=== PATIENT | female | born 1980 | race Caucasian/White ===

== ENCOUNTER 2019-06-13 13:37 | Outpatient (CLI) | payer OTHER, SELFPAY ==
--- NOTE | ~2019-06-13 | XR_ITS ---
XR chest 2V DATE: 06/13/2019 13:57 INDICATION: Cough, fever, chest tightness. TECHNIQUE: PA and lateral views COMPARISON: 07/23/2018 portable AP chest FINDINGS: Normal heart size. No hilar or mediastinal enlargement. No pulmonary infiltrate or consolid ation, pleural effusion or pulmonary vascular congestion or pneumothorax. IMPRESSION: No active cardiopulmonary disease Reviewed, dictated and finalized at location B.
== END 2019-06-13 13:38 | disposition home or self-care (01) ==
PROVIDERS: PCP Emergency Medicine; Visit Provider Emergency Medicine
DX: J20.9 Acute bronchitis, unspecified (principal)
CPT/HCPCS: 71046

== ENCOUNTER 2020-10-04 14:30 | Outpatient (RCR) | payer OTHER, SELFPAY ==
--- NOTE | 2020-09-05 12:08 | PTOPEVAL ---
INITIAL PHYSICAL THERAPY EVALUATION and PLAN OF CARE Thank you for referring Fernanda Duron to [facility].? Fernanda is scheduled to be seen for physical therapy? 2x/week for 3 weeks, 1x/wk x 3 wks. Please review, sign, date and return this plan of care DANIELA. I agree with and certify that the following plan of care is medically necessary. Referring Physician Date Admitting Provider: Attending Provider: Leti Hart, ADJUNCT PHLEBOTOMY INSTRUCTOR Referring Provider: *PT Outpatient Evaluation Start: 09/05/20 10:46 Freq: Status: Active Protocol: Document 09/05/20 10:47 MARIA ANTONIA (Rec: 09/05/20 12:06 MARIA ANTONIA [id number]) Therapy Assessment Status Assessment Status Assessment Status Evaluation Outpatient Past Medical History Past Medical History Source of Past Medical History Patient,Family/Significant Other Neurological History Hx Migraine Yes Gastrointestinal History Hx Appendectomy Yes Hx Gastroesophageal Reflux Disease Yes Hx Irritable Bowel Yes Hx Ulcer Yes Hx Other Gastrointestinal Disorders Yes: enlarged liver, 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 Genitourinary History Hx Other Genitourinary Disorders Yes: frequent urination Musculoskeletal History Hx Back Pain Yes: sees chiropractor Hx Fractures Yes: R leg, arm Reproductive History Hx Other Reproductive Disorders Yes: cyst on ovary Psychosocial History Hx Anxiety Yes Evaluation Information Problem Diagnosis pelvic and perineal pain, deep dyspareunia Onset since age 19 - worsening over the years Additional Evaluation Detail has lost ~ 100 lbs in last year Subjective Information Fernanda reports different Query Text:As Reported By Patient/ types pain - in R lower Family quadrant - constant achiness. With intercourse - with penetration - stabbing sensation. But at times at rest will also have the sharp pain. Sleeping difficult due to discomfort. Days can vary - can wake up feeling pretty good, but the more she moves around - more discomfort. Can have increased discomfort - feels better as she moves around Prior Level of Function Activity Level (Last 3 Months) Occupation not working at present [employer]
--- NOTE | 2020-09-21 16:15 | PCPTNOTE ---
Patient did not show up for scheduled appointment this date. There is a week break due to PT vacation - will call prior to her next appointment.
--- NOTE | 2020-10-01 15:24 | PCPTNOTE ---
Patient did not show up for scheduled appointment this date. Phone message left reminding her of her next appointment.
--- NOTE | 2020-10-08 12:20 | PCPTNOTE ---
Patient called & cancelled scheduled appointment this date due to having an appointment.
--- NOTE | 2020-10-12 09:31 | PCPTNOTE ---
Patient called & cancelled scheduled appointment this date due to illness,
--- NOTE | 2020-10-26 13:36 | PCPTNOTE ---
PHYSICAL THERAPY DISCHARGE NOTE Admitting Provider: Attending Provider: Leti Hart, CLOTH LAMINATING SUPERVISOR Patient:Fernanda Duron Date of :1980 Fernanda has not returned for any further treatments since 10/04/2020, therefore she will be discharged at this time. Fernanda?s initial visit was on 09/05/2020 10:30 and she had a total of 3 visits. She had 2 no shows and then cancelled her last 2 appointments. She has not called to reschedule any further appoints since 10/12/20. The goals have been partially met. Thank you for referring Fernanda to [facility]. Please review, sign, date and return this discharge summary DANIELA. I have been updated about Fernanda's current status and I agree with discharge from the above service at this time. Referring Physician Date
== END 2020-11-22 09:25 | disposition home or self-care (01) ==
LOC: ANHPT 14:30
PROVIDERS: PCP Internal Medicine; Visit Provider Nurse Practitioner Obstetrics & Gynecology
DX: R10.2 Pelvic and perineal pain (principal)
CPT/HCPCS: 97014; 97140; 97162; G0283

== ENCOUNTER 2020-11-28 11:47 | Emergency (ER) | payer OTHER, SELFPAY ==
[2020-11-28 11:59] VITALS: BP 129/85; PULSE 72; RESP 18; TEMP 36.9; O2SAT 100
--- NOTE | 2020-11-28 12:06 | ED.EAR ---
HPI - Ear Problem General Chief complaint: Ear Stated complaint: Sinus,Bilateral Ear Pain Time Seen by Provider: 11/28/20 12:06 Source: patient Mode of arrival: ambulatory Limitations: no limitations History of Present Illness HPI Narrative: Fernanda Goss is a 40 yo female with a PMH of migraine, celiac disease, chronic pelvic pain syndrome, who [facility] with complaints of pain in her right ear and right neck with some postnasal drip and mild pain left ear also she states that she lives around [place] and that she has sinus issues this time of the year every year. Related Data Allergies Allergy/AdvReac Type Severity Reaction Status Date / Time acetaminophen Allergy Mild RASH Verified 11/28/20 17:31 ibuprofen AdvReac Intermediate Ulcers Verified 11/28/20 17:31 Review of Systems Review of Systems: CONSTITUTIONAL: Denies fever, chills, sweats. EYES: Denies visual changes, redness, discharge. ENT: Denies rhinorrhea, congestion, sore throat, right otalgia. Postnasal drip and pain on right side of throat CARDIOVASCULAR: Denies chest pain, palpitations, edema. RESPIRATORY: Denies dyspnea, wheezing, cough GASTROINTESTINAL: Denies abdominal pain, nausea, vomiting, diarrhea. GENITOURINARY: Denies dysuria, hematuria, abnormal discharge SKIN: Denies rash or itching. NEUROLOGIC: Denies numbness, or focal weakness. PSYCHIATRIC: Denies anxiety or depression. [facility] Past Medical History Medical History Allergies Anxiety Asthma on prn albuterol MDI Celiac disease Chronic pelvic pain syndrome in female Irritable bowel syndrome Migraine Ulcer Viral exanthem Surgical History Surgical History H/O colonoscopy History of esophageal surgery Status post appendectomy Family History Family History Father , From prostate cancer, stomach cancer, bladder cancer, renal cancer Diabetes mellitus Mother Diabetes mellitus Asthma Hypertension Depression Anxiety Heart disease Sibling Asthma Hypertension Anxiety Depression Heart disease Thyroid disorder Grandparent Cancer Diabetes mellitus Heart disease Social History Social History Smoking packs per day: 1 Smoking cigarettes per day: 20.0 Years smoked: 25 Smoking pack-years: 25.00 Smoking status: Current every day smoker Tobacco type: cigarettes Second hand tobacco smoke exposure: Yes Alcohol intake: current Substance use: current Substance use type: marijuana 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 There is no relevant family history pertinent to the presenting complaint. Exam Narrative: GENERAL: This is a well-nourished, well-developed patient, in mild distress. HEAD: normocephalic, atraumatic. EYES: Sclera clear/white. Vision is grossly intact. EARS: External ears normal, auditory canals erythema with right greater than left and without drainage, fluid behind TM on right. Hearing grossly intact. NOSE: External nose normal without nasal discharge, nares without redness, no rhinorrhea. THROAT: Mucous membranes moist, posterior pharynx mildly erythema edematous with no exudate NECK: Neck supple, mild-tender on right CARDIOVASCULAR: Regular rate and rhythm without murmurs, gallops, or rubs. RESPIRATORY: Clear to auscultation. Breath sounds equal bilaterally. No wheezes, rales, or rhonchi. GASTROINTESTINAL: Abdomen soft, SKIN: warm, intact with no suspicious lesions or rash, good texture and turgor. NEURO: awake
== END 2020-11-28 12:44 | disposition home or self-care (01) ==
PROVIDERS: Emergency Provider Nurse Practitioner; PCP Internal Medicine
DX: H66.001 Acute suppurative otitis media without spontaneous rupture of ear drum, right ear (principal); J01.10 Acute frontal sinusitis, unspecified; F17.210 Nicotine dependence, cigarettes, uncomplicated
CPT/HCPCS: 87081; 87880; 99213; G0463

== ENCOUNTER 2021-03-14 18:12 | Emergency (ER) | payer OTHER, SELFPAY ==
[2021-03-14 18:22] VITALS: BP 122/69; PULSE 86; RESP 18; TEMP 36.2; O2SAT 100
[2021-03-14] MEDS: SODIUM CHLORIDE 0.9% IV 1,000 ML 999 ML IV CONT (21:13)
[2021-03-14] MEDS: diphenhydrAMINE HCl INJ 50 MG/ML VIAL 25 MG IV PUSH (21:14)
[2021-03-14] MEDS: KETOROLAC 30 MG/ML VIAL (*BKC) IV PUSH (21:15)
--- NOTE | 2021-03-14 22:03 | ED.HA ---
HPI - Headache General Chief Complaint: Headache Stated Complaint: migraine Time Seen by Provider: 03/14/21 20:33 History of Present Illness HPI Narrative: Patient is a 40-year-old female who presents ER with migraine headache. Worsening today. No improvement with Imitrex but she did take Reglan for nausea which seems to improved her vomiting. No fevers or chills or sweats. Reports increased stress because was hospitalized last night and is having difficulty with dialysis. Patient does endorse sensitivity to light and sound. She is scheduled to follow-up with her migraine specialist who plans on performing Botox injections in her neck. Related Data Allergies Allergy/AdvReac Type Severity Reaction Status Date / Time acetaminophen Allergy Mild RASH Verified 03/14/21 18:26 ibuprofen AdvReac Intermediate Ulcers Verified 03/14/21 18:26 Review of Systems Review of Systems: All systems reviewed & are unremarkable except as noted in HPI and below Constitutional: Constitutional: Denies chills, Denies fever(s) and Denies weakness Eyes: Eyes: Denies change in vision and Reports photophobia Respiratory: Respiratory: Denies cough, Denies dyspnea and Denies wheezing Gastrointestinal: Gastrointestinal: Denies abdominal pain, Reports nausea and Reports vomiting Neurologic: Denies syncope, Reports headache(s), Denies focal weakness and Denies numbness PMFSH Past Medical History Medical History Allergies Anxiety Asthma on prn albuterol MDI Celiac disease Chronic pelvic pain syndrome in female Irritable bowel syndrome Migraine Ulcer Viral exanthem Surgical History Surgical History H/O colonoscopy History of esophageal surgery Status post appendectomy Family History Family History Father , From prostate cancer, stomach cancer, bladder cancer, renal cancer Diabetes mellitus Mother Diabetes mellitus Asthma Hypertension Depression Anxiety Heart disease Sibling Asthma Hypertension Anxiety Depression Heart disease Thyroid disorder Grandparent Cancer Diabetes mellitus Heart disease Social History Social History Smoking packs per day: 1 Smoking cigarettes per day: 20.0 Years smoked: 25 Smoking pack-years: 25.00 Smoking status: Current every day smoker Tobacco type: cigarettes Second hand tobacco smoke exposure: Yes Alcohol intake: current Substance use: current Substance use type: marijuana 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 HEAD: Normocephalic, atraumatic. CHEST: Clear to auscultation. No respiratory distress. HEART: Regular rate and rhythm. Normal peripheral pulses. ABDOMEN: Soft, nontender, nondistended. EXTREMITIES: Normal range of motion. No edema. SKIN: Warm, dry, no rash. NEURO: Clear speech, no facial droop. Alert and oriented x3. PSYCH: Normal mood and affect. Course Course Emergency Course: Symptoms improved with Toradol/fluids/Benadryl. Patient is ready for discharge. Vital Signs Vital signs: Vital Signs Temperature 97.1 F L 03/14/21 18:22 Pulse Rate 86 03/14/21 18:22 Respiratory Rate 18 03/14/21 18:22 Blood Pressure 122/69 03/14/21 18:22 Pulse Oximetry 100 03/14/21 18:22 Temperature 97.1 F L 03/14/21 18:22 Pulse Rate 86 03/14/21 18:22 Respiratory Rate 18 03/14/21 18:22 Blood Pressure 122/69 03/14/21 18:22 Pulse Oximetry 100 03/14/21 18:22 Discharge Plan Discharge Clinical Im
[2021-03-14 22:12] VITALS: BP 100/60; PULSE 84; RESP 15; TEMP 37; O2SAT 100
== END 2021-03-14 22:23 | disposition home or self-care (01) ==
PROVIDERS: Emergency Provider Emergency Medicine; PCP Internal Medicine
DX: R51.9 Headache, unspecified (principal); J45.909 Unspecified asthma, uncomplicated; K90.0 Celiac disease; G89.4 Chronic pain syndrome; K58.9 Irritable bowel syndrome, unspecified; F17.210 Nicotine dependence, cigarettes, uncomplicated
CPT/HCPCS: 96361; 96374; 96375; 99284; J1200; J1885; J7030

== ENCOUNTER 2021-07-01 14:25 | Emergency (ER) | payer OTHER, SELFPAY ==
--- NOTE | 2021-07-01 14:43 | ED.URI ---
HPI - URI/Sore Throat General Chief Complaint: Upper Respiratory Infection Stated Complaint: sorethroat,congestion,cough Time Seen by Provider: 07/01/21 15:21 Source: patient and RN notes reviewed Mode of arrival: ambulatory Limitations: no limitations History of Present Illness HPI Narrative: 41-year-old female presents with concern for 4 to 5-day history of cough, sore throat, nasal congestion and rhinorrhea. She reports she is tried [id number] medications without relief. She denies fever, body aches, chills, sweats. She denies shortness of breath, nausea, vomiting, diarrhea. Reports her son has similar symptoms. MD elicited complaint: cough and sore throat Related Data Allergies Allergy/AdvReac Type Severity Reaction Status Date / Time acetaminophen Allergy Mild RASH Verified 07/01/21 15:10 ibuprofen AdvReac Intermediate Ulcers Verified 07/01/21 15:10 Review of Systems Review of Systems: CONSTITUTIONAL: Denies malaise, chills, sweats, or fever. EYES: Denies visual changes, redness, or discharge. ENT: Reports rhinorrhea, congestion, otalgia and sore throat. CARDIOVASCULAR: Denies chest pain, palpitations, or edema. RESPIRATORY: Reports cough. Denies dyspnea. GASTROINTESTINAL: Denies abdominal pain, nausea, vomiting, diarrhea SKIN: Denies rash or itching. MUSCULOSKELETAL: Denies myalgia. NEUROLOGIC: Denies headache. All systems reviewed & are unremarkable except as noted in HPI and below PMFSH Past Medical History Medical History Allergies Anxiety Asthma on prn albuterol MDI Celiac disease Chronic pelvic pain syndrome in female Irritable bowel syndrome Migraine Ulcer Viral exanthem Surgical History Surgical History H/O colonoscopy History of esophageal surgery Status post appendectomy Family History Family History Father , From prostate cancer, stomach cancer, bladder cancer, renal cancer Diabetes mellitus Mother Diabetes mellitus Asthma Hypertension Depression Anxiety Heart disease Sibling Asthma Hypertension Anxiety Depression Heart disease Thyroid disorder Grandparent Cancer Diabetes mellitus Heart disease Social History Social History Smoking packs per day: 1 Smoking cigarettes per day: 20.0 Years smoked: 25 Smoking pack-years: 25.00 Smoking status: Current every day smoker Tobacco type: cigarettes Second hand tobacco smoke exposure: Yes Alcohol intake: current Substance use: current Substance use type: marijuana 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 There is no relevant family history pertinent to the presenting complaint Exam Narrative: GENERAL: Well-appearing, well-nourished, and in no acute distress. HEAD: Normocephalic EYES: PERRLA, conjunctivae clear ENT: Nares clear, turbinates edematous and erythematous, clear discharge. Mucous membranes moist. TM pearly altamirano with sharp light reflex bilaterally; no tragal tenderness. Oropharynx not erythematous without lesions. Tonsils not enlarged and without exudate, no drooling, mild hoarseness, no trismus, uvula midline. NECK: Supple. No lymphadenopathy CHEST: Clear to auscultation, breath sounds equal. No wheezing, rhonchi, rales, or stridor. No respiratory distress, speaks in full sentences. HEART: Regular rate and rhythm. No murmur heard. SKIN: Warm, dry, no rash. NEURO: Alert and oriented x3. PSYCH: Normal mood and affect Course Course Emergency Course: Patient is aware of diagnos
[2021-07-01 14:49] VITALS: BP 125/74; PULSE 91; RESP 18; TEMP 37; O2SAT 100
== END 2021-07-01 15:40 | disposition home or self-care (01) ==
PROVIDERS: Emergency Provider Nurse Practitioner; PCP Internal Medicine
DX: J06.9 Acute upper respiratory infection, unspecified (principal); F17.210 Nicotine dependence, cigarettes, uncomplicated; F12.90 Cannabis use, unspecified, uncomplicated; J45.909 Unspecified asthma, uncomplicated; K90.0 Celiac disease
CPT/HCPCS: 87081; 87880; 99213; G0463

== ENCOUNTER 2021-12-04 12:37 | Emergency (ER) | payer OTHER, SELFPAY ==
--- NOTE | ~2021-12-04 | XR_ITS ---
EXAMINATION: XR shoulder LT min 2V DATE: 12/04/2021 13:12 INDICATION: Left shoulder pain. TECHNIQUE: 4 views of left shoulder were obtained. COMPARISON: None. FINDINGS: Bone alignment is normal. No fracture. Joint spaces are well maintained. IMPRESSION: 1. Normal left shoulder. Reviewed, dictated and finalized at location A. IMPRESSION: 1. Normal left shoulder.
--- NOTE | 2021-12-04 12:42 | ED.UPPEXIN ---
HPI - Extremity Injury (Upper) General Chief Complaint: Extremity Injury, Upper Stated Complaint: lt shoulder injury Time Seen by Provider: 12/04/21 12:57 Source: patient and RN notes reviewed Mode of arrival: ambulatory Limitations: no limitations History of Present Illness HPI narrative: 41-year-old female presents concern for injury to her left shoulder. She reports at work yesterday she was moving a cart when a very heavy object fell on her shoulder. She reports of bruise to the anterior shoulder, pain with certain range of motion. She denies decree strength, sensation. She reports she cannot take Tylenol ibuprofen due to allergies. MD complaint: injury to: left and shoulder Related Data Home Medications Medication Instructions Recorded Confirmed hydroxyzine HCl 50 mg tablet 50 mg PO BID 07/11/21 12/04/21 lamotrigine 100 mg tablet,extended 100 mg PO DAILY 07/11/21 12/04/21 release 24 hr Allergies Allergy/AdvReac Type Severity Reaction Status Date / Time acetaminophen Allergy Mild RASH Verified 12/04/21 12:57 ibuprofen AdvReac Intermediate Ulcers Verified 12/04/21 12:57 Review of Systems Review of Systems: CONSTITUTIONAL: Denies malaise, chills, sweats, or fever. CARDIOVASCULAR: Denies chest pain, palpitations, or edema. RESPIRATORY: Denies cough or dyspnea. SKIN: Denies rash or itching, redness, swelling. MUSCULOSKELETAL: Reports pain and bruising to the anterior left shoulder NEUROLOGIC: Denies numbness, weakness All systems reviewed & are unremarkable except as noted in HPI and below PMFSH Past Medical History Medical History Allergies Anxiety Asthma on prn albuterol MDI Celiac disease Chronic pelvic pain syndrome in female Irritable bowel syndrome Migraine Ulcer Viral exanthem Surgical History Surgical History H/O colonoscopy History of esophageal surgery Status post appendectomy Family History Family History Father , From prostate cancer, stomach cancer, bladder cancer, renal cancer Diabetes mellitus Mother Diabetes mellitus Asthma Hypertension Depression Anxiety Heart disease Sibling Asthma Hypertension Anxiety Depression Heart disease Thyroid disorder Grandparent Cancer Diabetes mellitus Heart disease Social History Social History Smoking packs per day: 1 Smoking cigarettes per day: 20.0 Years smoked: 25 Smoking pack-years: 25.00 Smoking status: Never smoker Tobacco type: cigarettes Second hand tobacco smoke exposure: Yes Alcohol intake: current Substance use: current Substance use type: marijuana 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 There is no relevant family history pertinent to the presenting complaint Exam Narrative: GENERAL: Well-appearing, well-nourished, and in no acute distress. HEAD: Normocephalic, atraumatic. EYES: PERRLA, conjunctivae clear NECK: Supple. CHEST: Speaks in full sentences. No respiratory distress. HEART: Regular rate and rhythm. Normal and equal peripheral pulses. EXTREMITIES: Left upper extremity has grossly normal strength and sensation, range of motion limited likely due to pain. No edema, erythema, warmth. Less than 3 cm area of ecchymosis and tenderness noted to the anterior shoulder. Normal sensation with sensitivity to light touch and pain. No open wounds, no skin tenting, no devitalized tissue or atrophy, no trophic changes, no obvious deformity, alignment normal, nearby joints and structure
[2021-12-04 12:51] VITALS: BP 117/65; PULSE 83; RESP 18; TEMP 37; O2SAT 100
== END 2021-12-04 13:33 | disposition home or self-care (01) ==
PROVIDERS: Emergency Provider Nurse Practitioner; PCP Internal Medicine
DX: S40.012A Contusion of left shoulder, initial encounter (principal); W20.8XXA Other cause of strike by thrown, projected or falling object, initial encounter; Y99.0 Civilian activity done for income or pay; F41.9 Anxiety disorder, unspecified; J45.909 Unspecified asthma, uncomplicated; F17.210 Nicotine dependence, cigarettes, uncomplicated; F12.90 Cannabis use, unspecified, uncomplicated
CPT/HCPCS: 73030; 99213; G0463

== ENCOUNTER 2021-12-12 12:45 | Emergency (ER) | payer OTHER, SELFPAY ==
--- NOTE | ~2021-12-12 | XR_ITS ---
EXAMINATION: XR chest 2V DATE: 12/12/2021 13:24 INDICATION: Cough. Shortness of breath. TECHNIQUE: Frontal and lateral views of the chest were obtained. COMPARISON: Chest 2 views 06/13/2019 FINDINGS: The chest demonstrates clear lungs without pneumonia, pleural effusion, or pneumothorax. Th e heart size is normal. IMPRESSION: 1. No acute cardiopulmonary disease. Reviewed, dictated and finalized at location A.
[2021-12-12 12:52] VITALS: BP 121/73; PULSE 111; RESP 18; TEMP 36.7; O2SAT 100
--- NOTE | 2021-12-12 13:53 | ED.URI ---
HPI - URI/Sore Throat General Chief Complaint: Upper Respiratory Infection Stated Complaint: Cough,Shortness of Breath Source: patient History of Present Illness HPI Narrative: This is a 41-year-old female who presented to urgent care with complaints of postnasal drainage, congestion with clear fluids, chest discomfort migraine headache, uncontrolled cough that was nonproductive, and shortness of breath according to patient she did Zytex along with Mucinex and Sudafed for her symptoms with no relief. Patient tested positive for COVID. She is unvaccinated. The patient denies , palpitation, extremity numbness, lightheadedness, dizziness, constipation, diarrhea, chills, or fever. Related Data Home Medications Medication Instructions Recorded Confirmed hydroxyzine HCl 50 mg tablet 50 mg PO BID 07/11/21 12/12/21 lamotrigine 100 mg tablet,extended 100 mg PO DAILY 07/11/21 12/12/21 release 24 hr sumatriptan succinate 100 mg tablet 100 mg PO PRN PRN Migraine Headache 12/12/21 12/12/21 Allergies Allergy/AdvReac Type Severity Reaction Status Date / Time acetaminophen Allergy Mild RASH Verified 12/12/21 13:08 ibuprofen AdvReac Intermediate Ulcers Verified 12/12/21 13:08 Review of Systems Review of Systems: A 14 organ system Review of Systems was performed and pertinent positives included in the HPI, otherwise remaining ROS is negative. [facility] Past Medical History Medical History Allergies Anxiety Asthma on prn albuterol MDI Celiac disease Chronic pelvic pain syndrome in female Irritable bowel syndrome Migraine Ulcer Viral exanthem Surgical History Surgical History H/O colonoscopy History of esophageal surgery Status post appendectomy Family History Family History Father , From prostate cancer, stomach cancer, bladder cancer, renal cancer Diabetes mellitus Mother Diabetes mellitus Asthma Hypertension Depression Anxiety Heart disease Sibling Asthma Hypertension Anxiety Depression Heart disease Thyroid disorder Grandparent Cancer Diabetes mellitus Heart disease Social History Social History Smoking packs per day: 1 Smoking cigarettes per day: 20.0 Years smoked: 25 Smoking pack-years: 25.00 Smoking status: Never smoker Tobacco type: cigarettes Second hand tobacco smoke exposure: Yes Alcohol intake: current Substance use: current Substance use type: marijuana 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 HEAD: normocephalic, atraumatic. EYES: PERRL. Sclera clear/white. Vision is grossly intact. EARS: External ears normal, auditory canals clear and without drainage, TMs normal without perforation. Hearing grossly intact. NOSE: External nose normal with no obvious nasal discharge, nares without redness, no rhinorrhea. THROAT: Mucous membranes moist, posterior pharynx clear. NECK: Neck supple, non-tender without lymphadenopathy, masses or thyromegaly. CARDIOVASCULAR: Regular rate and rhythm without murmurs, gallops, or rubs. RESPIRATORY: Clear to auscultation. Breath sounds equal bilaterally. No wheezes, rales, or rhonchi. GASTROINTESTINAL: Abdomen soft, non-tender, nondistended. Bowel sounds are active. No hepato-splenomegaly, or palpable masses. No guarding. SKIN: warm, intact with no suspicious lesions or rash, good texture and turgor. NEURO: awake, alert, and oriented to person, place and time. There were no obvious focal neurologic abnormalities. EXTREMITIES: N
== END 2021-12-12 13:40 | disposition home or self-care (01) ==
PROVIDERS: Emergency Provider Nurse Practitioner; PCP Internal Medicine
DX: U07.1 COVID-19 (principal); F41.9 Anxiety disorder, unspecified; J45.909 Unspecified asthma, uncomplicated; F17.210 Nicotine dependence, cigarettes, uncomplicated; F12.90 Cannabis use, unspecified, uncomplicated
CPT/HCPCS: 71046; 87426; 87804; 99213; C9803; G0463

== ENCOUNTER 2022-01-09 17:34 | Emergency (ER) | payer OTHER, SELFPAY ==
[2022-01-09 17:43] VITALS: BP 121/73; PULSE 85; RESP 18; TEMP 36.9; O2SAT 100
--- NOTE | 2022-01-09 18:16 | ED.NAVMDI ---
HPI - Nausea/Vomiting/Diarrhea General Chief complaint: Nausea/Vomiting/Diarrhea Stated complaint: Diarrhea,Abdominal Pain Time Seen by Provider: 01/09/22 18:16 Source: patient and RN notes reviewed Mode of arrival: ambulatory Limitations: no limitations History of Present Illness HPI Narrative: 41-year-old with history of celiac disease female presenting for complaint of diarrhea since last night. states symptoms started after she ate burger kaden yesterday. Endorses immediate need to have bowel movement. She has had at least 12 liquid stools since yesterday. Endorses nausea and cramping, stating it feels like my insides are on fire. Denies vomiting, hematochezia, melena, fevers or chills. Taking p.r.n. dicyclomine and scheduled Protonix as directed. Denies sick contacts. Attempted to contact her GI specialist but was unable to reach them. Related Data Home Medications Medication Instructions Recorded Confirmed hydroxyzine HCl 50 mg tablet 50 mg PO BID 07/11/21 01/09/22 lamotrigine 100 mg tablet,extended 100 mg PO DAILY 07/11/21 01/09/22 release 24 hr sumatriptan succinate 100 mg tablet 100 mg PO PRN PRN Migraine Headache 12/12/21 01/09/22 dicyclomine 20 mg tablet 20 mg PO BID 01/09/22 01/09/22 pantoprazole 40 mg tablet,delayed 40 mg PO DAILY 01/09/22 01/09/22 release Allergies Allergy/AdvReac Type Severity Reaction Status Date / Time acetaminophen Allergy Mild RASH Verified 01/09/22 17:50 ibuprofen AdvReac Intermediate Ulcers Verified 01/09/22 17:50 Review of Systems Review of Systems: CONSTITUTIONAL: denies malaise, chills, sweats, fever EYES: Denies visual changes, redness, or discharge ENT: denies rhinorrhea, congestion, sinus pain, otalgia, sore throat CARDIOVASCULAR: Denies chest pain, palpitations, edema RESPIRATORY: Denies dyspnea GASTROINTESTINAL: Per HPI PMFSH Past Medical History Medical History Allergies Anxiety Asthma on prn albuterol MDI Celiac disease Chronic pelvic pain syndrome in female Irritable bowel syndrome Migraine Ulcer Viral exanthem Surgical History Surgical History H/O colonoscopy History of esophageal surgery Status post appendectomy Family History Family History Father , From prostate cancer, stomach cancer, bladder cancer, renal cancer Diabetes mellitus Mother Diabetes mellitus Asthma Hypertension Depression Anxiety Heart disease Sibling Asthma Hypertension Anxiety Depression Heart disease Thyroid disorder Grandparent Cancer Diabetes mellitus Heart disease Social History Social History Smoking packs per day: 1 Smoking cigarettes per day: 20.0 Years smoked: 25 Smoking pack-years: 25.00 Smoking status: Never smoker Tobacco type: cigarettes Second hand tobacco smoke exposure: Yes Alcohol intake: current Substance use: current Substance use type: marijuana 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 CHEST: Clear to auscultation, breath sounds equal. HEART: Regular rate and rhythm. No murmur heard. ABD: soft, flat, BS+x4 mild epigastric tenderness with palpation; guarding while seated SKIN: Warm, dry, no rash. NEURO: Alert and oriented x3. PSYCH: Normal mood and affect Course Course Emergency Course: Patient is aware of diagnosis, understands and agrees to treatment plan. Anticipatory guidance given. Patient agrees to follow-up as directed and is aware of reasons to s
== END 2022-01-09 18:31 | disposition home or self-care (01) ==
PROVIDERS: Emergency Provider Nurse Practitioner Family; PCP Internal Medicine
DX: R19.7 Diarrhea, unspecified (principal); F17.219 Nicotine dependence, cigarettes, with unspecified nicotine-induced disorders; F12.90 Cannabis use, unspecified, uncomplicated; J45.909 Unspecified asthma, uncomplicated; F41.9 Anxiety disorder, unspecified; K90.0 Celiac disease
CPT/HCPCS: 99213; G0463

== ENCOUNTER 2022-10-20 09:20 | Outpatient (CLI) | payer OTHER, SELFPAY ==
[2022-10-20 10:30] LABS: Beta HCG Quantitative 95.25 mIU/ML
== END 2022-10-20 09:21 | disposition home or self-care (01) ==
PROVIDERS: PCP Internal Medicine; Visit Provider Advanced Practice Midwife
DX: N91.2 Amenorrhea, unspecified (principal)
CPT/HCPCS: 36415; 84702

== ENCOUNTER 2022-10-21 20:17 | Emergency (ER) | payer OTHER, SELFPAY ==
[2022-10-21 20:47] VITALS: BP 119/73; PULSE 81; RESP 16; TEMP 36.6; O2SAT 100
[2022-10-21 23:14] VITALS: BP 118/68; PULSE 78; RESP 15; TEMP 37.1; O2SAT 99
[2022-10-21] MEDS: METOCLOPRAMIDE HCL INJ 10 MG/2 ML VIAL IM (23:18)
[2022-10-21] MEDS: diphenhydrAMINE HCl CAP 25 MG CAPSULE PO (23:18)
--- NOTE | 2022-10-22 01:09 | ED.HA ---
HPI - Headache General Chief Complaint: Headache Stated Complaint: migraine Time Seen by Provider: 10/21/22 22:40 History of Present Illness HPI Narrative: 42-year-old female with history of migraines who is about 4 weeks presents here with her usual migraine, no new symptoms, describes as throbbing from front to back, and she is very worried because she does not know what regular medication she is able to take safely during . Related Data Home Medications Medication Instructions Recorded Confirmed hydroxyzine HCl 50 mg tablet 50 mg PO BID 07/11/21 05/08/22 lamotrigine 100 mg tablet,extended 100 mg PO DAILY 07/11/21 05/08/22 release 24 hr sumatriptan succinate 100 mg tablet 100 mg PO PRN PRN Migraine Headache 12/12/21 05/08/22 dicyclomine 20 mg tablet 20 mg PO BID 01/09/22 05/08/22 pantoprazole 40 mg tablet,delayed 40 mg PO DAILY 01/09/22 05/08/22 release Allergies Allergy/AdvReac Type Severity Reaction Status Date / Time acetaminophen Allergy Mild RASH Verified 10/21/22 20:49 ibuprofen AdvReac Intermediate Ulcers Verified 10/21/22 20:49 trazodone AdvReac Other Verified 10/21/22 20:49 Review of Systems Review of Systems: CONST: No fever. HEENT: Photophobia C/V: No chest pain RESP: No cough GI: Nausea : No dysuria. M/S: No joint pain. SKIN: No rash. NEURO: Headache without focal numbness or weakness PSYCH: [No depression] PMFSH Past Medical History Medical History Allergies Anxiety Asthma on prn albuterol MDI Celiac disease Chronic pelvic pain syndrome in female Irritable bowel syndrome Migraine Ulcer Viral exanthem Surgical History Surgical History H/O colonoscopy History of esophageal surgery Status post appendectomy Family History Family History Father , From prostate cancer, stomach cancer, bladder cancer, renal cancer Diabetes mellitus Mother Diabetes mellitus Asthma Hypertension Depression Anxiety Heart disease Sibling Asthma Hypertension Anxiety Depression Heart disease Thyroid disorder Grandparent Cancer Diabetes mellitus Heart disease Social History Social History (Updated 05/08/22 @ 10:08 by Tg Sharif [facility]) Smoking packs per day: 1 Smoking cigarettes per day: 20.0 Years smoked: 25 Smoking pack-years: 25.00 Smoking status: Never smoker Tobacco type: cigarettes Second hand tobacco smoke exposure: Yes Alcohol intake: current Substance use: current Substance use type: marijuana Lack of Transportation: No Lack of Food: Sometimes True Current Housing: I Have Housing Concerned About Future Housing: No Difficulty Paying Gas/Electric Bills: No Difficulty Paying for Meds: No Currently Unemployed: No Education: High School Diploma/GED Difficulty w/ Childcare or Family Care: No Living arrangements: with family Occupation/Education: occupation 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 EYES: EOMI, conjunctiva normal ENT: Hearing grossly intact LUNGS: Nonlabored breathing. HEART: [Regular rate and rhythm] ABD: [Soft], [nontender to palpation] EXT: Normal range of motion SKIN: [No rashes or lesions.] NEURO: [Alert and oriented x 3. No gross focal sensory or strength deficits.] PSYCH: Normal affect Course Vital Signs Vital signs: Vital Signs Temperature 97.9 F 10/21/22 20:47 Pulse Rate 81 10/21/22 20:47 Respiratory Rate 16 10/21/22 2
== END 2022-10-22 00:08 | disposition home or self-care (01) ==
PROVIDERS: Emergency Provider Emergency Medicine; PCP Internal Medicine
DX: O99.351 Diseases of the nervous system complicating pregnancy, first trimester (principal); G43.909 Migraine, unspecified, not intractable, without status migrainosus; O99.511 Diseases of the respiratory system complicating pregnancy, first trimester; J45.909 Unspecified asthma, uncomplicated; O99.611 Diseases of the digestive system complicating pregnancy, first trimester; K90.0 Celiac disease; K58.9 Irritable bowel syndrome, unspecified; G89.4 Chronic pain syndrome; R10.2 Pelvic and perineal pain; O99.331 Smoking (tobacco) complicating pregnancy, first trimester; F17.210 Nicotine dependence, cigarettes, uncomplicated; Z3A.00 Weeks of gestation of pregnancy not specified
CPT/HCPCS: 96372; 99283; A9270; J2765

== ENCOUNTER 2022-10-22 09:48 | Outpatient (CLI) | payer OTHER, SELFPAY ==
[2022-10-22 11:18] LABS: Beta HCG Quantitative 274.33 mIU/ML
== END 2022-10-22 09:49 | disposition home or self-care (01) ==
LOC: ANHLAB 09:49
PROVIDERS: PCP Internal Medicine; Visit Provider Advanced Practice Midwife
DX: Z32.01 Encounter for pregnancy test, result positive (principal)
CPT/HCPCS: 36415; 84702

== ENCOUNTER 2022-10-29 09:47 | Emergency (ER) | payer OTHER, SELFPAY ==
[2022-10-29] VITALS (10 sets, daily range): BP systolic 108–148; BP diastolic 63–75; PULSE 74–100; RESP 14–20; TEMP 36.5–36.8; O2SAT 97–100
--- NOTE | 2022-10-29 10:08 | ECG_ITS ---
Measurements Intervals [place] Rate: 77 P: 73 CO: 128 QRS: 80 QRSD: 88 T: 63 QT: 349 QTc: 395 Interpretive Statements SINUS RHYTHM MINIMAL VOLTAGE CRITERIA FOR LVH, CONSIDER NORMAL VARIANT [MEETS CRITERIA IN ONE OF: R(aVL), S(V1), R(V5), R(V5/V6)+S(V1)] COMPARED TO ECG 07/23/2018 13:11:20 SINUS RHYTHM NOW PRESENT Electronically Signed On 10-29-2022 15:22:28 CDT by Chiqui Haji M.D.
--- NOTE | 2022-10-29 10:10 | ED.GENADULT ---
HPI - General Adult General Chief complaint: Unspecified Stated complaint: Rash, Dizzy, Time Seen by Provider: 10/29/22 09:54 History of Present Illness HPI narrative: 42-year-old female with history of migraines is approximately 5 weeks presents to the emergency room complaints of dizziness lightheadedness and nausea. Patient states the dizziness has been constant for the last 2 days. Reports unable to keep down any fluids. Denies any abdominal pain or fevers. Patient states that she has not establish care with an [facility]. Related Data Home Medications Medication Instructions Recorded Confirmed hydroxyzine HCl 50 mg tablet 50 mg PO BID 07/11/21 05/08/22 lamotrigine 100 mg tablet,extended 100 mg PO DAILY 07/11/21 05/08/22 release 24 hr sumatriptan succinate 100 mg tablet 100 mg PO PRN PRN Migraine Headache 12/12/21 05/08/22 dicyclomine 20 mg tablet 20 mg PO BID 01/09/22 05/08/22 pantoprazole 40 mg tablet,delayed 40 mg PO DAILY 01/09/22 05/08/22 release Allergies Allergy/AdvReac Type Severity Reaction Status Date / Time acetaminophen Allergy Mild RASH Verified 10/21/22 20:49 ibuprofen AdvReac Intermediate Ulcers Verified 10/21/22 20:49 trazodone AdvReac Other Verified 10/21/22 20:49 Review of Systems Review of Systems: CONSTITUTIONAL: Denies fever, chills, or sweats. EYES: Denies visual changes, redness, or discharge. ENT: Denies rhinorrhea, congestion, sore throat, or otalgia. CARDIOVASCULAR: Denies chest pain, palpitations, or edema. RESPIRATORY: Denies cough or dyspnea. GASTROINTESTINAL: Reports nausea GENITOURINARY: Denies dysuria or hematuria. SKIN: Denies rash or itching. MUSCULOSKELETAL: Denies back pain, joint pain, or myalgia. NEUROLOGIC: Reports dizziness PSYCHIATRIC: Denies anxiety or depression. [facility] Past Medical History Medical History Allergies Anxiety Asthma on prn albuterol MDI Celiac disease Chronic pelvic pain syndrome in female Irritable bowel syndrome Migraine Ulcer Viral exanthem Surgical History Surgical History H/O colonoscopy History of esophageal surgery Status post appendectomy Family History Family History Father , From prostate cancer, stomach cancer, bladder cancer, renal cancer Diabetes mellitus Mother Diabetes mellitus Asthma Hypertension Depression Anxiety Heart disease Sibling Asthma Hypertension Anxiety Depression Heart disease Thyroid disorder Grandparent Cancer Diabetes mellitus Heart disease Social History Social History Smoking packs per day: 1 Smoking cigarettes per day: 20.0 Years smoked: 25 Smoking pack-years: 25.00 Smoking status: Never smoker Tobacco type: cigarettes Second hand tobacco smoke exposure: Yes Alcohol intake: current Substance use: current Substance use type: marijuana Lack of Transportation: No Lack of Food: Sometimes True Current Housing: I Have Housing Concerned About Future Housing: No Difficulty Paying Gas/Electric Bills: No Difficulty Paying for Meds: No Currently Unemployed: No Education: High School Diploma/GED Difficulty w/ Childcare or Family Care: No Living arrangements: with family Occupation/Education: occupation 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 HEAD: Normocephalic, atraumatic. EYES: Conjunctivae normal, PERRLA and EOMI. CHEST: Clear to auscultation. No respiratory distress. No wheezes rales or rhonc
[2022-10-29] MEDS: SODIUM CHLORIDE 0.9% IV 1,000 ML 999 ML IV CONT (10:25)
[2022-10-29] MEDS: ONDANSETRON INJ 4 MG/2 ML VIAL IV PUSH (10:26)
[2022-10-29 10:30] LABS: Basophils Absolute Auto 0.1 K/mm3 (0.0-0.1); Basophils Percent Auto 0.8 % (0.2-1.2); Eosinophils Absolute Auto 0.1 K/mm3 (0-0.3); Eosinophils Percent Auto 1.3 % (0-4.4); Hemoglobin 14.8 g/dL (12.0-15.0); Immature Granulocyte Absolute 0.03 K/mm3 (0.00-0.031); Immature Granulocyte Percent A 0.3 % (0-0.5); Lymphocytes Percent Auto 14.4 % (18.3-44.2); Mean Corpuscular HGB Conc 33.6 g/dl (32-36); Mean Corpuscular Hemoglobin 31.5 pg (26-34); Mean Corpuscular Volume 93.6 fl (80-100); Mean Platelet Volume 11.6 fl (7.4-10.4); Monocytes Absolute Auto 0.5 K/mm3 (0.1-0.6); Monocytes Percent Auto 5.2 % (2.6-8.5); Neutrophils Absolute Auto 7.6 K/mm3 (1.3-6.7); Platelet Count Result 181 k/mm3 (150-375); Red Cell Distribution Width 12.8 % (11.5-14.5); White Blood Count 9.7 K/mm3 (4.5-10.0)
[2022-10-29 10:37] LABS: Appearance Urine Clear (Clear); Bacteria Urine None Seen /hpf; Bilirubin Urine Negative (Negative); Blood Urine Negative (Negative); Color Urine Yellow (Yellow); Glucose Urine UA Negative (Negative); Ketones Urine Trace mg/dL (Negative); Leukocyte Esterase Ur 2+ LEU/UL (Negative); Nitrate Urine Negative (Negative); Non Pathogenic Casts 0-2; Protein Urine Negative (Negative); RBC Urine 0-2 /hpf (0-2); Specific Grav Ur 1.026 (1.001-1.035); Squamous Epithelial Cell Urine Few /hpf (Few); WBC Urine 21-50 /hpf; pH Urine 5.5 (5.0-9.0)
[2022-10-29 10:57] LABS: Alanine Aminotransferase 22 U/L (6-35); Albumin Level 4.3 g/dL (3.5-5.1); Alkaline Phosphatase 71 U/L (38-126); Anion Gap 7 mmol/L (8-16); Aspartate Amino Transferase 22 U/L (14-36); Bilirubin,Total 0.4 mg/dL (0.2-1.3); Blood Urea Nitrogen 13 mg/dL (7-17); Calcium 8.6 mg/dL (8.4-10.2); Carbon Dioxide 22 mmol/L (22-30); Chloride 107 mmol/L (98-107); Estimated CRCL calculation 102 ml/min; Estimated Glomerular Filt Rate > 60; Glucose 152 mg/dL (65-110); Potassium 3.7 mmol/L (3.4-5.0); Sodium 136 mmol/L (137-145); Troponin I < 0.012 ng/mL (0.000-0.034)
[2022-10-29 11:10] LABS: Add Urine Microscopic? YES
== END 2022-10-29 11:26 | disposition home or self-care (01) ==
PROVIDERS: Emergency Provider Nurse Practitioner Family; PCP Internal Medicine
DX: O26.891 Other specified pregnancy related conditions, first trimester (principal); R42 Dizziness and giddiness; R11.0 Nausea; O99.511 Diseases of the respiratory system complicating pregnancy, first trimester; J45.909 Unspecified asthma, uncomplicated; O99.611 Diseases of the digestive system complicating pregnancy, first trimester; K58.9 Irritable bowel syndrome, unspecified; K90.0 Celiac disease; O99.351 Diseases of the nervous system complicating pregnancy, first trimester; G89.4 Chronic pain syndrome; R10.2 Pelvic and perineal pain; O99.331 Smoking (tobacco) complicating pregnancy, first trimester; F17.210 Nicotine dependence, cigarettes, uncomplicated; Z3A.01 Less than 8 weeks gestation of pregnancy
CPT/HCPCS: 36415; 80053; 81001; 84484; 84702; 85025; 87086; 93005; 96361; 96374; 99284; J2405; J7030

== ENCOUNTER 2022-10-31 20:07 | Emergency (ER) | payer OTHER, SELFPAY ==
--- NOTE | ~2022-10-31 | US_ITS ---
EXAMINATION: US OB <=14 wk fetus w TV DATE: 11/01/2022 01:18 INDICATION: Pelvic pain. Vaginal bleeding. . TECHNIQUE: Real-time transabdominal and transvaginal pelvic ultrasound was performed. COMPARISON: None. FINDINGS: TRANSABDOMINAL ULTRASOUND: The uterus measures 7.9 x 5.3 x 4.4 cm. TRANSVAGINAL ULTRASOUND: There is a cyst in the endometrial complex with mean diameter of 7 mm and in tradecidual sign, consistent with a gestational sac with estimated gestational age of 5 weeks and 3 d ays +/- 3 days. No yolk sac or pole is identified. There are nabothian cysts in the cervix. Th e right ovary measures 2.4 x 1.4 x 1.8 cm. The left ovary measures 2.8 x 2.0 x 2.3 cm. There is no fr ee fluid in the pelvis. IMPRESSION: 1. Single intrauterine gestation with estimated date of delivery of 07/01/2023. Reviewed, dictated and finalized at location A.
[2022-10-31 20:13] VITALS: BP 152/83; PULSE 110; RESP 17; TEMP 36.3; O2SAT 100
[2022-10-31 21:53] VITALS: PULSE 79; RESP 18; O2SAT 100
--- NOTE | 2022-10-31 23:01 | ED.PREGNANCY ---
HPI - General Chief complaint: Vaginal Bleeding <Marcy Gillis PA-C - Last Filed: 11/04/22 19:13> Stated complaint: vaginal bleeding 5 weeks <Marcy Gillis PA-C - Last Filed: 11/04/22 19:13> Time Seen by Provider: 10/31/22 22:04 <Marcy Gillis PA-C - Last Filed: 11/04/22 19:13> Source: patient <Marcy Gillis PA-C - Last Filed: 11/04/22 19:13> Mode of arrival: ambulatory <YESENIA Cruz Last Filed: 11/04/22 19:13> Limitations: no limitations <YESENIA Cruz Last Filed: 11/04/22 19:13> History of Present Illness HPI Narrative: This is a 42 year old female, about 5 weeks , that presents to the ER for vaginal bleeding today. Reports light spotting. Associated with pelvic cramping. Also reports lightheadedness and nausea. Her OB is at [facility] [place]. She has not had an US yet this . Denies fever or vomiting. <YESENIA Cruz Last Filed: 11/04/22 19:13> Related Data Home medications: Home Medications Medication Instructions Recorded Confirmed hydroxyzine HCl 50 mg tablet 50 mg PO BID 07/11/21 05/08/22 lamotrigine 100 mg tablet,extended 100 mg PO DAILY 07/11/21 05/08/22 release 24 hr sumatriptan succinate 100 mg tablet 100 mg PO PRN PRN Migraine Headache 12/12/21 05/08/22 dicyclomine 20 mg tablet 20 mg PO BID 01/09/22 05/08/22 pantoprazole 40 mg tablet,delayed 40 mg PO DAILY 01/09/22 05/08/22 release <YESENIA Cruz Last Filed: 11/04/22 19:13> Allergies/Adverse reactions: Allergies Allergy/AdvReac Type Severity Reaction Status Date / Time acetaminophen Allergy Mild RASH Verified 10/21/22 20:49 ibuprofen AdvReac Intermediate Ulcers Verified 10/21/22 20:49 trazodone AdvReac Other Verified 10/21/22 20:49 <Marcy Gillis PA-C - Last Filed: 11/04/22 19:13> Review of Systems Review of Systems: CONSTITUTIONAL: Denies fever GASTROINTESTINAL: Reports pelvic cramping and nausea. Denies vomiting GENITOURINARY: Denies dysuria or hematuria. <Marcy Gillis PA-C - Last Filed: 11/04/22 19:13> All systems reviewed & are unremarkable except as noted in HPI and below <Marcy Gillis PA-C - Last Filed: 11/04/22 19:13> [facility] Past Medical History Medical History: Medical History Allergies Anxiety Asthma on prn albuterol MDI Celiac disease Chronic pelvic pain syndrome in female Irritable bowel syndrome Migraine Ulcer Viral exanthem <Marcy Gillis PA-C - Last Filed: 11/04/22 19:13> Surgical History Surgical History: Surgical History H/O colonoscopy History of esophageal surgery Status post appendectomy <Marcy Gillis PA-C - Last Filed: 11/04/22 19:13> Family History Family History: Family History Father , From prostate cancer, stomach cancer, bladder cancer, renal cancer Diabetes mellitus Mother Diabetes mellitus Asthma Hypertension Depression Anxiety Heart disease Sibling Asthma Hypertension Anxiety Depression Heart disease Thyroid disorder Grandparent Cancer Diabetes mellitus Heart disease <Marcy Gillis PA-C - Last Filed: 11/04/22 19:13> Social History Social History: Social History (Updated 10/31/22 @ 23:10 by Marcy Gillis PA-C) Smoking packs per day: 1 Smoking cigarettes per day: 20.0 Years smoked: 25 Smoking pack-years: 25.00 Smoking status: Current every day smoker Tobacco type: cigarettes Second hand tobacco smoke exposure: Yes Alcohol intake: current Substance use: current Substance use type: marijuana Lack of Transportation: No Lack of Food: Sometimes True Current Housing: I Have Housing Concerned About Future Housing: No Difficulty Paying Gas/Electric Bills: No Difficulty Sean
[2022-10-31 23:41] LABS: Alanine Aminotransferase 20 U/L (6-35); Albumin Level 3.8 g/dL (3.5-5.1); Alkaline Phosphatase 57 U/L (38-126); Anion Gap 9 mmol/L (8-16); Aspartate Amino Transferase 20 U/L (14-36); Bilirubin,Total 0.5 mg/dL (0.2-1.3); Blood Urea Nitrogen 7 mg/dL (7-17); Calcium 8.4 mg/dL (8.4-10.2); Carbon Dioxide 20 mmol/L (22-30); Chloride 108 mmol/L (98-107); Estimated CRCL calculation 103 ml/min; Estimated Glomerular Filt Rate > 60; Glucose 90 mg/dL (65-110); Potassium 3.4 mmol/L (3.4-5.0); Sodium 137 mmol/L (137-145)
[2022-11-01 00:31] LABS: Basophils Absolute Auto 0.1 K/mm3 (0.0-0.1); Basophils Percent Auto 0.8 % (0.2-1.2); Eosinophils Absolute Auto 0.1 K/mm3 (0-0.3); Eosinophils Percent Auto 1.6 % (0-4.4); Hematocrit 41.4 % (37.0-47.0); Hemoglobin 13.7 g/dL (12.0-15.0); Immature Granulocyte Absolute 0.02 K/mm3 (0.00-0.031); Immature Granulocyte Percent A 0.2 % (0-0.5); Lymphocytes Absolute Auto 2.18 K/mm3 (0.9-3.2); Mean Corpuscular HGB Conc 33.1 g/dl (32-36); Mean Corpuscular Hemoglobin 31.4 pg (26-34); Mean Platelet Volume 11.6 fl (7.4-10.4); Monocytes Absolute Auto 0.6 K/mm3 (0.1-0.6); Monocytes Percent Auto 6.9 % (2.6-8.5); Neutrophils Absolute Auto 5.4 K/mm3 (1.3-6.7); Neutrophils Percent Auto 64.5 % (45.5-73.1); Platelet Count Result 196 k/mm3 (150-375); Red Blood Count 4.36 M/mm3 (4.2-5.4); White Blood Count 8.4 K/mm3 (4.5-10.0)
[2022-11-01] MEDS: SODIUM CHLORIDE 0.9% IV 1,000 ML 999 ML IV CONT (00:38)
[2022-11-01] MEDS: ONDANSETRON INJ 4 MG/2 ML VIAL IV PUSH (00:40)
[2022-11-01 02:00] VITALS: BP 138/72; PULSE 82; RESP 18; O2SAT 99
== END 2022-11-01 04:12 | disposition home or self-care (01) ==
PROVIDERS: Physician Assistant; Emergency Provider Emergency Medicine; PCP Internal Medicine
DX: O20.9 Hemorrhage in early pregnancy, unspecified (principal); O99.511 Diseases of the respiratory system complicating pregnancy, first trimester; J45.909 Unspecified asthma, uncomplicated; O99.611 Diseases of the digestive system complicating pregnancy, first trimester; K90.0 Celiac disease; K58.9 Irritable bowel syndrome, unspecified; O99.351 Diseases of the nervous system complicating pregnancy, first trimester; G89.4 Chronic pain syndrome; R10.2 Pelvic and perineal pain; O99.331 Smoking (tobacco) complicating pregnancy, first trimester; F17.210 Nicotine dependence, cigarettes, uncomplicated; Z3A.01 Less than 8 weeks gestation of pregnancy
CPT/HCPCS: 36415; 76801; 76817; 80053; 84702; 85025; 85461; 86850; 86900; 86901; 96361; 96374; 99284; J2405; J7030

== ENCOUNTER 2022-11-03 08:31 | Outpatient (CLI) | payer OTHER, SELFPAY | END 2022-11-03 08:32 | disposition home or self-care (01) | LOC: ANHLAB 08:33 | PROVIDERS: PCP Internal Medicine; Visit Provider Physician Assistant | DX: O46.90 Antepartum hemorrhage, unspecified, unspecified trimester (principal); Z3A.00 Weeks of gestation of pregnancy not specified | CPT/HCPCS: 36415; 84702 ==

== ENCOUNTER 2023-04-03 11:11 | Emergency (ER) | payer OTHER, SELFPAY ==
[2023-04-03 11:17] VITALS: BP 133/82; PULSE 93; RESP 16; TEMP 36.4; O2SAT 99
--- NOTE | 2023-04-03 12:31 | ED.EYEPROB ---
HPI - Eye Problem General Chief complaint: Eye Problems Stated complaint: right eye pain Time Seen by Provider: 04/03/23 11:59 Source: patient Mode of arrival: ambulatory Limitations: no limitations History of Present Illness HPI Narrative: This is a 42-year-old female who presents to the ED with chief complaint of right eye redness, tearing and pain beginning yesterday. Reports symptoms come and go. Reports photophobia. Reports clear drainage right eye only. 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 She also reports that she had her eyelashes done a couple of days ago as well. And denies any specific injury. Denies seeing halos around lights or headache. Denies vision change. Related Data Home Medications Medication Instructions Recorded Confirmed hydroxyzine HCl 50 mg tablet 50 mg PO BID 07/11/21 05/08/22 lamotrigine 100 mg tablet,extended 100 mg PO DAILY 07/11/21 05/08/22 release 24 hr sumatriptan succinate 100 mg tablet 100 mg PO PRN PRN Migraine Headache 12/12/21 05/08/22 dicyclomine 20 mg tablet 20 mg PO BID 01/09/22 05/08/22 pantoprazole 40 mg tablet,delayed 40 mg PO DAILY 01/09/22 05/08/22 release Allergies Allergy/AdvReac Type Severity Reaction Status Date / Time acetaminophen Allergy Mild RASH Verified 04/03/23 11:12 ibuprofen AdvReac Intermediate Ulcers Verified 04/03/23 11:12 trazodone AdvReac Other Verified 04/03/23 11:12 Review of Systems Review of Systems: All systems as dictated in HPI [facility] Past Medical History Medical History Allergies Anxiety Asthma on prn albuterol MDI Celiac disease Chronic pelvic pain syndrome in female Irritable bowel syndrome Migraine Ulcer Viral exanthem Surgical History Surgical History H/O colonoscopy History of esophageal surgery Status post appendectomy Family History Family History Father , From prostate cancer, stomach cancer, bladder cancer, renal cancer Diabetes mellitus Mother Diabetes mellitus Asthma Hypertension Depression Anxiety Heart disease Sibling Asthma Hypertension Anxiety Depression Heart disease Thyroid disorder Grandparent Cancer Diabetes mellitus Heart disease Social History Social History (Updated 10/31/22 @ 23:10 by Marcy Gillis PA-C) Smoking packs per day: 1 Smoking cigarettes per day: 20.0 Years smoked: 25 Smoking pack-years: 25.00 Smoking status: Current every day smoker Tobacco type: cigarettes Second hand tobacco smoke exposure: Yes Alcohol intake: current Substance use: current Substance use type: marijuana Lack of Transportation: No Lack of Food: Sometimes True Current Housing: I Have Housing Concerned About Future Housing: No Difficulty Paying Gas/Electric Bills: No Difficulty Paying for Meds: No Currently Unemployed: No Education: High School Diploma/GED Difficulty w/ Childcare or Family Care: No Living arrangements: with family Occupation/Education: occupation 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 HEAD: Normocephalic, atraumatic. EYES: PERRLA and EOMI. Clear watery drainage from the right eye only. Bilateral pressure is normal. Right eye pressure and 20 mmHg, Left eye pressure is 16 mm Hg Wood's lamp exam shows evidence of right-sided corneal abrasion at the 10 o'clock position. ENT: Nares clear, no rhinorrhea or epistaxis. Mucous membranes moist. Oropharynx without tonsillar hypertrophy exudate or other lesions. NECK:
[2023-04-03 12:49] VITALS: BP 120/80; PULSE 93; RESP 16; O2SAT 98
== END 2023-04-03 12:50 | disposition home or self-care (01) ==
PROVIDERS: Emergency Provider Physician Assistant; PCP Internal Medicine
DX: S05.01XA Injury of conjunctiva and corneal abrasion without foreign body, right eye, initial encounter (principal); J45.909 Unspecified asthma, uncomplicated; K90.0 Celiac disease; K58.9 Irritable bowel syndrome, unspecified; F17.210 Nicotine dependence, cigarettes, uncomplicated; X58.XXXA Exposure to other specified factors, initial encounter
CPT/HCPCS: 99283

== ENCOUNTER 2023-07-10 11:05 | Emergency (ER) | payer OTHER, SELFPAY ==
[2023-07-10 11:13] VITALS: BP 108/72; PULSE 83; RESP 16; TEMP 36.7; O2SAT 100
--- NOTE | 2023-07-10 11:20 | ED.URI ---
HPI - URI/Sore Throat General Chief Complaint: Upper Respiratory Infection Stated Complaint: Chest Congestion Time Seen by Provider: 07/10/23 11:20 Source: patient Mode of arrival: ambulatory Limitations: no limitations History of Present Illness HPI Narrative: 43-year-old female presented for complaint of sinus pressure and congestion, chest congestion and cough, and bilateral ear pressure over the past 2 weeks. She endorses fever at onset. She denies shortness of breath, wheezing nausea, vomiting diarrhea or lethargy. She has used Sudafed, Zyrtec, her son's albuterol inhaler for symptoms. Smokes about 1/2ppd. Related Data Home Medications Medication Instructions Recorded Confirmed hydroxyzine HCl 50 mg tablet 50 mg PO BID 07/11/21 05/08/22 dicyclomine 20 mg tablet 20 mg PO BID 01/09/22 05/08/22 pantoprazole 40 mg tablet,delayed 40 mg PO DAILY 01/09/22 05/08/22 release albuterol sulfate 90 mcg/actuation 1 inh inhalation QID shortness of 07/10/23 aerosol inhaler breath or wheezing metoclopramide HCl 10 mg tablet 10 mg PO Q6H nausea and vomiting 07/10/23 (Reglan) onabotulinumtoxinA 100 unit 5 unit IM ONCE 07/10/23 07/10/23 solution for injection (Botox) ondansetron 4 mg disintegrating 4 mg PO Q8H nausea and vomiting 07/10/23 tablet rimegepant 75 mg disintegrating mg 07/10/23 tablet (Nurtec ODT) Allergies Allergy/AdvReac Type Severity Reaction Status Date / Time acetaminophen Allergy Mild RASH Verified 07/10/23 11:20 ibuprofen AdvReac Intermediate Ulcers Verified 07/10/23 11:20 gluten AdvReac Gastrointestinal Verified 07/10/23 11:20 Upset lactase [From Dairy Aid] AdvReac Gastrointestinal Verified 07/10/23 11:20 Upset trazodone AdvReac Other Verified 07/10/23 11:20 Review of Systems Review of Systems: CONSTITUTIONAL: Denies body aches, fever, chills, or sweats. EYES: Denies visual changes, redness, or discharge. ENT: Reports rhinorrhea, congestion, otalgia. CARDIOVASCULAR: Denies chest pain, palpitations, or edema. RESPIRATORY: Reports cough, denies sob, wheezing. GASTROINTESTINAL: Denies abdominal pain, nausea, vomiting, or diarrhea. SKIN: Denies rash, itching, or wounds. MUSCULOSKELETAL: Denies back pain, joint pain, or myalgia. NEUROLOGIC: Denies headache, numbness, tingling, or weakness. All systems reviewed & are unremarkable except as noted in HPI and below PMFSH Past Medical History Medical History Allergies Anxiety Asthma on prn albuterol MDI Celiac disease Chronic pelvic pain syndrome in female Irritable bowel syndrome Migraine Ulcer Viral exanthem Surgical History Surgical History H/O colonoscopy History of esophageal surgery Status post appendectomy Family History Family History Father , From prostate cancer, stomach cancer, bladder cancer, renal cancer Diabetes mellitus Mother Diabetes mellitus Asthma Hypertension Depression Anxiety Heart disease Sibling Asthma Hypertension Anxiety Depression Heart disease Thyroid disorder Grandparent Cancer Diabetes mellitus Heart disease Social History Social History Smoking packs per day: 1 Smoking cigarettes per day: 20.0 Years smoked: 25 Smoking pack-years: 25.00 Smoking status: Current every day smoker Tobacco type: cigarettes Second hand tobacco smoke exposure: Yes Alcohol intake: current Substance use: current Substance use type: marijuana Lack of Transportation: No Lack of Food: Sometimes True Current Housing: I Have Housing Concerned About Future Housing: No Difficulty Paying Gas/Electric Bills: No Difficulty Paying for Meds: No Currently Unemployed: No Education: High School Diploma/GED Difficulty w/ Childcare
[2023-07-10 11:23] VITALS: BP 108/72; PULSE 83; RESP 16; TEMP 36.7; O2SAT 100
== END 2023-07-10 11:37 | disposition home or self-care (01) ==
PROVIDERS: Emergency Provider Nurse Practitioner Family; PCP Internal Medicine
DX: J06.9 Acute upper respiratory infection, unspecified (principal); F17.210 Nicotine dependence, cigarettes, uncomplicated; F12.90 Cannabis use, unspecified, uncomplicated; F41.9 Anxiety disorder, unspecified; J45.909 Unspecified asthma, uncomplicated; K90.0 Celiac disease
CPT/HCPCS: 99213; G0463

== ENCOUNTER 2023-10-31 02:48 | Emergency (ER) | payer SELFPAY ==
[2023-10-31 02:49] VITALS: BP 134/81; PULSE 71; RESP 18; TEMP 36.4; O2SAT 100
--- NOTE | 2023-10-31 02:52 | PC.NURSE ---
Pt verbalized no daily medications
[2023-10-31 06:48] VITALS: BP 124/86; PULSE 83; RESP 16; O2SAT 100
--- NOTE | 2023-10-31 07:46 | ED.GENADULT ---
HPI - General Adult General Chief complaint: Animal Bite Stated complaint: insect bite right eye Time Seen by Provider: 10/31/23 06:51 History of Present Illness HPI narrative: 43-year-old female presenting to the emergency department for evaluation for a bug bite her right rastafari. Patient states this started few days ago and has been worsening. Patient is unsure if he actually got bit by a bug. Related Data Home Medications Medication Instructions Recorded Confirmed hydroxyzine HCl 50 mg tablet 50 mg PO BID 07/11/21 05/08/22 dicyclomine 20 mg tablet 20 mg PO BID 01/09/22 05/08/22 pantoprazole 40 mg tablet,delayed 40 mg PO DAILY 01/09/22 05/08/22 release albuterol sulfate 90 mcg/actuation 1 inh inhalation QID shortness of 07/10/23 aerosol inhaler breath or wheezing metoclopramide HCl 10 mg tablet 10 mg PO Q6H nausea and vomiting 07/10/23 (Reglan) onabotulinumtoxinA 100 unit 5 unit IM ONCE 07/10/23 07/10/23 solution for injection (Botox) ondansetron 4 mg disintegrating 4 mg PO Q8H nausea and vomiting 07/10/23 tablet rimegepant 75 mg disintegrating mg 07/10/23 tablet (Nurtec ODT) Allergies Allergy/AdvReac Type Severity Reaction Status Date / Time acetaminophen Allergy Mild RASH Verified 07/10/23 11:20 ibuprofen AdvReac Intermediate Ulcers Verified 07/10/23 11:20 gluten AdvReac Gastrointestinal Verified 07/10/23 11:20 Upset lactase [From Dairy Aid] AdvReac Gastrointestinal Verified 07/10/23 11:20 Upset Milk Containing Products AdvReac Difficulty Verified 10/31/23 02:51 (Dairy) Breathing trazodone AdvReac Other Verified 07/10/23 11:20 Review of Systems Review of Systems: All systems reviewed & are unremarkable except as noted in HPI and below PMFSH Past Medical History Medical History Allergies Anxiety Asthma on prn albuterol MDI Celiac disease Chronic pelvic pain syndrome in female Irritable bowel syndrome Migraine Ulcer Viral exanthem Surgical History Surgical History H/O colonoscopy History of esophageal surgery Status post appendectomy Family History Family History Father , From prostate cancer, stomach cancer, bladder cancer, renal cancer Diabetes mellitus Mother Diabetes mellitus Asthma Hypertension Depression Anxiety Heart disease Sibling Asthma Hypertension Anxiety Depression Heart disease Thyroid disorder Grandparent Cancer Diabetes mellitus Heart disease Social History Social History Smoking packs per day: 1 Smoking cigarettes per day: 20.0 Years smoked: 25 Smoking pack-years: 25.00 Smoking status: Current every day smoker Tobacco type: cigarettes Second hand tobacco smoke exposure: Yes Alcohol intake: current Substance use: current Substance use type: marijuana Lack of Transportation: No Lack of Food: Sometimes True Current Housing: I Have Housing Concerned About Future Housing: No Difficulty Paying Gas/Electric Bills: No Difficulty Paying for Meds: No Currently Unemployed: No Education: High School Diploma/GED Difficulty w/ Childcare or Family Care: No Living arrangements: with family Occupation/Education: occupation 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 HEAD: normocephalic, atraumatic. EYES: PERRLA/EOMI, conjunctivae clear. NOSE: Normal no drainage EARS:TMS clear with good light reflex. THROAT: Pharynx clear, no exudate. NECK: Supple. No adenopathy, no masses. RESPIRATORY: Airway pa
[2023-10-31] MEDS: CEPHALEXIN 500 MG CAPSULE PO (08:02)
[2023-10-31 08:03] VITALS: BP 134/66; PULSE 80; RESP 16; O2SAT 98
== END 2023-10-31 08:08 | disposition home or self-care (01) ==
PROVIDERS: Emergency Provider Emergency Medicine; PCP Internal Medicine
DX: L03.211 Cellulitis of face (principal); S00.86XA Insect bite (nonvenomous) of other part of head, initial encounter; J45.909 Unspecified asthma, uncomplicated; K90.0 Celiac disease; K58.9 Irritable bowel syndrome, unspecified; F17.210 Nicotine dependence, cigarettes, uncomplicated; W57.XXXA Bitten or stung by nonvenomous insect and other nonvenomous arthropods, initial encounter
CPT/HCPCS: 99283; A9270

== ENCOUNTER 2023-11-17 10:01 | Outpatient (CLI) | payer MEDICAID, SELFPAY | END 2023-11-17 10:02 | disposition home or self-care (01) | PROVIDERS: PCP Internal Medicine; Visit Provider Advanced Practice Midwife | DX: Z32.01 Encounter for pregnancy test, result positive (principal) | CPT/HCPCS: 36415; 84702 ==

== ENCOUNTER 2023-11-19 09:40 | Outpatient (CLI) | payer MEDICAID, SELFPAY ==
[2023-11-19 11:09] LABS: Beta HCG Quantitative 727.03 mIU/ML
== END 2023-11-19 09:41 | disposition home or self-care (01) ==
PROVIDERS: PCP Internal Medicine; Visit Provider Advanced Practice Midwife
DX: Z32.01 Encounter for pregnancy test, result positive (principal)
CPT/HCPCS: 36415; 84702

== ENCOUNTER 2023-12-04 21:31 | Emergency (ER) | payer MEDICAID, SELFPAY ==
[2023-12-04 21:34] VITALS: BP 128/71; PULSE 110; RESP 20; TEMP 36.6; O2SAT 99
--- NOTE | 2023-12-04 22:25 | ED.LOWEXIN ---
HPI - Extremity Injury (Lower) General Chief Complaint: Extremity Injury, Lower Stated Complaint: r ankle pain Time Seen by Provider: 12/04/23 22:05 History of Present Illness HPI Narrative: 43-year-old female who is currently 6 weeks and 5 days presents to the emergency department for right-sided atraumatic foot pain for 1 day. Patient states the pain is in the medial aspect of her right foot mostly, however she also points just above her medial malleolus. She denies injury or trauma, swelling, calf pain or swelling. No history VTE. States the pain is worse with ambulation. Related Data Home Medications Medication Instructions Recorded Confirmed hydroxyzine HCl 50 mg tablet 50 mg PO BID 07/11/21 05/08/22 dicyclomine 20 mg tablet 20 mg PO BID 01/09/22 05/08/22 pantoprazole 40 mg tablet,delayed 40 mg PO DAILY 01/09/22 05/08/22 release albuterol sulfate 90 mcg/actuation 1 inh inhalation QID shortness of 07/10/23 aerosol inhaler breath or wheezing metoclopramide HCl 10 mg tablet 10 mg PO Q6H nausea and vomiting 07/10/23 (Reglan) onabotulinumtoxinA 100 unit 5 unit IM ONCE 07/10/23 07/10/23 solution for injection (Botox) ondansetron 4 mg disintegrating 4 mg PO Q8H nausea and vomiting 07/10/23 tablet rimegepant 75 mg disintegrating mg 07/10/23 tablet (Nurtec ODT) Allergies Allergy/AdvReac Type Severity Reaction Status Date / Time acetaminophen Allergy Mild RASH Verified 12/04/23 21:34 ibuprofen AdvReac Intermediate Ulcers Verified 12/04/23 21:34 gluten AdvReac Gastrointestinal Verified 12/04/23 21:34 Upset lactase [From Dairy Aid] AdvReac Gastrointestinal Verified 12/04/23 21:34 Upset Milk Containing Products AdvReac Difficulty Verified 12/04/23 21:34 (Dairy) Breathing trazodone AdvReac Other Verified 12/04/23 21:34 Review of Systems Review of Systems: All systems reviewed & are unremarkable except as noted in HPI and below PMFSH Past Medical History Medical History Allergies Anxiety Asthma on prn albuterol MDI Celiac disease Chronic pelvic pain syndrome in female Irritable bowel syndrome Migraine Ulcer Viral exanthem Surgical History Surgical History H/O colonoscopy History of esophageal surgery Status post appendectomy Family History Family History Father , From prostate cancer, stomach cancer, bladder cancer, renal cancer Diabetes mellitus Mother Diabetes mellitus Asthma Hypertension Depression Anxiety Heart disease Sibling Asthma Hypertension Anxiety Depression Heart disease Thyroid disorder Grandparent Cancer Diabetes mellitus Heart disease Social History Social History Smoking packs per day: 1 Smoking cigarettes per day: 20.0 Years smoked: 25 Smoking pack-years: 25.00 Smoking status: Current every day smoker Tobacco type: cigarettes Second hand tobacco smoke exposure: Yes Alcohol intake: current Substance use: current Substance use type: marijuana Lack of Transportation: No Lack of Food: Sometimes True Current Housing: I Have Housing Concerned About Future Housing: No Difficulty Paying Gas/Electric Bills: No Difficulty Paying for Meds: No Currently Unemployed: No Education: High School Diploma/GED Difficulty w/ Childcare or Family Care: No Living arrangements: with family Occupation/Education: occupation 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 HEAD: Normocephalic, atraumati
[2023-12-04 22:44] VITALS: BP 108/70; PULSE 81; RESP 18; TEMP 36.8; O2SAT 100
== END 2023-12-04 22:57 | disposition home or self-care (01) ==
PROVIDERS: Emergency Provider Physician Assistant; PCP Internal Medicine
DX: O99.891 Other specified diseases and conditions complicating pregnancy (principal); M25.571 Pain in right ankle and joints of right foot; Z3A.01 Less than 8 weeks gestation of pregnancy; F41.9 Anxiety disorder, unspecified; K90.0 Celiac disease; J45.909 Unspecified asthma, uncomplicated; F17.210 Nicotine dependence, cigarettes, uncomplicated
CPT/HCPCS: 99283

== ENCOUNTER 2023-12-22 00:14 | Day surgery (SDC) | payer OTHER, SELFPAY ==
[2023-12-18 13:10] VITALS: BMI 21.0
--- NOTE | 2023-12-18 13:11 | PC.NURSE ---
Report to the Outpatient Waiting Room, entrance under the green pavilion located off [facility], at time _0600_ on date _[id number]_. Planned Procedure Time: _0730_.? Time changes happen often and if your time is changed the preop area will call you the afternoon before. - You and your visitor will be asked to self-screen and do not enter if you have any COVID symptoms. Please call surgeon if you need to reschedule. - A mask is optional within the hospital at this time. Patients may have clear liquids (water, carbonated beverages, clear teas, apple juice) until 3 hours prior to surgery with a maximum of 20 ounces. - No food from midnight until time of surgery and no smoking Take only the following medications with a SIP of water on the morning of surgery: __None DO NOT STOP ANY OF YOUR OTHER PRESCRIPTION MEDICATIONS PRIOR TO SURGERY EXCEPT THE FOLLOWING Medications to discontinue per physician ____None Date to take last dose Please no make-up, nail slovak, hairspray, perfume, deodorant, or body powder the day of surgery.? No jewelry (including any body piercings) or valuables the day of surgery, leave them at home.? Please take a shower or bath the night before, or the morning of, surgery with an antibacterial soap.? Wear comfortable, loose fitting clothing.? - Jewelry must be removed prior to entering the operating room.? Rings and piercings that are not removed may be cut off. - The hospital will not accept responsibility for valuables.? - Please leave all valuables, including medications, at home the day of surgery. If you are going home after surgery, a licensed driver utility worker must drive you home.? - NO public transportation without another adult if you receive anesthesia. - We recommend that an adult stay with you for 24 hours following discharge. - We also recommend that you do not drive, make important decision, drink alcoholic beverages, or take any drugs that were not prescribed by your health care provider for at least 24 hours after your discharge time. Follow any additional instructions given to you from your surgeon. Telephone instructions given to __Crystal__and asked if any additional questions and then verbalized understanding. Patient advised to call surgeon office or pre surgery nurse liaison [phone] if any additional questions.
--- NOTE | 2023-12-21 11:22 | WPDANESEPPF ---
Anes - Initial Pre Proc Eval Procedure: Operation Date: 12/22/23 08:15 Proposed Procedures p Suction Dilation and Curettage - Rufino Mooney MD Date/Time: 12/21/23 11:22 Surgeon: Rufino Mooney MD Pre Op Diagnosis: missed ab Patient Data Age: 43 Gender: F Height: 1.7 m Weight: 60.9 kg Allergies Allergy/AdvReac Type Severity Reaction Status Date / Time acetaminophen Allergy Mild RASH Verified 12/18/23 13:04 ibuprofen AdvReac Intermediate Ulcers Verified 12/18/23 13:04 gluten AdvReac Gastrointestinal Verified 12/18/23 13:04 Upset Milk Containing Products AdvReac Difficulty Verified 12/18/23 13:04 (Dairy) Breathing trazodone AdvReac Other Verified 12/18/23 13:04 Home Medications Medication Instructions Recorded Confirmed Type albuterol sulfate 90 mcg/actuation 1 inh inhalation QID shortness of 07/10/23 12/18/23 History aerosol inhaler breath or wheezing Patient hx anesthesia problems: none Family hx anesthesia problems: none Results Review: All pre-operative results and documents have been reviewed as part of the pre-operative evaluation. [facility] Past Medical History Medical History (Updated 12/21/23 @ 11:22 by Otf Garrett DO) Allergies Anxiety Asthma on prn albuterol MDI Celiac disease Chronic pelvic pain syndrome in female GERD (gastroesophageal reflux disease) Irritable bowel syndrome Migraine Ulcer Viral exanthem Surgical History Surgical History H/O colonoscopy History of esophageal surgery Status post appendectomy Family History Family History Father , From prostate cancer, stomach cancer, bladder cancer, renal cancer Diabetes mellitus Mother Diabetes mellitus Asthma Hypertension Depression Anxiety Heart disease Sibling Asthma Hypertension Anxiety Depression Heart disease Thyroid disorder Grandparent Cancer Diabetes mellitus Heart disease Social History Social History Smoking packs per day: 1 Smoking cigarettes per day: 20.0 Years smoked: 27 Smoking pack-years: 27.00 Smoking status: Current every day smoker Tobacco type: cigarettes Second hand tobacco smoke exposure: Yes Alcohol intake: current Substance use: current Substance use type: marijuana Other substance usage details: Daily Lack of Transportation: No Lack of Food: Sometimes True Current Housing: I Have Housing Concerned About Future Housing: No Difficulty Paying Gas/Electric Bills: No Difficulty Paying for Meds: No Currently Unemployed: No Education: High School Diploma/GED Difficulty w/ Childcare or Family Care: No Living arrangements: with family Occupation/Education: occupation 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 Gender identity (if verbalized by the patient): Female Sexual Orientation (if Verbalized by the Patient): Straight or Heterosexual Spiritual care concerns: No Anes - Eval Final PreProcedure Day of Procedure 12/21/23 11:22 Patient weight: normal Heart: regular rate and rhythm Lungs: clear to auscultation and normal air movement Airway: Mallampati scale class II Neurological: alert and oriented Last oral intake: >/= 8 hours ASA classification: III Emergent: no Anesthetic plan: proceed Anesthesia type and monitoring: general GIVS and standard monitoring Results Review: All pre-operative results and documents have been reviewed as part of the pre-operative evaluation. Informed Consent: The patient's anesthetic plan and its attendant risks and benefits were discussed with the patient/family/POA. Questions were solicited and answers provided to the satisfaction of the patient/family/POA.
--- NOTE | 2023-12-22 07:25 | SUR.PREOP ---
patient complains of time change not being communicated. Fiber Technician aware.
[2023-12-22 07:27] VITALS: BP 107/64; PULSE 80; TEMP 36.8; O2SAT 98; BMI 21.7
[2023-12-22] MEDS: LACTATED RINGERS 1,000 ML 30 ML IV CONT (07:30)
--- NOTE | 2023-12-22 08:01 | WPDHPUPDATE1 ---
History and Physical Update Update Date/Time: 12/22/23 08:01 History and Physical has been reviewed, including an updated exam of the patient. There are NO changes in the patient's condition. Risks, benefits, and alternatives have been discussed and questions answered. Patient agrees to proceed with procedure.
--- NOTE | 2023-12-22 08:04 | PM.IMHP ---
H&P: HPI History of Present Illness Date/Time: 12/22/23 08:04 Chief Complaint: Missed miscarriage Narrative: this patient is a 43-year-old female with missed miscarriage. We have agreed to perform suction D&C. The patient understands the details of the procedure. The procedure has been explained in detail. She understands the risks. She understands that injuries may occur that result in hospitalization, more surgery, and severe illness. She understands risk of hemorrhage and infection. She denies any chest pain or shortness of breath. She denies any nausea, vomiting, fever, chills. Review of Systems Review of Systems: All systems reviewed & are unremarkable except as noted in HPI and below Constitutional: Constitutional: Denies chills, Denies fatigue, Denies fever(s) and Denies weakness Eyes: Eyes: Denies blurry vision, Denies change in vision, Denies loss of peripheral vision, Denies loss of vision, Denies other visual disturbances and Denies eye pain ENT: Denies vertigo, Denies dizziness, Denies hearing loss, Denies mouth pain, Denies nasal obstruction, Denies neck mass and Denies neck pain Cardiovascular: Cardiovascular: Denies chest pain, Denies diaphoresis, Denies syncope, Denies leg edema and Denies dyspnea Respiratory: Respiratory: Denies chest congestion, Denies cough, Denies hemoptysis, Denies dyspnea and Denies wheezing Gastrointestinal: Gastrointestinal: Denies abdominal pain, Denies constipation, Denies diarrhea, Denies nausea and Denies vomiting Genitourinary: Genitourinary: Denies hematuria, Denies change in libido, Denies nocturia, Denies genital lesions, Denies flank pain and Denies urinary urgency Musculoskeletal: Musculoskeletal: Denies abnormal gait, Denies back pain, Denies myalgias, Denies arthralgias, Denies joint swelling, Denies muscle weakness and Denies neck pain Integumentary/Breasts: Skin/Breast: Denies swelling, Denies breast pain, Denies breast mass, Denies dry skin, Denies nipple discharge, Denies unusual bruising and Denies jaundice Neurologic: Denies Neuro-related abnormal movements, Denies Abnormal speech present, Denies abnormal gait, Denies behavioral changes, Denies confusion, Denies vertigo, Denies dizziness, Denies syncope, Denies loss of vision, Denies memory loss, Denies convulsions and Denies weakness Psychiatric: Psychiatric: Denies abnormal sleep pattern, Denies behavioral changes, Denies change in libido, Denies confusion, Denies depression, Denies anhedonia and Denies memory loss Endocrine: Endocrine: Reports no additional endocrine complaints, Denies change in libido and Denies fatigue Hematologic/Lymphatic: Hematologic/Lymphatic: Reports no additional hematologic/lymphatic complaints Allergic/Immunologic: Allergic/Immunologic: Reports no additional allergic/immunologic complaints and Denies wheezing [facility] Past Medical History Medical History (Updated 12/22/23 @ 08:06 by Rufino Mooney MD) Allergies Anxiety Asthma on prn albuterol MDI Celiac disease Chronic pelvic pain syndrome in female GERD (gastroesophageal reflux disease) Irritable bowel syndrome Migraine Ulcer Viral exanthem Surgical History Surgical History H/O colonoscopy History of esophageal surgery Status post appendectomy Family History Family History Father , From prostate cancer, stomach cancer, bladder cancer, renal cancer Diabetes mellitus Mother Diabetes mellitus Asthma Hypertension Depression Anxiety Heart disease Sibling Asthma Hypertension Anxiety Depression Heart disease Thyroid disorder Grandparent Cancer Diabetes mellitus Heart disease Social History Social History Smoking packs per day: 1 Smoking cigarettes per day: 20.0 Years smoked: 27 Smoking pack-years: 27.00
--- NOTE | 2023-12-22 08:28 | W.PM.PROC2 ---
Procedure Note - Detailed Date of Procedure 12/22/23 Pre-op Diagnosis missed ab Post-op Diagnosis Same Procedure Performed Suction D&C Surgeon Rufino Mooney MD Anesthesia MAC Indications missed Findings normal-appearing vulva vagina and cervix to. Moderate amount of products conception within the uterus. 8 cm uterus Description of Procedure the patient was taken the operating room. She was prepped and draped in dorsal lithotomy position after induction of mac anesthesia. A speculum was placed in the vagina. Cervix grasped with tenaculum. The cervix was dilated to about 1 cm Using Casey dilators. A 8. Prydeinig curved curette was used to perform suction D&C. The curette was introduced and vacuum was applied. The curette was removed over all surfaces of the intrauterine cavity multiple times. This was done until all the surfaces were clear and had the familiar grainy texture they can be felt through the instrument. A sharp curette was then used to curettage all the surfaces. The suction cup was then reapplied 1 more time to remove any debris. The instruments were removed. The speculum and tenaculum were removed. The patient tolerated the procedure well. She was taken recovery room stable condition. Estimated Blood Loss 50 Drains No Packing No Pathology Yes Complications No immediate complications Condition Stable Disposition PACU
[2023-12-22 08:29] VITALS: BP 129/71; PULSE 62; RESP 16; O2SAT 99
--- NOTE | 2023-12-22 08:38 | SUR.PREOP ---
[id number] I had a conversation with patient and she was upset with time change from 730 to now 815. She stated she is not happy with this hospital, but wants to proceed with her procedure. I contacted Dr Mooney and informed him patient was upset. I then informed patient he was made aware.
--- NOTE | 2023-12-22 08:48 | SUR.PHASEII ---
Patient has O+ blood type. No Rhogam needed.
[2023-12-22 09:00] VITALS: BP 120/58; PULSE 71
[2023-12-22] MEDS: oxyCODONE HCL (*CRX) 5 MG TAB IR PO (09:28)
[2023-12-22 09:30] VITALS: BP 113/62; PULSE 57
[2023-12-22 10:00] VITALS: BP 108/61; PULSE 58
== END 2023-12-22 10:10 | disposition home or self-care (01) ==
PROVIDERS: PCP Internal Medicine; Visit Provider Obstetrics & Gynecology
PROC: (CPT 59820; principal; 2023-12-22 08:15)
DX: O02.1 Missed abortion (principal); G89.18 Other acute postprocedural pain; F41.9 Anxiety disorder, unspecified; J45.909 Unspecified asthma, uncomplicated; K90.0 Celiac disease; G89.29 Other chronic pain; R10.2 Pelvic and perineal pain; K21.9 Gastro-esophageal reflux disease without esophagitis; K58.9 Irritable bowel syndrome, unspecified; F17.210 Nicotine dependence, cigarettes, uncomplicated; F12.90 Cannabis use, unspecified, uncomplicated; Z79.51 Long term (current) use of inhaled steroids; Z98.890 Other specified postprocedural states; Z80.9 Family history of malignant neoplasm, unspecified; Z82.49 Family history of ischemic heart disease and other diseases of the circulatory system
CPT/HCPCS: 59820; 36415; 85461; 86850; 86900; 86901; 88305; A9270; J2003; J2250; J2704; J3010; J7120

== ENCOUNTER 2024-02-28 14:20 | Emergency (ER) | payer SELFPAY ==
[2024-02-28 14:41] VITALS: BP 112/88; PULSE 110; RESP 18; TEMP 36.8; O2SAT 100
[2024-02-28 15:01] LABS: EDCOVIDSCREEN Positive (Negative); EDINFLUASCREEN Negative (Negative); EDINFLUBSCREEN Negative (Negative)
--- NOTE | 2024-02-28 15:04 | ED.GENADULT ---
HPI - General Adult General Chief complaint: Upper Respiratory Infection Stated complaint: chills/bodyache Source: patient Mode of arrival: ambulatory Limitations: no limitations History of Present Illness HPI narrative: Patient presents for evaluation of sick symptoms since last night. Symptoms include fever, chills, generalized body aches, nausea and vomiting. She denies any diarrhea, cough, shortness of breath. No recent sick contacts to her knowledge. She smokes a quarter pack per day. She took her last dose of zofran at home and it seemed to help her symptoms. Related Data Allergies Allergy/AdvReac Type Severity Reaction Status Date / Time acetaminophen Allergy Mild RASH Verified 02/28/24 14:26 ibuprofen AdvReac Intermediate Ulcers Verified 02/28/24 14:26 gluten AdvReac Gastrointestinal Verified 02/28/24 14:26 Upset Milk Containing Products AdvReac Difficulty Verified 02/28/24 14:26 (Dairy) Breathing trazodone AdvReac Other Verified 02/28/24 14:26 Review of Systems Review of Systems: CONSTITUTIONAL: Reports fever and chills EYES: Denies visual changes, redness, or discharge. ENT: Denies rhinorrhea, congestion, sore throat, or otalgia. CARDIOVASCULAR: Denies chest pain, palpitations, or edema. RESPIRATORY: Denies cough or dyspnea. GASTROINTESTINAL:Reports nausea and vomiting. Denies abdominal pain or diarrhea. GENITOURINARY: Denies dysuria or hematuria. SKIN: Denies rash or itching. MUSCULOSKELETAL: Reports generalized body aches NEUROLOGIC: Denies headache, numbness, dizziness, or weakness. PSYCHIATRIC: Denies anxiety or depression. [facility] Past Medical History Medical History GERD (gastroesophageal reflux disease) Chronic pelvic pain syndrome in female Celiac disease Ulcer Irritable bowel syndrome Migraine Anxiety Allergies Asthma on prn albuterol MDI Viral exanthem Surgical History Surgical History Status post appendectomy History of esophageal surgery H/O colonoscopy Family History Family History Father , From prostate cancer, stomach cancer, bladder cancer, renal cancer Diabetes mellitus Mother Diabetes mellitus Asthma Hypertension Depression Anxiety Heart disease Sibling Asthma Hypertension Anxiety Depression Heart disease Thyroid disorder Grandparent Cancer Diabetes mellitus Heart disease Social History Social History Smoking packs per day: 0.25 Smoking cigarettes per day: 5.0 Years smoked: 27 Smoking pack-years: 6.75 Smoking status: Current every day smoker Tobacco type: cigarettes Second hand tobacco smoke exposure: Yes Alcohol intake: current Substance use: current Substance use type: marijuana Other substance usage details: Daily Lack of Transportation: No Lack of Food: Sometimes True Current Housing: I Have Housing Concerned About Future Housing: No Difficulty Paying Gas/Electric Bills: No Difficulty Paying for Meds: No Currently Unemployed: No Education: High School Diploma/GED Difficulty w/ Childcare or Family Care: No Living arrangements: with family Occupation/Education: occupation 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 HEAD: Normocephalic, atraumatic. EYES: PERRLA and EOMI. ENT: Nares clear, no rhinorrhea or epistaxis. Mucous membranes moist. Oropharynx without tonsillar hypertrophy exudate or other lesions. Bilateral TMs pearly altamirano nonbulging NECK: Supple. No adenopathy or masses. No carotid bruits or JVD CHEST: Clear to auscultation. No respiratory distress. No wheezes rales or rhonchi HEART: Regular rate and rhythm. No murmur heard. Normal peripheral pulses. ABDOMEN: Soft, nontender, nondistended, normal active bowel sounds. EXTREMITIES: Normal range of motion. No edema. SKIN: Warm, dry, no rash. NEURO: No focal deficits. Alert and oriented x3. PSYCH: Normal mood and affect. Course Course Emergency Course: This is a 43-year-old female who presented for evaluation of sick symptoms. COVID positive. Will treat with Zofran. Increase hydration. Miti-upb-vycoony agents for symptom management. Follow up with primary provider. Go to the ER for worsening symptoms. Patient in agreement with plan of care. Level of Care: Express Care Visit Vital Signs Vital signs: Vital Signs Temperature 36.8 C 12/15/24 14:41 Pulse Rate 110 H 02/28/24 14:41 Respiratory Rate 18 02/28/24 14:41 Blood Pressure 112/88 02/28/24 14:41 Pulse Oximetry 100 02/28/24 14:41 Oxygen Delivery Room Air 02/28/24 14:41 Temperature 36.8 C 02/28/24 14:41 Pulse Rate 110 H 02/28/24 14:41 Respiratory Rate 18 02/28/24 14:41 Blood Pressure 112/88 02/28/24 14:41 Pulse Oximetry 100 02/28/24 14:41 Oxygen Delivery Room Air 02/28/24 14:41 Medical Decision Making Vital Signs Vital Signs: Vital Signs Temperature 36.8 C 02/28/24 14:41 Pulse Rate 110 H 02/28/24 14:41 Respiratory Rate 18 02/28/24 14:41 Blood Pressure 112/88 02/28/24 14:41 Pulse Oximetry 100 02/28/24 14:41 Oxygen Delivery Room Air 02/28/24 14:41 Temperature 36.8 C 02/28/24 14:41 Pulse Rate 110 H 02/28/24 14:41 Respiratory Rate 18 02/28/24 14:41 Blood Pressure 112/88 02/28/24 14:41 Pulse Oximetry 100 02/28/24 14:41 Oxygen Delivery Room Air 02/28/24 14:41 Lab Data Labs: Lab Results 02/28/24 Range/Units 14:59 POC Influenza A Ag Negative (Negative) POC Influenza B Ag Negative (Negative) POC SARS CoV-2 Ag Positive (Negative) Discharge Plan Discharge Clinical Impression: COVID Patient Disposition: Home, Self-Care Condition: Stable Instructions: Antibiotic Form, COVID-19 (Coronavirus Disease 2019) (ED) Patient Language: Armenian Prescriptions: New ondansetron 4 mg tablet,disintegrating 4 mg PO Q8H PRN (Reason: nausea and vomiting) Qty: 15 0RF Follow-up/Referrals: Vladimir Napoles DO [Primary Care Provider] - Stand Alone Forms: Work/School Release IP Time of Disposition: 15:02
--- OUTSIDE RECORDS SUMMARY | 2024-03-04 08:20 | XMS_ITS | Continuity of Care Document ---
Author Organization [facility] [place] Address [address] [place] [address] Care Team Providers Care Business Intelligence Administrator Name Role Phone LUIS ARMANDOGAYLE KRUGER Primary Care Provider Assessment No assessment recorded. Plan of Treatment Reminders Order Date Submit Date Provider Last Modified By Organization Details Last Modified Time Details Appointments None recorded. Lab test, urine 2023 024 [email or web address] [place], [place], [address], 15:01:12 Referral None recorded. Procedures None recorded. Surgeries None recorded. Imaging None recorded. Medication Orders None recorded. Patient TargetsNo targets recorded. Patient InstructionsNo instructions recorded. Reason for Referral None Reported. Results Created Date Observation Date Name Description Value Unit Range Abnormal Flag Note LastModifiedBy Organization Detail LastModifiedTime 12/30/1912/30/2023 pregn gaby test, urine HCG positi ve Not Available [place] [address], [place], [address], 12/30/2023 14:54:20 12/08/19 24 12/08/2023 US, obste tric, trans vagin al No observ ation record ed. [email or web address] [place] [address], [place], [address], 12/08/2023 13:05:16 12/08/19 24 12/08/2023 US, obste tric, follo w-up No observ ation record ed. [email or web address] [address], [place], [address], 12/08/2023 22:45:02 12/17/19 24 12/17/2023 US, obste tric, trans vagin al No observ ation record ed. [email or web address] [place] [address], [place], [address], 12/17/2023 12:55:54 12/17/1912/17/2023 US, obste tric, follo w-up No observ ation record ed. [email or web address] [address], [place], [address], 12/17/2023 21:35:16 Result Notes None recorded. Problems Name Problem SNOMED Code Status Onset Date Resolution Date Notes Provider Name and Address Organization Details Recorded Time Acute vaginitis 17195889 Completed 201607/24/2020 Acute vulvovagi nitis;Rec orded Elsewhere : No Locati on: [facility] So urce: EHR Chron ic: N Practic e ID: 0001 Bill able Time: 08:45:00 AM Deya Spaulding [facility] 16:38:19 Removal of intrauter ine device Completed 201407/24/2020 REMOVAL OF IUD;Recor ded Elsewhere : No Locati on: [facility] So urce: EHR Chron ic: N Practic e ID: [id number] Bill able Time: 10:45:00 AM Deya Spaulding [facility] 16:38:23 Disorder of perineum Completed 201607/24/2020 Condyloma acuminatu m;Recorde d Elsewhere : No Locati on: [facility] So urce: EHR Chron ic: N Practic e ID: [id number] Bill able Time: 09:45:00 AM Deya Spaulding [facility] 05/11/202 1 16:38:26 Specializ ed medical examinati on Completed 201407/24/2020 Gynecolog ical Examinati on;Record ed Elsewhere : No Locati on: [facility] So urce: EHR Chron ic: N Practic e ID: [id number] Bill able Time: 01:00:00 PM Deya staples [facility] 16:38:25 Adult health examinati on Completed 201407/24/2020 ROUTINE MEDICAL EXAM;Kenny rded Elsewhere : No Locati on: [facility] So urce: EHR Chron ic: N Practic e ID: 0001 Bill able Time: 01:00:00 PM Deya Spaulding [facility] 16:38:21 Problem Notes None recorded. Procedures Surgical History Date Name Laterality Status Provider Name and Address Organization Details Recorded Time 02/19/20 23 Colposcopy completed Leti Hart [facility] [address], [place], [address], [facility] 02/18/2023 13:38:01 02/19/20 23 Colposcopy completed Vidya Dieter [facility] 12/08/2023 12:55:04 01/30/20 23 Date of Last Pap Smear completed Vidya Garcias [facility] 02/18/2023 09:53:50 01/10/20 22 IUD Insertion completed Agnieszka Vivas [facility] 01/09/2022 17:33:29 09/14/19 20 completed Renetta Prieto [facility] 01/08/2022 10:56:48 09/14/19 20 Colonoscopy completed Kathy Chatman [facility] 08/25/2020 12:37:44 03/16/19 02 Appendectomy completed Deya Spaulding [facility] 07/25/2020 15:13:17 Imaging Results None recorded. Procedure Notes None recorded. Medical Equipment None Reported. Allergies Allergen ID Allergen Name Allergen Category Reaction Reaction Severity Criticality Documentation Date Start Date Code Code System Note Provider Name and Address Organization Details Recorded Time 61513 acetamino phen medicatio n hives severe Not available 03/02/2020 161 RxNorm Agnieszka Vivas [facility] 3 14:24:29 76950 trazodone medicatio n dizziness severe Not available 11/24/2022 78601 RxNorm Agnieszka Vivas [facility] 3 14:24:29 60372 ibuprofen medicatio n Not available Not available Not available 11/24/2022 5640 RxNorm PT. HAS ULCER S, CANNO T TAKE Agnieszka Vivas [facility] 3 14:25:40 Medications Name Sig Start Date Stop Date Status Note LastModified by Organization Details LastModified Time Mirena 21 mcg/24 hr (up to 8 years) 52 mg intrauter ine device Take by intraute rine route. 11/19 completed Not Available Not Available Not Available methocarb yuki 500 mg tablet TAKE 1 TABLET BY MOUTH TWICE DAILY NEEDED FOR MUSCLE SPASM 11/24 completed Not Available Not Available Not Available venlafaxi ne ER 37.5 mg capsule,e xtended release 24 hr TK ONE C PO QD WF 11/24 completed Not Available Not Available Not Available trazodone 50 mg tablet 11/24 completed Not Available Not Available Not Available Lidocaine Viscous 2 % mucosal solution GARGLE AND SPIT 5 ML BY MOUTH FOUR TIMES DAILY NEEDED FOR PAIN 11/19 completed Not Available Not Available Not Available ofloxacin 0.3 % eye drops 12/07 completed Not Available Not Available Not Available sumatript an 100 mg tablet 11/24 completed Not Available Not Available Not Available cephalexi n 250 mg capsule 08/22 completed Not Available Not Available Not Available metronida zole 0.75 % (37.5 mg/5 gram) vaginal gel INSERT 1 APPLICAT ORFUL VAGINALL Y EVERY DAY AT BEDTIME FOR 5 DAYS 01/29 completed Not Available Not Available Not Available prednison e 20 mg tablet TAKE 2 TABLETS BY MOUTH DAILY 11/19 completed Not Available Not Available Not Available clonazepa m 0.5 mg tablet TAKE 1/2 TABLET BY MOUTH EVERY DAY NEEDED FOR ANXIETY 11/24 completed Not Available Not Available Not Available metronida zole 500 mg tablet TAKE 1 TABLET BY MOUTH TWICE DAILY WITH MEALS FOR 7 DAYS 12/07 completed Not Available Not Available Not Available sulfameth oxazole 800 mg-trimet hoprim 160 mg tablet TAKE 1 TABLET BY MOUTH TWICE DAILY FOR 5 DAYS 12/07 completed Not Available Not Available Not Available peg-elect rolyte solution 420 gram oral solution MIX AND DRINK UTD 08/22 completed Not Available Not Available Not Available omeprazol e 40 mg capsule,d elayed release TAKE 1 CAPSULE BY MOUTH EVERY DAY active Not Available Not Available No t Available tramadol 50 mg tablet TAKE 1 TABLET BY MOUTH EVERY 6 HOURS NEEDED FOR PAIN 11/24 completed Not Available Not Available Not Available triamcino lone acetonide 0.1 % topical cream APPLY TOPICALL Y TO THE AFFECTED AREA TWICE DAILY. DO NOT USE FOR MORE THAN 1 WEEK 11/19 completed Not Available Not Available Not Available zolmitrip ray 5 mg tablet TAKE 1 TABLET BY MOUTH 1 TIME NEEDED FOR MIGRAINE . MAY REPEAT 1 TIME AT LEAST 2 HOURS LATER. DO NOT EXCEED 2 DOSES IN 24 HOURS 11/24 completed Not Available Not Available Not Available lamotrigi ne 25 mg tablet 11/19 completed Not Available Not Available Not Available pantopraz ole 20 mg tablet,de layed release TK 1 T PO ONCE D 30 MINUTES BEFORE A MEAL 08/22 completed Not Available Not Available Not Available nystatin- triamcino lone 100,000 unit/gram -0.1 % topical ointment APPLY EXTERNAL LY TO THE AFFECTED AREA TWICE DAILY 11/19 completed Not Available Not Available Not Available zolmitrip ray 2.5 mg tablet 08/22 completed Not Available Not Available Not Available amoxicill in 875 mg tablet TK 1 T PO Q 12 H 08/22 completed Not Available Not Available Not Available amitripty line 10 mg tablet take 1 tablet by oral route 3 times every day 07/25 completed Prescrib ed Elsewher e: Yes Loca tion: [facility] M odify By: sonya tillman DateTime : 05/05/19 15 01:00:00 PM Not Available Not Available Not Available pantopraz ole 40 mg tablet,de layed release TAKE 1 TABLET BY MOUTH TWICE DAILY 11/24 completed Not Available Not Available Not Available erythromy grupo 5 mg/gram (0.5 %) eye ointment APPLY THIN LAYER IN RIGHT EYE EVERY 6 HOURS FOR 10 DAYS 12/07 completed Not Available Not Available Not Available dexametha sone 4 mg tablet TAKE 1 TABLET BY MOUTH DAILY FOR 10 DAYS 11/19 completed Not Available Not Available Not Available promethaz ine 25 mg tablet TAKE 1/2 TABLET BY MOUTH EVERY 6 HOURS NEEDED FOR NAUSEA 11/19 completed Not Available Not Available Not Available buspirone 7.5 mg tablet TAKE 1 TABLET BY MOUTH TWICE DAILY AROUND THE CLOCK 11/24 completed Not Available Not Available Not Available hydroxyzi ne HCl 25 mg tablet TAKE 1 TABLET BY MOUTH TWICE DAILY NEEDED FOR ANXIETY 12/07 completed Not Available Not Available Not Available methylpre dnisolone 4 mg tablets in a dose pack FOLLOW PACKAGE DIRECTIO NS 11/19 completed Not Available Not Available Not Available albuterol sulfate HFA 90 mcg/actua tion aerosol inhaler INHALE 1 PUFF BY MOUTH FOUR TIMES DAILY NEEDED FOR SHORTNES S OF BREATH OR WHEEZING . 11/24 completed Not Available Not Available Not Available propranol ol 20 mg tablet 11/24 completed Not Available Not Available Not Available ondansetr on 4 mg disintegr ating tablet DISSOLVE 1 TABLET ON THE TONGUE EVERY 8 HOURS 11/24 completed Not Available Not Available Not Available topiramat e 100 mg tablet TK 1 T PO BID 11/24 completed Not Available Not Available Not Available dicyclomi ne 10 mg capsule TAKE ONE CAPSULE BY MOUTH FOUR TIMES DAILY NEEDED 11/24 completed Not Available Not Available Not Available lamotrigi ne 100 mg tablet TAKE ONE TABLET BY MOUTH EVERY NIGHT AT BEDTIME FOR ANXIETY 11/24 completed Not Available Not Available Not Available metoclopr amide 10 mg tablet TAKE 1 TABLET BY MOUTH EVERY 6 HOURS NEEDED FOR NAUSEA OR VOMITING 11/24 completed Not Available Not Available Not Available amoxicill in 875 mg-potass ium clavulana te 125 mg tablet 08/22 completed Not Available Not Available Not Available oxycodone 5 mg tablet TAKE 1 TABLET BY MOUTH EVERY 8 HOURS NEEDED FOR PAIN 01/11 completed Not Available Not Available Not Available neomycin- polymyxin -hydrocor t 3.5 mg-10,000 unit/mL-1 % ear drops,chino p INSTILL 4 DROPS INTO EACH EAR EVERY 8 HOURS FOR 10 DAYS 11/19 completed Not Available Not Available Not Available azithromy grupo 500 mg tablet TAKE 2 TABLETS BY MOUTH EVERY DAY FOR 1 DAY 01/11 completed Not Available Not Available Not Available Symbicort 80 mcg-4.5 mcg/actua tion HFA aerosol inhaler INHALE 2 PUFFS BY MOUTH EVERY 12 HOURS 11/24 completed Not Available Not Available Not Available Mucinex DM 60 mg-1,200 mg tablet,ex tended release 12 hr TAKE 1 TABLET BY MOUTH EVERY 12 HOURS 11/19 completed Not Available Not Available Not Available Comfort Pac-Cyclo benzaprin e 10 mg kit 11/24 completed Not Available Not Available Not Available Xifaxan 550 mg tablet TKE ONE TABLET BY MOUTH THREE TIMES DAILY FOR 14 DAYS 11/19 completed Not Available Not Available Not Available Tico uo DHA 29 mg-1 mg-400 mg oral pack take 1 by Oral route 07/25 completed Prescrib ed [facility] e: No Locat ion: [facility] M odify By: braeden tz Encou nter DateTime : 05/05/19 15 01:00:00 PM Not Available Not Available Not Available Creon 36,000 unit-114, 000 unit-180, 000 unit capsule,d elayed release TK 2 CS PO QID WITH MEALS AND/OR SNACKS 11/24 completed Not Available Not Available Not Available [facility] D 120 mg tablet,ex tended release TAKE 1 TABLET BY MOUTH EVERY 12 HOURS NEEDED FOR NASAL CONGESTI ON 11/19 completed Not Available Not Available Not Available Slynd 4 mg (28) tablet Take 1 tablet every day by oral route for 90 days. 12/07 completed Not Available Not Available Not Available [facility] ODT 75 mg disintegr ating tablet TAKE 1 TABLET BY MOUTH DAILY NEEDED FOR MIGRAINE active Not Available Not Available No t Available Vitals Date Recorded Body height Body mass index (BMI) Body weight Systolic blood pressure Diastolic blood pressure Provider Name and Address Organization Details Last Updated DateTime 12/30/2023 167.64 cm 22.6 kg/m2 84986.93 g 111 mm[Hg] 73 mm[Hg] Vidya Garcias [facility] 14:29:07 Social History Question Answer Notes LastModified by Organizat ion Details LastModified Time Tobacco Smoking Status Current Every Day Smoker Agnieszka Sangeetha staples, [facility] 11/24/2022 14:24:43 Do You Have An Advance Directive? No Information not available 11/24/2022 What Is Your Level Of Alcohol Consumption? Occasional Information not available 07/24/2020 Are You Blind Or Do You Have Difficulty Seeing? No Information not available 07/24/2020 What Is Your Level Of Caffeine Consumption? Moderate Information not available 07/24/2020 How Much Tobacco Do You Chew? None Information not available 11/24/2022 In The 14 Days Before Symptom Onset, Have You Had Close Contact With A Laboratory-confir med COVID-19 While That Case Was Ill? No [email or web address] Information not available 08/25/2020 In The 14 Days Before Symptom Onset, Have You Had Close Contact With A Person Who Is Under Investigation For COVID-19 While That Person Was Ill? No [email or web address] Information not available 08/25/2020 Have You Been To An Area Known To Be High Risk For COVID-19? No [email or web address] Information not available 08/25/2020 Are You Deaf Or Do You Have Serious Difficulty Hearing? No Information not available 07/24/2020 What Type Of Diet Are You Following? REGULAR Information not available 11/24/2022 What Is The Highest Grade Or Level Of School You Have Completed Or The Highest Degree You Have Received? 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 Yes Information not available 11/24/2022 Have You Ever Been Counseled For Unhealthy Alcohol Use? No Information not available 11/24/2022 Do You Use Protection During Sex? No Information not available 11/19/2022 Do You Use Your Seat Belt Or Car Seat Routinely? Yes Information not available 07/24/2020 Do You Have Smoke And Carbon Monoxide Detectors In Your Home? Yes Information not available 07/24/2020 At What Age Did You Start Smoking Tobacco? 14 Information not available 11/24/2022 How Much Tobacco Do You Smoke? 0.25 PPD Information not available 11/24/2022 Do You Feel Stressed (tense, Restless, Nervous, Or Anxious, Or Unable To Sleep At Night)? [id number] Information not available 11/24/2022 Do You Use Any Illicit Or Recreational Drugs? No Information not available 07/24/2020 Do You Use Sunscreen Routinely? Yes Information not available 07/24/2020 Have You Used IV Drugs? No [email or web address] Information not available 11/19/2022 Sex: Unknown Functional Status Question Answer Note LastModified by Organizat ion Details LastModified Time Do you have difficulty walking or climbing stairs? No Information not available 11/24/2022 Are you able to walk? YESWOREST Information not available 07/24/2020 Are you able to care for yourself? Yes Information not available 11/24/2022 Do you have difficulty dressing or bathing? No Information not available 11/24/2022 What is your exercise level? Moderate Information not available 07/24/2020 Mental Status None recorded. Family History Relationship Description Onset Age of this Age Resolved Age Notes LastModified by Organization Details LastModified Time Mother Asthma Not available 01/2021 16:39:52 Mother Diabetes mellitus Not available 2020 16:40:07 Father Diabetes mellitus Not available 2020 16:40:07 Father Malignant neoplasm of urinary bladder [email or web address] Not available 2023 11:32:18 Father Malignant tumor of colon [email or web address] Not available 07/26 12:39:09 Father Malignant tumor of stomach Not available 2023 11:32:18 Father Malignant tumor of prostate [email or web address] Not available 2023 11:32:18 Sister Disorder of thyroid gland Not available 2020 16:40:54 Sister Malignant neoplasm of uterus Not available 07/26 12:40:23 Sister Endometrial carcinoma Not available 11/19 11:38:33 Maternal Aunt Disorder of thyroid gland Not available 2020 16:40:54 Maternal Aunt Polyp of colon Not available 2023 11:32:18 Maternal Grandfather Malignant tumor of kidney [email or web address] Not available 2023 11:32:18 Paternal Grandfather Malignant tumor of colon Not available 07/26 12:39:09 Medical History Condition Response Allergies (Food, seasonal, environmental ) Y Other Y Breast Cancer N Drug/Latex Allergies/Reactions Y Blood Transfusion N Dermatologic Disorders N Lung Disease N Defects or Inherited Disease N Breast Problem N Gestational Diabetes N Hematologic disorders N Anesthesia Complications N History of STI N Deep Vein Thrombosis N Polycystic ovary syndrome N Anxiety Disorder Y Autoimmune disease N Arthritis N Infertility N Polyps N Acid Reflux (GERD) Y History of abnormal pap N Cancer N Stroke N Varicosities N Neurologic/Epilepsy Y Endometriosis N High Cholesterol N Headaches Y Fibromyalgia N Kidney Disease N Heart Problems N Kidney or Bladder Problems N Thyroid Problems N GI Problems Y Eating Disorder N Anemia N Art (IVF or FET) N Psychiatric Illness Y Ovarian Cancer N Diabetes N Pulmonary (TB, Asthma) Y Hepatitis/Liver Disease N No Past Medical History N Eczema N Urinary Tract Infection N Abuse/Domestic Violence N Asthma Y Trauma/Violence N Depression/ depression Y Heart Disease N Pre-Eclampsia N Hypertension N Osteoporosis N Thrombophilias N Gynecological History Statement/Question Response Abnormal Pap N Flow Heavy Date of LMP 10/18/2023 N On BCP's at Conception? N STIs/STDs N Was last menstrual period normal Y HPV Vaccine N Colposcopy 02/18/2023 Duration of Flow (days) 6 15 Current Control Method None Age at First Child 29 Are cycles usually normal Y Sexually Active? Y Menses Monthly Y Age of first menstrual cycle 17 Date of Last Pap Smear 01/29/2023 Sexual Problems? N Desired Control Method 09/14/2019 N Obstetrics History GPAL:G 2 P 1 0 1 1 Type Value Full Term 1 Spontaneous 1 Living 1 Total 2 Past Encounters Encounter ID Performer Location Encounter Start Date Encounter Closed Date Diagnosis/Indication Diagnosis SNOMED-CT Code Diagnosis ICD10 Code [id number] [facility] [address] [address] 12/08/2023 11:32:00 12/08/2023 12:39:07 Uterine size for dates discrepancy 837096358 O26.841 Z3A.01 [id number] Rufino Mooney MD [place] [address] [address] 12/08/2023 11:32:43 12/09/2023 09:37:48 Peptic ulcer 80081274 K27.9 Amenorrhea 78355564 N91. 2 [id number] [facility] [address] [address] 12/17/2023 10:30:04 12/17/2023 10:59:23 Missed miscarriage 62988149 O02.1 Z3A.01 [id number] [place] [address] [address] 12/17/2023 10:47:04 12/17/2023 11:42:21 Missed miscarriage 76472417 O02.1 Z3A.01 [id number] Rufino Mooney MD [place] [address] [address] 12/30/2023 14:14:00 12/30/2023 15:06:13 Missed miscarriage 78708225 O02.1 Z3A.01 Health Concerns Section Related Observation LastModified by Organization Detai ls LastModified Time None Recorded Concern Status LastModified by Organization Details LastModified Time None Recorded Payers Encounter Date Sequence Insurance Name Policy Number Policy Handley Covered Member ID Handley Member ID Guarantor Name 12/30/2023 1 [facility] (MEDICAID HMO) [id number] Fernanda Rogerslayneavril [id number] Fernanda Oliverio Notes Date Note Type Note Provider Name and Address Organization Details Recorded Time 12/30/2023 text/html this patient presents for follow-up on missed miscarriage. She is 1 week from a suction D&C. She is recovering normally. Her bleeding is minimal. She has no foul-smelling vaginal discharge. She denies any nausea, vomiting, fever, chills. We discussed contraception. We discussed future . She will follow up for a repeat test. Rufino Mooney MD [address], [place], [address], [place] [facility] 12/30/2023 15:02:35 OBGyn Episode No OBEpisode recorded.
--- OUTSIDE RECORDS SUMMARY | 2024-03-04 08:20 | XMS_ITS | Continuity of Care Document ---
Author Organization [facility] Address [address] [address] [place] [address] Care Team Providers Care Waitstaff Captain Name Role Phone LUIS ARMANDOGAYLE KRUGER Primary Care Provider [phone] Assessment No assessment recorded. Plan of Treatment Reminders Order Date Submit Date Provider Last Modified By Organization Details Last Modified Time Details Appointments None recorded. Lab None recorded. Referral None recorded. Procedures None recorded. Surgeries None recorded. Imaging US, obstetric, transvagina l 2023 024 [email or web address] [place], [address], [address], [place], [address], 17:36:59 Medication Orders None recorded. Patient TargetsNo targets recorded. Patient InstructionsNo instructions recorded. Reason for Referral None Reported. Results Created Date Observation Date Name Description Value Unit Range Abnormal Flag Note LastModifiedBy Organization Detail LastModifiedTime 12/08/1912/08/2023 US, obste tric, trans vagin al No observ ation record ed. [email or web address] [place] [address], [place], [address], 12/08/2023 13:05:16 12/08/1912/08/2023 US, obste tric, follo w-up No observ ation record ed. [email or web address] [address], [place], [address], 12/08/2023 22:45:02 12/17/19 24 12/17/2023 US, obste tric, trans vagin al No observ ation record ed. [email or web address] [place] [address], [place], [address], 12/17/2023 12:55:54 12/17/1912/17/2023 US, obste tric, follo w-up No observ ation record ed. [email or web address] [address], [place], [address], 12/17/2023 21:35:16 Result Notes None recorded. Problems Name Problem SNOMED Code Status Onset Date Resolution Date Notes Provider Name and Address Organization Details Recorded Time Acute vaginitis 97975752 Completed 201607/24/2020 Acute vulvovagi nitis;Rec orded Elsewhere : No Locati on: [facility] So urce: EHR Chron ic: N Practic e ID: [id number] Bill able Time: 08:45:00 AM Deya [facility] 16:38:19 Removal of intrauter ine device Completed 201407/24/2020 REMOVAL OF IUD;Recor ded Elsewhere : No Locati on: [facility] So urce: EHR Chron ic: N Practic e ID: 0001 Bill able Time: 10:45:00 AM Deya [facility] 16:38:23 Disorder of perineum Completed 201607/24/2020 Condyloma acuminatu m;Recorde d Elsewhere : No Locati on: [facility] So urce: EHR Chron ic: N Practic e ID: 0001 Bill able Time: 09:45:00 AM Deya [facility] 16:38:26 Specializ ed medical examinati on Completed 201407/24/2020 Gynecolog ical Examinati on;Record ed Elsewhere : No Locati on: [facility] So urce: EHR Chron ic: N Practic e ID: [id number] Bill able Time: 01:00:00 PM Deya staples [facility] 16:38:25 Adult health examinati on Completed 201407/24/2020 ROUTINE MEDICAL EXAM;Kenny rded Elsewhere : No Locati on: [facility] So urce: EHR Chron ic: N Practic e ID: 0001 Bill able Time: 01:00:[address], [facility] 16:38:21 Problem Notes None recorded. Procedures Surgical History Date Name Laterality Status Provider Name and Address Organization Details Recorded Time 02/19/20 23 Colposcopy completed Leti Hart [facility]- [address], [place], [address], [place] [facility] 02/18/2023 13:38:01 02/19/20 23 Colposcopy completed Vidya Garcias [facility] 12/08/2023 12:55:04 01/30/20 23 Date of Last Pap Smear completed Vidya Garcias [facility] 02/18/2023 09:53:50 01/10/20 22 IUD Insertion completed Agnieszka Vivas [facility] 01/09/2022 17:33:29 09/14/19 20 completed Renetta Prieto [facility] 01/08/2022 10:56:48 09/14/19 20 Colonoscopy completed Kathy Chatman [facility] 08/25/2020 12:37:44 03/16/19 02 Appendectomy completed Deya Spaulding [facility] 07/25/2020 15:13:17 Imaging Results Imaging Date Name Status LastModified by Organization Details LastModified Time 12/17/2023 US, obstetric, transvaginal completed [email or web address] [place] [address], [place], [address], 12/17/2023 12:55:54 12/17/2023 US, obstetric, follow-up completed [email or web address] [address], [place], [address], 12/17/2023 21:35:16 Procedure Notes None recorded. Medical Equipment None Reported. Allergies Allergen ID Allergen Name Allergen Category Reaction Reaction Severity Criticality Documentation Date Start Date Code Code System Note Provider Name and Address Organization Details Recorded Time 79230 acetamino phen medicatio n hives severe Not available 03/02/2020 161 RxNorm Agnieszka Vivas [facility] 14:24:29 77992 trazodone medicatio n dizziness severe Not available 11/24/20[address] [facility] 14:24:29 74630 ibuprofen medicatio n Not available Not available Not available 11/24/2022 5640 RxNorm PT. HAS ULCER S, CANNO T TAKE Agnieszka [facility] 14:25:40 Medications Name Sig Start Date Stop [...] times every day 07/25 [facility] odify By: sonya tillman DateTime : 05/05/19 [...] completed Not Available Not Available Not Available Triveen-D uo DHA 29 mg-1 mg-400 mg oral pack take 1 by Oral route 07/25 completed Prescrib ed Elsewher e: No Locat ion: [facility] M odify By: braeden tz Mirianou nter DateTime : 05/05/19 01:00:00 PM Not Available Not Available Not [...] completed Not Available Not Available Not Available [facility] mg disintegr ating tablet TAKE 1 TABLET BY MOUTH DAILY NEEDED FOR MIGRAINE active Not Available Not Available No t Available Vitals None Recorded Social History Question Answer Notes LastModified by Organizat ion Details LastModified Time Tobacco Smoking Status Current Every Day Smoker Agnieszka Sangeetha staples, [facility] 11/24/2022 14:24:43 Do You Have [...] COVID-19 While That Case Was Ill? No [email or web address] Information not available 08/25/2020 In The 14 Days Before Symptom Onset, Have You Had Close Contact With A Person Who Is Under Investigation For COVID-19 While That Person Was Ill? No [email or web address] Information not available 08/25/2020 Have You Been To An Area Known To Be High Risk For COVID-19? No [email or web address] Information not available 08/25/2020 Are You Deaf Or Do You Have Serious Difficulty Hearing? No Information not available 07/24/2020 What Type Of Diet Are You Following? REGULAR Information not available 11/24/2022 What Is The Highest Grade Or Level Of School You Have Completed Or The Highest Degree You Have Received? 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 Yes Information not available 11/24/2022 Have You Ever Been Counseled For Unhealthy Alcohol Use? No Information not available 11/24/2022 Do You Use Protection During Sex? No [email or web address] Information not available 11/19/2022 Do You Use [...] Anxious, Or Unable To Sleep At Night)? [id number] Information not available 11/24/2022 Do You Use Any Illicit Or Recreational Drugs? No Information not available 07/24/2020 Do You Use Sunscreen Routinely? Yes Information not available 07/24/2020 Have You Used IV Drugs? No [email or web address] Information not available 11/19/2022 Sex: Unknown Functional [...] 16:40:07 Father Malignant neoplasm of urinary bladder Not available 2023 11:32:18 Father Malignant tumor of colon [email or web address] Not available 07/26 12:39:09 Father Malignant tumor of stomach [email or web address] Not available 2023 11:32:18 Father Malignant tumor of prostate [email or web address] Not available 2023 11:32:18 Sister Disorder of thyroid gland Not available 2020 16:40:54 Sister Malignant neoplasm of uterus [email or web address] Not available 07/26 12:40:23 Sister Endometrial carcinoma [email or web address] Not available 11/19 11:38:33 Maternal Aunt Disorder of thyroid gland Not available 2020 16:40:54 Maternal Aunt Polyp of colon [email or web address] Not available 2023 11:32:18 Maternal Grandfather Malignant tumor of kidney Not available 2023 11:32:18 Paternal Grandfather Malignant tumor of colon [email or web address] Not available 07/26 12:39:09 Medical History Condition [...] Diagnosis/Indication Diagnosis SNOMED-CT Code Diagnosis ICD10 Code [id number] [facility] [address] [address] 12/08/2023 11:32:00 12/08/2023 12:39:07 Uterine size for dates discrepancy 259461327 O26.841 Z3A.01 [id number] Rufino Mooney MD [place] [address],[place] [address] 12/08/2023 11:32:43 12/09/2023 09:37:48 Peptic ulcer 25789221 K27.9 Amenorrhea 96977108 N91. 2 [id number] [facility] [address],[place] [address] 12/17/2023 10:30:04 12/17/2023 10:59:23 Missed miscarriage 29885092 O02.1 Z3A.01 [id number] [place] [address],[place] [address] 12/17/2023 10:47:04 12/17/2023 11:42:21 Missed miscarriage 50775112 O02.1 Z3A.01 Health Concerns Section Related Observation LastModified by Organization Detai ls LastModified Time None Recorded Concern Status LastModified by Organization Details LastModified Time None Recorded Payers Encounter Date Sequence Insurance Name Policy Number Policy Handley Covered Member ID Handley Member ID Guarantor Name 12/17/2023 1 [facility] (MEDICAID HMO) [id number] eFrnanda Duron [id number] Fernanda Duron Notes Date Note Type Note Provider Name and Address Organization Details Recorded Time 12/17/2023 text/html This patient is a 43 female who presents for [missed discussed the etiology, frequency, natural history, and treatment of this condition. Spent more than 35 minutes talking about the above, as well as, her history, the particular findings of her case, and detail of her the treatment options. We discussed the risk benefits of each option. She understands the risk include infection and hemorrhage. She understands a D&C also holds the risk of injury. She understands that waiting can result in a septic that is even more difficult to treat. We talked about signs and symptoms of infection. Rufino Mooney MD [address], [place], [address], [facility] 12/17/2023 11:31:14 OBGyn Episode No OBEpisode recorded.
--- OUTSIDE RECORDS SUMMARY | 2024-03-04 08:20 | XMS_ITS | Continuity of Care Document ---
Author Organization [facility] Address [address] [place] [address] [place] [address] Care Team Providers Care Wheel Molder Name Role Phone GAYLE NARANJO Primary Care Provider Assessment No assessment recorded. Plan of Treatment Reminders Order Date Submit Date Provider Last Modified By Organization Details Last Modified Time Details Appointments None recorded. Lab test, urine 2023 [email or web address] [place], [address], [place], [address], 11:40:34 CT + NG + TV, RNA, unspecified specimen 2023 [facility] (Lab), [address], [place], [address], 16:38:17 Referral None recorded. Procedures None recorded. Surgeries None recorded. Imaging None recorded. Medication Orders None recorded. Patient TargetsNo targets recorded. Patient InstructionsNo instructions recorded. Reason for Referral None Reported. Results Created Date Observation Date Name Description Value Unit Range Abnormal Flag Note LastModifiedBy Organization Detail LastModifiedTime 12/17/1912/17/2023 US, obste tric, trans vagin al No observ ation record ed. [email or web address] [place] [address], [place], [address], 12/17/2023 12:55:54 12/17/19 24 12/17/2023 US, obste tric, follo w-up No observ ation record ed. [email or web address] [address], [place], [address], 12/17/2023 21:35:16 Result Notes None recorded. Problems Name Problem SNOMED Code Status Onset Date Resolution Date Notes Provider Name and Address Organization Details Recorded Time Acute vaginitis 22459367 Completed 201607/24/2020 Acute vulvovagi nitis;Rec orded Elsewhere : No Locati on: [facility] So urce: EHR Chron ic: N Practic e ID: 0001 Bill able Time: 08:45:00 AM Deya [facility] 16:38:19 Removal of intrauter ine device Completed 201407/24/2020 REMOVAL OF IUD;Recor ded Elsewhere : No Locati on: [facility] So urce: EHR Chron ic: N Practic e ID: 0001 Bill able Time: 10:45:00 AM Deya [facility] 16:38:23 Disorder of perineum Completed 201607/24/2020 Condyloma acuminatu m;Recorde d Elsewhere : No Locati on: [facility] So urce: EHR Chron ic: N Practic e ID: 0001 Bill able Time: 09:45:00 AM Deya [facility] 16:38:26 Specializ ed medical examinati on Completed 201407/24/2020 Gynecolog ical Examinati on;Record ed Elsewhere : No Locati on: [facility] So urce: EHR Chron ic: N Practic e ID: 0001 Bill able Time: 01:00:00 PM Deya [facility] 16:38:25 Adult health examinati on Completed 201407/24/2020 ROUTINE MEDICAL EXAM;Kenny rded Elsewhere : No Locati on: [facility] So urce: EHR Chron ic: N Practic e ID: 0001 Bill able Time: 01:00:[address] [facility] 16:38:21 Problem Notes None recorded. Procedures Surgical History Date Name Laterality Status Provider Name and Address Organization Details Recorded Time 02/19/20 23 Colposcopy completed Leti Hart, [facility]- [address], [place], [address], [facility] 02/18/2023 13:38:01 02/19/20 23 Colposcopy completed [facility] 12/08/2023 12:55:04 01/30/20 23 Date of Last Pap Smear completed [facility] 02/18/2023 09:53:50 01/10/20 22 IUD Insertion completed Agnieszka Vivas [facility] 01/09/2022 17:33:29 09/14/19 20 completed Renetta Prieto [facility] 01/08/2022 10:56:48 09/14/19 20 Colonoscopy completed Kathy Chatman [facility] 08/25/2020 12:37:44 03/16/19 02 Appendectomy completed Deya Spaulding [facility] 07/25/2020 15:13:17 Imaging Results None recorded. Procedure Notes None recorded. Medical Equipment None Reported. Allergies Allergen ID Allergen Name Allergen Category Reaction Reaction Severity Criticality Documentation Date Start Date Code Code System Note Provider Name and Address Organization Details Recorded Time 88023 acetamino phen medicatio n hives severe Not available 03/02/2020 161 RxNorm Agnieszka Vivas [facility] 3 14:24:29 63961 trazodone medicatio n dizziness severe Not available 11/24/2022 43255 RxNorm Agnieszka [facility] 3 14:24:29 23495 ibuprofen medicatio n Not available Not available Not available 11/24/2022 5640 RxNorm PT. HAS ULCER S, CANNO T TAKE Agnieszka Vivas [facility] 3 14:25:40 Medications Name Sig Start [...] 3 times every day 07/25 completed Prescrib gerhard Yo e: Yes Loca tion: [facility] odify By: sonya tillman DateTime : [...] by Oral route 07/25 completed Prescrib ed Srinath e: No Locat ion: [facility] M odify By: braeden tz Calli nter DateTime : 05/05/19 15 01:00:00 PM [...] completed Not Available Not Available Not Available [facility] 75 mg disintegr ating tablet TAKE 1 TABLET BY MOUTH DAILY NEEDED FOR MIGRAINE active Not Available Not Available No t Available Vitals Date Recorded Body height Body mass index (BMI) Body weight Systolic blood pressure Diastolic blood pressure Provider Name and Address Organization Details Last Updated DateTime 01/12/2024 167.64 cm 21.8 kg/m2 58631.97 g 111 mm[Hg] 70 mm[Hg] Vidya Garcias [place] [facility] 11:39:06 Social History Question Answer Notes LastModified by Organizat ion Details LastModified Time Tobacco Smoking Status Current Every Day Smoker Agnieszka Vivas [facility], [facility] 11/24/2022 14:24:43 Do You Have An [...] COVID-19 While That Case Was Ill? No [email or web address] Information not available 08/25/2020 In The 14 Days Before Symptom Onset, Have You Had Close Contact With A Person Who Is Under Investigation For COVID-19 While That Person Was Ill? No Information not available 08/25/2020 Have You Been To An Area Known To Be High Risk For COVID-19? No [email or web address] Information not available 08/25/2020 Are You Deaf Or Do You Have Serious Difficulty Hearing? No Information not available 07/24/2020 What Type Of Diet Are You Following? REGULAR Information not available 11/24/2022 What Is The Highest Grade Or Level Of School You Have Completed Or The Highest Degree You Have Received? 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 Yes Information not available 11/24/2022 Have You Ever Been Counseled For Unhealthy Alcohol Use? No Information not available 11/24/2022 Do You Use Protection During Sex? No [email or web address] Information not available 11/19/2022 Do You Use [...] Anxious, Or Unable To Sleep At Night)? [id number] Information not available 11/24/2022 Do You Use Any Illicit Or Recreational Drugs? No Information not available 07/24/2020 Do You Use Sunscreen Routinely? Yes Information not available 07/24/2020 Have You Used IV Drugs? No [email or web address] Information not available 11/19/2022 Sex: Unknown Functional [...] 2023 11:32:18 Father Malignant tumor of colon [email or web address] Not available 07/26 12:39:09 Father Malignant tumor of stomach [email or web address] Not available 2023 11:32:18 Father Malignant tumor of prostate [email or web address] Not available 2023 11:32:18 Sister Disorder of thyroid gland Not available 2020 16:40:54 Sister Malignant neoplasm of uterus [email or web address] Not available 07/26 12:40:23 Sister Endometrial carcinoma [email or web address] Not available 11/19 11:38:33 Maternal Aunt Disorder of thyroid gland Not available 2020 16:40:54 Maternal Aunt Polyp of colon Not available 2023 11:32:18 Maternal Grandfather Malignant tumor of kidney [email or web address] Not available 2023 11:32:18 Paternal Grandfather Malignant tumor of colon [email or web address] Not available 07/26 12:39:09 Medical History Condition Response Allergies (Food, seasonal, environmental ) Y Other Y Drug/Latex Allergies/Reactions Y Blood Transfusion N Breast Cancer N Dermatologic Disorders N Lung Disease N Defects or Inherited Disease N Breast Problem N Gestational Diabetes N Hematologic disorders N Anesthesia Complications N History of STI N Deep Vein Thrombosis N Polycystic ovary syndrome N Anxiety Disorder Y Autoimmune disease N Arthritis N Polyps N Infertility N Acid Reflux (GERD) Y History of abnormal pap N Cancer N Varicosities N Stroke N Neurologic/Epilepsy Y Endometriosis N High Cholesterol N Fibromyalgia N Headaches Y Kidney Disease N Heart Problems N Thyroid Problems N Kidney or Bladder Problems N GI Problems Y Eating Disorder [...] Diagnosis/Indication Diagnosis SNOMED-CT Code Diagnosis ICD10 Code [id number] Ernestina [facility] [address] [address] 12/17/2023 10:30:04 12/17/2023 10:59:23 Missed miscarriage 14771916 O02.1 Z3A.01 [id number] [place] [address],[place] [address] 12/17/2023 10:47:04 12/17/2023 11:42:21 Missed miscarriage 47569537 O02.1 Z3A.01 177891 Rufino Mooney MD [place] [address],[place] [address] 12/30/2023 14:14:00 12/30/2023 15:06:13 Missed miscarriage 18209223 O02.1 Z3A.01 [id number] Vidya Garcias [facility] [place] [address],[place] [address] 01/12/2024 11:24:24 01/12/2024 11:41:09 Missed miscarriage 80428991 O02.1 Venereal d isease screening 972241681 Z11.3 Health Concerns Section Related Observation LastModified by Organization Detai ls LastModified Time None Recorded Concern Status LastModified by Organization Details LastModified Time None Recorded Payers Encounter Date Sequence Insurance Name Policy Number Policy Handley Covered Member ID Handley Member ID Guarantor Name 01/12/2024 1 [facility] (MEDICAID HMO) [id number] Crystal Buskirk [id number] Crystal Buskirk OBGyn Episode No OBEpisode recorded.
--- OUTSIDE RECORDS SUMMARY | 2024-03-04 08:21 | XMS_ITS | Encounter Summary ---
Author Organization [facility] Address [address] [place] [address]. [place], [place] [id number] [place] [id number] Care Team Providers Care Booth Manager Name Role Phone MarisolVladimir mcpherson Sophia DO Primary Care Provider [phone] Reason for Visit * Reason Comments Eye Problem Encounter Details Date Type Department Care Team (Late st Contact Info) Description 04/14/2023 4:49 PM PRINCIPAL ASSOCIATE - 04/14/2023 5:08 PM PRINCIPAL ASSOCIATE Emergency [facility] Emergency Room [id number] [place] [address] Justina Peña MD [address] [place] [address] Eye Problem Discharge Disposition: Home or Self Care (Routine Discharge) Social History Tobacco Use Types Packs/Day Years Used Date Smoking Tobacco: Every Day Cigarettes 0.5 15 Smokeless Tobacco: Never Alcohol Use Standard Drinks/Week Comments Not Currently 0 (1 standard drink = 0.6 oz pur e alcohol) Comments No Sex and Gender Information Value Date Recorded Sex Assigned at Not on file Legal Sex Female 4:49 PM CDT Gender Identity Not on file Sexual Orientation Not on file documented as of this encounter Last Filed Vital Signs Vital Sign Reading Time Taken Comments Blood Pressure 126/63 04/14/2023 4:50 PM PRINCIPAL ASSOCIATE Pulse 78 04/14/2023 4:50 PM PRINCIPAL ASSOCIATE Temperature 36.3 ??C (97.4 ??F) 04/14/2023 4:50 PM CS T Respiratory Rate 18 04/14/2023 4:50 PM PRINCIPAL ASSOCIATE Oxygen Saturation 99% 04/14/2023 4:50 PM PRINCIPAL ASSOCIATE Inhaled Oxygen Concentration - - Weight 61.2 kg (135 lb) 04/14/2023 4:50 PM PRINCIPAL ASSOCIATE Height 170.2 cm (5' 7 ) 04/14/2023 4:50 PM PRINCIPAL ASSOCIATE Body Mass Index 21.14 04/14/2023 4:50 PM PRINCIPAL ASSOCIATE documented in this encounter Discharge Instructions * Discharge Instructions* Justina Peña MD - 04/14/2023 5:04 PM PRINCIPAL ASSOCIATE REMOVE THE FALSE EYELASHES THEY ARE CAUSING AN ABRASION AND IRRITATION. No contacts. Avoid rubbing your eye. Use ointment as prescribed. Return to ED if worse in any way CIPAL ASSOCIATE * Attachments The following attachments cannot be sent through Care Everywhere. * Corneal Abrasion ED (Kiswahili) documented in this encounter Medications at Time of Discharge hydrOXYzine 25 MG tablet Take 1 tablet (25 mg total) by mouth 2 (two) times daily as needed. FOR ANXIETY 09/27/2020 omeprazole 20 MG capsule Take 1 capsule (20 mg total) by mouth nightly. 2 06/30/2018 rimegepant (NURTEC) 75 MG disintegrating tablet Take 1 tablet (75 mg total) by mouth. Max of 1 tablet (75 mg) in 24 hours. traMADol 50 MG tablet Take 1 tablet (50 mg total) by mouth every 6 (six) hours as needed. 0 06/30/2018 triamcinolone 0.1 % cream Apply topically 2 (two) times daily. Do not use for more than one week 60 g 12/12/2020 erythromycin (ROMYCIN) 5 MG/GM (0.5%) ophthalmic ointment Place into the right eye every 6 (six) hours for 10 days. 3.5 g 04/04/2023 4 erythromycin (ROMYCIN) 5 MG/GM (0.5%) ophthalmic ointment Place into the right eye every 6 (six) hours for 10 days. 3.5 g 04/14/2023 4 documented as of this encounter ED Notes * Heidy Jones RN - 04/14/2023 5:00 PM CST 42 year old female in with complaints of right sided eye pain for last several weeks. Patient was evaluated at [place] and diagnosed with a corneal abrasion, patient noted the symptoms did not improve and was evaluated at [facility] where she was placed on antibiotics and an eye ointment. Patient has false lashes in place, patient rates discomfort a 3/10 at this time. CIPAL ASSOCIATE * Justina Peña MD - 04/14/2023 4:48 PM CST Chief Complaint Chief Complaint Patient presents with Eye Problem History of Present Illness 42yo female presenting via private vehicle with complaints of right eye pain and watering that has been going on for more than a week. She was seen at [facility] on the and was not noted to have a corneal abrasion at that time but had noted that her right eye irritation had started after having false eyelashes placed. She denies wearing any contacts. She states she has not been using any eye make-up. Denies change in vision. Denies fevers. No discharge, just watering. Medical History ALLERGIES: Review of patient's allergies indicates: Allergen Reactions Trazodone Fatigue Ibuprofen Other (see comment) ulcers Tylenol [Acetaminophen] Rash MEDICATIONS: Prior to Admission medications Medication Sig Start Date End Date Taking? Authorizing Provider erythromycin (ROMYCIN) 5 MG/GM (0.5%) ophthalmic ointment Place into the right eye every 6 (six) hours for 10 days. 04/14/23 04/24/23 Yes Justina Peña MD erythromycin (ROMYCIN) 5 MG/GM (0.5%) ophthalmic ointment Place into the right eye every 6 (six) hours for 10 days. 04/04/23 04/14/23 MAGDALENA Cartagena hydrOXYzine 25 MG tablet Take 1 tablet (25 mg total) by mouth 2 (two) times daily as needed. FOR ANXIETY 09/27/20 [facility] omeprazole 20 MG capsule Take 1 capsule (20 mg total) by mouth nightly. 06/30/18 [facility] rimegepant (NURTEC) 75 MG disintegrating tablet Take 1 tablet (75 mg total) by mouth. Max of 1 tablet (75 mg) in 24 hours. Default History Genericprovider traMADol 50 MG tablet Take 1 tablet (50 mg total) by mouth every 6 (six) hours as needed. 06/30/18 [facility] triamcinolone 0.1 % cream Apply topically 2 (two) times daily. Do not use for more than one week 12/12/20 MAGDALENA Cartagena PAST MEDICAL HISTORY: Past Medical History: Diagnosis Date Asthma Celiac disease ([facility]/HCC) Migraines PAST SURGICAL HISTORY: Past Surgical History: Procedure Laterality Date APPENDECTOMY FAMILY HISTORY: No family history on file. SOCIAL HISTORY: Social History Tobacco Use Smoking status: Every Day Packs/day: 0.50 Years: 15.00 Additional pack years: 0.00 Total pack years: 7.50 Types: Cigarettes Smokeless tobacco: Never Substance Use Topics Alcohol use: Not Currently Drug use: Yes Types: Marijuana Review of Systems Review of Systems Constitutional: Negative for chills and fever. Eyes: Positive for pain and redness. All other systems reviewed and are negative. Physical Exam Filed Vitals: 04/14/23 1650 BP: 126/63 Pulse: 78 Resp: 18 Temp: 97.4 ??F (36.3 ??C) TempSrc: Temporal SpO2: 99% Weight: 61.2 kg (135 lb) Height: 1.702 m (5' 7 ) Physical Exam Vitals and nursing note reviewed. Constitutional: Appearance: Normal appearance. HENT: Head: Normocephalic and atraumatic. Right Ear: External ear normal. Left Ear: External ear normal. Mouth/Throat: Mouth: Mucous membranes are moist. Eyes: Extraocular Movements: Extraocular movements intact. Pupils: Pupils are equal, round, and reactive to light. Comments: No pain with extraocular movements. Right conjunctival is injected. Under fluorescein staining, there is some lateral fluorescein uptake with negative Gregorio sign and does not cover the iris or pupil. Cardiovascular: Rate and Rhythm: Normal rate and regular rhythm. Pulmonary: Effort: Pulmonary effort is normal. Breath sounds: Normal breath sounds. Abdominal: General: Bowel sounds are normal. Palpations: Abdomen is soft. Tenderness: There is no abdominal tenderness. There is no guarding or rebound. Musculoskeletal: Cervical back: Normal range of motion and neck supple. Skin: General: Skin is warm and dry. Capillary Refill: Capillary refill takes less than 2 seconds. Neurological: Mental Status: She is alert and oriented to person, place, and time. Diagnostic Studies / Procedures ELECTROCARDIOGRAMS: No results found for this visit on 04/14/23. LABORATORY STUDIES: No results found for this visit on 04/14/23. IMAGING STUDIES No orders to display ED Course / Medical Decision Making Medical Decision Making 42-year-old female presenting with right eye irritation that has been ongoing for more than a week.She had tried different antibiotic ointments and drops and had not noticed any improvement. She hadbeen told to remove her false eyelashes but had not done that because she wanted to keep them on. We had a discussion regarding her false eyelashes and how they were certainly causing irritation on the right side and I recommended that she remove them. She states that she understands that she needsto remove them. There is a small corneal abrasion on exam currently. I will place her back on erythromycin ointment for antibiotic coverage. I think the reason this had not improved it was because the patient's irritant had not been removed which was the false eyelashes. She understands reasons to return and need for follow-up. Discharged home in stable condition. Risk Prescription drug management. Clinical Impression Abrasion of right cornea, initial encounter (Primary) Disposition: Discharge Justina Peña MD 04/14/23 1704 CIPAL ASSOCIATE documented in this encounter Plan of Treatment Not on file documented as of this encounter Visit Diagnoses Diagnosis Abrasion of right cornea, initial encounter- Primary documented in this encounter Administered Medications Inactive Administered Medications - up to 3 most recent administrations Medication Order MAR Action Action Date Dose Rate Site tetracaine 0.5 % ophthalmic solution 1 drop 1 drop, Right Eye, Once, 1 dose, On Thu04/14/23 at 1700 Given by Other 04/14/2023 5:01 PM PRINCIPAL ASSOCIATE 1 drop documented in this encounter Active and Recently Administered Medications Times are shown in PRINCIPAL ASSOCIATE. Scheduled Medication Order 04/12/2023 04/13/2023 04/14/2023 tetracaine 0.5 % ophthalmic solution 1 drop (COMPLETED) 1 drop, Right Eye, Once, 1 dose, On Thu04/14/23 at 1700 1701 (Given by Other - Provider: Heidy Jones RN) documented in this encounter Care Teams Booth Manager Relationship Specialty Start Date End Date Vladimir Napoles DO [address] [facility] [address] [place] [address] PCP - General INTERNAL MEDICINE 12/12/20 documented as of this encounter
--- OUTSIDE RECORDS SUMMARY | 2024-03-04 08:21 | XMS_ITS | Encounter Summary ---
Author Organization [facility] Address [address] [place] [address]. [place], [place] [id number] [place] [id number] Care Team Providers Care Sew Out Operator Name Role Phone Marisolky Vladimir Sophia DO Primary Care Provider [phone] Reason for Visit * Reason Comments Headache Recurrent Or Know Dx Migraine Encounter Details Date Type Department Care Team (Late st Contact Info) Description 12/04/2021 10:53 PM CDT - 12/05/2021 12:27 AM CDT Emergency [facility] Emergency Room [address] [place] [address] Glen Dash MD [address] [place] [id number] Headache Recurrent Or Know Dx Migraine Discharge Disposition: Home or Self Care (Routine [...] on file Sexual Orientation Not on file COVID-19 Exposure Response Date Recorded In the last 10 days, have yo u been in contact with someone who was confirmed or suspected to have Coronavirus/COVID-19? No / Unsure 12/04/2021 11:00 PM CDT documented as of this encounter Last Filed Vital Signs Vital Sign Reading Time Taken Comments Blood Pressure 115/64 12/05/2021 12:27 AM CDT Pulse 80 12/05/2021 12:27 AM CDT Temperature 36.7 ??C (98 ??F) 12/04/2021 10:57 PM CDT Respiratory Rate 20 12/04/2021 10:57 PM CDT Oxygen Saturation 99% 12/05/2021 12:27 AM CDT Inhaled Oxygen Concentration - - Weight 65.8 kg (145 lb) 12/04/2021 10:57 PM CDT Height 170.2 cm (5' 7 ) 12/04/2021 10:57 PM CDT Body Mass Index 22.71 12/04/2021 10:57 PM CDT documented in this encounter Discharge Instructions * Discharge Instructions* Glen Dash MD - 12/05/2021 12:06 AM CDT Continue to follow up with your doctor to manage your migraines. Drink plenty of fluids for the next several days. * Attachments The following attachments cannot be sent through Care Everywhere. * Migraines Discharge Instructions ([place]) documented in this encounter Medications at Time of Discharge hydrOXYzine 25 MG tablet Take 1 tablet (25 mg total) by mouth 2 (two) times daily as needed. FOR ANXIETY 09/27/2020 omeprazole 20 MG capsule Take 1 capsule (20 mg total) by mouth nightly. 2 06/30/2018 traMADol 50 MG tablet Take 1 tablet (50 mg total) by mouth every 6 (six) hours as needed. 0 06/30/2018 triamcinolone 0.1 % cream Apply topically 2 (two) times daily. Do not use for more than one week 60 g 12/12/2020 oxyCODONE immediate release 5 MG immediate release tabletIndication s:Acute Pain < 3 Day Supply Take 1 tablet (5 mg total) by mouth every 6 (six) hours as needed for Pain. Indications: Acute Pain < 3 Day Supply 12 tablet 02/01/2021 4 SUMAtriptan (IMITREX) 50 MG tablet Take 1 tablet (50 mg total) by mouth 2 (two) times daily as needed for Migraine. Max of 4 tablets (200 mg) in 24 hours. 10 tablet 05/08/2021 4 documented as of this encounter ED Notes * Glen Dash MD - 12/04/2021 11:00 PM CDT Chief Complaint Chief Complaint Patient presents with ??? Headache Recurrent Or Know Dx Migraine History of Present Illness 41-year-old female with a history of migraines here with complaints of classic migraine headache. Headache began upon waking this morning. It is identical to previous. She denies fever, chills. She does have some nausea and vomiting. No abdominal pain, chest pain, numbness or weakness. Patient has previously had success with treatment with Imitrex however that appears to be waning to some degree.She is never failed treatment with Compazine and Benadryl. Medical History ALLERGIES: Allergies Allergen Reactions ??? Trazodone Fatigue ??? Ibuprofen Other (see comment) ulcers ??? Tylenol [Acetaminophen] Rash MEDICATIONS: Prior to Admission medications Medication Sig Start Date End Date Taking? Authorizing Provider hydrOXYzine 25 MG tablet Take 25 mg by mouth 2 (two) times daily as needed. FOR ANXIETY 09/27/20 [facility] omeprazole 20 MG capsule Take 1 capsule by mouth nightly. 06/30/18 [facility] oxyCODONE immediate release 5 MG immediate release tablet Take 1 tablet (5 mg total) by mouth every6 (six) hours as needed for Pain. Indications: Acute Pain < 3 Day Supply 02/01/21 Jossue London MD SUMAtriptan (IMITREX) 50 MG tablet Take 1 tablet (50 mg total) by mouth 2 (two) times daily as needed for Migraine. Max of 4 tablets (200 mg) in 24 hours. 05/08/21 MAGDALENA Cartagena traMADol 50 MG tablet Take 50 mg by mouth every 6 (six) hours as needed. 06/30/18 [facility] triamcinolone 0.1 % cream Apply topically 2 (two) times daily. Do not use for more than one week 9/29/21 MAGDALENA Cartagena PAST MEDICAL HISTORY: Past Medical History: Diagnosis Date ??? Asthma ??? Celiac disease ??? Migraines PAST SURGICAL HISTORY: Past Surgical History: Procedure Laterality Date ??? APPENDECTOMY FAMILY HISTORY: No family history on file. SOCIAL HISTORY: Social History Tobacco Use ??? Smoking status: Current Every Day Smoker Packs/day: 0.50 Years: 15.00 Pack years: 7.50 Types: Cigarettes ??? Smokeless tobacco: Never Used Substance Use Topics ??? Alcohol use: Not Currently ??? Drug use: Yes Types: Marijuana Review of Systems Review of Systems Constitutional: Negative. Negative for fever. HENT: Negative. Respiratory: Negative for cough, chest tightness and shortness of breath. Cardiovascular: Negative. Negative for chest pain. Gastrointestinal: Positive for nausea and vomiting. Negative for abdominal distention and abdominalpain. Musculoskeletal: Negative. Neurological: Positive for headaches. Negative for seizures and syncope. Psychiatric/Behavioral: Negative. All other systems reviewed and are negative. Physical Exam Filed Vitals: 12/04/21 2257 BP: 132/74 Pulse: 97 Resp: 20 Temp: 98 ??F (36.7 ??C) TempSrc: Skin SpO2: 100% Weight: 65.8 kg (145 lb) Height: 5' 7 (1.702 m) Physical Exam Vitals and nursing note reviewed. Constitutional: General: She is not in acute distress. Appearance: She is well-developed. HENT: Head: Normocephalic and atraumatic. Right Ear: External ear normal. Left Ear: External ear normal. Nose: Nose normal. Eyes: General: No scleral icterus. Pupils: Pupils are equal, round, and reactive to light. Cardiovascular: Rate and Rhythm: Normal rate and regular rhythm. Pulses: Normal pulses. Heart sounds: Normal heart sounds. Pulmonary: Effort: Pulmonary effort is normal. No respiratory distress. Breath sounds: Normal breath sounds. No stridor. No wheezing. Abdominal: General: Bowel sounds are normal. There is no distension. Palpations: Abdomen is soft. Musculoskeletal: General: No deformity. Normal range of motion. Cervical back: Normal range of motion and neck supple. Skin: General: Skin is warm and dry. Capillary Refill: Capillary refill takes less than 2 seconds. Findings: No rash. Neurological: Mental Status: She is alert and oriented to person, place, and time. Cranial Nerves: No cranial nerve deficit. Psychiatric: Mood and Affect: Mood normal. Behavior: Behavior normal. Diagnostic Studies / Procedures ELECTROCARDIOGRAMS: No results found for this visit on 12/04/21. LABORATORY STUDIES: Results for orders placed or performed during the hospital encounter of 12/04/21 CBC W/DIFF AUTOMATED Result Value Ref Range WBC 9.2 4.4 - 11.0 x10'3/uL RBC 4.31 (L) 4.50 - 5.10 x10'6/uL HGB 13.7 12.3 - 15.3 G/DL HCT 40.3 35.9 - 44.6 % MCV 93.5 80.0 - 96.0 FL MCH 31.8 (H) 25.3 - 30.9 PG MCHC 34.0 31.0 - 34.1 G/DL RDW 12.9 12.4 - 15.1 % PLT 162 151 - 353 x10'3/uL MPV 11.7 9.6 - 12.0 FL RBC MORPHOLOGY NORMAL PLT MORPH. NORMAL WBC MORPHOLOGY NORMAL LYMPHOCYTES 1.3 (L) 15.8 - 45.0 % NEUTROPHILS 90.6 (H) 42.1 - 71.9 % MONOCYTES 7.0 5.7 - 12.5 % EOSINOPHILS 0.2 0.0 - 5.6 % BASOPHILS 0.4 0.0 - 1.3 % ABS. NEUTROPHILS 8.33 (H) 1.40 - 6.00 x10'3/uL IMMATURE GRANS 0.5 0.0 - 0.5 % ABS. LYMPHOCYTES 0.12 (L) 0.80 - 4.70 x10'3/uL COMPREHENSIVE METABOLIC PANEL Result Value Ref Range GLUCOSE 102 (H) 70 - 99 MG/DL BUN 13 7 - 18 MG/DL CREATININE S/P/B 0.78 0.55 - 1.02 MG/DL SODIUM 140 136 - 145 MMOL/L POTASSIUM 3.5 3.5 - 5.1 MMOL/L CHLORIDE S/P/B 104 100 - 108 MMOL/L CO2 24.9 21 - 32 MMOL/L CALCIUM 8.4 (L) 8.5 - 10.1 MG/DL BILIRUBIN TOTAL S/P/B 0.3 0.2 - 1.2 MG/DL TOTAL PROTEIN S/P/B 6.8 6.4 - 8.2 G/DL ALBUMIN S/P/B 3.9 3.4 - 5.0 G/DL AST 13 (L) 15 - 37 U/L ALT 21 14 - 55 U/L ALKALINE PHOSPHATASE S/P/B 59 50 - 136 U/L ANION GAP 11.1 5 - 15 MMOL/L BUN CREATININE RATIO 16.7 6 - 26 A/G RATIO 1.3 1.0 - 2.0 RATIO GFR ESTIMATE >90 >90 ML/MIN/1.73 M2 URINALYSIS, AUTO, COMPLETE Result Value Ref Range COLOR (U) YELLOW TRANSPARENCY CLEAR Specific [place] (U) 1.015 1.000 - 1.030 U PH 7.0 5.0 - 9.0 LEUKOCYTE ESTERASE NEGATIVE NEGATIVE NITRITES NEGATIVE NEGATIVE PROTEIN (U) NEGATIVE NEGATIVE URINE GLUCOSE NEGATIVE NEGATIVE U KETONES 1+ (A) NEGATIVE BILIRUBIN (U) NEGATIVE NEGATIVE BLOOD NEGATIVE NEGATIVE WBC/HPF 0-5 0 - 5 /HPF RBC/HPF 0-5 0 - 5 /HPF EPI/HPF RARE /HPF CULTURE & SENSITIVITY INDICATED? CULTURE IS NOT INDICATED TEST URINE Result Value Ref Range Specific [place] (U) 1.015 URINE HCG TEST NEGATIVE NEGATIVE IMAGING STUDIES No orders to display ED Course / Medical Decision Making 41-year-old female here with migraine typical for her. Her exam is benign. Patient has been seen numerous times and successfully treated here and has not required CT of the head. Given the unchanged character of this headache no CT is indicated today. Patient received medications and had significant improvement in her pain. She ultimately requested discharge. Discharged home in stable condition. Clinical Impression Migraine (Primary) Disposition: Discharge Glen Dash MD 12/05/21 0024 * NIKKI Pittman - 12/04/2021 10:57 PM CDT Pt ambulatory to Triage room with c/o of migraine that started this morning. Pt took Imitrex and has had no relief. Pt has hx of migraines. Denies any other symptoms at this time. documented in this encounter Plan of Treatment Not on file documented as of this encounter Procedures Procedure Name Priority Date/Time Associated Diagnosis Comments COMPREHENSIVE METABOLIC PANEL STAT 12/04/2021 11:20 PM CDT CBC W/DIFF AUTOMATED STAT 12/04/2021 11:20 PM CDT TEST URINE STAT 12/04/2021 11:00 PM CDT URINALYSIS, AUTO, COMPLETE STAT 12/04/2021 11:00 PM CDT documented in this encounter Results * (ABNORMAL) COMPREHENSIVE METABOLIC PANEL (12/04/2021 11:20 PM CDT) GLUCOSE 102(H) 70 - 99 MG/DL 12/05/2021 12:01 AM CDT [facility] BUN 13 7 - 18 MG/DL 12/05/2021 12:01 AM T [facility] CREATININE S/P/B 0.78 0.55 - 1.02 MG/DL 12/05/2021 12:01 AM CDT [facility] SODIUM S/P/B 140 136 - 145 MMOL/L 12/05/2021 12:01 AM T [facility] POTASSIUM S/P/B 3.5 3.5 - 5.1 MMOL/L 12/05/2021 12:01 AM T [facility] CHLORIDE S/P/B 104 100 - 108 MMOL/L 12/05/2021 12:01 AM T [facility] CO2 24.9 21 - 32 MMOL/L 12/05/2021 12:01 AM T [facility] CALCIUM S/P/B 8.4(L) 8.5 - 10.1 MG/DL 12/05/2021 12:01 AM CDT [facility] BILIRUBIN TOTAL S/P/B 0.3 0.2 - 1.2 MG/DL 12/05/2021 12:01 AM [facility] TOTAL PROTEIN S/P/B 6.8 6.4 - 8.2 G/DL 12/05/2021 12:01 AM [facility] ALBUMIN S/P/B 3.9 3.4 - 5.0 G/DL 12/05/2021 12:01 AM [facility] AST 13(L) 15 - 37 U/L 12/05/2021 12:01 AM [facility] ALT 21 14 - 55 U/L 12/05/2021 12:01 AM [facility] ALKALINE PHOSPHATASE S/P/B 59 50 - 136 U/L 12/05/2021 12:01 AM [facility] ANION GAP 11.1 5 - 15 MMOL/L 12/05/2021 12:01 AM [facility] BUN CREATININE RATIO 16.7 6 - 26 12/05/2021 12:01 AM [facility] A/G RATIO 1.3 1.0 - 2.0 RATIO 12/05/2021 12:01 AM [facility] GFR ESTIMATE >90 >90 ML/MIN/1.7 3 M2 12/05/2021 12:01 AM [facility] Comment: NOTE: eGFR is not calculated for patients <18 years of age. This is an estimated GFR calculation using the new CKD EPI creatinine equation without race and so does not require a correction factor for race. This estimated GFR should not be used for calculating drug doses. 12/04/2021 11:2 0 PM CDT us Glen Dash MD LABORATORY Final Resu lt [facility] [address] [place] [address], [place] [phone] * (ABNORMAL) CBC W/DIFF AUTOMATED (12/04/2021 11:20 PM CDT) [facility] WBC 9.2 4.4 - 11.0 x10'3/uL 12/04/2021 11:50 PM CDT [facility] RBC 4.31(L) 4.50 - 5.10 x10'6/uL 12/04/2021 11:50 PM CDT [facility] HGB 13.7 12.3 - 15.3 G/DL 12/04/2021 11:50 PM CDT [facility] HCT 40.3 35.9 - 44.6 % 12/04/2021 11:50 PM CDT [facility] MCV 93.5 80.0 - 96.0 FL 12/04/2021 11:50 PM CDT [facility] MCH 31.8(H) 25.3 - 30.9 PG 12/04/2021 11:50 PM CDT [facility] MCHC 34.0 31.0 - 34.1 G/DL 12/04/2021 11:50 PM CDT [facility] RDW 12.9 12.4 - 15.1 % 12/04/2021 11:50 PM CDT [facility] PLT 162 151 - 353 x10'3/uL 12/04/2021 11:50 PM CDT [facility] MPV 11.7 9.6 - 12.0 FL 12/04/2021 11:50 PM CDT [facility] RBC MORPHOLOGY NORMAL 12/04/2021 11:50 PM CDT [facility] PLT MORPH. NORMAL 12/04/2021 11:50 PM CDT [facility] WBC MORPHOLOGY NORMAL 12/04/2021 11:50 PM CDT [facility] LYMPHOCYTES % 1.3(L) 15.8 - 45.0 % 12/04/2021 11:50 PM CDT [facility] NEUTROPHILS % 90.6(H) 42.1 - 71.9 % 12/04/2021 11:50 PM CDT [facility] MONOCYTES % 7.0 5.7 - 12.5 % 12/04/2021 11:50 PM CDT [facility] EOSINOPHILS 0.2 0.0 - 5.6 % 12/04/2021 11:50 PM CDT [facility] BASOPHILS 0.4 0.0 - 1.3 % 12/04/2021 11:50 PM CDT [facility] ABS. NEUTROPHILS 8.33(H) 1.40 - 6.00 x10'3/uL 12/04/2021 11:50 PM CDT [facility] IMMATURE GRANS % 0.5 0.0 - 0.5 % 12/04/2021 11:50 PM CDT [facility] ABS. LYMPHOCYTES 0.12(L) 0.80 - 4.70 x10'3/uL 12/04/2021 11:50 PM CDT [facility] 12/04/2021 11:2 0 PM CDT us Glen Dash MD LABORATORY Final Resu lt [facility] [address] [place] [address], * TEST URINE (12/04/2021 11:00 PM CDT) SPECIFIC GRAVITY (U) 1.015 12/04/2021 11:54 PM CDT [facility] URINE HCG TEST NEGATIVE NEGATIVE 12/04/2021 11:54 PM CDT [facility] URINE SPECIMEN OBTAINED BY CLEAN CATCH PROCEDURE / Unknown 12/04/2021 11:00 PM CDT us Glen Dash MD URINE ORDERABLES Final Res ult [facility] [address] [place] [address], [place] [phone] * (ABNORMAL) URINALYSIS, AUTO, COMPLETE (12/04/2021 11:00 PM CDT) COLOR (U) YELLOW 12/05/2021 12:02 AM CDT [facility] TRANSPARENCY CLEAR 12/05/2021 12:02 AM T [facility] SPECIFIC GRAVITY (U) 1.015 1.000 - 1.030 12/05/2021 12:02 AM T [facility] U PH 7.0 5.0 - 9.0 12/05/2021 12:02 AM T [facility] LEUKOCYTES (U) NEGATIVE NEGATIVE 12/05/2021 12:02 AM T [facility] NITRITES NEGATIVE NEGATIVE 12/05/2021 12:02 AM T [facility] PROTEIN (U) NEGATIVE NEGATIVE 12/05/2021 12:02 AM T [facility] URINE GLUCOSE NEGATIVE NEGATIVE 12/05/2021 12:02 AM T [facility] KETONES MG/DL (U) 1+(A) NEGATIVE 12/05/2021 12:02 AM T [facility] BILIRUBIN (U) NEGATIVE NEGATIVE 12/05/2021 12:02 AM T [facility] BLOOD (U) NEGATIVE NEGATIVE 12/05/2021 12:02 AM CDT [facility] WBC/HPF 0-5 0 - 5 /HPF 12/05/2021 12:02 AM CDT [facility] RBC/HPF 0-5 0 - 5 /HPF 12/05/2021 12:02 AM CDT [facility] EPI/HPF RARE /HPF 12/05/2021 12:02 AM CDT [facility] CULTURE & SENSITIVITY INDICATED? CULTURE IS NOT INDICATED 12/05/2021 12:02 AM CDT [facility] URINE SPECIMEN OBTAINED BY CLEAN CATCH PROCEDURE / Unknown 12/04/2021 11:00 PM CDT us Glen Dash MD URINE ORDERABLES Final Res ult [facility] [address] [place] [address], [place] [phone] documented in this encounter Visit Diagnoses Diagnosis Migraine- Primary Migraine, unspecified, without mention of intractable migraine without mention of status migrainosus documented in this encounter Administered Medications Inactive Administered Medications - up to 3 most recent administrations Medication Order MAR Action Action Date Dose Rate Site diphenhydrAMINE (BENADRYL) injection 25 mg 25 mg, Intravenous, Once, 1 dose, On Thu12/04/21 at 2315, For IV administration, give no faster than 25 mg/min. Given 12/04/2021 11:13 PM CDT 25 mg ketorolac (TORADOL) injection 15 mg 15 mg, Intravenous, Once, 1 dose, On Thu12/04/21 at 2315, For IV administration, give over 15 seconds. Given 12/04/2021 11:14 PM CDT 15 mg prochlorperazine (COMPAZINE) injection 10 mg 10 mg, Intravenous, Once, 1 dose, On Thu12/04/21 at 2315, If giving IV, administer diluted or undiluted by slow IV push at a maximum rate of 5 mg/minute. To reduce the risk of hypotension the patient must remain lying down and be observed for 30 minutes after receiving the medication. Given 12/04/2021 11:16 PM CDT 10 mg documented in this encounter Active and Recently Administered Medications Times are shown in CDT. Scheduled Medication Order 12/03/2021 12/04/2021 12/05/2021 diphenhydrAMINE (BENADRYL) injection 25 mg (COMPLETED) 25 mg, Intravenous, Once, 1 dose, On Thu12/04/21 at 2315, For IV administration, give no faster than 25 mg/min. 2313 (Given - Provider: NIKKI Noel) ketorolac (TORADOL) injection 15 mg (COMPLETED) 15 mg, Intravenous, Once, 1 dose, On Thu12/04/21 at 2315, For IV administration, give over 15 seconds. 2314 (Given - Provider: NIKKI Noel) prochlorperazine (COMPAZINE) injection 10 mg (COMPLETED) 10 mg, Intravenous, Once, 1 dose, On Thu12/04/21 at 2315, If giving IV, administer diluted or undiluted by slow IV push at a maximum rate of 5 mg/minute. To reduce the risk of hypotension the patient must remain lying down and be observed for 30 minutes after receiving the medication. 2316 (Given - Provider: NIKKI Noel) documented in this encounter Care Teams Sew Out Operator Relationship Specialty Start Date End Date Vladimir Napoles DO [address] [place] [address] PCP - General INTERNAL MEDICINE 12/12/20 documented as of this encounter
--- OUTSIDE RECORDS SUMMARY | 2024-03-04 08:21 | XMS_ITS | Encounter Summary ---
Author Organization [facility] Address [address] [place] [address]. [place], [place] [id number] [place] [address] Care Team Providers Care Reserves Clerk Name Role Phone Marisolky Vladimir Sophia DO Primary Care Provider [phone] Reason for Visit * Reason Comments Arm Injury Encounter Details Date Type Department Care Team (Late st Contact Info) Description 08/01/2021 10:55 PM CDT - 08/01/2021 11:43 PM CDT Emergency [facility] Emergency Room [address] [place] [address] Marcel Hall, DO [address] [place] [address] Arm Injury Discharge Disposition: Home or Self Care (Routine [...] suspected to have Coronavirus/COVID-19? No / Unsure 08/01/2021 10:55 PM CDT documented as of this encounter Last Filed Vital Signs Vital Sign Reading Time Taken Comments Blood Pressure 111/85 08/01/2021 11:00 PM CDT Pulse 82 08/01/2021 11:00 PM CDT Temperature 36.6 ??C (97.8 ??F) 08/01/2021 11:00 PM C DT Respiratory Rate 18 08/01/2021 11:00 PM CDT Oxygen Saturation 100% 08/01/2021 11:00 PM CDT Inhaled Oxygen Concentration - - Weight 65.8 kg (145 lb) 08/01/2021 11:00 PM CDT Height 170.2 cm (5' 7 ) 08/01/2021 11:00 PM CDT Body Mass Index 22.71 08/01/2021 11:00 PM CDT documented in this encounter Discharge Instructions * Attachments The following attachments cannot be sent through Care Everywhere. * Tendonitis (Icelandic) documented in this encounter Medications at Time [...] as of this encounter ED Notes * Marcel Hall, - 08/01/2021 11:26 PM CDT Chief Complaint Chief Complaint Patient presents with ??? Arm Injury History of Present Illness 41-year-old female presents to the emergency department for left forearm pain that she noticed yesterday after work. 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 She states she sometimes rests the objects on her forearm to lift them. Recently has noticed some numbness and tingling to the left hand. Took tramadol today to help with her symptoms. Pain worse with flexion of wrist. Medical History ALLERGIES: Allergies Allergen Reactions ??? Trazodone Fatigue ??? Ibuprofen Other (see comment) ulcers ??? Tylenol [Acetaminophen] Rash MEDICATIONS: Prior to Admission medications Medication Sig Start Date End Date Taking? Authorizing Provider hydrOXYzine 25 MG tablet Take 25 mg by mouth 2 (two) times daily as needed. FOR ANXIETY 09/27/20 [facility] omeprazole 20 MG capsule Take 1 capsule by mouth nightly. 06/30/18 Doc Abstract oxyCODONE immediate release 5 MG immediate [...] 6 (six) hours as needed. 06/30/18 Doc Abstract triamcinolone 0.1 % cream Apply topically [...] Systems Constitutional: Negative for chills and fever. HENT: Negative for congestion and sore throat. Eyes: Negative for pain and visual disturbance. Respiratory: Negative for cough, shortness of breath and wheezing. Cardiovascular: Negative for chest pain and palpitations. Gastrointestinal: Negative for abdominal pain, nausea and vomiting. Endocrine: Negative for polydipsia and polyuria. Genitourinary: Negative for dysuria and flank pain. Musculoskeletal: Negative for neck pain. Left forearm pain Skin: Negative for rash and wound. Neurological: Positive for numbness. Negative for dizziness and weakness. Psychiatric/Behavioral: Negative for agitation and behavioral problems. All other systems reviewed and are negative. Physical Exam Filed Vitals: 08/01/21 2300 BP: 111/85 Pulse: 82 Resp: 18 Temp: 97.8 ??F (36.6 ??C) SpO2: 100% Weight: 65.8 kg (145 lb) Height: 5' 7 (1.702 m) Physical Exam Vitals and nursing note reviewed. Constitutional: General: She is not in acute distress. Appearance: Normal appearance. HENT: Head: Normocephalic and atraumatic. Right Ear: External ear normal. Left Ear: External ear normal. Nose: Nose normal. Mouth/Throat: Mouth: Mucous membranes are moist. Pharynx: Oropharynx is clear. Eyes: Extraocular Movements: Extraocular movements intact. Conjunctiva/sclera: Conjunctivae normal. Pupils: Pupils are equal, round, and reactive to light. Cardiovascular: Rate and Rhythm: Normal rate and regular rhythm. Pulses: Normal pulses. Radial pulses are 2+ on the right side and 2+ on the left side. Heart sounds: Normal heart sounds. No murmur heard. Pulmonary: Effort: Pulmonary effort is normal. No respiratory distress. Breath sounds: Normal breath sounds. Abdominal: Tenderness: There is no abdominal tenderness. There is no guarding. Musculoskeletal: General: Tenderness present. No swelling. Normal range of motion. Cervical back: Normal range of motion and neck supple. No rigidity. No muscular tenderness. Comments: Pain over flexor muscles of left wrist and tendons. Forearm pain with flexion of left wrist against resistance. Skin: General: Skin is warm and dry. Capillary Refill: Capillary refill takes less than 2 seconds. Neurological: General: No focal deficit present. Mental Status: She is alert and oriented to person, place, and time. Comments: Negative Tinel's sign to left ulnar nerve Psychiatric: Mood and Affect: Mood normal. Behavior: Behavior normal. Diagnostic Studies / Procedures ELECTROCARDIOGRAMS: No results found for this visit on 08/01/21. LABORATORY STUDIES: No results found for this visit on 08/01/21. IMAGING STUDIES No orders to display ED Course / Medical Decision Making Patient likely has left forearm muscle strain and tendinitis from work. Counseled patient to continue taking home pain medications as prescribed. Can use ice or heat as needed. Rest to help with painimprovement. Counseled patient to follow-up with primary care provider within 1 week. MDM Number of Diagnoses or Management Options Amount and/or Complexity of Data Reviewed Obtain history from someone other than the patient: yes Clinical Impression Forearm strain, left, initial encounter (Primary) Tendonitis Disposition: Discharge DO Marcel HUDSON DO 08/01/21 [id number] * Che Sesay RN - 08/01/2021 11:07 PM CDT Patient presents with pain in her left lower arm after she assumed that she pulled a muscle at workyesterday. She states that when she woke up she had pain in her shoulder as well. Throughout the day the pain in her shoulder has subsided but the pain in her forearm is still there. She is currentlyrating her pain at a 5. documented in this encounter Plan of Treatment Not on file documented as of this encounter Visit Diagnoses Diagnosis Forearm strain, left, initial encounter- Primary Tendonitis Enthesopathy of unspecified site documented in this encounter Care Teams Reserves Clerk Relationship Specialty Start Date End Date Vladimir Napoles DO [address] [facility] [address] [place] [address] PCP - General INTERNAL MEDICINE 12/12/20 documented as of this encounter
--- OUTSIDE RECORDS SUMMARY | 2024-03-04 08:21 | XMS_ITS | Encounter Summary ---
Author Organization [facility] Address [address] [place] [address]. [place], [place] [id number] [place] [address] Care Team Providers Care Junior Project Coordinator Name Role Phone Vladimir Napoles DO Primary Care Provider [phone] Reason for Visit * Reason Comments Headache Encounter Details Date Type Department Care Team (Late st Contact Info) Description 05/08/2021 1:00 PM DIRECTOR OF ASSISTED LIVING - 05/08/2021 2:08 PM DIRECTOR OF ASSISTED LIVING Emergency [facility] Emergency Room [address] [place] [address] Cristine Davis, [address] [address] Headache Discharge Disposition: Home or Self Care (Routine [...] suspected to have Coronavirus/COVID-19? No / Unsure 05/08/2021 12:55 PM DIRECTOR OF ASSISTED LIVING documented as of this encounter Last Filed Vital Signs Vital Sign Reading Time Taken Comments Blood Pressure 127/70 05/08/2021 1:01 PM DIRECTOR OF ASSISTED LIVING Pulse 100 05/08/2021 1:01 PM DIRECTOR OF ASSISTED LIVING Temperature 36.9 ??C (98.4 ??F) 05/08/2021 1:01 PM CS T Respiratory Rate 20 05/08/2021 1:01 PM DIRECTOR OF ASSISTED LIVING Oxygen Saturation 100% 05/08/2021 1:01 PM DIRECTOR OF ASSISTED LIVING Inhaled Oxygen Concentration - - Weight 65.8 kg (145 lb) 05/08/2021 1:01 PM DIRECTOR OF ASSISTED LIVING Height 170.2 cm (5' 7 ) 05/08/2021 1:01 PM DIRECTOR OF ASSISTED LIVING Body Mass Index 22.71 05/08/2021 1:01 PM DIRECTOR OF ASSISTED LIVING documented in this encounter Discharge Instructions * Discharge Instructions* MAGDALENA Sandra - 05/08/2021 1:58 PM DIRECTOR OF ASSISTED LIVING Please keep your appointment on the 1st for migraine injections, hopefully these are successful. Thank you for giving us the opportunity to care for you today. If at any point you are becoming more ill, please call your doctor, or go to the ER. You are always welcome back. If you have any questions about this visit, concerns about your symptoms, questions about your medications or other concerns, please give us a call. Our practice is committed to providing you the very best in healthcare. We want to hear from you! Please fill out the survey you get from us. Your feedback is anonymous and helps us improve the patient experience for you and others in the community we serve. - MAGDALENA Cui- - Emergency Medicine Provider CTOR OF ASSISTED LIVING * Attachments The following attachments cannot be sent through Care Everywhere. * Migraines in Adults (Dutch) documented in this encounter Medications at Time [...] as of this encounter ED Notes * MAGDALENA Sandra - 05/08/2021 1:16 PM CST Chief Complaint Chief Complaint Patient presents with ??? Headache History of Present Illness 41-year-old female presents for evaluation of headache. Patient has history of migraine headaches and is under care of specialty for this. She used to take Imitrex, does not have any more of this at home and insurance stopped approving zomig. She did get a sample of nurtec/rimegepant, which she took between 4 and 5 AM this morning. She states her migraine is improved, but has a persistent headache with associated ear pain. She states she has had some sinus congestion, but the residual headache and ear pain feels like a on treated migraine. She is scheduled to have Botox injections for migraines, but this is next month. She denies associated nausea or vomiting, has associated photophobia. Norecent trauma Medical History ALLERGIES: Allergies Allergen Reactions ??? Ibuprofen Other (see comment) ulcers ??? Tylenol [Acetaminophen] Rash MEDICATIONS: Prior to Admission medications Medication Sig Start Date End Date Taking? Authorizing Provider SUMAtriptan (IMITREX) 50 MG tablet Take 1 tablet (50 mg total) by mouth 2 (two) times daily as needed for Migraine. Max of 4 tablets (200 mg) in 24 hours. 05/08/21 Yes MAGDALENA Sandra hydrOXYzine 25 MG tablet Take 25 mg [...] 3 Day Supply 02/01/21 Jossue London MD traMADol 50 MG tablet Take 50 mg by mouth every 6 (six) hours as needed. 06/30/18 Doc Abstract triamcinolone 0.1 % cream Apply topically 2 (two) times daily. Do not use for more than one week 12/12/20 MAGDALENA Sandra PAST MEDICAL HISTORY: Past Medical History: Diagnosis [...] Constitutional: Negative for chills and fever. HENT: Positive for ear pain. Negative for congestion, sinus pain and sore throat. Eyes: Negative for pain and redness. Respiratory: Negative for cough, chest tightness, shortness of breath and wheezing. Cardiovascular: Negative for chest pain. Gastrointestinal: Negative for abdominal pain, constipation, diarrhea, nausea and vomiting. Musculoskeletal: Negative for arthralgias and joint swelling. Skin: Negative for rash and wound. Neurological: Positive for headaches. Psychiatric/Behavioral: Negative for agitation. The patient is not nervous/anxious. Physical Exam Filed Vitals: 05/08/21 1301 BP: 127/70 Pulse: 100 Resp: 20 Temp: 98.4 ??F (36.9 ??C) TempSrc: Skin SpO2: 100% Weight: 65.8 kg (145 lb) Height: 5' 7 (1.702 m) Physical Exam Vitals and nursing note reviewed. Constitutional: Appearance: She is well-developed. HENT: Head: Normocephalic. Right Ear: Tympanic membrane normal. Left Ear: Tympanic membrane normal. Eyes: Pupils: Pupils are equal, round, and reactive to light. Cardiovascular: Rate and Rhythm: Normal rate and regular rhythm. Pulmonary: Effort: Pulmonary effort is normal. Breath sounds: Normal breath sounds. Musculoskeletal: General: Normal range of motion. Skin: General: Skin is warm and dry. Neurological: Mental Status: She is alert and oriented to person, place, and time. Diagnostic Studies / Procedures ELECTROCARDIOGRAMS: No results found for this visit on 05/08/21. LABORATORY STUDIES: No results found for this visit on 05/08/21. IMAGING STUDIES: No orders to display MEDICATIONS: Medications SUMAtriptan Succinate (IMITREX) injection SOLN 6 mg (6 mg Subcutaneous Given 05/08/21 1322) Current Discharge Medication List START taking these medications Details SUMAtriptan (IMITREX) 50 MG tablet Take 1 tablet (50 mg total) by mouth 2 (two) times daily as needed for Migraine. Max of 4 tablets (200 mg) in 24 hours. Qty: 10 tablet, Refills: 0 Class: Eprescribe Pharmacy: [id number] [place] [id number] (Ph #: [phone]) ED Course / Medical Decision Making MDM Number of Diagnoses or Management Options Migraine Diagnosis management comments: Patient reports almost complete resolution of migraine headache after 1 subcutaneous dose of Imitrex in addition to the home medications that she took this morning. Sheexpresses readiness for discharge. Is aware to follow-up with her specialist who is managing her migraines. Nontoxic exit exam, 100% on room air this is normal This headache is not concerning for red flags including new onset, hard neurological findings, sudden onset or worst at onset, fever, elderly, progressive worsening each morning, jaw claudication or temporal artery pain, family members with similar symptoms, , clotting disorder, trauma, eye pain, dizziness, or worsening with cervical manipulation. Patient Progress Patient progress: stable ED Course as of May 08 140 Wed May 08, 2021 1355 Patient reports almost complete resolution of her headache after Imitrex. [GS] ED Course User Index [GS] MAGDALENA Sandra Clinical Impression Migraine (Primary) Disposition: Discharge NOTE: I dictated portions of this note using [employer] speech recognition software. Occasional wrong word or sound-alike substitutions may have occurred due to the inherent limitations of voice recognition software. MAGDALENA SANDRA 05/08/2021 MAGDALENA Sandra 05/08/21 1405 Cosigned by Elma Gale MD at 05/08/2021 3:00 PM DIRECTOR OF ASSISTED LIVING CTOR OF ASSISTED LIVING CTOR OF ASSISTED LIVING * Bernadette Figueroa RN - 05/08/2021 1:04 PM CST For the past 24 hours has had a migraine States she has seen a Neurologist in [place] but doesn't know her name. Denies nausea at present. Also c/o ear pain rates pain 5/10 CTOR OF ASSISTED LIVING documented in this encounter Plan of Treatment Not on file documented as of this encounter Visit Diagnoses Diagnosis Migraine- Primary Migraine, unspecified, without mention of intractable migraine without mention of status migrainosus documented in this encounter Administered Medications Inactive Administered Medications - up to 3 most recent administrations Medication Order MAR Action Action Date Dose Rate Site SUMAtriptan Succinate (IMITREX) injection SOLN 6 mg 6 mg, Subcutaneous, Once, 1 dose, On Thu05/08/21 at 1315 Given 05/08/2021 1:22 PM DIRECTOR OF ASSISTED LIVING 6 mg Other documented in this encounter Active and Recently Administered Medications Times are shown in DIRECTOR OF ASSISTED LIVING. Scheduled Medication Order 05/06/2021 05/07/2021 05/08/2021 SUMAtriptan Succinate (IMITREX) injection SOLN 6 mg (COMPLETED) 6 mg, Subcutaneous, Once, 1 dose, On Thu05/08/21 at 1315 1322 (Given - Provid er: Kelsy Cox RN - Comment: buttocks) documented in this encounter Care Teams Junior Project Coordinator Relationship Specialty Start Date End Date Vladimir Napoles DO [address] [place] [address] PCP - General INTERNAL MEDICINE 12/12/20 documented as of this encounter
--- OUTSIDE RECORDS SUMMARY | 2024-03-04 08:21 | XMS_ITS | Encounter Summary ---
Author Organization [facility] Address [address] [place] [address]. [place], [place] [address] [place] [address] Care Team Providers Care Sign Erector And Repairer Name Role Phone Napoleon Grimaldo MD Primary Care Provider [phone] Reason for Visit * Reason Comments Headache Encounter Details Date Type Department Care Team (Late st Contact Info) Description 01/20/2020 11:07 PM MANAGER OPERATIONS RESEARCH - 01/21/2020 1:20 AM MANAGER OPERATIONS RESEARCH Emergency [facility] Emergency Room [address] [place] [address] Chris Ding MD Headache Discharge Disposition: Home or Self Care [...] Exposure Response Date Recorded In the last month, have you been in contact with someone who was confirmed or suspected to have Coronavirus / COVID-19? No / Unsure 01/20/2020 11:02 PM MANAGER OPERATIONS RESEARCH documented as of this encounter Last Filed Vital Signs Vital Sign Reading Time Taken Comments Blood Pressure 135/71 01/20/2020 11:11 PM MANAGER OPERATIONS RESEARCH Pulse 89 01/20/2020 11:11 PM MANAGER OPERATIONS RESEARCH Temperature 36 ??C (96.8 ??F) 01/20/2020 11:11 PM MANAGER OPERATIONS RESEARCH Respiratory Rate 22 01/20/2020 11:11 PM MANAGER OPERATIONS RESEARCH Oxygen Saturation 98% 01/20/2020 11:11 PM MANAGER OPERATIONS RESEARCH Inhaled Oxygen Concentration - - Weight 77.1 kg (170 lb) 01/20/2020 11:11 PM MANAGER OPERATIONS RESEARCH Height 170.2 cm (5' 7 ) 01/20/2020 11:11 PM MANAGER OPERATIONS RESEARCH Body Mass Index 26.63 01/20/2020 11:11 PM MANAGER OPERATIONS RESEARCH documented in this encounter Discharge Instructions * Attachments The following attachments cannot be sent through Care Everywhere. * Migraines in Adults (Greenlandic) documented in this encounter Medications at Time of Discharge omeprazole 20 MG capsule Take 1 capsule (20 mg total) by mouth nightly. 2 06/30/2018 traMADol 50 MG tablet Take 1 tablet (50 mg total) by mouth every 6 (six) hours as needed. 0 06/30/2018 clonazePAM 0.5 MG tablet Take 1 tablet by mouth 4 (four) times daily as needed. 0 10/21/2018 12/12/2020 cyclobenzaprine 10 MG tablet Take 1 tablet (10 mg total) by mouth every 8 (eight) hours. 30 tablet 12/07/2018 12/12/2020 fluticasone propionate (FLONASE) 50 MCG/ACT nasal spray 1 spray by Nasal route daily. 16 g 03/25/2019 12/12/2020 predniSONE 20 MG tablet Once a day for 3 days then take 2 tablets once a day for 3 days then take 1 tablet once a day for 3 days then stop 18 tablet 06/01/2019 12/12/2020 SUMAtriptan 100 MG tablet Take 100 mg by mouth 2 (two) times daily as needed for Migraine. Take 1 tablet at onset of symptoms, may take 1 tablet 2 hours later. Max of 2 tablets in 24-hour period. 12/12/2020 topiramate 50 MG Tab Take 1 tablet by mouth 2 (two) times daily. 12/12/2020 documented as of this encounter ED Notes * Chris Ding MD - 01/20/2020 11:24 PM CST Chief Complaint Chief Complaint Patient presents with ??? Headache History of Present Illness 39 yo F comes in with progressively worsening headache throughout the day. Throbbing whole head. Now severe. Associated with nausea, vomiting, photophobia. No numbness, tingling.weakness. She had similar headache 2 months ago. She took flexeril, sumitriptan, and tramadol throughout the day without relief. No fever. Nothing brought on the headache Medical History ALLERGIES: Allergies Allergen Reactions ??? Tylenol [Acetaminophen] Rash MEDICATIONS: Prior to Admission medications Medication Sig Start Date End Date Taking? Authorizing Provider clonazePAM 0.5 MG tablet Take 1 tablet by mouth 4 (four) times daily as needed. 10/21/18 Doc Abstract cyclobenzaprine 10 MG tablet Take 1 tablet (10 mg total) by mouth every 8 (eight) hours. 12/07/18 Blue Steve MD fluticasone propionate (FLONASE) 50 MCG/ACT nasal spray 1 spray by Nasal route daily. 03/25/19 MAGDALENA Santana omeprazole 20 MG capsule Take 1 capsule by mouth nightly. 06/30/18 Doc Abstract predniSONE 20 MG tablet Once a day for 3 days then take 2 tablets once a day for 3 days then take 1tablet once a day for 3 days then stop 06/01/19 Amirah Hernandez, MAGDALENA SUMAtriptan 100 MG tablet Take 100 mg by mouth 2 (two) times daily as needed for Migraine. Take 1 tablet at onset of symptoms, may take 1 tablet 2 hours later. Max of 2 tablets in 24-hour period. DocAbstract topiramate 50 MG Tab Take 1 tablet by mouth 2 (two) times daily. Doc Abstract traMADol 50 MG tablet Take 50 mg by mouth every 6 (six) hours as needed. 06/30/18 Doc Abstract PAST MEDICAL HISTORY: Past Medical History: Diagnosis Date ??? Asthma ??? Migraines PAST SURGICAL HISTORY: Past Surgical [...] Systems Review of Systems Constitutional: Negative for fever. HENT: Negative for congestion. Eyes: Positive for photophobia. Respiratory: Negative for cough. Cardiovascular: Negative for chest pain. Gastrointestinal: Positive for nausea and vomiting. Endocrine: Negative for polyuria. Genitourinary: Negative for difficulty urinating. Musculoskeletal: Negative for neck pain. Skin: Negative for rash. Neurological: Positive for headaches. Negative for dizziness, weakness and numbness. Hematological: Does not bruise/bleed easily. Psychiatric/Behavioral: Negative for confusion. All other systems reviewed and are negative. Physical Exam Filed Vitals: 01/20/20 2311 BP: 135/71 Pulse: 89 Resp: 22 Temp: 96.8 ??F (36 ??C) TempSrc: Temporal SpO2: 98% Weight: 77.1 kg (170 lb) Height: 5' 7 (1.702 m) Physical Exam Vitals signs and nursing note reviewed. Constitutional: General: She is in acute distress (secondary to pain from headache). HENT: Head: Normocephalic and atraumatic. Right Ear: External ear normal. Left Ear: External ear normal. Nose: Nose normal. Mouth/Throat: Mouth: Mucous membranes are moist. Eyes: General: No scleral icterus. Extraocular Movements: Extraocular movements intact. Pupils: Pupils are equal, round, and reactive to light. Neck: Musculoskeletal: Normal range of motion. No neck rigidity. Cardiovascular: Rate and Rhythm: Normal rate and regular rhythm. Pulses: Normal pulses. Pulmonary: Effort: Pulmonary effort is normal. Abdominal: Palpations: Abdomen is soft. Tenderness: There is no abdominal tenderness. Musculoskeletal: Normal range of motion. Right lower leg: No edema. Left lower leg: No edema. Skin: General: Skin is warm and dry. Neurological: General: No focal deficit present. Mental Status: She is alert and oriented to person, place, and time. Cranial Nerves: No cranial nerve deficit. Sensory: No sensory deficit. Motor: No weakness. Coordination: Coordination normal. Psychiatric: Mood and Affect: Mood normal. Behavior: Behavior normal. Diagnostic Studies / Procedures ELECTROCARDIOGRAMS: No results found for this visit on 01/20/20. LABORATORY STUDIES: No results found for this visit on 01/20/20. IMAGING STUDIES No orders to display ED Course / Medical Decision Making MDM Number of Diagnoses or Management Options Other migraine without status migrainosus, not intractable: established and improving Diagnosis management comments: Pt with headache I suspect secondary to migraine given history of similar. Pt given iv therapy with resolution. Doubt meningitis, subarachnoid hemorrhage given history of similar. Will dc home with outpatient follow up Risk of Complications, Morbidity, and/or Mortality Presenting problems: moderate Diagnostic procedures: minimal Management options: moderate Patient Progress Patient progress: improved ED Course as of Jan 20 005 Sat Jan 21, 2020 0021 Headache significantly improved with iv fluids, iv reglan, benadryl, and toradol [KV] ED Course User Index [KV] Chris Ding MD Clinical Impression Other migraine without status migrainosus, not intractable (Primary) Disposition: Discharge Chris Ding MD 01/21/2052 GER OPERATIONS RESEARCH * Graciela Polo RN - 01/20/2020 11:08 PM CST Pt to ED with c/o migraine. Pt states this started today and has been all day. Pt is complaining ofnausea and vomiting. Pt states she has tried taking 9:15pm and 10:15pm zomeg , pt took flexeril at8:30pm, at 5pm she took a tramadol. She states she took something for nausea at 9:15. Pt rating pain 10/10 at this time. Pt states no relief with any medications she took. GER OPERATIONS RESEARCH documented in this encounter Plan of Treatment Not on file documented as of this encounter Visit Diagnoses Diagnosis Other migraine without status migrainosus, not intractable- Primary documented in this encounter Administered Medications Inactive Administered Medications - up to 3 most recent administrations Medication Order MAR Action Action Date Dose Rate Site diphenhydrAMINE (BENADRYL) injection 25 mg 25 mg, Intravenous, Once, 1 dose, On Thu01/20/20 at 2330, For IV administration, give no faster than 25 mg/min. Given 01/20/2020 11:43 PM MANAGER OPERATIONS RESEARCH 25 mg ketorolac (TORADOL) injection 30 mg 30 mg, Intravenous, Once, 1 dose, On Thu01/20/20 at 2330, For IV administration, give over 15 seconds. Given 01/20/2020 11:42 PM MANAGER OPERATIONS RESEARCH 30 mg metoclopramide (REGLAN) injection 10 mg 10 mg, Intravenous, Once, 1 dose, On Thu01/20/20 at 2330, Administer IV over 1-2 minutes Given 01/20/2020 11:43 PM MANAGER OPERATIONS RESEARCH 10 mg sodium chloride 0.9% bolus infusion SOLN 1,000 mL 1,000 mL, Intravenous, Administer over 15 Minutes, Bolus (Once), 1 dose, On Thu01/20/20 at 2330 New Bag 01/20/2020 11:46 PM MANAGER OPERATIONS RESEARCH 1,000 mLs documented in this encounter Active and Recently Administered Medications Times are shown in MANAGER OPERATIONS RESEARCH. Scheduled Medication Order 01/19/2020 01/20/2020 01/21/2020 diphenhydrAMINE (BENADRYL) injection 25 mg (COMPLETED) 25 mg, Intravenous, Once, 1 dose, On Thu01/20/20 at 2330, For IV administration, give no faster than 25 mg/min. 2343 (Given - Provider: Graciela Polo, MAX) ketorolac (TORADOL) injection 30 mg (COMPLETED) 30 mg, Intravenous, Once, 1 dose, On Thu01/20/20 at 2330, For IV administration, give over 15 seconds. 2342 (Given - Provider: Graciela Polo, RN) metoclopramide (REGLAN) injection 10 mg (COMPLETED) 10 mg, Intravenous, Once, 1 dose, On Thu01/20/20 at 2330, Administer IV over 1-2 minutes 2343 (Given - Provider: Graciela Polo, RN) sodium chloride 0.9% bolus infusion SOLN 1,000 mL (COMPLETED) 1,000 mL, Intravenous, Administer over 15 Minutes, Bolus (Once), 1 dose, On Thu01/20/20 at 2330 2346 (New Bag - Provider: Graciela Polo RN) 0055 (Infusion Stop Time - Provider: Graciela Polo, RN) documented in this encounter Care Teams Sign Erector And Repairer Relationship Specialty Start Date End Date Napoleon Grimaldo MD PCP - General FAMILY PRACTICE 11/09/18 12/11/20 documented as of this encounter
--- OUTSIDE RECORDS SUMMARY | 2024-03-04 08:21 | XMS_ITS | Encounter Summary ---
Author Organization [facility] Address [address] [place] [address]. [place], [place] [address] [place] [address] Care Team Providers Care Associate Quality Engineer Name Role Phone MarisolVladimir mcpherson Sophia DO Primary Care Provider [phone] Reason for Visit * Reason Comments Headache Encounter Details Date Type Department Care Team (Late st Contact Info) Description 01/02/2021 9:19 AM CDT - 01/02/2021 10:28 AM CDT Emergency [facility] Emergency Room [address] [place] [address] Konstantin Sebastian MD [address] [place] [id number] Headache Discharge Disposition: Home or Self Care [...] have Coronavirus / COVID-19? No / Unsure 01/02/2021 9:12 AM CDT documented as of this encounter Last Filed Vital Signs Vital Sign Reading Time Taken Comments Blood Pressure 109/65 01/02/2021 10:00 AM CDT Pulse 84 01/02/2021 9:21 AM CDT Temperature 36.7 ??C (98 ??F) 01/02/2021 9:21 AM CDT Respiratory Rate 18 01/02/2021 10:00 AM CDT Oxygen Saturation 99% 01/02/2021 10:00 AM CDT Inhaled Oxygen Concentration - - Weight 62.6 kg (138 lb) 01/02/2021 9:21 AM CDT Height 170.2 cm (5' 7 ) 01/02/2021 9:21 AM CDT Body Mass Index 21.61 01/02/2021 9:21 AM CDT documented in this encounter Discharge Instructions * Attachments The following attachments cannot be sent through Care Everywhere. * How to Keep Track of Your Headaches (Australian) * Migraines in Adults (Australian) documented in this encounter Medications at Time [...] more than one week 60 g 12/12/2020 ZOLMitriptan 5 MG Tab TAKE 1 TABLET BY MOUTH 1 TIME NEEDED FOR MIGRAINE . MAY REPEAT 1 TIME AT LEAST 2 HOURS LATER. DO NOT EXCEED 2 DOSES IN 24 HOURS 03/19/2020 2 documented as of this encounter ED Notes * Konstantin Sebastian MD - 01/02/2021 9:45 AM CDT Chief Complaint Chief Complaint Patient presents with ??? Headache History of Present Illness 40 years old white female with past history medical history of migraine came into the emergency department by private vehicle for evaluation of headache. Patient stated that her symptoms are moderate. Symptoms are worse with light and noise. She has history of migraines and this appears to be similar. She is out of her Zomig due to insurance issues. Her primary care physician wrote her Imitrex but she stated that he is not at the pharmacy yet. So she came in for treatment of monitoring. She stated that this is not the worst headache of her life is only moderate. She denies and stated that she is not sexually active. He is a smoker and denies any drug abuse. No other associated or m odifying factors. Medical History ALLERGIES: Allergies Allergen Reactions ??? Ibuprofen Other (see comment) ulcers ??? Tylenol [Acetaminophen] Rash MEDICATIONS: Prior to Admission medications Medication Sig Start Date End Date Taking? Authorizing Provider hydrOXYzine 25 MG tablet Take 25 mg by mouth 2 (two) times daily as needed. FOR ANXIETY 09/27/20 DocAbstract omeprazole 20 MG capsule Take 1 capsule by mouth nightly. 06/30/18 Doc Abstract traMADol 50 MG tablet Take 50 mg by mouth every 6 (six) hours as needed. 06/30/18 Doc Abstract triamcinolone 0.1 % cream Apply topically 2 (two) times daily. Do not use for more than one week 12/12/20 MAGDALENA Cartagena ZOLMitriptan 5 MG Tab TAKE 1 TABLET BY MOUTH 1 TIME NEEDED FOR MIGRAINE . MAY REPEAT 1 TIME AT LEAST 2 HOURS LATER. DO NOT EXCEED 2 DOSES IN 24 HOURS 03/19/20 Doc Abstract PAST MEDICAL HISTORY: Past Medical [...] Systems Review of Systems Constitutional: Negative for activity change and appetite change. Headache HENT: Negative. Eyes: Negative. Respiratory: Negative. Cardiovascular: Negative. Gastrointestinal: Negative. Neurological: Positive for headaches. All other systems reviewed and are negative. Physical Exam Filed Vitals: 01/02/21 0921 01/02/21 0930 BP: 119/70 102/65 Pulse: 84 Resp: 18 Temp: 98 ??F (36.7 ??C) SpO2: 98% 100% Weight: 62.6 kg (138 lb) Height: 5' 7 (1.702 m) Physical Exam Vitals and nursing note reviewed. Constitutional: Appearance: Normal appearance. HENT: Head: Normocephalic and atraumatic. Nose: Nose normal. Mouth/Throat: Mouth: Mucous membranes are moist. Eyes: Extraocular Movements: Extraocular movements intact. Pupils: Pupils are equal, round, and reactive to light. Cardiovascular: Rate and Rhythm: Normal rate and regular rhythm. Pulmonary: Effort: Pulmonary effort is normal. Breath sounds: Normal breath sounds. Abdominal: General: Bowel sounds are normal. Palpations: Abdomen is soft. Musculoskeletal: General: Normal range of motion. Cervical back: Normal range of motion and neck supple. Skin: General: Skin is warm. Capillary Refill: Capillary refill takes less than 2 seconds. Neurological: General: No focal deficit present. Mental Status: She is alert and oriented to person, place, and time. Psychiatric: Mood and Affect: Mood normal. Diagnostic Studies / Procedures ELECTROCARDIOGRAMS: No results found for this visit on 01/02/21. LABORATORY STUDIES: No results found for this visit on 01/02/21. IMAGING STUDIES No orders to display ED Course / Medical Decision Making Improved with imitrex, we offered ct head but she declined, she stated this is her normal migraine headache and she asked for a work note. Clinical Impression Migraine (Primary) Disposition: Discharge Konstantin Sebastian MD 01/02/21 1000 * Florence Correa RN - 01/02/2021 9:20 AM CDT Pt presented to ER with c/o migraine to posterior head that began yesterday. Pt states has hx of migraines. Pt states has been nauseated, pt denies fever. documented in this encounter Plan of Treatment [...] 6 mg, Subcutaneous, Once, 1 dose, On Thu01/02/21 at 1000 Given 01/02/2021 9:49 AM CDT 6 mg Right Arm documented in this encounter Active and Recently Administered Medications Times are shown in CDT. Scheduled Medication Order 12/31/2020 01/01/2021 01/02/2021 SUMAtriptan Succinate (IMITREX) injection SOLN 6 mg (COMPLETED) 6 mg, Subcutaneous, Once, 1 dose, On Thu01/02/21 at 1000 0949 (Given - Provid er: Edelmira Barbosa RN) documented in this encounter Care Teams Associate Quality Engineer Relationship Specialty Start Date End Date Vladimir Napoles DO [address] [facility] [address] [place] [address] PCP - General INTERNAL MEDICINE 12/12/20 documented as of this encounter
--- OUTSIDE RECORDS SUMMARY | 2024-03-04 08:21 | XMS_ITS | Encounter Summary ---
Author Organization [facility] Address [address] [place] [address]. [place], [place] [address] [place] [address] Care Team Providers Care Concrete Mixer Operator Name Role Phone Ramon Fang MD Primary Care Provider Unavailable Ramon Fang MD Primary Care Provider Unavailable Encounter Details Date Type Department Care Team (Late st Contact Info) Description 06/19/2000 [place] [address] Ramon Fang MD Social History Tobacco Use Types Packs/Day Years Used Date Smoking Tobacco: Never Assessed Comments Unknown Sex and Gender Information Value Date Recorded Sex Assigned at Not on file Legal Sex Female 4:49 PM CDT Gender Identity Not on file Sexual Orientation Not on file documented as of this encounter Plan of Treatment Not on file documented as of this encounter Visit Diagnoses Not on filedocumented in this encounter Care Teams Concrete Mixer Operator Relationship Specialty Start Date End Date Ramon Fang MD PCP - General 04/07/10 Ramon Fang MD PCP - General 03/26/10 documented as of this encounter
--- OUTSIDE RECORDS SUMMARY | 2024-03-04 08:21 | XMS_ITS | Patient Health Summary ---
Author Organization [facility] Address [address] [place] [address] Care Team Providers Care Welder Gun Name Role Phone Graciela Rosenbaum MD Primary Care Provider [phone] Note from [facility],non-owned Affiliates and Associated Physician Practices is amultiple site organization consisting of ambulatory clinics and hospital sitesin [place], [place], [place] and [place]. This disclosure is being madepursuant to the Care Everywhere program and may not contain all information available regarding this patient. Last updated 17.[facility] Social History Tobacco Use Types Packs/Day Years Used Date Smoking Tobacco: Never Assessed Sex and Gender Information Value Date Recorded Sex Assigned at Not on file Gender Identity Not on file Sexual Orientation Not on file Care Teams Welder Gun Relationship Specialty Start Date End Date Graciela Rosenbaum MD [address] [place] [address] PCP - General 10/10/08
--- OUTSIDE RECORDS SUMMARY | 2024-03-04 08:21 | XMS_ITS | Clinical Summary ---
Author Organization [facility] Address [address] [place] [address]. [place], [place] [address] [place] [address] Care Team Providers Care Rough Rib Grader Name Role Phone MarisolhiginioVladimir peterson DO Primary Care Provider [phone] Allergies Active Allergy Reactions Criticality Noted Date Comments Ibuprofen Other (see comment) Low 09/28/2020 ulcers Trazodone Fatigue 08/01/2021 Acetaminophen Rash Low 11/09/2018 Medications omeprazole 20 MG capsule Take 1 capsule (20 mg total) by mouth nightly. 2 9 Active traMADol 50 MG tablet Take 1 tablet (50 mg total) by mouth every 6 (six) hours as needed. 0 9 Active triamcinolone 0.1 % cream Apply topically 2 (two) times daily. Do not use for more than one week 60 g 1 Active hydrOXYzine 25 MG tablet Take 1 tablet (25 mg total) by mouth 2 (two) times daily as needed. FOR ANXIETY 1 Active rimegepant (NURTEC) 75 MG disintegrating tablet Take 1 tablet (75 mg total) by mouth. Max of 1 tablet (75 mg) in 24 hours. Active Active Problems No known active problems Immunizations Name Administration Dates Next Due Tdap (Adacel) 01/29/2021 Social History Tobacco Use Types Packs/Day Years Used Date Smoking Tobacco: Every Day Cigarettes 0.5 15 Smokeless Tobacco: Never Tobacco Cessation:Ready to Q uit: Not Asked; Counseling Given: Not Answered Alcohol Use Standard Drinks/Week Comments Not Currently 0 (1 standard drink = 0.6 oz pur e alcohol) Comments No Sex and Gender Information Value Date Recorded Sex Assigned at Not on file Legal Sex Female 4:49 PM CDT Gender Identity Not on file Sexual Orientation Not on file Last Filed Vital Signs Vital Sign Reading Time Taken Comments Blood Pressure 126/63 04/14/2023 4:50 PM CONTROL SYSTEMS DEVELOPER Pulse 78 04/14/2023 4:50 PM CONTROL SYSTEMS DEVELOPER Temperature 36.3 ??C (97.4 ??F) 04/14/2023 4:50 PM CS T Respiratory Rate 18 04/14/2023 4:50 PM CONTROL SYSTEMS DEVELOPER Oxygen Saturation 99% 04/14/2023 4:50 PM CONTROL SYSTEMS DEVELOPER Inhaled Oxygen Concentration - - Weight 61.2 kg (135 lb) 04/14/2023 4:50 PM CONTROL SYSTEMS DEVELOPER Height 170.2 cm (5' 7 ) 04/14/2023 4:50 PM CONTROL SYSTEMS DEVELOPER Body Mass Index 21.14 04/14/2023 4:50 PM CONTROL SYSTEMS DEVELOPER Plan of Treatment Health Maintenance Due Date Last Done Comments Cervical Cancer Screening Pa p Smear (Age 30 to 64) Every 3 Years 1982 Annual Physical 1985 Pneumococcal Vaccine: Pediat rics (0 to 5 Years) and At-Risk Patients (6 to 64 Years) (1 of 2 - PCV) 1988 Hepatitis C 2000 Hepatitis B Vaccines (1 of 3 - 19+ 3-dose series) 2001 Cervical Cancer Screening Pa p with HPV Testing (Age 30 to 64) Every 5 Years 2012 Cervical Cancer Screening with HPV 2012 Mammogram Screening 2022 COVID-19 Vaccine ( - 2023-2 5 season) 2023 Influenza Adult (#1) 2023 DTaP, Tdap and Td Vaccines ( 2 - Td or Tdap) 01/29/2031 01/29/2021 HPV Vaccines Aged Out No longer eligi ble based on patient's age to complete this topic Meningococcal Vaccine Aged Out No tio heather eligible based on patient's age to complete this topic RSV Immunizations Under 20 Months Aged Out No longer eligible based on patient's age to complete this topic Insurance [employer] Advance Directives Documents on File Type Date Recorded Patient Crop Production Advisor Expl anation Legal Documents 07/25/2020 10:42 AM RECVD & CMPLTD ATTY REQ. FOR BILLS FOR [facility] FOR RONDA GORDILLO LAW Care Teams Rough Rib Grader Relationship Specialty Start Date End Date Vladimir Napoles DO [address] [place] [address] PCP - General INTERNAL MEDICINE 12/12/20
--- OUTSIDE RECORDS SUMMARY | 2024-03-04 08:21 | XMS_ITS | Encounter Summary ---
Author Organization [facility] Health Address [address] [facility] [place] [address] Care Team Providers Care Auto Transmission Technician Name Role Phone Graciela Rosenbaum MD Primary Care Provider [phone] Encounter Details Date Type Department Care Team (Late st Contact Info) Description 10/27/2008 3:18 PM CDT - 10/27/2008 11:59 PM CDT Hospital Encounter [facility] [address] [place] [address] Graciela Rosenbaum MD [address] [place] [phone] Obstetrics Discharge Disposition: Home or Self Care Social History Tobacco Use Types Packs/Day Years Used Date Smoking Tobacco: Never Assessed Sex and Gender Information Value Date Recorded Sex Assigned at Not on file Gender Identity Not on file Sexual Orientation Not on file documented as of this encounter Plan of Treatment Not on file documented as of this encounter Visit Diagnoses Not on filedocumented in this encounter Care Teams Auto Transmission Technician Relationship Specialty Start Date End Date Graciela Rosenbaum MD [address] [place] [phone] PCP - General 10/10/08 documented as of this encounter
--- OUTSIDE RECORDS SUMMARY | 2024-03-04 08:21 | XMS_ITS | Encounter Summary ---
Author Organization [facility] Address [address] [place] [address]. [place], [place] [address] [place] [address] Care Team Providers Care Gas Inspector Name Role Phone Vladimir Napoles DO Primary Care Provider [phone] Encounter Details Date Type Department Care Team (Latest Contact Info) Description 01/02/2021 Travel Social History Tobacco Use Types Packs/Day Years [...] AM CDT documented as of this encounter Plan of Treatment Not on file documented as of this encounter Visit Diagnoses Not on filedocumented in this encounter Care Teams Gas Inspector Relationship Specialty Start Date End Date Vladimir Napoles DO [address] [place] [address] PCP - General INTERNAL MEDICINE 12/12/20 documented as of this encounter
--- OUTSIDE RECORDS SUMMARY | 2024-03-04 08:21 | XMS_ITS | Encounter Summary ---
Author Organization [facility] Address [address] [place] [address]. [place], [place] [address] [place] [address] Care Team Providers Care Manager Bridge Name Role Phone Napoleon Grimaldo MD Primary Care Provider [phone] Reason for Visit * Reason Comments Flu Like Symptoms Encounter Details Date Type Department Care Team (Late st Contact Info) Description 06/01/2019 3:26 PM CDT - 06/01/2019 4:[address] [facility] Emergency Room [address] [place] [address] Amirah Hernandez FNP [address] [place] [address] Flu Like Symptoms Discharge Disposition: Home or Self Care (Routine Discharge) Social History Tobacco Use Types Packs/Day Years Used Date Smoking Tobacco: Every Day Smokeless Tobacco: Never Alcohol Use Standard Drinks/Week [...] Sign Reading Time Taken Comments Blood Pressure 145/89 06/01/2019 3:30 PM CDT Pulse 95 06/01/2019 3:30 PM CDT Temperature 37.6 ??C (99.7 ??F) 06/01/2019 3:30 PM CD T Respiratory Rate 16 06/01/2019 3:30 PM CDT Oxygen Saturation 100% 06/01/2019 3:30 PM CDT Inhaled Oxygen Concentration - - Weight 96.2 kg (212 lb) 06/01/2019 3:29 PM CDT Height 170.2 cm (5' 7 ) 06/01/2019 3:29 PM CDT Body Mass Index 33.2 06/01/2019 3:29 PM CDT documented in this encounter Discharge Instructions * Attachments The following attachments cannot be sent through Care Everywhere. * Asthma Discharge Instructions, Adult (Guinean) * Sinusitis in Adults (Guinean) documented in this encounter Medications at Time of Discharge omeprazole 20 MG capsule Take 1 capsule (20 mg total) by mouth nightly. 2 06/30/2018 traMADol 50 MG tablet Take 1 tablet (50 mg total) by mouth every 6 (six) hours as needed. 0 06/30/2018 amoxicillin 875 MG tablet Take 1 tablet (875 mg total) by mouth 2 (two) times daily for 10 days. 20 tablet 06/01/2019 06/11/2019 clonazePAM 0.5 MG tablet Take 1 tablet [...] of this encounter ED Notes * MAGDALENA iKm - 06/01/2019 3:55 PM CDT Chief Complaint Chief Complaint Patient presents with ??? Flu Like Symptoms History of Present Illness 39-year-old female into clinic for complaint of sinus pressure and congestion. Postnasal drip and started to lose her voice. Patient has a history of asthma. She started using her inhaler. She statesthat she does not feel like she is wheezing a lot but she is just very tight right now. She has allergies in which she takes Zyrtec for. She has been fighting with that off and on but now is much more congested and running a low-grade fever. She also started on pseudoephedrine to help with the congestion and Flonase. Denies any shortness of breath. Denies any recent travel. Patient basically here for evaluation butalso to get a note to states she can go to work. Medical History ALLERGIES: Allergies Allergen Reactions ??? Tylenol [Acetaminophen] Rash MEDICATIONS: Prior to Admission medications Medication Sig Start Date End Date Taking? Authorizing Provider amoxicillin 875 MG tablet Take 1 tablet (875 mg total) by mouth 2 (two) times daily for 10 days. 06/01/19 06/11/19 Yes MAGDALENA Kim predniSONE 20 MG tablet Once a day for 3 days then take 2 tablets once a day for 3 days then take 1tablet once a day for 3 days then stop 06/01/19 Yes MAGDALENA Kim clonazePAM 0.5 MG tablet Take 1 tablet [...] capsule by mouth nightly. 06/30/18 Doc Abstract SUMAtriptan 100 MG tablet Take 100 mg [...] ??? Smoking status: Current Every Day Smoker ??? Smokeless tobacco: Never Used Substance Use Topics ??? Alcohol use: Not Currently ??? Drug use: Yes Types: Marijuana Review of Systems Review of Systems Constitutional: Positive for fatigue and fever. Negative for chills and diaphoresis. HENT: Positive for ear pain, sinus pressure and sinus pain. Negative for congestion, ear discharge,mouth sores, postnasal drip, rhinorrhea, sore throat and tinnitus. Eyes: Negative for discharge and redness. Respiratory: Positive for cough and chest tightness. Negative for shortness of breath, wheezing andstridor. Cardiovascular: Negative for chest pain. Gastrointestinal: Negative for diarrhea, nausea and vomiting. Endocrine: Negative. Genitourinary: Negative. Musculoskeletal: Negative for arthralgias and myalgias. Skin: Negative for color change and rash. Neurological: Negative. Psychiatric/Behavioral: Negative. Physical Exam Filed Vitals: 06/01/19 1529 06/01/19 1530 BP: (!) 142/89 (!) 145/89 Pulse: 95 95 Resp: 16 16 Temp: 99.7 ??F (37.6 ??C) 99.7 ??F (37.6 ??C) TempSrc: Tympanic SpO2: 100% 100% Weight: 96.2 kg (212 lb) Height: 5' 7 (1.702 m) Physical Exam Constitutional: She is oriented to person, place, and time. She appears well- developed and well-nourished. No distress. HENT: Head: Normocephalic and atraumatic. Right Ear: Hearing and ear canal normal. Tympanic membrane is erythematous. A middle ear effusion is present. Left Ear: Hearing and ear canal normal. A middle ear effusion is present. Nose: Mucosal edema and rhinorrhea present. No sinus tenderness, nasal deformity, septal deviation or nasal septal hematoma. Right sinus exhibits maxillary sinus tenderness and frontal sinus tenderness. Left sinus exhibits maxillary sinus tenderness and frontal sinus tenderness. Mouth/Throat: Uvula is midline and mucous membranes are normal. No oral lesions. No uvula swelling.No oropharyngeal exudate, posterior oropharyngeal edema, posterior oropharyngeal erythema or tonsillar abscesses. Will drip noted. Eyes: Pupils are equal, round, and reactive to light. Conjunctivae and EOM are normal. Neck: Normal range of motion. Neck supple. Cardiovascular: Normal rate, regular rhythm, normal heart sounds and intact distal pulses. Pulmonary/Chest: No accessory muscle usage. No respiratory distress. She has decreased breath sounds (throughout and bilat). She has no wheezes. She has no rales. She exhibits no tenderness. Musculoskeletal: Normal range of motion. Neurological: She is alert and oriented to person, place, and time. Skin: Skin is warm and dry. Capillary refill takes less than 2 seconds. She is not diaphoretic. Psychiatric: Her behavior is normal. Nursing note and vitals reviewed. Diagnostic Studies / Procedures ELECTROCARDIOGRAMS: No results found for this visit on 06/01/19. LABORATORY STUDIES: No results found for this visit on 06/01/19. IMAGING STUDIES No orders to display ED Course / Medical Decision Making MDM Number of Diagnoses or Management Options Mild intermittent asthma with exacerbation: new and does not require workup Sinusitis: new and does not require workup Diagnosis management comments: With underlying allergies that has progressively gotten worse and now with symptomatic sinus infection including fever. Patient also with decreased breath sounds without wheezing. Patient could benefit from oral steroids to help open her up a little bit better. Reviewed plan of care with patient to include diagnoses, Test results, medication and plan of care.Pt verbalized understanding. All questions answered. Risk of Complications, Morbidity, and/or Mortality Presenting problems: low Diagnostic procedures: low Management options: low Patient Progress Patient progress: stable Clinical Impression Sinusitis (Primary) Mild intermittent asthma with exacerbation Disposition: Discharge MAGDALENA Kim 06/01/19 1619 Cosigned by Alessandro Rene MD at 06/07/2019 1:24 AM CDT * Eva Lazcano RN - 06/01/2019 3:31 PM CDT Pt to triage with c/o headache, rhinorrhea, STUDENT MINISTRY PASTOR cough, head congestion, and chest tightness/burning that began 2 days ago. She denies a sore throat. She has been using Zyrtec, Sudafed, and her albuterol inhaler without improvement. She states she does not feel like she's wheezing and she's not SOB, but does feel like it's difficult to take a deep breath. documented in this encounter Plan of Treatment Not on file documented as of this encounter Visit Diagnoses Diagnosis Sinusitis- Primary Unspecified sinusitis (chronic) Mild intermittent asthma with exacerbation (HHS/HCC) Unspecified asthma, with exacerbation documented in this encounter Care Teams Manager Bridge Relationship Specialty Start Date End Date Napoleon Grimaldo MD PCP - General FAMILY PRACTICE 11/09/18 12/11/20 documented as of this encounter
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
--- OUTSIDE RECORDS SUMMARY | 2024-03-04 08:21 | XMS_ITS | Encounter Summary ---
Author Organization [facility] Address [address] [place] [address]. [place], [place] [address] [place] [address] Care Team Providers Care Computer Hardware Engineer Name Role Phone Vladimir Napoles DO Primary Care Provider [phone] Encounter Details Date Type Department Care Team (Latest Contact Info) Description 12/12/2020 Travel Social History Tobacco Use Types Packs/Day [...] or suspected to have Coronavirus / COVID-19? Yes 12/12/2020 4:17 PM CDT documented as of this encounter Plan of Treatment Not on file documented as of this encounter Visit Diagnoses Not on filedocumented in this encounter Care Teams Computer Hardware Engineer Relationship Specialty Start Date End Date Vladimir Napoles DO [address] [place] [address] PCP - General INTERNAL MEDICINE 12/12/20 documented as of this encounter
--- OUTSIDE RECORDS SUMMARY | 2024-03-04 08:21 | XMS_ITS | Encounter Summary ---
Author Organization [facility] Address [address] [place] [address]. [place], [place] [address] [place] [address] Care Team Providers Care Ferry Hand Name Role Phone Vladimir Napoles DO Primary Care Provider [phone] Encounter Details Date Type Department Care Team (Latest Contact Info) Description 05/07/2022 Travel Social History Tobacco Use Types Packs/Day [...] suspected to have Coronavirus/COVID-19? No / Unsure 05/07/2022 9:14 PM FREIGHT SOLICITOR documented as of this encounter Plan of Treatment Not on file documented as of this encounter Visit Diagnoses Not on filedocumented in this encounter Care Teams Ferry Hand Relationship Specialty Start Date End Date Vladimir Napoles, [address] [place] [address] PCP - General INTERNAL MEDICINE 12/12/20 documented as of this encounter
--- OUTSIDE RECORDS SUMMARY | 2024-03-04 08:21 | XMS_ITS | Encounter Summary ---
Author Organization [facility] Address [address] [place] [address]. [place], [place] [id number] [place] [address] Care Team Providers Care Cutter Out Name Role Phone Ramon Fang MD Primary Care Provider Unavailable Ramon Fang MD Primary Care Provider Unavailable Encounter Details Date Type Department Care Team (Late st Contact Info) Description 01/07/2006 [facility] Emergency Room [address] [place] [address] Social History Tobacco Use Types Packs/Day Years [...] on filedocumented in this encounter Care Teams Cutter Out Relationship Specialty Start Date End Date Ramon Fang MD PCP - General 04/07/10 Ramon Fang MD PCP - General 03/26/10 documented as of this encounter
--- OUTSIDE RECORDS SUMMARY | 2024-03-04 08:21 | XMS_ITS | Encounter Summary ---
Author Organization [facility] Address [address] [place] [address]. [place], [place] [address] [place] [address] Care Team Providers Care Staking Press Operator Name Role Phone Vladimir Napoles DO Primary Care Provider [phone] Encounter Details Date Type Department Care Team (Latest Contact Info) Description 08/12/2021 Travel Social History Tobacco Use Types Packs/Day [...] suspected to have Coronavirus/COVID-19? No / Unsure 08/12/2021 8:51 PM CDT documented as of this encounter Plan of Treatment Not on file documented as of this encounter Visit Diagnoses Not on filedocumented in this encounter Care Teams Staking Press Operator Relationship Specialty Start Date End Date Vladimir Napoles DO [address] [place] [address] PCP - General INTERNAL MEDICINE 12/12/20 documented as of this encounter
--- OUTSIDE RECORDS SUMMARY | 2024-03-04 08:21 | XMS_ITS | Encounter Summary ---
Author Organization [facility] Address [address] [place] [address]. [place], [place] [id number] [place] [address] Care Team Providers Care Fast Food Assistant Restaurant Manager Name Role Phone Napoleon Grimaldo MD Primary Care Provider [phone] Reason for Visit * Reason Comments Rash Encounter Details Date Type Department Care Team (Late st Contact Info) Description 11/09/2018 4:09 PM CDT - 11/09/2018 6:00 PM CDT Emergency [facility] Emergency Room [id number] [place] [id number] Vicenta Ley, DONOR RECRUITER [address] [place] [address] Rash Discharge Disposition: Home or Self Care (Routine Discharge) Social History Tobacco Use Types Packs/Day Years Used Date Smoking Tobacco: Never Assessed Comments No Sex and Gender Information Value Date Recorded Sex Assigned at Not on file Legal Sex Female 4:49 PM CDT Gender Identity Not on file Sexual Orientation Not on file documented as of this encounter Last Filed Vital Signs Vital Sign Reading Time Taken Comments Blood Pressure 109/69 11/09/2018 4:08 PM CDT Pulse 83 11/09/2018 4:08 PM CDT Temperature 37 ??C (98.6 ??F) 11/09/2018 4:08 PM CDT Respiratory Rate 18 11/09/2018 4:08 PM CDT Oxygen Saturation 100% 11/09/2018 4:08 PM CDT Inhaled Oxygen Concentration - - Weight 92.1 kg (203 lb) 11/09/2018 4:08 PM CDT Height 170.2 cm (5' 7 ) 11/09/2018 4:08 PM CDT Body Mass Index 31.79 11/09/2018 4:08 PM CDT documented in this encounter Discharge Instructions * Discharge Instructions* MAGDALENA Santana - 11/09/2018 4:18 PM CDT Keep dry areas clean and moist with an emollient such as Vaseline or Aquaphor. Start oral steroids and take as directed. Avoid showers and baths with extreme temperatures. Avoid any soaps or lotions with perfumes. If rash fails to improve or worsen, return or follow-up as directed * Attachments The following attachments cannot be sent through Care Everywhere. * Skin Rash (Slovak) documented in this encounter Medications at Time [...] cyclobenzaprine 10 MG tablet Take 1 tablet by mouth every 8 (eight) hours. 0 06/30/2018 12/07/2018 predniSONE 20 MG tablet Take 2 tablets (40 mg total) by mouth daily for 5 days. 10 tablet 11/09/2018 11/14/2018 topiramate 50 MG Tab Take 1 tablet by mouth 2 (two) times daily. 12/12/2020 documented as of this encounter ED Notes * MAGDALENA Santana - 11/09/2018 4:17 PM CDT Chief Complaint Chief Complaint Patient presents with ??? Rash History of Present Illness 38-year-old female to urgent care with concerns about a rash that started last week. Patient initially thought it was related to the heat because it was only located in between her breast. Patient reports the areas are very dry and itchy. Has not tried anything for her symptoms. Denies the use of any new soaps or lotions. No one else at home has anything similar to this. Rash is now located on hips and waistband area. Denies any fever or chills. History provided by: Patient Rash Location: Torso. Quality: draining, itchiness and redness Quality: not blistering, not bruising, not burning, not dry, not painful, not peeling, not scaling,not swelling and not weeping Severity: Moderate Onset quality: Gradual Duration: 1 week Progression: Worsening Chronicity: New Context: not exposure to similar rash, not insect bite/sting, not new detergent/soap, not sick contacts and not sun exposure Relieved by: Nothing Worsened by: Nothing Ineffective treatments: None tried Associated symptoms: no diarrhea, no fatigue, no fever, no joint pain, no periorbital edema and no sore throat Medical History ALLERGIES: Allergies Allergen Reactions ??? Tylenol [Acetaminophen] Rash MEDICATIONS: Prior to Admission medications Medication Sig Start Date End Date Taking? Authorizing Provider predniSONE 20 MG tablet Take 2 tablets (40 mg total) by mouth daily for 5 days. 11/09/18 11/14/18 Yes MAGDALENA Santana topiramate 50 MG Tab Take 1 tablet by mouth 2 (two) times daily. Yes Doc Abstract clonazePAM 0.5 MG tablet Take 1 tablet by mouth 4 (four) times daily as needed. 10/21/18 Doc Abstract cyclobenzaprine 10 MG tablet Take 1 tablet by mouth every 8 (eight) hours. 06/30/18 Doc Abstract omeprazole 20 MG capsule Take 1 capsule by mouth nightly. 06/30/18 Doc Abstract traMADol 50 MG tablet Take 50 mg by mouth every 6 (six) hours as needed. 06/30/18 Doc Abstract PAST MEDICAL HISTORY: No past medical history on file. PAST SURGICAL HISTORY: No past surgical history on file. FAMILY HISTORY: No family history on file. SOCIAL HISTORY: Social History Tobacco Use ??? Smoking status: Not on file Substance Use Topics ??? Alcohol use: Not on file ??? Drug use: Not on file Review of Systems Review of Systems Constitutional: Negative for chills, fatigue and fever. HENT: Negative for sore throat. Gastrointestinal: Negative for diarrhea. Musculoskeletal: Negative for arthralgias. Skin: Positive for rash. All other systems reviewed and are negative. Physical Exam Filed Vitals: 11/09/18 1608 BP: 109/69 Pulse: 83 Resp: 18 Temp: 98.6 ??F (37 ??C) TempSrc: Tympanic SpO2: 100% Weight: 92.1 kg (203 lb) Height: 5' 7 (1.702 m) Physical Exam Constitutional: She is oriented to person, place, and time. Vital signs are normal. She appears well-developed and well-nourished. She is cooperative. Non- toxic appearance. She does not have a sicklyappearance. She does not appear ill. No distress. 38-year-old female resting in chair and providing history without difficulty HENT: Head: Normocephalic and atraumatic. Right Ear: External ear normal. Left Ear: External ear normal. Nose: Nose normal. Mouth/Throat: Oropharynx is clear and moist. No oropharyngeal exudate. Eyes: Conjunctivae and EOM are normal. Pupils are equal, round, and reactive to light. Right eye exhibits no discharge. Left eye exhibits no discharge. Neck: Normal range of motion. Neck supple. Cardiovascular: Normal rate, regular rhythm, normal heart sounds and intact distal pulses. No murmur heard. Pulmonary/Chest: Effort normal and breath sounds normal. No respiratory distress. Musculoskeletal: Normal range of motion. Neurological: She is alert and oriented to person, place, and time. Skin: Skin is warm and dry. Capillary refill takes less than 2 seconds. Rash ( Dry red rash underneath bilateral breast and on hips around waistband.) noted. Rash is not vesicular and not urticarial.She is not diaphoretic. No erythema. No pallor. Nursing note and vitals reviewed. Diagnostic Studies / Procedures ELECTROCARDIOGRAMS: No results found for this visit on 11/09/18. LABORATORY STUDIES: No results found for this visit on 11/09/18. IMAGING STUDIES No orders to display ED Course / Medical Decision Making MDM Number of Diagnoses or Management Options Rash and nonspecific skin eruption: Diagnosis management comments: Patient/family informed of level of care and verbalizes understanding. Plan of care and return precautions discussed with patient. Clinical Impression Rash and nonspecific skin eruption (Primary) Disposition: Discharge MAGDALENA Santana 11/09/18 1623 Cosigned by Alessandro Rene MD at 11/12/2018 6:26 AM CDT * Graciela Rausch RN - 11/09/2018 4:11 PM CDT Patient here with complaints of rash that started about a week ago. documented in this encounter Plan of Treatment Not on file documented as of this encounter Visit Diagnoses Diagnosis Rash and nonspecific skin eruption- Primary Rash and other nonspecific skin eruption documented in this encounter Care Teams Fast Food Assistant Restaurant Manager Relationship Specialty Start Date End Date Napoleon Grimaldo MD PCP - General FAMILY PRACTICE 11/09/18 12/11/20 documented as of this encounter
--- OUTSIDE RECORDS SUMMARY | 2024-03-04 08:21 | XMS_ITS | Encounter Summary ---
Author Organization [facility] Address [address] [place] [address]. [place], [place] [id number] [place] [address] Care Team Providers Care Pet Feeder Name Role Phone Vladimir Napoles DO Primary Care Provider [phone] Encounter Details Date Type Department Care Team (Latest Contact Info) Description 08/01/2021 Travel Social History Tobacco Use Types Packs/Day [...] on filedocumented in this encounter Care Teams Pet Feeder Relationship Specialty Start Date End Date Vladimir Napoles DO [address] [place] [address] PCP - General INTERNAL MEDICINE 12/12/20 documented as of this encounter
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
--- OUTSIDE RECORDS SUMMARY | 2024-03-04 08:21 | XMS_ITS | Encounter Summary ---
Author Organization [facility] Address [address] [place] [address]. [place], [place] [id number] [place] [address] Care Team Providers Care Java Project Manager Name Role Phone Napoleon Grimaldo MD Primary Care Provider [phone] Encounter Details Date Type Department Care Team (Latest Contact Info) Description 06/01/2019 Travel Social History Tobacco Use Types Packs/Day [...] on filedocumented in this encounter Care Teams Java Project Manager Relationship Specialty Start Date End Date Napoleon Grimaldo MD PCP - General FAMILY PRACTICE 11/09/18 12/11/20 documented as of this encounter
--- OUTSIDE RECORDS SUMMARY | 2024-03-04 08:21 | XMS_ITS | Encounter Summary ---
Author Organization [facility] Address [address] [place] [address]. [place], [place] [id number] [place] [id number] Care Team Providers Care Trimming Machine Operator Name Role Phone Marisolky Vladimir Sophia DO Primary Care Provider [phone] Reason for Visit * Reason Comments Back Injury Encounter Details Date Type Department Care Team (Late st Contact Info) Description 05/07/2022 9:20 PM LOT TECHNICIAN - 05/07/2022 10:29 PM LOT TECHNICIAN Emergency [facility] Emergency Room [address] [place] [address] Ko Reese MD,PHD [address] [place] [address] Back Injury Discharge Disposition: Home or Self Care [...] Coronavirus/COVID-19? No / Unsure 05/07/2022 9:14 PM LOT TECHNICIAN documented as of this encounter Last Filed Vital Signs Vital Sign Reading Time Taken Comments Blood Pressure 116/70 05/07/2022 10:29 PM LOT TECHNICIAN Pulse 82 05/07/2022 10:29 PM LOT TECHNICIAN Temperature 36.8 ??C (98.2 ??F) 05/07/2022 10:[address] Respiratory Rate 16 05/07/2022 10:29 PM LOT TECHNICIAN Oxygen Saturation 98% 05/07/2022 10:29 PM LOT TECHNICIAN Inhaled Oxygen Concentration - - Weight 65.8 kg (145 lb) 05/07/2022 9:29 PM LOT TECHNICIAN Height 170.2 cm (5' 7 ) 05/07/2022 9:29 PM LOT TECHNICIAN Body Mass Index 22.71 05/07/2022 9:29 PM LOT TECHNICIAN documented in this encounter Discharge Instructions * Attachments The following attachments cannot be sent through Care Everywhere. * Contusion Discharge Instructions (British) * Coccyx Injury Discharge Instructions (British) documented in this encounter Medications at Time [...] as of this encounter ED Notes * Ko Reese MD,PHD - 05/07/2022 9:38 PM CST EMERGENCY DEPARTMENT ENCOUNTER Chief Complaint Chief Complaint Patient presents with ??? Back Injury History of Present Illness 42-year-old female presenting to emergency department following a ground-level fall. The patient was walking her dog when the leash wrapped around her legs and pulled her forward, she landed on her behind and possibly struck her ribs. She denies head or neck injury. She has mild pain in the bilateral elbows as well. Physical Exam Filed Vitals: 05/07/229 BP: 114/69 Pulse: 91 Resp: 18 Temp: 98.2 ??F (36.8 ??C) TempSrc: Temporal SpO2: 98% Weight: 65.8 kg (145 lb) Height: 5' 7 (1.702 m) GENERAL: No acute distress, alert and oriented x 4 EYE: No raccoon eyes, PERRLA, EOMI ENT: Normocephalic without external signs of trauma, non hemotympanum, normal nasal and pharyngeal exam NECK: No cervical spine spine tenderness to palpation, neck supple CARDIOVASCULAR: RRR, normal S1-S2, no clicks murmurs rubs or gallops are appreciated RESPIRATORY: No respiratory distress or tachypnea, clear to and equal to auscultation bilaterally CHEST: No crepitus, no chest wall tenderness to palpation, no localizes pain to the lateral left ribs ABDOMEN: Soft, non-tender BACK: Lumbar spine tenderness without palpable step-off NEUROLOGICAL: Alert and oriented x4, motor and sensation grossly intact bilaterally MUSCULOSKELETAL: No tenderness or deformities to palpation of the major joints or long bones, good strength and tone, joints free from effusion, normal non- painful range of motion of the major joints. In the elbows, there is no radial head tenderness and normal nonpainful strength VASCULAR: 2+ radial and DP pulses, normal fine touch sensation and capillary refill distally Diagnostic Studies / Procedures IMAGING STUDIES XR RIBS LT+PA CHEST Final Result by User, [id number] (05/07 2211) Examination: X-ray Left ribs, 3 views and x-ray chest, one view Exam time: 1949 Clinical history: fall, rib pain Comparison: None available Technique: 3 views of the Left ribs obtained. Single frontal view of the chest obtained. FINDINGS: CXR: The lungs are clear. No airspace consolidation, pneumothorax, or pleural effusion. The cardiomediastinal silhouette is unremarkable. LEFT RIBS: No acute displaced rib fracture. No definite areas of cortical destruction or pathologic osseous abnormality. IMPRESSION: 1. No acute displaced left rib fracture. 2. No large pneumothorax or pleural effusion. Referred By: Interpreted By: Yumiko Doherty MD, 05/07/2022 10:06 PM XR LUMB SPINE 3V Final Result by User, [id number] (05/07 2211) EXAMINATION: XR LUMB SPINE 3V HISTORY: Fall. Low back pain. Tailbone pain. COMPARISON: None. TECHNIQUE: Multiple views of the lumbar spine. FINDINGS: There is mild lumbar dextroscoliosis. No evidence of acute fracture or dislocation. No vertebral body height loss. The posterior elements remain aligned. There is mild multilevel degenerative disc disease and facet arthropathy. No visible acute osseous abnormalities. IMPRESSION: No acute osseous abnormalities identified. Referred By: Interpreted By: Vladimir Reveles DO, 05/07/2022 10:05 PM XR SACRUM+COCCYX MIN 2V Final Result by User, [id number] (05/07 2210) Examination: X-ray sacrum 3 views Exam time: 05/07/2022 9:32 PM Clinical history: tailbone pain after ground level fall Comparison: None Technique: 3 views views of the sacrum spine were obtained. Findings: No fracture or malalignment. Normal bone mineralization seen throughout. The sacroiliac joints appear to be intact. No focal soft tissue swelling is seen. IMPRESSION: Normal radiograph of the sacrum Referred By: Interpreted By: Yumiko Doherty MD, 05/07/2022 10:05 PM ED Course / Medical Decision Making Patient presenting with a chief complaint of multiple injuries after a fall. History is provided by the patient who is deemed to be a reliable historian The fall was purely mechanical in nature by the patient's description and the patient had no preceding dizziness, chest pain, or shortness of breath and has none of those symptoms now. The patient did not have any suggestion of a change in mental status during or following the event. This description of the events makes syncope or seizure exceedingly unlikely. The patient's extremity exam reveals no injuries necessitating x-rays. She is vascularly intact distally in all 4 extremities. The patient's head was cleared clinically in the setting of no loss of consciousness, no headache, and a GCS of 15 without a severe injury mechanism. The patient's cervical spine was cleared clinically in the setting of no neck pain, a GCS of 15, nocervical spine tenderness, with a normal nonpainful range of motion of the neck, and no clinical signs of intoxication. I reviewed the radiologist's interpretation of the patient's radiologic diagnostics, which shows nospinal fractures, coccyx fractures, or rib fractures. I interpreted the patient's pulse oximeter at rest, which is 98% on room air, which is normal and determined that this patient is not hypoxic Medication management: The patient will be prescribed tramadol and aspirin for symptomatic relief. The patient reports allergies to both Tylenol and NSAIDs. She feels improved after these treatments. The patient was thus deemed stable for discharge from emergency department Medications traMADol (ULTRAM) tablet 50 mg (50 mg Oral Given 05/07/222131) aspirin EC (ECOTRIN) tablet 325 mg (325 mg Oral Given 05/07/222131) cyclobenzaprine (FLEXERIL) tablet 10 mg (10 mg Oral Given 05/07/222219) Clinical Impression Multiple contusions (Primary) Fall from ground level Disposition: Discharge home Patient provided with printed and verbal discharge care instructions and was instructed to return to the emergency department immediately with worsening symptoms or new worrisome symptoms. Patient was instructed to follow-up with primary care physician within 1 week for further evaluation and treatment. Diagnoses & treatment discussed with patient Patient expressed understanding and agreed. Ko Reese MD,PHD 05/08/22 0031 TECHNICIAN * Kaila Diggs RN - 05/07/2022 9:25 PM CST Patient presented to ED with c/o tailbone pain after tripping and falling over dogs lead. Patient reports no head/neck pain. Patient does report pain in left rib area. TECHNICIAN documented in this encounter Plan of Treatment Not on file documented as of this encounter Procedures Procedure Name Priority Date/Time Associated Diagnosis Comments XR SACRUM+COCCYX MIN 2V STAT 05/07/2022 10:03 PM LOT TECHNICIAN XR RIBS LT+PA CHEST STAT 05/07/2022 1 0:03 PM LOT TECHNICIAN XR LUMB SPINE 3V STAT 05/07/2022 10:0 3 PM LOT TECHNICIAN documented in this encounter Results * XR SACRUM+COCCYX MIN 2V (05/07/2022 10:03 PM LOT TECHNICIAN) Anatomical Region Laterality Modality Spine Radiographic Elva ging 05/07/2022 10:0 5 PM LOT TECHNICIAN Impressions 05/07/2022 10:06 PM LOT TECHNICIAN IMPRESSION: Normal radiograph of the sacrum Referred By: ?? Interpreted By: Yumiko Doherty MD, 05/07/2022 10:05 PM Narrative 05/07/2022 10:06 PM LOT TECHNICIAN Examination: X-ray sacrum 3 views Exam time: 05/07/2022 9:32 PM Clinical history: tailbone pain after ground level fall Comparison: None Technique: 3 views views of the sacrum spine were obtained. Findings: No fracture or malalignment. ??Normal bone mineralization seen throughout. ??The sacroiliac joints appear to be intact. ??No focal soft tissue swelling is seen. Procedure Note India Doherty MD - 05/07/2022 Examination: X-ray sacrum 3 views Exam time: 05/07/2022 9:32 PM Clinical history: tailbone pain after ground level fall Comparison: None Technique: 3 views views of the sacrum spine were obtained. Findings: No fracture or malalignment. Normal bone mineralization seenthroughout. The sacroiliac joints appear to be intact. No focal softtissue swelling is seen. IMPRESSION: Normal radiograph of the sacrum Referred By: Interpreted By: Yumiko Doherty MD, 05/07/2022 10:05 PM Ko Reese MD,PHD GENERAL IMAGING Final Resu lt * XR LUMB SPINE 3V (05/07/2022 10:03 PM LOT TECHNICIAN) Anatomical Region Laterality Modality Spine Radiographic Elva ging 05/07/2022 10:0 5 PM LOT TECHNICIAN Impressions 05/07/2022 10:07 PM LOT TECHNICIAN IMPRESSION: No acute osseous abnormalities identified. Referred By: ?? Interpreted By: Vladimir Reveles DO, 05/07/2022 10:05 PM Narrative 05/07/2022 10:07 PM LOT TECHNICIAN EXAMINATION: XR LUMB SPINE 3V HISTORY: Fall. ??Low back pain. ??Tailbone pain. COMPARISON: None. TECHNIQUE: Multiple views of the lumbar spine. FINDINGS: There is mild lumbar dextroscoliosis. ??No evidence of acute fracture or dislocation. ??No vertebral body height loss. ??The posterior elements remain aligned. ??There is mild multilevel degenerative disc disease and facet arthropathy. ??No visible acute osseous abnormalities. ?? Procedure Note Vladimir Reveles DO - 05/07/2022 EXAMINATION: XR LUMB SPINE 3V HISTORY: Fall. Low back pain. Tailbone pain. COMPARISON: None. TECHNIQUE: Multiple views of the lumbar spine. FINDINGS: There is mild lumbar dextroscoliosis. No evidence of acute fracture ordislocation. No vertebral body height loss. The posterior elementsremain aligned. There is mild multilevel degenerative disc disease andfacet arthropathy. No visible acute osseous abnormalities. IMPRESSION: No acute osseous abnormalities identified. Referred By: Interpreted By: Vladimir Reveles DO, 05/07/2022 10:05 PM Ko Reese MD,PHD GENERAL IMAGING Final Resu lt * XR RIBS LT+PA CHEST (05/07/2022 10:03 PM LOT TECHNICIAN) Anatomical Region Laterality Modality Chest Radiographic Elva ging 05/07/2022 10:0 6 PM LOT TECHNICIAN Impressions 05/07/2022 10:07 PM LOT TECHNICIAN IMPRESSION: 1. No acute displaced left rib fracture. 2. No large pneumothorax or pleural effusion. Referred By: ?? Interpreted By: Yumiko Doherty MD, 05/07/2022 10:06 PM Narrative 05/07/2022 10:07 PM LOT TECHNICIAN Examination: X-ray Left ribs, 3 views and x-ray chest, one view Exam time: 1949 Clinical history: fall, rib pain Comparison: None available Technique: 3 views of the Left ribs obtained. Single frontal view of the chest obtained. FINDINGS: CXR: The lungs are clear. No airspace consolidation, pneumothorax, or pleural effusion. ??The cardiomediastinal silhouette is unremarkable. LEFT RIBS: No acute displaced rib fracture. ??No definite areas of cortical destruction or pathologic osseous abnormality. Procedure Note India Doherty MD - 05/07/2022 Examination: X-ray Left ribs, 3 views and x-ray chest, one view Exam time: 1949 Clinical history: fall, rib pain Comparison: None available Technique: 3 views of the Left ribs obtained. Single frontal view of thechest obtained. FINDINGS: CXR: The lungs are clear. No airspace consolidation, pneumothorax, or pleuraleffusion. The cardiomediastinal silhouette is unremarkable. LEFT RIBS: No acute displaced rib fracture. No definite areas of corticaldestruction or pathologic osseous abnormality. IMPRESSION: 1. No acute displaced left rib fracture. 2. No large pneumothorax or pleural effusion. Referred By: Interpreted By: Yumiko Doherty MD, 05/07/2022 10:06 PM Ko Reese MD,PHD GENERAL IMAGING Final Resu lt documented in this encounter Visit Diagnoses Diagnosis Multiple contusions- Primary Contusion of multiple sites, not elsewhere classified Fall from ground level documented in this encounter Administered Medications Inactive Administered Medications - up to 3 most recent administrations Medication Order MAR Action Action Date Dose Rate Site aspirin EC (ECOTRIN) tablet 325 mg 325 mg, Oral, Once, 1 dose, On Thu05/07/22 at 2145, Do not break, chew, or crush. Given 05/07/2022 9:32 PM LOT TECHNICIAN 325 mg cyclobenzaprine (FLEXERIL) tablet 10 mg 10 mg, Oral, Once, 1 dose, On Thu05/07/22 at 2145 Given 05/07/2022 10:20 PM LOT TECHNICIAN 10 mg traMADol (ULTRAM) tablet 50 mg 50 mg, Oral, Once, 1 dose, On Thu05/07/22 at 2145 Given 05/07/2022 9:32 PM LOT TECHNICIAN 50 mg documented in this encounter Active and Recently Administered Medications Times are shown in LOT TECHNICIAN. Scheduled Medication Order 05/05/2022 05/06/2022 05/07/2022 aspirin EC (ECOTRIN) tablet 325 mg (COMPLETED) 325 mg, Oral, Once, 1 dose, On Thu05/07/22 at 2145, Do not break, chew, or crush. 2131 (Given - Provid er: Kaila Diggs RN) cyclobenzaprine (FLEXERIL) tablet 10 mg (COMPLETED) 10 mg, Oral, Once, 1 dose, On Thu05/07/22 at 2145 2220 (Given - Provid er: Kaila Diggs RN) traMADol (ULTRAM) tablet 50 mg (COMPLETED) 50 mg, Oral, Once, 1 dose, On Thu05/07/22 at 2145 213 (Given - Provid er: Kaila Diggs RN) documented in this encounter Care Teams Trimming Machine Operator Relationship Specialty Start Date End Date Vladimir Napoles DO [address] [facility] [address] [place] [address] PCP - General INTERNAL MEDICINE 12/12/20 documented as of this encounter
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
--- OUTSIDE RECORDS SUMMARY | 2024-03-04 08:21 | XMS_ITS | Encounter Summary ---
Author Organization [facility] Address [address] [place] [address]. [place], [place] [id number] [place] [address] Care Team Providers Care Medical Delivery Technician Name Role Phone Vladimir Napoles DO Primary Care Provider [phone] Encounter Details Date Type Department Care Team (Latest Contact Info) Description 02/01/2021 Travel Social History Tobacco Use Types Packs/Day [...] COVID-19? No / Unsure 02/01/2021 10:22 AM LENS EDGE GRINDER MACHINE documented as of this encounter Plan of Treatment Not on file documented as of this encounter Visit Diagnoses Not on filedocumented in this encounter Care Teams Medical Delivery Technician Relationship Specialty Start Date End Date Vladimir Napoles DO [address] [place] [address] PCP - General INTERNAL MEDICINE 12/12/20 documented as of this encounter
--- OUTSIDE RECORDS SUMMARY | 2024-03-04 08:21 | XMS_ITS | Encounter Summary ---
Author Organization [facility] Address [address] [place] [address]. [place], [place] [address] [place] [address] Care Team Providers Care High School Music Director Name Role Phone Napoleon Grimaldo MD Primary Care Provider [phone] Encounter Details Date Type Department Care Team (Latest Contact Info) Description 11/29/2019 Travel Social History Tobacco Use Types Packs/Day [...] have Coronavirus / COVID-19? No / Unsure 11/29/2019 12:44 PM CDT documented as of this encounter Plan of Treatment Not on file documented as of this encounter Visit Diagnoses Not on filedocumented in this encounter Care Teams High School Music Director Relationship Specialty Start Date End Date Napoleon Grimaldo MD PCP - General FAMILY PRACTICE 11/09/18 12/11/20 documented as of this encounter
--- OUTSIDE RECORDS SUMMARY | 2024-03-04 08:21 | XMS_ITS | Encounter Summary ---
Author Organization [facility] Address [address] [place] [address]. [place], [place] [id number] [place] [address] Care Team Providers Care Engineer Internship Name Role Phone Napoleon Grimaldo MD Primary Care Provider [phone] Encounter Details Date Type Department Care Team (Latest Contact Info) Description 02/29/2020 Travel Social History Tobacco Use Types Packs/Day [...] have Coronavirus / COVID-19? No / Unsure 02/29/2020 10:52 AM CHOCOLATE MOLDER documented as of this encounter Plan of Treatment Not on file documented as of this encounter Visit Diagnoses Not on filedocumented in this encounter Care Teams Engineer Internship Relationship Specialty Start Date End Date Napoleon Grimaldo MD PCP - General FAMILY PRACTICE 11/09/18 12/11/20 documented as of this encounter
--- OUTSIDE RECORDS SUMMARY | 2024-03-04 08:21 | XMS_ITS | Continuity of Care Document ---
Author Organization [facility] Address [address] [place] [address] [place] [address] Care Team Providers Care Ditto Machine Operator Name Role Phone LUIS ARMANDOGAYLE KRUGER Primary Care Provider Assessment No assessment recorded. Plan of Treatment Reminders Order Date Submit Date Provider Last Modified By Organization Details Last Modified Time Details Appointments None recorded. Lab None recorded. Referral None recorded. Procedures None recorded. Surgeries None recorded. Imaging US, obstetric, transvagina l 2023 024 [email or web address] [address] [facility], [address], [place], [address], 12:49:13 Medication Orders None recorded. Patient TargetsNo targets recorded. Patient InstructionsNo instructions recorded. Reason for Referral None Reported. Results Created Date Observation Date Name Description Value Unit Range Abnormal Flag Note LastModifiedBy Organization Detail LastModifiedTime 12/08/19 24 12/08/2023 US, obste tric, trans vagin al No observ ation record ed. [email or web address] [facility] [address], [place], [address], 12/08/2023 13:05:16 12/08/19 24 12/08/2023 US, obste tric, follo w-up No observ ation record ed. [email or web address] [address], [place], [address], 12/08/2023 22:45:02 12/17/19 24 12/17/2023 US, obste tric, trans vagin al No observ ation record ed. [email or web address] [facility] [address], [place], [address], 12/17/2023 12:55:54 12/17/1912/17/2023 US, obste tric, follo w-up No observ ation record ed. [email or web address] [address], [place], [address], 12/17/2023 21:35:16 Result Notes None recorded. Problems Name Problem SNOMED Code Status Onset Date Resolution Date Notes Provider Name and Address Organization Details Recorded Time Acute vaginitis 18914599 Completed 201607/24/2020 Acute vulvovagi nitis;Rec orded Elsewhere : No Locati on: [facility] So urce: EHR Chron ic: N Practic e ID: [id number] Bill able Time: 08:45:00 AM Deya [facility] 16:38:19 Removal of intrauter ine device Completed 201407/24/2020 REMOVAL OF IUD;Recor ded Elsewhere : No Locati on: [facility] So urce: EHR Chron ic: N Practic e ID: [id number] Bill able Time: 10:45:00 AM Deya [facility] 16:38:23 Disorder of perineum Completed 201607/24/2020 Condyloma acuminatu m;Recorde d Elsewhere : No Locati on: [facility] So urce: EHR Chron ic: N Practic e ID: [id number] Bill able Time: 09:45:00 AM Deya [facility] 16:38:26 Specializ ed medical examinati on Completed 201407/24/2020 Gynecolog ical Examinati on;Record ed Elsewhere : No Locati on: [facility] So urce: EHR Chron ic: N Practic e ID: [id number] Bill able Time: 01:00:00 PM Deya Spaulding [facility] 16:38:25 Adult health examinati on Completed 201407/24/2020 ROUTINE MEDICAL EXAM;Kenny rded Elsewhere : No Locati on: [facility] So urce: EHR Chron ic: N Practic e ID: 0001 Bill able Time: 01:00:00 PM Deya Spaulding [facility], [facility] 16:38:21 Problem Notes None recorded. Procedures Surgical History Date Name Laterality Status Provider Name and Address Organization Details Recorded Time 02/19/20 23 Colposcopy completed Leti Hart [facility]- [address], [place], [address], [place] [facility] 02/18/2023 13:38:01 02/19/20 23 Colposcopy completed Vidya Garcias [facility] 12/08/2023 12:55:04 01/30/20 23 Date of Last Pap Smear completed Vidya Garcias [facility] 02/18/2023 09:53:50 01/10/20 22 IUD Insertion completed Agnieszka Vivas [facility] 01/09/2022 17:33:29 09/14/19 20 completed Renetta Prieto [facility] 01/08/2022 10:56:48 09/14/19 20 Colonoscopy completed Kathy Chatman [facility] 08/25/2020 12:37:44 03/16/19 02 Appendectomy completed Deya Spaulding [facility] 07/25/2020 15:13:17 Imaging Results Imaging Date Name Status LastModified by Organization Details LastModified Time 12/08/2023 US, obstetric, transvaginal completed [email or web address] [facility] [address], [place], [address], 12/08/2023 13:05:16 12/08/2023 US, obstetric, follow-up completed [email or web address] [address], [facility], [place], [address], 12/08/2023 22:45:02 Procedure Notes None recorded. Medical Equipment None Reported. Allergies Allergen ID Allergen Name Allergen Category Reaction Reaction Severity Criticality Documentation Date Start Date Code Code System Note Provider Name and Address Organization Details Recorded Time 55802 acetamino phen medicatio n hives severe Not available 03/02/2020 [address] [facility] 3 14:24:29 32892 trazodone medicatio n dizziness severe Not available 11/24/2022 [address] [facility] 14:24:29 15826 ibuprofen medicatio n Not available Not available Not available 11/24/2022 5640 RxNorm PT. HAS ULCER S, CANNO T TAKE Agnieszka [facility] 14:25:40 Medications Name Sig Start Date [...] times every day 07/25 completed Prescrib ed Srinath e: Yes Loca tion: [facility] odify By: sonya tillman DateTime : 05/05/19 [...] Prescrib ed Elsewher e: No Locat ion: [facility] M odify By: braeden tz Mirianou nter DateTime : 05/05/19 15 01:00:00 PM [...] completed Not Available Not Available [facility] mg disintegr ating tablet TAKE 1 TABLET BY MOUTH DAILY NEEDED FOR MIGRAINE active Not Available Not Available No t Available Vitals Date Recorded Body height Body mass index (BMI) Body weight Systolic blood pressure Diastolic blood pressure Provider Name and Address Organization Details Last Updated DateTime 12/08/2023 167.64 cm 21.6 kg/m2 01560.38 g 123 mm[Hg] 80 mm[Hg] Vidya Garcias [facility] 12:53:14 Social History Question Answer Notes LastModified by Organizat ion Details LastModified Time Tobacco Smoking Status Current Every Day Smoker Agnieszka staples, [facility] 11/24/2022 14:24:43 Do You Have [...] COVID-19 While That Case Was Ill? No [email or web address] Information not available 08/25/2020 In The 14 Days Before Symptom Onset, Have You Had Close Contact With A Person Who Is Under Investigation For COVID-19 While That Person Was Ill? No [email or web address] Information not available 08/25/2020 Have You Been To An Area Known To Be High Risk For COVID-19? No [email or web address] Information not available 08/25/2020 Are You Deaf Or Do You Have Serious Difficulty Hearing? No Information not available 07/24/2020 What Type Of Diet Are You Following? REGULAR Information not available 11/24/2022 What Is The Highest Grade Or Level Of School You Have Completed Or The Highest Degree You Have Received? 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 [id number] Information not available 11/24/2022 Do You Use Any Illicit Or Recreational Drugs? No Information not available 07/24/2020 Do You Use Sunscreen Routinely? Yes Information not available 07/24/2020 Have You Used IV Drugs? No Information not available 11/19/2022 Sex: Unknown Functional [...] 16:40:07 Father Malignant neoplasm of urinary bladder [email or web address] Not available 2023 11:32:18 Father Malignant tumor of colon [email or web address] Not available 07/26 12:39:09 Father Malignant tumor of stomach [email or web address] Not available 2023 11:32:18 Father Malignant tumor of prostate [email or web address] Not available 2023 11:32:18 Sister Disorder of thyroid gland Not available 2020 16:40:54 Sister Malignant neoplasm of uterus [email or web address] Not available 07/26 12:40:23 Sister Endometrial carcinoma [email or web address] Not available 11/19 11:38:33 Maternal Aunt Disorder of thyroid gland Not available 2020 16:40:54 Maternal Aunt Polyp of colon [email or web address] Not available 2023 11:32:18 Maternal Grandfather Malignant tumor of kidney [email or web address] Not available 2023 11:32:18 Paternal Grandfather Malignant tumor of colon [email or web address] Not available 07/26 12:39:09 Medical History Condition [...] Diagnosis/Indication Diagnosis SNOMED-CT Code Diagnosis ICD10 Code 237376 Ernestina Spaulding [facility] [address] [address] 12/08/2023 11:32:00 12/08/2023 12:39:07 Uterine size for dates discrepancy 185437455 O26.841 Z3A.01 [id number] Rufino Mooney MD [facility] [address] [address] 12/08/2023 11:32:43 12/09/2023 09:37:48 Peptic ulcer 76657469 K27.9 Amenorrhea 72784160 N91. 2 Health Concerns Section Related Observation LastModified by Organization Detai ls LastModified Time None Recorded Concern Status LastModified by Organization Details LastModified Time None Recorded Payers Encounter Date Sequence Insurance Name Policy Number Policy Handley Covered Member ID Handley Member ID Guarantor Name 12/08/2023 1 [place] [facility] Fernanda Duron [id number] Fernanda Duron Notes Date Note Type Note Provider Name and Address Organization Details Recorded Time 12/08/2023 text/html this patient is a 43-year-old female who presents for amenorrhea. She is a positive test. Ultrasound revealed a 1st trimester gestation. Patient has no complaints. We talked about early care. Talked about genetic screening. We talked about her ultrasound results. We talked about the 12 week ultrasound that has genetic screening components. She was given recommendations on exercise, diet, loon-vzx-bfwxfsk medications. We reviewed her obstetric history. We reviewed her medical history. We reviewed her social history. She will begin routine care at her next visit. Rufino Mooney MD [address], [place], [address], [facility] 12/08/2023 21:54:26 OBGyn Episode No OBEpisode recorded.
--- OUTSIDE RECORDS SUMMARY | 2024-03-04 08:21 | XMS_ITS | Encounter Summary ---
Author Organization [facility] Address [address] [place] [address]. [place], [place] [address] [place] [address] Care Team Providers Care Health Teacher Name Role Phone Vladimir Napoles DO Primary Care Provider [phone] Encounter Details Date Type Department Care Team (Latest Contact Info) Description 01/29/2021 Travel Social History Tobacco Use Types Packs/Day [...] have Coronavirus / COVID-19? No / Unsure 01/29/2021 9:46 PM MATURITY CHECKER documented as of this encounter Plan of Treatment Not on file documented as of this encounter Visit Diagnoses Not on filedocumented in this encounter Care Teams Health Teacher Relationship Specialty Start Date End Date Vladimir Napoles DO [address] [place] [address] PCP - General INTERNAL MEDICINE 12/12/20 documented as of this encounter
--- OUTSIDE RECORDS SUMMARY | 2024-03-04 08:21 | XMS_ITS | Encounter Summary ---
Author Organization [facility] Address [address] [place] [address]. [place], [place] [address] [place] [address] Care Team Providers Care Medicare Insurance Specialist Name Role Phone Napoleon Grimaldo MD Primary Care Provider [phone] Reason for Referral * Imaging (Routine) - Closed Specialty Diagnoses / Procedures Referred By Jasonac marita Referred To Contact RADIOLOGY Diagnoses Nausea Abdominal pain Procedures NM HEPATOBILIARY SCAN W/GB EJECTION FRACTION Devin Back MD [address] [place] [address] Phone: tel: fax: Referral ID Status Reason Start Date Expiration Date Visits Re quested Visits Authorized [id number] Closed 02/02/2020 04/13/2020 1 3 E AND SKIP CAR OPERATOR Reason for Visit * Imaging (Routine) - Closed Specialty Diagnoses / Procedures Referred By Christophe kirkland Referred To Contact RADIOLOGY Diagnoses Nausea Abdominal pain Procedures NM HEPATOBILIARY SCAN W/GB EJECTION FRACTION Devin Back MD [address] [place] [address] Phone: tel: fax: Referral ID Status Reason Start Date Expiration Date Visits Re quested Visits Authorized [id number] Closed 02/02/2020 04/13/2020 1 3 Encounter Details Date Type Department Care Team (Latest Contact Info) Description 02/29/2020 10:53 AM SCALE AND SKIP CAR OPERATOR - 02/29/2020 11:59 PM SCALE AND SKIP CAR OPERATOR Hospital Encounter [facility] Medicine [address] [place] [address] Devin Back MD [address] [phone] Discharge Disposition: Home or Self Care (Routine [...] COVID-19? No / Unsure 02/29/2020 10:52 AM SCALE AND SKIP CAR OPERATOR documented as of this encounter Medications at Time of Discharge [...] daily. 12/12/2020 documented as of this encounter Plan of Treatment Not on file documented as of this encounter Procedures Procedure Name Priority Date/Time Associated Diagnosis Comments NM HEPATOBILIARY SCAN W/GB EJECTION FRACTION Routine 02/29/2020 1:54 PM SCALE AND SKIP CAR OPERATOR Nausea Abdominal pain documented in this encounter Results * NM HEPATOBILIARY SCAN W/GB EJECTION FRACTION (02/29/2020 1:54 PM SCALE AND SKIP CAR OPERATOR) Anatomical Region Laterality Modality Abdomen Nuclear Medicine 02/29/2020 2:05 PM SCALE AND SKIP CAR OPERATOR Impressions 02/29/2020 2:06 PM SCALE AND SKIP CAR OPERATOR IMPRESSION: Normal uptake of radionuclide by the liver with excretion into the biliary ducts and duodenum. ??Activity is first seen with the gallbladder by the 20 minutes image. Gallbladder ejection fraction measures 72%. Unremarkable examination. Interpreted By: Andrade Goins, 02/29/2020 2:05 PM Narrative 02/29/2020 2:06 PM SCALE AND SKIP CAR OPERATOR IMAGING STUDIES: ??NM HEPATOBILIARY SCAN W/GB EJECTION FRACTION ? DATE: ??02/29/2020 11:50 AM INDICATION: ??Abdominal pain ?? . COMPARISON: ??No prior studies for comparison.. 6 mCi technetium 99M Mebrofenin, 8 ounces Ensure (11 g total fat). Procedure Note Andrade Goins MD - 02/29/2020 IMAGING STUDIES: NM HEPATOBILIARY SCAN W/GB EJECTION FRACTION DATE: 02/29/2020 11:50 AM INDICATION: Abdominal pain . COMPARISON: No prior studies for comparison.. 6 mCi technetium 99M Mebrofenin, 8 ounces Ensure (11 g total fat). IMPRESSION: Normal uptake of radionuclide by the liver with excretion into thebiliary ducts and duodenum. Activity is first seen with the gallbladder by the20 minutes image. Gallbladder ejection fraction measures 72%. Unremarkable examination. Interpreted By: Andrade Goins, 02/29/2020 2:05 PM us Devin Back MD [facility] Final Result documented in this encounter Visit Diagnoses Diagnosis Nausea Nausea alone Abdominal pain Abdominal pain, unspecified site documented in this encounter Care Teams Medicare Insurance Specialist Relationship Specialty Start Date End Date Napoleon Grimaldo MD PCP - General FAMILY PRACTICE 11/09/18 12/11/20 documented as of this encounter
--- OUTSIDE RECORDS SUMMARY | 2024-03-04 08:21 | XMS_ITS | Encounter Summary ---
Author Organization [facility] Address [address] [place] [address]. [place], [place] [address] [place] [address] Care Team Providers Care Automobile Body Repair Chief Name Role Phone Vladimir Napoles DO Primary Care Provider [phone] Encounter Details Date Type Department Care Team (Latest Contact Info) Description 04/14/2023 Travel Social History Tobacco Use Types Packs/Day [...] on filedocumented in this encounter Care Teams Automobile Body Repair Chief Relationship Specialty Start Date End Date Vladimir Napoles DO [address] [place] [address] PCP - General INTERNAL MEDICINE 12/12/20 documented as of this encounter
--- OUTSIDE RECORDS SUMMARY | 2024-03-04 08:21 | XMS_ITS | Encounter Summary ---
Author Organization [facility] Address [address] [place] [address]. [place], [place] [address] [place] [address] Care Team Providers Care Bushing And Broach Operator Name Role Phone Vladimir Napoles DO Primary Care Provider [phone] Encounter Details Date Type Department Care Team (Latest Contact Info) Description 05/08/2021 Travel Social History Tobacco Use Types Packs/Day [...] Coronavirus/COVID-19? No / Unsure 05/08/2021 12:55 PM USED CAR SALESPERSON documented as of this encounter Plan of Treatment Not on file documented as of this encounter Visit Diagnoses Not on filedocumented in this encounter Care Teams Bushing And Broach Operator Relationship Specialty Start Date End Date Vladimir Napoles, [address] [place] [address] PCP - General INTERNAL MEDICINE 12/12/20 documented as of this encounter
--- OUTSIDE RECORDS SUMMARY | 2024-03-04 08:21 | XMS_ITS | Encounter Summary ---
Author Organization [facility] Address [address] [place] [address]. [place], [place] [address] [place] [address] Care Team Providers Care Transportation Engineer Name Role Phone Ramon Fang MD Primary Care Provider Unavailable Ramon Fang MD Primary Care Provider Unavailable Encounter Details Date Type Department Care Team (Late st Contact Info) Description 03/11/2002 Abstract [facility] [place] [address] Ramon Fang MD Social History Tobacco Use [...] on filedocumented in this encounter Care Teams Transportation Engineer Relationship Specialty Start Date End Date Ramon Fang MD PCP - General 04/07/10 Ramon Fang MD PCP - General 03/26/10 documented as of this encounter
--- OUTSIDE RECORDS SUMMARY | 2024-03-04 08:21 | XMS_ITS | Encounter Summary ---
Author Organization [facility] Address [address] [place] [address]. [place], [place] [address] [place] [address] Care Team Providers Care Fixing Machine Operator Name Role Phone Ramon Fang MD Primary Care Provider Unavailable Encounter Details Date Type Department Care Team (Late st Contact Info) Description 04/22/2015 Abstract [facility] Emergency Room [address] [place] [address] Arron Osborn MD [address] [place] [phone] Social History Tobacco Use Types Packs/Day Years Used Date Smoking Tobacco: Never Assessed Comments Unknown Sex and Gender Information Value Date Recorded Sex Assigned at Not on file Legal Sex Female 4:49 PM CDT Gender Identity Not on file Sexual Orientation Not on file documented as of this encounter Plan of Treatment Not on file documented as of this encounter Visit Diagnoses Diagnosis Gastro-esophageal reflux disease without esophagitis Esophageal reflux documented in this encounter Care Teams Fixing Machine Operator Relationship Specialty Start Date End Date Ramon Fang MD PCP - General 04/07/10 documented as of this encounter
--- OUTSIDE RECORDS SUMMARY | 2024-03-04 08:21 | XMS_ITS | Encounter Summary ---
Author Organization [facility] Address [address] [place] [address]. [place], [place] [address] [place] [address] Care Team Providers Care Old Coin Dealer Name Role Phone MarisolhiginioVladimir peterson DO Primary Care Provider [phone] Reason for Visit * Reason Comments Insect Bite Encounter Details Date Type Department Care Team (Late st Contact Info) Description 12/12/2020 4:40 PM CDT - 12/12/2020 4:58 PM CDT Emergency [facility] Emergency Room [id number] [place] [address] Cristine Davis, [address] [address] Insect Bite Discharge Disposition: Home or Self Care (Routine [...] Sign Reading Time Taken Comments Blood Pressure 115/73 12/12/2020 4:43 PM CDT Pulse 90 12/12/2020 4:43 PM CDT Temperature 35.8 ??C (96.5 ??F) 12/12/2020 4:43 PM CD T Respiratory Rate 18 12/12/2020 4:43 PM CDT Oxygen Saturation 100% 12/12/2020 4:43 PM CDT Inhaled Oxygen Concentration - - Weight 64.9 kg (143 lb) 12/12/2020 4:43 PM CDT Height 170.2 cm (5' 7 ) 12/12/2020 4:43 PM CDT Body Mass Index 22.4 12/12/2020 4:43 PM CDT documented in this encounter Discharge Instructions * Discharge Instructions* MAGDALENA Sandra - 12/12/2020 4:50 PM CDT You may keep a cool compress over the area, take 25 mg of Benadryl every 6 hours as needed to help with itching, you may also take [id number] famotidine/Pepcid 20 mg twice a day to help decrease the histamine response Thank you for giving us the opportunity [...] - MAGDALENA Cui- - Emergency Medicine Provider * Attachments The following attachments cannot be sent through Care Everywhere. * Insect Allergy (Hungarian) documented in this encounter Medications at Time [...] as of this encounter ED Notes * jT Mak RN - 12/12/2020 4:52 PM CDT Discharge education and follow up instructions as well as medication education was provided by the mid-level provider. Patient ambulatory to leave the ED without difficulty had all belongings with her * MAGDALENA Sandra - 12/12/2020 4:48 PM CDT Images from the original note were not included. Chief Complaint Chief Complaint Patient presents with ??? Insect Bite History of Present Illness 40-year-old female presents for evaluation of insect bite to her right trapezius/shoulder area. Noted it on Thursday night and states it is very painful and itchy. Denies fevers or chills, denies allergies, denies wheezing or cough. She did not see an insect Medical History ALLERGIES: Allergies Allergen Reactions ??? Ibuprofen Other (see comment) ulcers ??? Tylenol [Acetaminophen] Rash MEDICATIONS: Prior to Admission medications Medication Sig Start Date End Date Taking? Authorizing Provider triamcinolone 0.1 % cream Apply topically 2 (two) times daily. Do not use for more than one week 12/12/20 Yes MAGDALENA Sandra hydrOXYzine 25 MG tablet Take 25 mg by mouth 2 (two) times daily as needed. FOR ANXIETY 09/27/20 [facility] omeprazole 20 MG capsule Take 1 capsule by mouth nightly. 06/30/18 [facility] traMADol 50 MG tablet Take 50 mg by mouth every 6 (six) hours as needed. 06/30/18 [facility] ZOLMitriptan 5 MG Tab TAKE 1 TABLET [...] for chills and fever. HENT: Negative for congestion, sinus pain and sore throat. Eyes: Negative for pain and redness. Respiratory: Negative for cough, chest tightness, shortness of breath and wheezing. Cardiovascular: Negative for chest pain. Gastrointestinal: Negative for abdominal pain, constipation, diarrhea, nausea and vomiting. Musculoskeletal: Negative for arthralgias and joint swelling. Skin: Negative for rash and wound. Neurological: Negative for headaches. Psychiatric/Behavioral: Negative for agitation. The patient is not nervous/anxious. Physical Exam Filed Vitals: 12/12/20 1643 BP: 115/73 Pulse: 90 Resp: 18 Temp: 96.5 ??F (35.8 ??C) TempSrc: Temporal SpO2: 100% Weight: 64.9 kg (143 lb) Height: 5' 7 (1.702 m) Physical Exam Vitals and nursing note reviewed. Constitutional: Appearance: She is well-developed. HENT: Head: Normocephalic. Eyes: Pupils: Pupils are equal, round, and reactive to light. Cardiovascular: Rate and Rhythm: Normal rate and regular rhythm. Pulmonary: Effort: Pulmonary effort is normal. Breath sounds: Normal breath sounds. No wheezing. Musculoskeletal: General: Normal range of motion. Skin: General: Skin is warm and dry. Neurological: Mental Status: She is alert and oriented to person, place, and time. Diagnostic Studies / Procedures ELECTROCARDIOGRAMS: No results found for this visit on 12/12/20. LABORATORY STUDIES: No results found for this visit on 12/12/20. IMAGING STUDIES: No orders to display MEDICATIONS: Medications - No data to display Discharge Medication List as of 12/12/2020 4:50 PM START taking these medications Details triamcinolone 0.1 % cream Apply topically 2 (two) times daily. Do not use for more than one week, Starting Thu12/12/2020, Eprescribe Class: Eprescribe Pharmacy: [facility] #[id number] - [address] AT [facility] [address] (Ph #: [phone]) ED Course / Medical Decision Making MDM Number of Diagnoses or Management Options Hymenoptera reaction Diagnosis management comments: Discussed with patient hymenoptera stings typically worst at day 2-3after the sting, discussed continued use of Benadryl as she has been doing, addition of famotidine or addition of triamcinolone ointment over the area. Discussed cool compresses and follow-up precautions. Nontoxic exit exam, t 100% on room air this is normal. I have low suspicion for brown recluse bite given history and location on body Patient Progress Patient progress: stable ED Course as of Dec 12 1720ThuDec 12, 2020 1648 Patient/family informed of level of care and verbalizes understanding. [GS] ED Course User Index [GS] MAGDALENA Sandra Clinical Impression Hymenoptera reaction (Primary) Disposition: Discharge NOTE: I dictated portions of this note using [employer] speech recognition software. Occasional wrong word or sound-alike substitutions may have occurred due to the inherent limitations of voice recognition software. MAGDALENA SANDRA 12/12/2020 MAGDALENA Sandra 12/12/201720 MAGDALENA Sandra 12/12/20 172 Cosigned by Elma Gale MD at 12/12/2020 5:39 PM CDT * Tj Mak RN - 12/12/2020 4:42 PM CDT Patient presents for evaluation due to possible sting/bite that occurred on Thursday of this week. She reports ongoing pain and increases swelling to the right shoulder area. Denies other concerns at this time. documented in this encounter Plan of Treatment Not on file documented as of this encounter Visit Diagnoses Diagnosis Hymenoptera reaction- Primary Toxic effect of venom documented in this encounter Care Teams Old Coin Dealer Relationship Specialty Start Date End Date Vladimir Napoles DO [address] [facility] [address] [place] [address] PCP - General INTERNAL MEDICINE 12/12/20 documented as of this encounter
--- OUTSIDE RECORDS SUMMARY | 2024-03-04 08:21 | XMS_ITS | Encounter Summary ---
Author Organization [facility] Address [address] [place] [address]. [place], [place] [address] [place] [address] Care Team Providers Care Orthopedic Coder Name Role Phone Napoleon Grimaldo MD Primary Care Provider [phone] Encounter Details Date Type Department Care Team (Latest Contact Info) Description 09/19/2019 Travel Social History Tobacco Use Types Packs/Day [...] have Coronavirus / COVID-19? No / Unsure 09/19/2019 3:39 PM CDT documented as of this encounter Plan of Treatment Not on file documented as of this encounter Visit Diagnoses Not on filedocumented in this encounter Care Teams Orthopedic Coder Relationship Specialty Start Date End Date Napoleon Grimaldo MD PCP - General FAMILY PRACTICE 11/09/18 12/11/20 documented as of this encounter
--- OUTSIDE RECORDS SUMMARY | 2024-03-04 08:21 | XMS_ITS | Encounter Summary ---
Author Organization [facility] Address [address] [place] [address]. [place], [place] [id number] [place] [address] Care Team Providers Care Customer Success Specialist Name Role Phone Vladimir Napoles DO Primary Care Provider [phone] Encounter Details Date Type Department Care Team (Latest Contact Info) Description 04/04/2023 Travel Social History Tobacco Use Types Packs/Day [...] on filedocumented in this encounter Care Teams Customer Success Specialist Relationship Specialty Start Date End Date Vladimir Napoles DO [address] [place] [address] PCP - General INTERNAL MEDICINE 12/12/20 documented as of this encounter
--- OUTSIDE RECORDS SUMMARY | 2024-03-04 08:21 | XMS_ITS | Encounter Summary ---
Author Organization [facility] Address [address] [place] [address]. [place], [place] [address] [place] [address] Care Team Providers Care Storage Battery Charger Name Role Phone Napoleon Grimaldo MD Primary Care Provider [phone] Reason for Visit * Reason Comments Earache Right side radiating to jaw and teeth X 1 week - getting worse Encounter Details Date Type Department Care Team (Late st Contact Info) Description 11/29/2019 12:52 PM CDT - 11/29/2019 1:13 PM CDT Emergency [facility] Emergency Room [id number] [place] [address] Jossue Chavez PA [address] [place] [address] Earache (Right side radiating to jaw and teeth X 1 week - getting worse) Discharge Disposition: Home or Self Care (Routine Discharge) Social History Tobacco Use Types Packs/Day Years Used Date Smoking Tobacco: Every Day Cigarettes 0.5 15 Smokeless Tobacco: Never Tobacco Cessation:Ready to Q uit: Yes; Counseling Given: Yes Alcohol Use Standard Drinks/Week Comments Not Currently [...] Sign Reading Time Taken Comments Blood Pressure 122/79 11/29/2019 12:53 PM CDT Pulse 82 11/29/2019 12:53 PM CDT Temperature 36.7 ??C (98 ??F) 11/29/2019 12:53 PM CDT Respiratory Rate 16 11/29/2019 12:53 PM CDT Oxygen Saturation 99% 11/29/2019 12:53 PM CDT Inhaled Oxygen Concentration - - Weight 81.6 kg (180 lb) 11/29/2019 12:53 PM CDT Height 170.2 cm (5' 7 ) 11/29/2019 12:53 PM CDT Body Mass Index 28.19 11/29/2019 12:53 PM CDT documented in this encounter Discharge Instructions * Discharge Instructions* HIMANSHU Le - 11/29/2019 1:08 PM CDT Take medication as prescribed. Follow-up with your primary care provider in 5 to 7 days. Return emergency department symptoms worsen or new concerns. * Attachments The following attachments cannot be sent through Care Everywhere. * Ear Infections (Otitis Media) in Children Discharge Instructions (Yakut) documented in this encounter Medications at Time of Discharge omeprazole 20 MG capsule Take 1 capsule (20 mg total) by mouth nightly. 2 06/30/2018 traMADol 50 MG tablet Take 1 tablet (50 mg total) by mouth every 6 (six) hours as needed. 0 06/30/2018 amoxicillin-clavu lanate (AUGMENTIN) 875-125 MG tablet Take 1 tablet (875 mg total) by mouth 2 (two) times daily for 7 days. 14 tablet 11/29/2019 12/06/2019 clonazePAM 0.5 MG tablet Take 1 tablet [...] as of this encounter ED Notes * HIMANSHU Le - 11/29/2019 1:12 PM CDT ED NOTE Chief Complaint Chief Complaint Patient presents with ??? Earache Right side radiating to jaw and teeth X 1 week - getting worse History of Present Illness [age]-year-old female presenting to urgent care with complaint of pain to right ear that is increasedover the past week. Pain radiates down right jaw and into the teeth. Past history of similar symptoms. Patient states she had 3 amoxicillin leftover that she took with minimal relief. Has been using tramadol as needed for pain as well. Denies nasal congestion, fever, chills, swelling or drainage from the ear. No other complaints at this time. Medical History ALLERGIES: Allergies Allergen Reactions ??? Tylenol [Acetaminophen] Rash MEDICATIONS: Prior to Admission medications Medication Sig Start Date End Date Taking? Authorizing Provider amoxicillin-clavulanate (AUGMENTIN) 875-125 MG tablet Take 1 tablet (875 mg total) by mouth 2 (two)times daily for 7 days. 11/29/19 12/06/19 Yes HIMANSHU Le clonazePAM 0.5 MG tablet Take 1 tablet by mouth 4 (four) times daily as needed. 10/21/18 [facility] cyclobenzaprine 10 MG tablet Take 1 tablet (10 mg total) by mouth every 8 (eight) hours. 12/07/18 Blue Steve MD fluticasone propionate (FLONASE) 50 MCG/ACT nasal spray 1 spray by Nasal route daily. 03/25/19 Vicenta Pretty Ley, VAULT SERVICE MECHANIC omeprazole 20 MG capsule Take 1 capsule by mouth nightly. 06/30/18 [facility] predniSONE 20 MG tablet Once a day for 3 days then take 2 tablets once a day for 3 days then take 1tablet once a day for 3 days then stop 06/01/19 Amirah Hernandez, VAULT SERVICE MECHANIC SUMAtriptan 100 MG tablet Take 100 mg [...] 06/30/18 [facility] PAST MEDICAL HISTORY: Past medical history negative for heart disease, cancer, and diabetes. Past Medical History: Diagnosis Date ??? Asthma ??? Migraines PAST SURGICAL HISTORY: Past Surgical History: Procedure Laterality Date ??? APPENDECTOMY FAMILY HISTORY: Family history negative for heart disease, cancer, and diabetes. No family history on file. SOCIAL HISTORY: Social History Tobacco Use ??? Smoking status: Current Every Day Smoker Packs/day: 0.50 Years: 15.00 Pack years: 7.50 Types: Cigarettes ??? Smokeless tobacco: Never Used Substance Use Topics ??? Alcohol use: Not Currently ??? Drug use: Yes Types: Marijuana Review of Systems Review of Systems Constitutional: Negative for activity change and appetite change. HENT: Positive for ear pain and sinus pressure. Negative for congestion, ear discharge and sore throat. Respiratory: Negative for cough and shortness of breath. Cardiovascular: Negative for chest pain. Gastrointestinal: Negative for abdominal pain, nausea and vomiting. Genitourinary: Negative for decreased urine volume and difficulty urinating. Musculoskeletal: Negative for back pain and neck pain. Skin: Negative for rash and wound. Allergic/Immunologic: Negative for immunocompromised state. Neurological: Negative for dizziness, syncope and light-headedness. Hematological: Negative for adenopathy. Does not bruise/bleed easily. All other systems reviewed and are negative. Physical Exam Filed Vitals: 11/29/19 1253 BP: 122/79 Pulse: 82 Resp: 16 Temp: 98 ??F (36.7 ??C) TempSrc: Temporal SpO2: 99% Weight: 81.6 kg (180 lb) Height: 5' 7 (1.702 m) Physical Exam Constitutional: She is oriented to person, place, and time. She appears well- developed and well-nourished. No distress. HENT: Head: Normocephalic. Right Ear: No swelling or tenderness. Tympanic membrane is erythematous. A middle ear effusion is present. Left Ear: Tympanic membrane normal. Nose: Nose normal. Mouth/Throat: Oropharynx is clear and moist. Eyes: Conjunctivae and EOM are normal. Neck: Normal range of motion. Neck supple. Cardiovascular: Normal rate, regular rhythm and normal heart sounds. Pulmonary/Chest: Effort normal and breath sounds normal. Neurological: She is alert and oriented to person, place, and time. Skin: Skin is warm and dry. Psychiatric: She has a normal mood and affect. Her behavior is normal. Judgment and thought contentnormal. Nursing note and vitals reviewed. Diagnostic Studies / Procedures ELECTROCARDIOGRAMS: No results found for this visit on 11/29/19. LABORATORY STUDIES: No results found for this visit on 11/29/19. IMAGING STUDIES No orders to display ED Course / Medical Decision Making Exam consistent with otitis media that may be resultant from sinuses. No evidence of otitis externa. Given duration for 1 week will start patient on antibiotics and patient will follow-up with primary care provider as needed. Medications - No data to display Clinical Impression Otitis media (Primary) Jaw pain Discharge Medication List as of 11/29/2019 1:08 PM START taking these medications Details amoxicillin-clavulanate (AUGMENTIN) 875-125 MG tablet Take 1 tablet (875 mg total) by mouth 2 (two)times daily for 7 days., Starting Thu11/29/2019, Until Thu12/06/2019, Eprescribe Class: Eprescribe Pharmacy: [facility] #[id number] [place], [place] - [address] [place] [address] AT [place] [address] (Ph #: [phone]) Disposition: Discharge Follow-Up: Napoleon Grimaldo MD [address] [place] [address] Schedule an appointment as soon as possible for a visit in 1 week As needed HIMANSHU Le 11/29/2019 HIMANSHU Le 11/29/19 1314 Cosigned by Deidre Ceron MD at 11/29/2019 11:17 PM CDT * Edelmira Barbosa RN - 11/29/2019 12:58 PM CDT Pt presents to ED with C/O R earache that radiates into her neck, jaw, and teeth. This started lastweek and has been consistently getting worse. Sometimes she get sharp shooting pains but mainly a constant/continuous ache. Left ear is also bothering her but is only throbbing/itching for same amount of time. Admits to headache and taking 3 amoxicillin 875mg, and took a tramadol around 9:45 this morning. documented in this encounter Plan of Treatment Not on file documented as of this encounter Visit Diagnoses Diagnosis Otitis media- Primary Unspecified otitis media Jaw pain documented in this encounter Care Teams Storage Battery Charger Relationship Specialty Start Date End Date Napoleon Grimaldo MD PCP - General FAMILY PRACTICE 11/09/18 12/11/20 documented as of this encounter
--- OUTSIDE RECORDS SUMMARY | 2024-03-04 08:21 | XMS_ITS | Encounter Summary ---
Author Organization [facility] Address [address] [place] [address]. [place], [place] [id number] [place] [id number] Care Team Providers Care Aviation Electronics Technician Name Role Phone Marisolky Vladimir Sophia DO Primary Care Provider [phone] Reason for Visit * Reason Comments Headache Encounter Details Date Type Department Care Team (Late st Contact Info) Description 08/12/2021 9:53 PM CDT - 08/13/2021 1:01 AM CDT [facility] Emergency Room [id number] [place] [address] Justina Peña MD [address] [place] [address] Headache Discharge Disposition: Home or Self Care [...] Sign Reading Time Taken Comments Blood Pressure 110/64 08/13/2021 12:58 AM CDT Pulse 80 08/12/2021 9:54 PM CDT Temperature 36.2 ??C (97.1 ??F) 08/12/2021 9:54 PM CD T Respiratory Rate 20 08/12/2021 9:54 PM CDT Oxygen Saturation 99% 08/12/2021 11:00 PM CDT Inhaled Oxygen Concentration - - Weight 65.8 kg (145 lb) 08/12/2021 9:54 PM CDT Height 170.2 cm (5' 7 ) 08/12/2021 9:54 PM CDT Body Mass Index 22.71 08/12/2021 9:54 PM CDT documented in this encounter Discharge Instructions * Discharge Instructions* Justina Peña MD - 08/13/2021 12:51 AM CDT Please followup with your doctor. Drink plenty of fluids. Return to ED if worse in any way * Attachments The following attachments cannot be sent through Care Everywhere. * Migraines in Adults (Omani) documented in this encounter Medications at Time [...] < 3 Day Supply 12 tablet 02/01/2021 SUMAtriptan (IMITREX) 50 MG tablet Take 1 tablet (50 mg total) by mouth 2 (two) times daily as needed for Migraine. Max of 4 tablets (200 mg) in 24 hours. 10 tablet 05/08/2021 4 documented as of this encounter ED Notes * Justina Peña MD - 08/12/2021 11:43 PM CDT Chief Complaint Chief Complaint Patient presents with ??? Headache History of Present Illness 41yo female with hx of frequent migraines presenting with migraine headache. She describes photophobia and phonophobia as well as some nausea and vomiting. She states that similar to her previous migraines and that she does get them quite frequently. Denies any fevers chills. Rates her headache as throbbing and 9 out of 10. Denies any radiation of pain. No numbness or tingling Medical History ALLERGIES: Allergies Allergen Reactions ??? [...] Negative for congestion and sore throat. Eyes: Positive for photophobia. Negative for pain, discharge, redness and itching. Respiratory: Negative for cough and shortness of breath. Cardiovascular: Negative for chest pain and leg swelling. Gastrointestinal: Positive for nausea and vomiting. Negative for abdominal pain and diarrhea. Genitourinary: Negative for dysuria. Musculoskeletal: Negative for myalgias, neck pain and neck stiffness. Skin: Negative for wound. Neurological: Positive for headaches. Negative for syncope and weakness. Psychiatric/Behavioral: Negative for confusion. All other systems reviewed and are negative. Physical Exam Filed Vitals: 08/12/21 2154 08/12/21 2300 08/13/21 0058 BP: 117/68 108/72 110/64 Pulse: 80 Resp: 20 Temp: 97.1 ??F (36.2 ??C) SpO2: 100% 99% Weight: 65.8 kg (145 lb) Height: 5' 7 (1.702 m) Physical Exam Vitals and nursing note reviewed. Constitutional: Comments: Laying in darkened room HENT: Head: Normocephalic and atraumatic. Right Ear: External ear normal. Left Ear: External ear normal. Eyes: Conjunctiva/sclera: Conjunctivae normal. Pupils: Pupils are equal, round, and reactive to light. Cardiovascular: Rate and Rhythm: Normal rate and regular rhythm. Pulses: Normal pulses. Pulmonary: Effort: Pulmonary effort is normal. Breath sounds: Normal breath sounds. Abdominal: General: Bowel sounds are normal. Palpations: Abdomen is soft. Tenderness: There is no abdominal tenderness. There is no guarding or rebound. Musculoskeletal: General: Normal range of motion. Cervical back: Normal range of motion and neck supple. No rigidity. Right lower leg: No edema. Left lower leg: No edema. Skin: General: Skin is warm and dry. Neurological: Mental Status: She is alert and oriented to person, place, and time. Diagnostic Studies / Procedures ELECTROCARDIOGRAMS: No results found for this visit on 08/12/21. LABORATORY STUDIES: No results found for this visit on 08/12/21. IMAGING STUDIES No orders to display ED Course / Medical Decision Making MDM Number of Diagnoses or Management Options Migraine headache Diagnosis management comments: 41yo female presenting with migraine headache. She is usually able to take Toradol without issue although does have a listed allergy to ibuprofen. She states she has used Toradol multiple times without problem in the past so I will administer IV fluids as well as Toradol and Benadryl and Compazine for migraine treatment. Feeling improved on re-evaluation at 0050 and is comfortable with discharge home. She is aware of reasons to return to ED. Encouraged followup with PCP. Discharged home in improved condition. Clinical Impression Migraine headache (Primary) Disposition: Discharge Justina Peña MD 08/13/21 0203 * Tej Mcdonough RN - 08/12/2021 9:52 PM CDT Pt here for migraine that started today and has taken migraine meds and is not helping. documented in this encounter Plan of Treatment Not on file documented as of this encounter Visit Diagnoses Diagnosis Migraine headache- Primary Migraine, unspecified, without mention of intractable migraine without mention of status migrainosus documented in this encounter Administered Medications Inactive Administered Medications - up to 3 most recent administrations Medication Order MAR Action Action Date Dose Rate Site diphenhydrAMINE (BENADRYL) injection 50 mg 50 mg, Intravenous, Once, 1 dose, On Thu08/12/21 at 2345, For IV administration, give no faster than 25 mg/min. Given 08/12/2021 11:57 PM CDT 50 mg ketorolac (TORADOL) injection 15 mg 15 mg, Intravenous, Once, 1 dose, On Thu08/12/21 at 2345, For IV administration, give over 15 seconds. Given 08/12/2021 11:58 PM CDT 15 mg metoclopramide (REGLAN) injection 10 mg 10 mg, Intravenous, Once, 1 dose, On Thu08/12/21 at 2345, Administer IV over 1-2 minutes Given 08/12/2021 11:57 PM CDT 10 mg sodium chloride 0.9% bolus infusion SOLN 1,000 mL 1,000 mL, Intravenous, Administer over 60 Minutes, Once, 1 dose, On Thu08/12/21 at 2345 New Bag 08/12/2021 11:57 PM CDT 1,000 mLs documented in this encounter Active and Recently Administered Medications Times are shown in CDT. Scheduled Medication Order 08/11/2021 08/12/2021 08/13/2021 diphenhydrAMINE (BENADRYL) injection 50 mg (COMPLETED) 50 mg, Intravenous, Once, 1 dose, On Thu08/12/21 at 2345, For IV administration, give no faster than 25 mg/min. 235 (Given - Provider: Tej Mcdonough, MAX) ketorolac (TORADOL) injection 15 mg (COMPLETED) 15 mg, Intravenous, Once, 1 dose, On Thu08/12/21 at 2345, For IV administration, give over 15 seconds. 2358 (Given - Provider: Tej Mcdonough, MAX) metoclopramide (REGLAN) injection 10 mg (COMPLETED) 10 mg, Intravenous, Once, 1 dose, On Thu08/12/21 at 2345, Administer IV over 1-2 minutes 235 (Given - Provider: Tej Mcdonough, MAX) sodium chloride 0.9% bolus infusion SOLN 1,000 mL (COMPLETED) 1,000 mL, Intravenous, Administer over 60 Minutes, Once, 1 dose, On Thu08/12/21 at 2345 235 (New Bag - Provider: Tej Mcdonough RN) 0054 (Infusion Stop Time - Provider: Betty Boyd RN) documented in this encounter Care Teams Aviation Electronics Technician Relationship Specialty Start Date End Date Vladimir Napoles DO [address] [facility] [address] [place] [address] PCP - General INTERNAL MEDICINE 12/12/20 documented as of this encounter
--- OUTSIDE RECORDS SUMMARY | 2024-03-04 08:21 | XMS_ITS | Encounter Summary ---
Author Organization [facility] Address [address] [place] [address]. [place], [place] [address] [place] [address] Care Team Providers Care Ripsaw Operator Name Role Phone Ramon Fang MD Primary Care Provider Unavailable Ramon Fang MD Primary Care Provider Unavailable Encounter Details Date Type Department Care Team (Late st Contact Info) Description 07/08/2000 Emergency [facility] [place] [address] Ramon Fang MD Social History Tobacco Use [...] on filedocumented in this encounter Care Teams Ripsaw Operator Relationship Specialty Start Date End Date Ramon Fang MD PCP - General 04/07/10 Ramon Fang MD PCP - General 03/26/10 documented as of this encounter
--- OUTSIDE RECORDS SUMMARY | 2024-03-04 08:21 | XMS_ITS | Encounter Summary ---
Author Organization [facility] Address [address] [place] [address]. [place], [place] [id number] [place] [address] Care Team Providers Care Grocery Carrier Name Role Phone MarisolkyVladimir DO Primary Care Provider [phone] Reason for Visit * Reason Comments Eye Problem Encounter Details Date Type Department Care Team (Late st Contact Info) Description 04/04/2023 12:02 PM HOME DEPOT REP - 04/04/2023 1:22 PM [facility] Emergency [facility] [place] [address] Cristine Davis, [facility] [address] [address] Eye Problem Discharge Disposition: Home or Self [...] Sign Reading Time Taken Comments Blood Pressure 129/89 04/04/2023 11:55 AM HOME DEPOT REP Pulse 98 04/04/2023 11:55 AM HOME DEPOT REP Temperature 36.1 ??C (97 ??F) 04/04/2023 11:52 AM HOME DEPOT REP Respiratory Rate 20 04/04/2023 11:55 AM HOME DEPOT REP Oxygen Saturation 100% 04/04/2023 11:55 AM HOME DEPOT REP Inhaled Oxygen Concentration - - Weight 61.2 kg (135 lb) 04/04/2023 11:55 AM HOME DEPOT REP Height 170.2 cm (5' 7 ) 04/04/2023 11:55 AM HOME DEPOT REP Body Mass Index 21.14 04/04/2023 11:55 AM HOME DEPOT REP documented in this encounter Discharge Instructions * Discharge Instructions* MAGDALENA Sandra - 04/04/2023 1:07 PM HOME DEPOT REP The irritation in your eye to likely be due to an eyelash that is rubbing when you are sleeping, I would recommend complete removal of your eyelashes and allowing her eye to heal for at least a monthbefore replacing eyelashes. The swelling of her eyelid is probably due to the irritation, but if this is related to infection, the antibiotic pill may also help. May use cool compresses to help with pain and swelling. Thank you for giving us the opportunity [...] - MAGDALENA Cui- - Emergency Medicine Provider DEPOT REP * Attachments The following attachments cannot be sent through Care Everywhere. * Conjunctivitis (pink eye) (Jamaican) documented in this encounter Medications at Time [...] for 10 days. 3.5 g 04/04/2023 4 sulfamethoxazole-tri methoprim (BACTRIM DS) 800-160 MG tablet Take 1 tablet by mouth 2 (two) times daily for 5 days. 10 tablet 04/04/2023 4 documented as of this encounter ED Notes * MAGDALENA Sandra - 04/04/2023 1:05 PM CST Chief Complaint Chief Complaint Patient presents with Eye Problem History of Present Illness 42-year-old female presents for evaluation of right eye irritation. She was seen at an outside emergency room and prescribed ofloxacin for suspected conjunctivitis on the . She returns today due to more prominent swelling of her eyelid and persistent discomfort in her eye. She had false eyelashes placed 2 days before her eye became irritated, then reports cleaning with chemicals the day before the irritation. She denies visual changes. Does wear corrective glasses, states she never wears contacts. She has been using ofloxacin drops as recommended Medical History ALLERGIES: Review of patient's allergies indicates: Allergen Reactions Trazodone Fatigue Ibuprofen Other (see comment) ulcers Tylenol [Acetaminophen] Rash MEDICATIONS: Prior to Admission medications Medication Sig Start Date End Date Taking? Authorizing Provider erythromycin (ROMYCIN) 5 MG/GM (0.5%) ophthalmic ointment Place into the right eye every 6 (six) hours for 10 days. 04/04/23 04/14/23 Yes MAGDALENA Sandra rimegepant (NURTEC) 75 MG disintegrating tablet Take 1 tablet (75 mg total) by mouth. Max of 1 tablet (75 mg) in 24 hours. Yes Default History Genericprovider sulfamethoxazole-trimethoprim (BACTRIM DS) 800-160 MG tablet Take 1 tablet by mouth 2 (two) times daily for 5 days. 04/04/23 04/09/23 Yes MAGDALENA Sandra hydrOXYzine 25 MG tablet Take 1 tablet (25 mg total) by mouth 2 (two) times daily as needed. FOR ANXIETY 09/27/20 [facility] omeprazole 20 MG capsule Take 1 capsule (20 mg total) by mouth nightly. 06/30/18 [facility] traMADol 50 MG tablet Take 1 tablet (50 mg total) by mouth every 6 (six) hours as needed. 06/30/18 [facility] triamcinolone 0.1 % cream Apply topically 2 (two) times daily. Do not use for more than one week 12/12/20 MAGDALENA Sandra PAST MEDICAL HISTORY: Past Medical History: Diagnosis Date Asthma Celiac disease ([facility]) Migraines PAST SURGICAL HISTORY: Past Surgical History: Procedure Laterality Date APPENDECTOMY FAMILY HISTORY: No family history on file. SOCIAL HISTORY: Social History Tobacco Use Smoking status: Every Day Packs/day: 0.50 Years: 15.00 Additional pack years: 0.00 Total pack years: 7.50 Types: Cigarettes Smokeless tobacco: Never Substance Use Topics Alcohol use: Not Currently Drug use: Yes Types: Marijuana Review of Systems Review of Systems Eyes: Positive for redness. Physical Exam Filed Vitals: 04/04/23 1152 04/04/23 1155 BP: 129/89 129/89 Pulse: 94 98 Resp: 18 20 Temp: 97 ??F (36.1 ??C) SpO2: 100% 100% Weight: 61.2 kg (135 lb) 61.2 kg (135 lb) Height: 1.702 m (5' 7 ) 1.702 m (5' 7 ) Physical Exam Vitals and nursing note reviewed. Constitutional: Appearance: She is well-developed. HENT: Head: Normocephalic. Eyes: General: Lids are normal. Lids are everted, no foreign bodies appreciated. Vision grossly intact. Extraocular Movements: Extraocular movements intact. Conjunctiva/sclera: Right eye: Right conjunctiva is injected. No exudate or hemorrhage. Pupils: Pupils are equal, round, and reactive to light. Comments: No localized fluorescein uptake under Sanchez lamp Cardiovascular: Rate and Rhythm: Normal rate. Pulmonary: Effort: Pulmonary effort is normal. Musculoskeletal: General: Normal range of motion. Skin: General: Skin is warm and dry. Neurological: Mental Status: She is alert and oriented to person, place, and time. Psychiatric: Mood and Affect: Mood normal. Diagnostic Studies / Procedures ELECTROCARDIOGRAMS: No results found for this visit on 04/04/23. LABORATORY STUDIES: No results found for this visit on 04/04/23. IMAGING STUDIES: No orders to display MEDICATIONS: Medications - No data to display Discharge Medication List as of 04/04/2023 1:17 PM START taking these medications Details erythromycin (ROMYCIN) 5 MG/GM (0.5%) ophthalmic ointment Place into the right eye every 6 (six) hours for 10 days., Starting 04/04/2023, Until e 04/14/2023, Eprescribe Class: Eprescribe Pharmacy: [id number] [address] AT [facility] (Ph #: [phone]) sulfamethoxazole-trimethoprim (BACTRIM DS) 800-160 MG tablet Take 1 tablet by mouth 2 (two) times daily for 5 days., Starting 04/04/2023, Until [facility] 04/09/2023, Eprescribe Class: Eprescribe Pharmacy: [facility] #[id number] [facility] [address] [facility] (Ph #: [phone]) ED Course / Medical Decision Making Medical Decision Making I discussed with patient that she may continue use of ofloxacin drops, but I did recommend that sheremove her eyelashes due to the amount of irritation shortly after having her eyelashes placed, shestates I wont be doing that , advised that irritation may continue with irritant still present, discussed possibility of low eyelash placement that is irritating her eye in her sleep, I do believe t he swelling of her eyelid due to the localized inflammatory response, she states she was using a cool compress, but stopped using this and the swelling was more prominent this morning. Visual Acuity Bilateral Distance: 20/13 R Distance: 20/20 L Distance: 20/15 Her vision is intact, due to low suspicion for possible periorbital cellulitis I did prescribe systemic antibiotics, also discussed use of erythromycin ointment as this can last longer in the eye. Nontoxic exit exam Clinical Impression Conjunctivitis (Primary) Disposition: Discharge NOTE: I dictated portions of this note using Krow[employer] speech recognition software. Occasional wrong word or sound-alike substitutions may have occurred due to the inherent limitations of voice recognition software. MAGDALENA SANDRA 04/06/2023 MAGDALENA Sandra 04/06/23 0939 Cosigned by Alfonso Darling MD at 04/07/2023 11:15 PM HOME DEPOT REP DEPOT REP DEPOT REP * Marija Garibay RN - 04/04/2023 11:52 AM CST Pt to triage for R eye pain. Pt states Thursday she got her lashes filled, then Thursday she was cleaning her house with chemicals, then she woke up with severe eye pain. Pt was seen at [facility] yesterday and was given antibx drops for eye, but states symptoms have gotten worse. Redness and swelling noted in R eye during triage. VSS. A&Ox4 DEPOT REP documented in this encounter Plan of Treatment Not on file documented as of this encounter Visit Diagnoses Diagnosis Conjunctivitis- Primary Conjunctivitis, unspecified documented in this encounter Administered Medications Inactive Administered Medications - up to 3 most recent administrations Medication Order MAR Action Action Date Dose Rate Site ophthalmic irrigation (EYE WASH) solution 2,360 drop 2,360 drop (1 Bottle), Left Eye, As needed, Other, Starting on 04/04/23 at 1215, Until 04/04/23 at 1522 documented in this encounter Active and Recently Administered Medications Times are shown in HOME DEPOT REP. Scheduled Medication Order 04/02/2023 04/03/2023 04/04/2023 fluorescein (FLUORETS) ophthalmic strip 1 strip 1 strip, Left Eye, Once, 1 dose, On 04/04/23 at 1230 1230 (Canceled Entry - Provider: Automatic Discharge Provider - Comment: Automatically canceled at discontinue of medication order) tetracaine 0.5 % ophthalmic solution 1 drop 1 drop, Left Eye, Once, 1 dose, On 04/04/23 at 1230 1230 (Canceled Entry - Provider: Automatic Discharge Provider - Comment: Automatically canceled at discontinue of medication order) PRN Medication Order 04/02/2023 04/03/2023 04/04/2023 ophthalmic irrigation (EYE WASH) solution 2,360 drop 2,360 drop (1 Bottle), Left Eye, As needed, Other, Starting on 04/04/23 at 1215, Until 04/04/23 at 1522 documented in this encounter Care Teams Grocery Carrier Relationship Specialty Start Date End Date Vladimir Napoles DO [address] [facility] [address] [place] [address] PCP - General INTERNAL MEDICINE 12/12/20 documented as of this encounter
--- OUTSIDE RECORDS SUMMARY | 2024-03-04 08:21 | XMS_ITS | Encounter Summary ---
Author Organization [facility] Address [address] [place] [address]. [place], [place] [address] [place] [address] Care Team Providers Care Business Consult Name Role Phone Napoleon Grimaldo MD Primary Care Provider [phone] Reason for Visit * Reason Comments Congestion Encounter Details Date Type Department Care Team (Late st Contact Info) Description 03/25/2019 12:18 PM PLANNING DIRECTOR - 03/25/2019 12:37 PM PLANNING DIRECTOR Emergency [facility] Emergency Room [address] [place] [address] Vicenta Ley, TEST DRILLER [address] [place] [address] Congestion Discharge Disposition: Home or Self Care (Routine [...] Sign Reading Time Taken Comments Blood Pressure 150/80 03/25/2019 12:33 PM PLANNING DIRECTOR Pulse 83 03/25/2019 12:33 PM PLANNING DIRECTOR Temperature 36.7 ??C (98.1 ??F) 03/25/2019 12:[address] Respiratory Rate 83 03/25/2019 12:33 PM PLANNING DIRECTOR Oxygen Saturation 100% 03/25/2019 12:33 PM PLANNING DIRECTOR Inhaled Oxygen Concentration - - Weight 96.2 kg (212 lb) 03/25/2019 12:33 PM PLANNING DIRECTOR Height 170.2 cm (5' 7 ) 03/25/2019 12:33 PM PLANNING DIRECTOR Body Mass Index 33.2 03/25/2019 12:33 PM PLANNING DIRECTOR documented in this encounter Discharge Instructions * Discharge Instructions* MAGDALENA Santana - 03/25/2019 12:28 PM PLANNING DIRECTOR Rest and maintain hydration with frequent fluids. You may continue ibuprofen as needed for pain. You may try warm salt or gargles for sore throat. Begin using Flonase and Sudafed as discussed. If symptoms fail to improve over the next few days or worsens, return or follow-up as discussed Thank you for choosing [facility] for your healthcare. We strive to provide excellent care. You may receive a survey via mail and/or e mail and encourage you to provide feedback. Have a great day and do not hesitate to call with any questions/questions. NING DIRECTOR * Attachments The following attachments cannot be sent through Care Everywhere. * Viral Upper Respiratory Infection Discharge Instructions, Adult (Taiwanese) * Preventing Antibiotic Resistance (Taiwanese) documented in this encounter Medications at Time [...] Nasal route daily. 16 g 03/25/2019 12/12/2020 SUMAtriptan 100 MG tablet Take 100 mg by mouth 2 (two) times daily as needed for Migraine. Take 1 tablet at onset of symptoms, may take 1 tablet 2 hours later. Max of 2 tablets in 24-hour period. 12/12/2020 topiramate 50 MG Tab Take 1 tablet by mouth 2 (two) times daily. 12/12/2020 documented as of this encounter ED Notes * Graciela Rausch RN - 03/25/2019 12:32 PM CST Patient seen and discharged by RADIO DISPATCHER. Per RADIO DISPATCHER patient with complaints of congestion for the last few days. NING DIRECTOR * MAGDALENA Santana - 03/25/2019 12:28 PM CST Chief Complaint Chief Complaint Patient presents with ??? Congestion History of Present Illness 38-year-old female to urgent care with concerns about sore throat, sinus pressure, and ear pain forthe last 3 to 4 days. Patient reports she is also had a headache that is much worse when she bends over. Reports a history of migraine headaches but this feels different. Taking Aleve migraine with some relief. Patient has not tried anything for her cold and flu symptoms. Denies fever or chills. Denies travel. Patient did not get a flu shot. History provided by: Patient Medical History ALLERGIES: Allergies Allergen Reactions ??? Tylenol [Acetaminophen] Rash MEDICATIONS: Prior to Admission medications Medication Sig Start Date End Date Taking? Authorizing Provider fluticasone propionate (FLONASE) 50 MCG/ACT nasal spray 1 spray by Nasal route daily. 03/25/19 Yes MAGDALENA Santana clonazePAM 0.5 MG tablet Take 1 tablet by mouth 4 (four) times daily as needed. 10/21/18 Doc Abstract cyclobenzaprine 10 MG tablet Take 1 tablet (10 mg total) by mouth every 8 (eight) hours. 12/07/18 Blue Steve MD omeprazole 20 MG capsule [...] Systems Review of Systems Constitutional: Positive for fatigue. Negative for chills and fever. HENT: Positive for congestion, postnasal drip, rhinorrhea and sore throat. Neurological: Positive for headaches. Negative for dizziness. All other systems reviewed and are negative. Physical Exam Filed Vitals: 03/25/19 1233 BP: (!) 150/80 Pulse: 83 Resp: (!) 83 Temp: 98.1 ??F (36.7 ??C) SpO2: 100% Weight: 96.2 kg (212 lb) Height: [...] and atraumatic. Right Ear: External ear normal. Tympanic membrane is not injected. A middle ear effusion is present. Left Ear: External ear normal. Tympanic membrane is not injected. A middle ear effusion is present. Nose: Mucosal edema and rhinorrhea present. Mouth/Throat: Posterior oropharyngeal erythema ( With postnasal drainage) present. No oropharyngealexudate. Eyes: Conjunctivae and EOM are normal. Pupils are equal, round, and reactive to light. Right eye exhibits no discharge. Left eye exhibits no discharge. Neck: Normal range of motion. Neck supple. Cardiovascular: Normal rate, regular rhythm, normal heart sounds and intact distal pulses. No murmur heard. Pulmonary/Chest: Effort normal and breath sounds normal. No respiratory distress. Musculoskeletal: Normal range of motion. Ambulatory and moving all extremities. Neurological: She is alert and oriented to person, place, and time. Skin: Skin is warm and dry. Capillary refill takes less than 2 seconds. No rash noted. She is not diaphoretic. No erythema. No pallor. Nursing note and vitals reviewed. Diagnostic Studies / Procedures ELECTROCARDIOGRAMS: No results found for this visit on 03/25/19. LABORATORY STUDIES: No results found for this visit on 03/25/19. IMAGING STUDIES No orders to display ED Course / Medical Decision Making MDM Number of Diagnoses or Management Options Sinus headache: Viral URI: Diagnosis management comments: Patient/family informed of level of care and verbalizes understanding. This is a prime care patient. 1235 discharge plan discussed with patient. No acute signs of bacterial illness at this time. Suspect viral illness. Return precautions reviewed Clinical Impression Viral URI (Primary) Sinus headache Disposition: Discharge MAGDALENA Santana 03/25/19 1235 Cosigned by Alessandro Rene MD at 03/28/2019 6:45 AM PLANNING DIRECTOR NING DIRECTOR NING DIRECTOR documented in this encounter Plan of Treatment Not on file documented as of this encounter Visit Diagnoses Diagnosis Viral URI- Primary Acute upper respiratory infections of unspecified site Sinus headache Headache documented in this encounter Care Teams Business Consult Relationship Specialty Start Date End Date Napoleon Grimaldo MD PCP - General FAMILY PRACTICE 11/09/18 12/11/20 documented as of this encounter
--- OUTSIDE RECORDS SUMMARY | 2024-03-04 08:21 | XMS_ITS | Encounter Summary ---
Author Organization [facility] Address [address] [place] [address]. [place], [place] [address] [place] [address] Care Team Providers Care Supervisor Bleach Plant Name Role Phone Napoleon Grimaldo MD Primary Care Provider [phone] Encounter Details Date Type Department Care Team (Latest Contact Info) Description 01/20/2020 Travel Social History Tobacco Use Types Packs/Day [...] COVID-19? No / Unsure 01/20/2020 11:02 PM DRAMATIC DIRECTOR documented as of this encounter Plan of Treatment Not on file documented as of this encounter Visit Diagnoses Not on filedocumented in this encounter Care Teams Supervisor Bleach Plant Relationship Specialty Start Date End Date Napoleon Grimaldo MD PCP - General FAMILY PRACTICE 11/09/18 12/11/20 documented as of this encounter
--- OUTSIDE RECORDS SUMMARY | 2024-03-04 08:21 | XMS_ITS | Encounter Summary ---
Author Organization [facility] Address [address] [place] [address] Care Team Providers Care Vibration Technician Name Role Phone Graciela Rosenbaum MD Primary Care Provider Encounter Details Date Type Department Care Team (Late st Contact Info) Description 10/10/2008 9:46 AM CDT - 10/10/2008 9:47 AM CDT Hospital Encounter Graciela Rosenbaum MD [address] [place] [address] Dermatology Social History Tobacco Use Types Packs/Day Years Used Date Smoking Tobacco: Never Assessed Sex and Gender Information Value Date Recorded Sex Assigned at Not on file Gender Identity Not on file Sexual Orientation Not on file documented as of this encounter Plan of Treatment Not on file documented as of this encounter Visit Diagnoses Not on filedocumented in this encounter Care Teams Vibration Technician Relationship Specialty Start Date End Date Graciela Rosenbaum MD [address] [place] [address] PCP - General 10/10/08 documented as of this encounter
--- OUTSIDE RECORDS SUMMARY | 2024-03-04 08:21 | XMS_ITS | Encounter Summary ---
Author Organization [facility] Address [address] [place] [address]. [place], [place] [address] [place] [address] Care Team Providers Care Investigation Division Sergeant Name Role Phone Ramon Fang MD Primary Care Provider Unavailable Ramon Fang MD Primary Care Provider Unavailable Encounter Details Date Type Department Care Team (Late st Contact Info) Description 03/26/2010 Emergency [facility] [place] [address] Social History Tobacco Use Types Packs/Day Years Used Date Smoking Tobacco: Never Assessed Comments Unknown Sex and Gender Information Value Date Recorded Sex Assigned at Not on file Legal Sex Female 4:49 PM CDT Gender Identity Not on file Sexual Orientation Not on file documented as of this encounter Plan of Treatment Not on file documented as of this encounter Visit Diagnoses Diagnosis Abdominal pain Abdominal pain, unspecified site documented in this encounter Care Teams Investigation Division Sergeant Relationship Specialty Start Date End Date Ramon Fang MD PCP - General 04/07/10 Ramon Fang MD PCP - General 03/26/10 documented as of this encounter
--- OUTSIDE RECORDS SUMMARY | 2024-03-04 08:21 | XMS_ITS | Encounter Summary ---
Author Organization [facility] Address [address] [place] [address]. [place], [place] [address] [place] [address] Care Team Providers Care Infant Room Teacher Name Role Phone Ramon Fang MD Primary Care Provider Unavailable Encounter Details Date Type Department Care Team (Late st Contact Info) Description 03/25/2015 Abstract [facility] Emergency Room [id number] [place] [id number] Social History Tobacco Use Types Packs/Day Years [...] this encounter Visit Diagnoses Diagnosis Rash and other nonspecific skin eruption documented in this encounter Care Teams Infant Room Teacher Relationship Specialty Start Date End Date Ramon Fang MD PCP - General 04/07/10 documented as of this encounter
--- OUTSIDE RECORDS SUMMARY | 2024-03-04 08:21 | XMS_ITS | Encounter Summary ---
Author Organization [facility] Address [address] [place] [address]. [place], [place] [address] [place] [address] Care Team Providers Care Weatherization Coordinator Name Role Phone Vladimir Napoles DO Primary Care Provider [phone] Encounter Details Date Type Department Care Team (Latest Contact Info) Description 12/04/2021 Travel Social History Tobacco Use Types Packs/Day [...] on filedocumented in this encounter Care Teams Weatherization Coordinator Relationship Specialty Start Date End Date Vladimir Napoles DO [address] [place] [address] PCP - General INTERNAL MEDICINE 12/12/20 documented as of this encounter
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
--- OUTSIDE RECORDS SUMMARY | 2024-03-04 08:21 | XMS_ITS | Encounter Summary ---
Author Organization [facility] Address [address] [place] [address]. [place], [place] [address] [place] [address] Care Team Providers Care Salvage Mend Worker Name Role Phone Ramon Fang MD Primary Care Provider Unavailable Encounter Details Date Type Department Care Team (Late st Contact Info) Description 01/17/2017 [place] [address] Ramon Fang MD Social History Tobacco Use [...] on filedocumented in this encounter Care Teams Salvage Mend Worker Relationship Specialty Start Date End Date Ramon Fang MD PCP - General 04/07/10 documented as of this encounter
--- OUTSIDE RECORDS SUMMARY | 2024-03-04 08:21 | XMS_ITS | Clinical Summary ---
Author Organization [facility] Address [address] [place] [address] Care Team Providers Care Osteopathic Medicine Teacher Name Role Phone Graciela Rosenbaum MD Primary Care Provider [phone] [facility],non-owned Affiliates and Associated Physician Practices is amultiple site organization consisting of ambulatory clinics and hospital sitesin [place], [place], [place] and [place]. This disclosure is being madepursuant to the Care Everywhere program and may not contain all information available regarding this patient. Last updated 17.[facility] [place] Social History Tobacco Use Types Packs/Day Years Used Date Smoking Tobacco: Never Assessed Sex and Gender Information Value Date Recorded Sex Assigned at Not on file Gender Identity Not on file Sexual Orientation Not on file Plan of Treatment Health Maintenance Due Date Last Done Comments LIPID TESTING 1982 MAMMOGRAM 1982 PAP SMEAR 1982 HIV SCREENING 1997 HEPATITIS C SCREENING 04/15/2000 DTAP/TDAP/TD VACCINES (1 - Tdap) 2001 HEPATITIS B VACCINE (1 of 3 - 19+ 3-dose series) 2001 DEPRESSION SCREENING 03/16/2023 COVID-19 VACCINE ( - 2023-2 5 season) 2023 INFLUENZA VACCINE (#1) 2023 ZOSTER VACCINE (1 of 2) 2032 HIB VACCINE Aged Out No longer eligi ble based on patient's age to complete this topic HPV VACCINE Aged Out No longer eligi ble based on patient's age to complete this topic MENINGOCOCCAL VACCINE Aged Out No tio heather eligible based on patient's age to complete this topic PNEUMOCOCCAL VACCINE Aged Out No long er eligible based on patient's age to complete this topic Care Teams Osteopathic Medicine Teacher Relationship Specialty Start Date End Date Graciela Rosenbaum MD [address] [place] [address] PCP - General 10/10/08
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
--- OUTSIDE RECORDS SUMMARY | 2024-03-04 08:21 | XMS_ITS | Referral Summary ---
Author Organization [facility] Address [address] [place] [address] Care Team Providers Care Vinyl Hanger Name Role Phone Graciela Rosenbaum MD Primary Care Provider [phone] Source Comments [facility],non-owned Affiliates and Associated Physician Practices is amultiple site organization consisting of ambulatory clinics and hospital sitesin [place], [place], [place] and [place]. This disclosure is being madepursuant to the Care Everywhere program and may not contain all information available regarding this patient. Last updated 17.[facility] Social History Tobacco Use Types Packs/Day Years Used Date Smoking Tobacco: Never Assessed Sex and Gender Information Value Date Recorded Sex Assigned at Not on file Gender Identity Not on file Sexual Orientation Not on file Plan of Treatment Not on file Care Teams Vinyl Hanger Relationship Specialty Start Date End Date Graciela Rosenbaum MD [address] [place] [id number] PCP - General 10/10/08
--- OUTSIDE RECORDS SUMMARY | 2024-03-04 08:21 | XMS_ITS | Encounter Summary ---
Author Organization [facility] Address [address] [place] [address]. [place], [place] [id number] [place] [address] Care Team Providers Care Regional Retail Sales Manager Name Role Phone Ramon Fang MD Primary Care Provider Unavailable Encounter Details Date Type Department Care Team (Late st Contact Info) Description 04/07/2010 Emergency [facility] [place] [address] Rosalia Booth MD [address] [place], [place] [address] Social History Tobacco Use Types Packs/Day Years Used Date Smoking Tobacco: Never Assessed Comments Unknown Sex and Gender Information Value Date Recorded Sex Assigned at Not on file Legal Sex Female 4:49 PM CDT Gender Identity Not on file Sexual Orientation Not on file documented as of this encounter Plan of Treatment Not on file documented as of this encounter Visit Diagnoses Diagnosis Thoracic or lumbosacral neuritis or radiculitis Thoracic or lumbosacral neuritis or radiculitis, unspecified documented in this encounter Care Teams Regional Retail Sales Manager Relationship Specialty Start Date End Date Ramon Fang MD PCP - General 04/07/10 documented as of this encounter
--- OUTSIDE RECORDS SUMMARY | 2024-03-04 08:26 | XMS_ITS | Encounter Summary ---
Author Organization [facility] Healthcare Address [address] [place] [id number] Care Team Providers Care Ice Cream Freezer Name Role Phone SuzanneVladimir albert Lyndsay CHAND Primary Care Provider [phone]- [phone] Reason for Visit * Reason Comments Migraine Encounter Details Date Type Department Care Team (Late st Contact Info) Description 03/03/2023 11:00 AM PAN DUMPER Office Visit [facility] Medical Group Neurology [address] [phone] Mindy Dewey NP [address] [address] Intractable chronic migraine without aura and without status migrainosus (Primary Dx) Social History Tobacco Use Types Packs/Day Years Used Date Smoking Tobacco: Every Day Smokeless Tobacco: Never Personal Safety Answer Date Recorded Getting School Help Needed Not on file 03/01 Comments Unknown Sex and Gender Information Value Date Recorded Sex Assigned at Not on file Legal Sex Female 1:20 PM CDT Gender Identity Not on file Sexual Orientation Not on file documented as of this encounter Last Filed Vital Signs Vital Sign Reading Time Taken Comments Blood Pressure 106/72 03/03/2023 11:11 AM PAN DUMPER Pulse 81 03/03/2023 11:11 AM PAN DUMPER Temperature - - Respiratory Rate - - Oxygen Saturation 96% 03/03/2023 11:11 AM PAN DUMPER Inhaled Oxygen Concentration - - Weight 56.7 kg (125 lb) 03/03/2023 11:11 AM PAN DUMPER Height 170.2 cm (5' 7 ) 03/03/2023 11:11 AM PAN DUMPER Body Mass Index 19.58 03/03/2023 11:11 AM PAN DUMPER documented in this encounter Ordered Prescriptions Prescription Sig Dispense Quantity Refills Last Filled Start Date End Date rimegepant (Nurtec ODT) tablet,disintegrat ing Take 1 tablet (75 mg total) by mouth every other day 16 tablet 5 03/03/2023 09/09/2023 documented in this encounter Progress Notes * Mindy Dewey, IMELDA - 03/03/2023 11:00 AM CST Images from the original note were not included. Patient ID: Fernanda Duron is a 42 y.o. female Fernanda Duron is being seen for follow up for migraines Assessments and Plan 1. Migraines without aura, intractable Fernanda has a favorable response to Botox injection for her migraines. She is however, experiencinga daily headache. Plan: -continue Botox injections -would recommend to continue with Nurtec, but will change to take every other day and use as prevention -consider repeat neuro imaging -follow up as planned for injections -Case was discussed with Dr. Genaro Eduardo who agrees with the above assessment and plan of care. My total encounter time on 03/03/2023 was 20 minutes which was spent in the activities documented in the note. This includes time spent prior to the visit and after the visit in direct care of the patient. This time does not include time spent in any separately reportable services. History of Present Illness: Onset: Age 12 Frequency: Prior to Botox: Migraines- 1-2 per week Duration of each episode: Up to 2 days each Daily headaches With Botox: Headaches- a few mild per month Migraines- 2-3 per month, usually around her cycle Localization: bitemporal, occipital, top of head Description: throbbing, pressure Associated symptoms: Sensitivity to light and noise, nausea with occasional vomiting Triggers: Changes in sleep patterns, very metric pressure changes, menstrual cycle, stress Abortive medication: Sumatriptan 100 mg, Nurtec ODT 75mg Prophylactic Medication: Botox- started May 2021 Previous Medications Tried: Topamax- no change Lexapro-no change Amitriptyline- no change Flexeril-no change Tramadol- no change Propanolol- caused side effects, possible exacerbation of asthma as she had complained of shortnessof breath and possibly hypotension Zomig Narrative: Fernanda returns for follow up for her migraine headaches. She continues to receive Botox injectionsfor her migraines. She has had 7 treatments so far. Her last treatment was about 5 months after herprevious since she had found out she was . She then had miscarried the baby and had worsening of her migraines, Botox was resumed. Her last treatment was about 7 weeks ago. She started control about 3 weeks ago. She reports that she is had an increase in migraines and headaches since her Botox has been temporary stopped. Since her last Botox treatment about 7 weeks ago, she reports that her migraines have improved and she is only had 2 migraines since then however, she has continued to experience a daily headaches. Her daily headache averages a 3/10 pain. Her pain can change locations from being unilateral, either side or left occipital or behind her right eye. For her migraines, she reports getting significant improvement when taking Nurtec. In the past, she took sumatriptan however experienced chest pain and heaviness. She does not treat her daily headaches. Past Medical History: Diagnosis Date Anxiety Migraine Family History Problem Relation Age of Onset Diabetes Mother Hypertension Mother Cancer Father Kidney failure Father Diabetes Father Cancer Sister Cancer Sister Endometriosis Sister Endometriosis Sister Social History Socioeconomic History Marital status: Not on file Spouse name: Not on file Number of children: Not on file Years of education: Not on file Highest education level: Not on file Occupational History Not on file Tobacco Use Smoking status: Current Every Day Smoker Smokeless tobacco: Never Used Vaping Use Vaping Use: Never used Substance and Sexual Activity Alcohol use: Not on file Drug use: Yes Types: Marijuana Sexual activity: Not on file Other Topics Concern Not on file Social History Narrative Not on file Social Determinants of Health Financial Resource Strain: Not on file Food Insecurity: Not on file Transportation Needs: Not on file Physical Activity: Not on file Stress: Not on file Social Connections: Not on file Intimate Partner Violence: Not on file Housing Stability: Not on file Review of Systems Review of Systems Constitutional: Positive for fatigue. Negative for fever. HENT: Positive for tinnitus. Negative for drooling, facial swelling, hearing loss, mouth sores, nosebleeds, sinus pain, sore throat, trouble swallowing and voice change. Sinus problems, earaches, ear drainage Eyes: Negative for photophobia, pain, discharge, itching and visual disturbance. Wears contacts Respiratory: Positive for wheezing. Negative for apnea, cough, choking and shortness of breath. Asthma Cardiovascular: Positive for chest pain. Negative for palpitations and leg swelling. Gastrointestinal: Positive for abdominal pain, nausea and vomiting. Change in bowel movements Endocrine: Positive for cold intolerance and heat intolerance. Negative for polydipsia, polyphagia and polyuria. Genitourinary: Negative for difficulty urinating, dysuria, enuresis, hematuria and urgency. Musculoskeletal: Positive for arthralgias, back pain and myalgias. Negative for gait problem, jointswelling, neck pain and neck stiffness. Cold extremities Skin: Negative for color change, pallor, rash and wound. Dry skin Allergic/Immunologic: Negative for environmental allergies, food allergies and immunocompromised state. Neurological: Positive for dizziness, tremors, light-headedness and headaches. Negative for seizures, syncope, facial asymmetry, speech difficulty, weakness and numbness. Memory loss Hematological: Bruises/bleeds easily. Psychiatric/Behavioral: Positive for confusion and sleep disturbance. Negative for agitation, behavioral problems, decreased concentration, dysphoric mood, hallucinations, self-injury and suicidal ideas. The patient is nervous/anxious. The patient is not hyperactive. Depression Current Outpatient Medications Medication Sig Dispense Refill dicyclomine (BENTYL) 10 mg capsule hydrOXYzine (ATARAX) 25 mg tablet Take 1 tablet (25 mg total) by mouth 2 (two) times a day as needed [facility] albuterol HFA () 90 mcg/actuation inhaler Inhale 2 puffs once metoclopramide (REGLAN) 10 mg tablet TAKE 1 TABLET BY MOUTH EVERY 6 HOURS NEEDED FOR NAUSEA OR VOMITING metroNIDAZOLE (FLAGYL) 500 mg tablet TAKE 1 TABLET BY MOUTH TWICE DAILY WITH MEALS FOR 7 DAYS metroNIDAZOLE (METROGEL) 0.75 % (37.5mg/5 gram) vaginal gel INSERT 1 APPLICATORFUL VAGINALLY EVERY DAY AT BEDTIME FOR 5 DAYS Mucinex DM 60-1,200 mg tablet extended release 12 hr Take 1 tablet by mouth every 12 (twelve) hours pantoprazole DR (PROTONIX) 40 mg EC tablet Take 1 tablet (40 mg total) by mouth daily promethazine (PHENERGAN) 25 mg tablet traMADoL (ULTRAM) 50 mg tablet TAKE 1 TABLET BY MOUTH EVERY DAY NEEDED FOR PAIN clonazePAM (KlonoPIN) 0.5 mg tablet TAKE 1/2 TABLET BY MOUTH EVERY DAY NEEDED FOR ANXIETY (Patient not taking: No sig reported) cyclobenzaprine (FLEXERIL) 10 mg tablet Take 1 tablet (10 mg total) by mouth every 8 (eight) hours (Patient not taking: Reported on 03/03/2023) lamoTRIgine (LaMICtal) 25 mg tablet Take 4 tablets (100 mg total) by mouth daily (Patient not taking: Reported on 03/03/2023) ondansetron ODT (ZOFRAN-ODT) 4 mg disintegrating tablet DISSOLVE 1 TABLET ON THE TONGUE EVERY 8 HOURS (Patient not taking: Reported on 03/03/2023) oxyCODONE (ROXICODONE) 5 mg immediate release tablet Take 5 mg by mouth every 6 (six) hours as needed (Patient not taking: Reported on 08/21/2021) rimegepant (Nurtec ODT) tablet,disintegrating Take 1 tablet (75 mg total) by mouth every other day 16 tablet 5 triamcinolone (KENALOG) 0.1 % cream Apply topically 2 (two) times a day (Patient not taking: Reported on 03/18/2021) venlafaxine XR (EFFEXOR-XR) 37.5 mg 24 hr capsule Take 1 capsule by mouth daily (Patient not taking: Reported on 03/18/2021) Wal-Phed D 120 mg 12 hr tablet TAKE 1 TABLET BY MOUTH EVERY 12 HOURS NEEDED FOR NASAL CONGESTION(Patient not taking: Reported on 01/20/2023) No current facility-administered medications for this visit. Physical Exam Neurological exam: Constitutional: Appears well and in no acute distress Mental Status: Alert and oriented times three, Language is fluent and approp, Good naming, Good repeats, Good attention, Good concentration, Recent and remote memory intact, Fund of knowledge is appropriate Cranial Nerves: CN's II-XII grossly intact including pupils which are equal, round, and reactive tolight Motor: Normal bulk and tone noted Strength: 5/5 throughout bilateral upper and lower extremities Sensory: Intact to LT and prop bilat Coordination: Good FNF, No obvious invol mvmts Gait: Steady gait Reflexes: 1/4 bilateral upper and lower extremities Extremities: No noted edema BP 106/72 (BP Location: Right arm, Patient Position: Sitting) Pulse 81 Ht 170.2 cm (5' 7 ) Wt56.7 kg (125 lb) SpO2 96% BMI 19.58 kg/m?? Body mass index is 19.58 kg/m??. Mindy Dewey NP This note was dictated using voice recognition software, M*Modal. [employer] Worker variances may occur. Cosigned by Genaro Eduardo MD at 03/04/2023 11:16 AM PAN DUMPER DUMPER DUMPER documented in this encounter Miscellaneous Notes * Addendum Note - Opal Hahn - 03/03/2023 11:00 AM CSTAddended by: OPAL HAHN on: 2023 03:41 PM Modules accepted: Orders DUMPER documented in this encounter Plan of Treatment Not on file documented as of this encounter Visit Diagnoses Diagnosis Intractable chronic migraine without aura and without status migrainosus- Primary documented in this encounter Discontinued Medications Medication Sig Discontinue Reason Start Date End Da te rimegepant (Nurtec ODT) tablet,disintegrating Take 1 tablet (75 mg total) by mouth daily as needed (Migraine) Reorder 01/20/2023 03/03/2023 documented as of this encounter Historical Medications * This list may reflect changes made after this encounter. metroNIDAZOLE (FLAGYL) 500 mg tablet TAKE 1 TABLET BY MOUTH TWICE DAILY WITH MEALS FOR 7 DAYS 01/29/2023 added in this encounter Care Teams Ice Cream Freezer Relationship Specialty Start Date End Date Vladimir Napoles DO PCP - General Internal Medicine 09/27/20 documented as of this encounter
--- OUTSIDE RECORDS SUMMARY | 2024-03-04 08:26 | XMS_ITS | Clinical Summary ---
Author Organization [facility] Address [address] [place] [id number] Care Team Providers Care Ruby Software Developer Name Role Phone Vladimir Napoles DO Primary Care Provider [phone]- [phone] Allergies Active Allergy Reactions Criticality Noted Date Comments Acetaminophen Rash,Hives High 11/09/2018 Ibuprofen Other (See comments),Unknown Low 021 ulcers Trazodone Fatigue,Dizziness High 08/01/2021 Medications clonazePAM (KlonoPIN) 0.5 mg tablet TAKE 1/2 TABLET BY MOUTH EVERY DAY NEEDED FOR ANXIETY 08/23/19 21 Active cyclobenzaprine (FLEXERIL) 10 mg tablet Take 1 tablet (10 mg total) by mouth every 8 (eight) hours 12/08/19 19 Active dicyclomine (BENTYL) 10 mg capsule 08/23/19 21 Active promethazine (PHENERGAN) 25 mg tablet 08/23/19 21 Active traMADoL (ULTRAM) 50 mg tablet TAKE 1 TABLET BY MOUTH EVERY DAY NEEDED FOR PAIN 08/29/19 21 Active [facility] albuterol HFA () 90 mcg/actuation inhaler Inhale 2 puffs once Active pantoprazole DR (PROTONIX) 40 mg EC tablet Take 1 tablet (40 mg total) by mouth daily Active hydrOXYzine (ATARAX) 25 mg tablet Take 1 tablet (25 mg total) by mouth 2 (two) times a day as needed 09/28/19 21 Active oxyCODONE (ROXICODONE) 5 mg immediate release tablet Take 5 mg by mouth every 6 (six) hours as needed 02/02/20 21 Active triamcinolone (KENALOG) 0.1 % cream Apply topically 2 (two) times a day 12/13/19 21 Active venlafaxine XR (EFFEXOR-XR) 37.5 mg 24 hr capsule Take 1 capsule by mouth daily 11/02/19 20 Active lamoTRIgine (LaMICtal) 25 mg tablet Take 4 tablets (100 mg total) by mouth daily 06/27/19 22 Active Wal-Phed D 120 mg 12 hr tablet TAKE 1 TABLET BY MOUTH EVERY 12 HOURS NEEDED FOR NASAL CONGESTION 07/02/19 22 Active Mucinex DM 60-1,200 mg tablet extended release 12 hr Take 1 tablet by mouth every 12 (twelve) hours 07/02/19 22 Active metoclopramide (REGLAN) 10 mg tablet TAKE 1 TABLET BY MOUTH EVERY 6 HOURS NEEDED FOR NAUSEA OR VOMITING 10/23/19 23 Active metroNIDAZOLE (METROGEL) 0.75 % (37.5mg/5 gram) vaginal gel INSERT 1 APPLICATORFUL VAGINALLY EVERY DAY AT BEDTIME FOR 5 DAYS 12/17/19 23 Active ondansetron ODT (ZOFRAN-ODT) 4 mg disintegrating tablet DISSOLVE 1 TABLET ON THE TONGUE EVERY 8 HOURS 10/30/19 23 Active metroNIDAZOLE (FLAGYL) 500 mg tablet TAKE 1 TABLET BY MOUTH TWICE DAILY WITH MEALS FOR 7 DAYS 01/30/20 23 Active erythromycin (ILOTYCIN) ophthalmic ointment 04/14/19 24 Active ofloxacin (OCUFLOX) 0.3 % ophthalmic solution 04/03/19 24 Active sulfamethoxazole-t rimethoprim (BACTRIM DS) 800-160 mg per tablet Take 1 tablet by mouth 04/04/19 24 Active amoxicillin-clavul anate (AUGMENTIN) 875-125 mg per tablet Take 1 tablet by mouth every 12 (twelve) hours for 7 days 07/10/19 24 Active methylPREDNISolone (MEDROL DOSEPACK) 4 mg Dosepack FOLLOW PACKAGE DIRECTIONS 07/10/19 24 Active albuterol HFA (PROVENTIL HFA,VENTOLIN HFA,PROAIR HFA) 90 mcg/actuation inhaler INHALE 2 PUFFS BY MOUTH FOUR TIMES DAILY NEEDED FOR SHORTNESS OF BREATH OR WHEEZING 07/10/19 24 Active rimegepant (Nurtec ODT) tablet,disintegrat ing Take 1 tablet (75 mg total) by mouth every other day 16 tablet 5 09/09/19 24 Active rimegepant (Nurtec ODT) tablet,disintegrat ing Take 1 tablet (75 mg total) by mouth daily as needed (migraine) 4 tablet 09/10/19 24 Active Additional Information Patient not taking.Reported on 10/12/2023 drospirenone, contraceptive, (Slynd) tablet tablet Take 1 tablet every day by oral route for 90 days. 01/30/20 23 Active azithromycin (ZITHROMAX) 500 mg tablet TAKE 2 TABLETS BY MOUTH EVERY DAY FOR 1 DAY 12/10/19 24 Active cephalexin (KEFLEX) 500 mg capsule TAKE 1 CAPSULE BY MOUTH EVERY 12 HOURS FOR 7 DAYS 10/31/19 24 Active omeprazole (PriLOSEC) 40 mg capsule Take by mouth daily 12/08/19 24 Active rimegepant (Nurtec ODT) tablet,disintegrat ing Take 1 tablet (75 mg total) by mouth every other day 4 tablet 01/14/20 24 Active Active Problems Problem Noted Date Diagnosed Date Intractable chronic migraine without aura and without status migrainosus 03/18/2021 Migraine without aura and wi thout status migrainosus, not intractable 09/28/2020 Assessment & Plan (09/28/2020 12:03 PM CDT): Patient has longstanding history of episodic headaches currently occurring 2-3 days a week with historical characteristics consistent with migraine without aura. I will place her on a trial of propranolol 20 mg b.i.d. for migraine prophylaxis given her frequency of described headache. I have also asked that she use Zomig as her primary abortive therapy 5 mg at onset of headache, it can be repeated in 2 hours if the headache is not improved. If after a 2nd dose 2 hours following the 1st she still has persistent headache than the tramadol could be used as rescue. She will return to Neurology Clinic in 6 months time for reassessment. Acute vaginitis 07/18/2016 Overview (10/12/2023): Acute vulvovaginitis;Recorded Elsewhere: No Location: [facility] Source: EHR Chronic: N Practice ID: [id number] Billable Time: 08:45:00 AM Acute gastritis 05/28/2015 Acute sinusitis 07/27/2014 Headache 11/09/2013 Low back pain 11/09/2013 Skin sensation disturbance 11/09/2013 Encounters Date Type Department Care Team Description 01/04/2024 10:00 AM CDT Procedure visit [facility] Medical Group Neurology [address] [place] [address] [place] [phone] Mindy Dewey NP Intractable chronic migraine without aura and without status migrainosus from Last 3 Months Surgical History Surgery Date Site/Laterality Comments APPENDECTOMY Medical History Medical History Date Comments Anxiety Migraine Family History Medical History Relation Name Comments Cancer Father Diabetes Father Kidney failure Father Diabetes Mother Hypertension Mother Cancer Sister 1 Cancer Sister 2 Endometriosis Sister 2 Endometriosis Sister 3 Relation Name Status Comments Father Mother Alive Sister 1 Alive Sister 2 Alive Sister 3 Alive Social History Tobacco Use Types Packs/Day Years Used Date Smoking Tobacco: Every Day Smokeless Tobacco: Never Tobacco Cessation:Ready to Q uit: Not Asked; Counseling Given: Not Answered Personal Safety Answer Date Recorded Getting School Help Needed Not on file 03/01 Comments Unknown Sex and Gender Information Value Date Recorded Sex Assigned at Not on file Legal Sex Female 1:20 PM CDT Gender Identity Not on file Sexual Orientation Not on file Obstetrics History Last Filed Vital Signs Vital Sign Reading Time Taken Comments Blood Pressure 100/60 09/09/2023 8:27 AM CDT Pulse 81 03/03/2023 11:11 AM MEDICAL CONSULTANT Temperature 37.5 ??C (99.5 ??F) 08/27/2022 11:21 AM C DT Respiratory Rate 20 08/27/2022 11:21 AM CDT Oxygen Saturation 96% 03/03/2023 11:11 AM MEDICAL CONSULTANT Inhaled Oxygen Concentration - - Weight 61.7 kg (136 lb) 01/04/2024 10:16 AM CDT Height 170.2 cm (5' 7 ) 01/04/2024 10:16 AM CDT Body Mass Index 21.3 01/04/2024 10:16 AM CDT Plan of Treatment Health Maintenance Due Date Last Done Comments Breast Cancer Screening-Mammogram 1982 Cervical Cancer Screening 1982 Depression Screening 1982 Hepatitis C Screening 1982 Pneumococcal vaccine <65 (1 of 2 - PCV) 1988 Varicella Vaccines (1 of 2 - 13+ 2-dose series) 1995 Hepatitis B Screening 2000 Regular Well Visit/Exam 18-64 2000 Influenza Vaccine (#1) 2023 DTaP/Tdap/Td Vaccine (2 - Td or Tdap) 01/29/2031 01/29/2021 HPV Vaccines Aged Out No longer eligi ble based on patient's age to complete this topic Procedures Procedure Name Priority Date/Time Associated Diagnosis Comments BOTOX INJECTION Routine 01/04/2024 10:00 AM CDT Intractable chronic migraine without aura and without status migrainosus from Last 3 Months Results * Botox Injection (01/04/2024 10:00 AM CDT) Narrative Ernestina Lawson - 01/04/2024 10:00 AM CDT Ernestina Lawson ? 01/13/2024 ??2:10 PM Botox Injection Performed by: Mindy Dewey NP Authorized by: Mindy Dewey NP ?? Freeburn Protocol: Consent Given by: ??Patient Procedure Details - Botox Injection: ??Procedure Details: See Botox flow sheet for details on injection sites and amounts. This can be found in Media and labeled [facility].BOTOX.PROCEDURE NOTES. Mindy Dewey NP IN CLINIC/BEDSIDE ORDERABLES Final Result from Last [address] [place] [address] [facility] Care Teams Ruby Software Developer Relationship Specialty Start Date End Date Vladimir Napoles DO PCP - General Internal Medicine 09/27/20
--- OUTSIDE RECORDS SUMMARY | 2024-03-04 08:26 | XMS_ITS | Continuity of Care Document ---
Author Organization [facility] Address [address] [place] [address] [place] [address] Care Team Providers Care User Interface Developer Name Role Phone LUIS ARMANDOGAYLE KRUGER Primary Care Provider Assessment No assessment recorded. Plan of Treatment Reminders Order Date Submit Date Provider Last Modified By Organization Details Last Modified Time Details Appointments None recorded. Lab None recorded. Referral None recorded. Procedures None recorded. Surgeries dilation & curettage (SURG) [address] [place] [address], [facility] [address], [place], [address], 14:29:04 Imaging None recorded. Medication Orders None recorded. Patient TargetsNo targets recorded. Patient InstructionsNo instructions recorded. Reason for Referral None Reported. Results Created Date Observation Date Name Description Value Unit Range Abnormal Flag Note LastModifiedBy Organization Detail LastModifiedTime 12/08/1912/08/2023 US, obste tric, trans vagin al No observ ation record ed. [email or web address] [place] [address], [place], [address], 12/08/2023 13:05:16 12/08/19 24 12/08/2023 US, obste tric, follo w-up No observ ation record ed. [email or web address] [address], [place], [address], 12/08/2023 22:45:02 12/17/19 24 12/17/2023 US, obste tric, trans vagin al No observ ation record ed. [email or web address] [place] [address], [place], [address], 12/17/2023 12:55:54 12/17/19 24 12/17/2023 US, obste tric, follo w-up No observ ation record ed. [email or web address] [address], [place], [address], 12/17/2023 21:35:16 Result Notes None recorded. Problems Name Problem SNOMED Code Status Onset Date Resolution Date Notes Provider Name and Address Organization Details Recorded Time Acute vaginitis 96299153 Completed 201607/24/2020 Acute vulvovagi nitis;Rec orded Elsewhere : No Locati on: [facility] So urce: EHR Chron ic: N Practic e ID: [id number] Bill able Time: 08:45:00 AM Deya Spaulding [facility] 16:38:19 Removal of intrauter ine device Completed 201407/24/2020 REMOVAL OF IUD;Recor ded Elsewhere : No Locati on: [facility] So urce: EHR Chron ic: N Practic e ID: [id number] Bill able Time: 10:45:00 AM Deya Spaulding [facility] 16:38:23 Disorder of perineum Completed 201607/24/2020 Condyloma acuminatu m;Recorde d Elsewhere : No Locati on: [facility] So urce: EHR Chron ic: N Practic e ID: [id number] Bill able Time: 09:45:00 AM Deya Spaulding [facility] 16:38:26 Specializ ed medical examinati on Completed 201407/24/2020 Gynecolog ical Examinati on;Record ed Elsewhere : No Locati on: [facility] So urce: EHR Chron ic: N Practic e ID: [id number] Bill able Time: 01:00:00 PM [facility] 16:38:25 Adult health examinati on Completed 201407/24/2020 ROUTINE MEDICAL EXAM;Kenny rded Elsewhere : No Locati on: [facility] So urce: EHR Chron ic: N Practic e ID: 0001 Bill able Time: 01:00:00 PM Deya Spaulding [facility] 16:38:21 Problem Notes None recorded. Procedures Surgical History Date Name Laterality Status Provider Name and Address Organization Details Recorded Time 02/19/20 23 Colposcopy completed Leti Hart, [facility]- [address], [place], [address], [facility] 02/18/2023 13:38:01 02/19/20 23 Colposcopy completed Vidya Garcias [facility] 12/08/2023 12:55:04 01/30/20 23 Date of Last Pap Smear completed Vidya Garcias [facility] 02/18/2023 09:53:50 01/10/20 22 IUD Insertion completed Agnieszka Vivas [facility] 01/09/2022 17:33:29 09/14/19 20 completed Renetta Prieto [facility] 01/08/2022 10:56:48 09/14/19 20 Colonoscopy completed Kathy Chatman [facility] 08/25/2020 12:37:44 03/16/19 02 Appendectomy completed Deya Spaulding [facility] 07/25/2020 15:13:17 Imaging Results None recorded. Procedure Notes None recorded. Medical Equipment None Reported. Allergies Allergen ID Allergen Name Allergen Category Reaction Reaction Severity Criticality Documentation Date Start Date Code Code System Note Provider Name and Address Organization Details Recorded Time 23855 acetamino phen medicatio n hives severe Not available 03/02/2020 161 RxNorm Agnieszka staples [facility] 3 14:24:29 45181 trazodone medicatio n dizziness severe Not available 11/24/2022 10181 RxNorm Agnieszka staples, [facility] 3 14:24:29 34101 ibuprofen medicatio n Not available Not available Not available 11/24/2022 5640 RxNorm PT. HAS ULCER S, CANNO T TAKE Agnieszka staples, [facility] 3 14:25:40 Medications Name Sig Start [...] Prescrib gerhard Yo e: Yes Loca tion: [facility] Koby odify By: sonya tillman DateTime : 05/05/19 [...] Prescrib ed Elsewher e: No Locat ion: [facility] M odify By: braeden ruizer DateTime : 05/05/19 01:00:00 PM Not Available [...] completed Not Available Not Available Not Available Nurtec ODT 75 mg disintegr ating tablet TAKE 1 TABLET BY MOUTH DAILY NEEDED FOR MIGRAINE active Not Available Not Available No t Available Vitals None Recorded Social History Question Answer Notes LastModified by Organizat ion Details LastModified Time Tobacco Smoking Status Current Every Day Smoker Agnieszka Vivas [facility] 11/24/2022 14:24:43 Do You Have An [...] COVID-19 While That Case Was Ill? No Information not available 08/25/2020 In The 14 Days Before Symptom Onset, Have You Had Close Contact With A Person Who Is Under Investigation For COVID-19 While That Person Was Ill? No [email or web address] Information not available 08/25/2020 Have You Been To An Area Known To Be High Risk For COVID-19? No Information not available 08/25/2020 Are You Deaf Or Do You Have Serious Difficulty Hearing? No Information not available 07/24/2020 What Type Of Diet Are You Following? REGULAR Information not available 11/24/2022 What Is The Highest Grade Or Level Of School You Have Completed Or The Highest Degree You Have Received? [id number] Information not available 11/24/2022 What Is Your Occupation? [employer]ing Information not available 11/24/2022 Are There Any Guns Present In Your Home? Yes Information not available 11/24/2022 Have You Ever Been Counseled For Unhealthy Alcohol Use? No Information not available 11/24/2022 Do You Use Protection During Sex? No [email or web address] Information not available 11/19/2022 Do You Use [...] Anxious, Or Unable To Sleep At Night)? [id number] Information not available 11/24/2022 Do You Use Any Illicit Or Recreational Drugs? No Information not available 07/24/2020 Do You Use Sunscreen Routinely? Yes Information not available 07/24/2020 Have You Used IV Drugs? No [email or web address] Information not available 11/19/2022 Sex: Unknown Functional [...] 16:40:07 Father Malignant neoplasm of urinary bladder [email or web address] Not available 2023 11:32:18 Father Malignant tumor of colon [email or web address] Not available 07/26 12:39:09 Father Malignant tumor of stomach [email or web address] Not available 2023 11:32:18 Father Malignant tumor of prostate [email or web address] Not available 2023 11:32:18 Sister Disorder of thyroid gland Not available 2020 16:40:54 Sister Malignant neoplasm of uterus Not available 07/26 12:40:23 Sister Endometrial carcinoma [email or web address] Not available 11/19 11:38:33 Maternal Aunt Disorder of thyroid gland Not available 2020 16:40:54 Maternal Aunt Polyp of colon [email or web address] Not available 2023 11:32:18 Maternal Grandfather Malignant tumor of kidney [email or web address] Not available 2023 11:32:18 Paternal Grandfather Malignant tumor of colon [email or web address] Not available 07/26 12:39:09 Medical History Condition [...] Diagnosis/Indication Diagnosis SNOMED-CT Code Diagnosis ICD10 Code [id number] Ernestina [facility] [address] [address] 12/08/2023 11:32:00 12/08/2023 12:39:07 Uterine size for dates discrepancy 096350421 O26.841 Z3A.01 [id number] Rufino Mooney MD [place] [address],[place] [address] 12/08/2023 11:32:43 12/09/2023 09:37:48 Peptic ulcer 69546136 K27.9 Amenorrhea 82255222 N91. 2 [id number] Ernestina Spaulding [place] [address],[facility] [place] [address] 12/17/2023 10:30:04 12/17/2023 10:59:23 Missed miscarriage 31075180 O02.1 Z3A.01 [id number] [place] [address],[place] [address] 12/17/2023 10:47:04 12/17/2023 11:42:21 Missed miscarriage 97185665 O02.1 Z3A.01 Health Concerns Section Related Observation LastModified by Organization Detai ls LastModified Time None Recorded Concern Status LastModified by Organization Details LastModified Time None Recorded Payers Encounter Date Sequence Insurance Name Policy Number Policy Handley Covered Member ID Handley Member ID Guarantor Name 12/17/2023 1 [facility] (MEDICAID HMO) [id number] Fernanda Rogerslayneavril [id number] Fernanda Rogersjyothi Notes Date Note Type Note Provider Name [...] infection. Rufino Mooney MD [address], [place], [address], [facility] 12/17/2023 11:31:14 OBGyn Episode No OBEpisode recorded.
--- OUTSIDE RECORDS SUMMARY | 2024-03-04 08:26 | XMS_ITS | Encounter Summary ---
Author Organization [facility] Healthcare Address [address] [place] [address] Care Team Providers Care Cone Runner Name Role Phone Vladimir Napoles DO Primary Care Provider [phone]- [phone] Reason for Referral * Procedure (Routine) - Authorized Specialty Diagnoses / Procedures Referred By Christophe t Referred To Contact Neurology Diagnoses Intractable chronic migraine without aura and without status migrainosus Procedures BOTOX MIGRAINE INJECTION Mindy Lundy NP [address] [place] [address] [address] [place] [address] Phone: tel: fax: [facility] Neurology [address] [place] [address] Phone: tel: fax: Referral ID Status Reason Start Date Expiration Date V isits Requested Visits Authorized [id number] Authorized 12/09/2023 07/13/2024 6 4 Reason for Visit * Reason Comments Follow-up Encounter Details Date Type Department Care Team (Late st Contact Info) Description 09/09/2023 8:00 AM CDT Office Visit [facility] Neurology [address] [place] [address] [place] [phone] Mindy Lundy NP [address] [place] [address] [address] [place] [address] Intractable chronic migraine without aura and [...] Pressure 100/60 09/09/2023 8:27 AM CDT Pulse - - Temperature - - Respiratory Rate - - Oxygen Saturation - - Inhaled Oxygen Concentration - - Weight 59 kg (130 lb) 09/09/2023 8:27 AM CDT Height - - Body Mass Index 20.36 07/15/2023 9:59 AM CDT documented in this encounter Ordered Prescriptions Prescription Sig Dispense Quantity Refills Last Filled Start Date End Date rimegepant (Nurtec ODT) tablet,disintegrati ng Take 1 tablet (75 mg total) by mouth daily as needed (migraine) 4 tablet 09/10/2023 rimegepant (Nurtec ODT) tablet,disintegrati ng Take 1 tablet (75 mg total) by mouth every other day 16 tablet 5 09/09/2023 documented in this encounter Progress Notes * Mindy Lundy NP - 09/09/2023 8:00 AM CDT Images from the original note were not included. Patient ID: Fernanda Duron is a 43 y.o. female Fernanda Duron is being seen for follow up for migraines Assessments and Plan 1. Migraines without aura, intractable With Botox, Fernanda has had resolution of her daily headaches. She is experiencing much fewer migraines. The migraines she is experiencing, are centered around her menstrual cycle and can be occurring frequently for a couple weeks each month. Plan: -continue Botox injections - recommend Nurtec be changed to every other day as previously recommended -consider repeat neuro imaging -follow up as planned for injections My total encounter time on 09/09/2023 was 15 minutes which was spent in the activities documented inthe note. This includes time spent prior to [...] pressure changes, menstrual cycle, stress Abortive medication: Nurtec ODT 75mg Prophylactic Medication: Botox- started May 2021 Previous Medications Tried: Topamax- no change Lexapro-no change Amitriptyline- no change Flexeril-no change Tramadol- no change Propanolol- caused side effects, possible exacerbation of asthma as she had complained of shortnessof breath and possibly hypotension Zomig Sumatriptan 100 mg chest pressure Narrative: Fernanda returns for follow up for her migraine headaches. She has returned to her schedule with Botox and has had 2 consistent treatments. Her last treatment was in July. Fernanda continues to receive significant improvement with her migraines with Botox. She is no longer missing work, canceling plans or going to the ED for migraine pain/symptoms. Prior to Botox, she was having daily headaches with migraine symptoms 2-4 days each week. With Botox, she has had significant improvement with her daily headaches and currently experiences very few headaches. Currently, she experiences migraines that are typically the week prior to, during and a few days after her menstrual cycle. During this time, she can have migraines most of the days. Abortively, Nurtec gives her good relief, typically within an hour. She denies any side effects with Nurtec. Occasionally, Nurtec will decrease her migraine symptoms/pain but she will be left with a throbbing type headache for the rest of the day. At her last office visit, she was recommended to increase Nurtec to every other day however, has had difficulty getting her prescription from the pharmacy and so far, this has not been approved by insurance. Past Medical History: Diagnosis Date Anxiety Migraine [...] choking and shortness of breath. Asthma Cardiovascular: Negative for palpitations and leg swelling. Gastrointestinal: [...] and immunocompromised state. Neurological: Positive for dizziness, light-headedness and headaches. Negative for seizures, syncope, facial asymmetry, speech difficulty, weakness and numbness. Hematological: Bruises/bleeds easily. Psychiatric/Behavioral: Positive for sleep disturbance. Negative for agitation, behavioral problems, decreased concentration, dysphoric mood, hallucinations, self-injury and suicidal ideas. The patient is nervous/anxious. The patient is not hyperactive. Depression Current Outpatient Medications Medication Sig Dispense Refill albuterol HFA (PROVENTIL HFA,VENTOLIN HFA,PROAIR HFA) 90 mcg/actuation inhaler INHALE 2 PUFFS BY MOUTH FOUR TIMES DAILY NEEDED FOR SHORTNESS OF BREATH OR WHEEZING amoxicillin-clavulanate (AUGMENTIN) 875-125 mg per tablet Take 1 tablet by mouth every 12 (twelve) hours for 7 days dicyclomine (BENTYL) 10 mg capsule erythromycin (ILOTYCIN) ophthalmic ointment hydrOXYzine (ATARAX) 25 mg tablet Take 1 tablet (25 mg total) by mouth 2 (two) times a day as needed [facility] albuterol HFA () 90 mcg/actuation inhaler Inhale 2 puffs once methylPREDNISolone (MEDROL DOSEPACK) 4 mg Dosepack FOLLOW PACKAGE DIRECTIONS metoclopramide (REGLAN) 10 mg tablet TAKE 1 TABLET BY MOUTH EVERY 6 HOURS NEEDED FOR NAUSEA OR VOMITING metroNIDAZOLE (FLAGYL) 500 mg tablet TAKE 1 TABLET BY MOUTH TWICE DAILY WITH MEALS FOR 7 DAYS Mucinex DM 60-1,200 mg tablet extended release 12 hr Take 1 tablet by mouth every 12 (twelve) hours ofloxacin (OCUFLOX) 0.3 % ophthalmic solution pantoprazole DR (PROTONIX) 40 mg EC tablet Take 1 tablet (40 mg total) by mouth daily promethazine (PHENERGAN) 25 mg tablet sulfamethoxazole-trimethoprim (BACTRIM DS) 800-160 mg per tablet Take 1 tablet by mouth traMADoL (ULTRAM) 50 mg tablet TAKE 1 [...] daily (Patient not taking: Reported on 03/03/2023) metroNIDAZOLE (METROGEL) 0.75 % (37.5mg/5 gram) vaginal gel INSERT 1 APPLICATORFUL VAGINALLY EVERY DAY AT BEDTIME FOR 5 DAYS (Patient not taking: Reported on 09/09/2023) ondansetron ODT (ZOFRAN-ODT) 4 mg disintegrating tablet [...] lower extremities Extremities: No noted edema BP 100/60 (BP Location: Right arm, Patient Position: Sitting) Wt 59 kg (130 lb) BMI 20.36 kg/m?? Body mass index is 20.36 kg/m??. Mindy Lundy NP This note was dictated using voice recognition software, M*Modal. Refrigerator Tester variances may occur. Cosigned by Genaro Eduardo MD at 09/14/2023 7:21 AM CDT documented in this encounter Miscellaneous Notes * Addendum Note - Tg Pickens MA - 09/09/2023 8:00 AM CDTAddended by: TG PICKENS on: 09/10/2023 04:22 PM Modules accepted: Orders * Addendum Note - Mindy Lundy NP - 09/09/2023 8:00 AM CDTAddended by: MINDY LUNDY on: 09/10/2023 04:24 PM Modules accepted: Orders * Addendum Note - Opal Hahn - 09/09/2023 8:00 AM CDTAddended by: OPAL HAHN on: 12/09/2023 09:11 AM Modules accepted: Orders documented in this encounter Plan of Treatment Scheduled Orders Name Type Priority Associated Diagnoses Orde r Schedule BOTOX MIGRAINE INJECTION Procedures Routine Intractable chronic migraine without aura and without status migrainosus 6 Occurrences starting 12/09/2023 until 06/07/2025 documented as of this encounter Visit Diagnoses Diagnosis Intractable chronic migraine without aura and without status migrainosus- Primary documented in this encounter Discontinued Medications Medication Sig Discontinue Reason Start Date End Da te rimegepant (Nurtec ODT) tablet,disintegrating Take 1 tablet (75 mg total) by mouth every other day Reorder 03/03/2023 09/09/2023 documented as of this encounter Care Teams Cone Runner Relationship Specialty Start Date End Date Vladimir Napoles DO PCP - General Internal Medicine 09/27/20 documented as of this encounter
--- OUTSIDE RECORDS SUMMARY | 2024-03-04 08:26 | XMS_ITS | Encounter Summary ---
Author Organization [facility] Healthcare Address [address] [place] [address] Care Team Providers Care Sales Department Manager Name Role Phone Vladimir Napoles DO Primary Care Provider +1- [phone] Reason for Visit * Reason Comments Botulinum Toxin Injection * Procedure (Routine) - Canceled Specialty Diagnoses / Procedures Referred By Christophe t Referred To Contact Neurology Diagnoses Intractable chronic migraine without aura and without status migrainosus Procedures Botox Injection Botox Injection Mindy Dewey NP [address] [facility] [address] [place] [address] Phone: tel: fax: [facility] Neurology [facility] [address] [place] [address] Phone: tel: fax: Referral ID Status Reason Start Date Expiration Date V isits Requested Visits Authorized [id number] Canceled 11/25/2022 05/26/2023 5 2 Encounter Details Date Type Department Care Team (Late st Contact Info) Description 2023 3:00 PM FUNDER Procedure visit [facility] Neurology [facility] [address] [place] [phone] Mindy Dewey NP [facility] [facility] [address] [place] [address] Intractable chronic migraine without aura and without status migrainosus Social History Tobacco Use Types Packs/Day Years [...] Sign Reading Time Taken Comments Blood Pressure - - Pulse - - Temperature - - Respiratory Rate - - Oxygen Saturation - - Inhaled Oxygen Concentration - - Weight 56.7 kg (125 lb) 2023 3:01 PM FUNDER Height 170.2 cm (5' 7 ) 2023 3:01 PM FUNDER Body Mass Index 19.58 2023 3:01 PM FUNDER documented in this encounter Progress Notes * Mindy Dewey NP - 2023 3:00 PM CST Botox Template Migraine without Aura Treatment #8 Chronic Migraine without Aura was diagnosed with: 5 or more attacks that last 36 hours per occurrence Headaches at least 30 days per month for the past 24-36 months 8 days of month have features of migraine with the following characteristics throbbing, sensitivity to light, sensitivity to noise, nausea with vomiting, moderate to severe pain, hard to concentrate, irritable Patient has experienced the following significant limitations calls in sick to work about 4-5 timesa month due to migraines Clinical rational for Botox: Fernanda Duron experienced chronic migraines with 30 headache days and 8 migraine days per month and has failed Topamax- no change Lexapro-no change Amitriptyline- no change Flexeril-no change Tramadol- no change Propanolol- caused side effects, possible exacerbation of asthma as she had complained of shortnessof breath and possibly hypotension Sumatriptan and Zomig stopped working Now taking Nurtec every other day as prevention since Feb 2023 Headache days/month - Current: 3-5 days per month Baseline: 30 days per month Headache hr/day: - Current: less 1-2 days per occurrence Baseline: 24 hours per occurrence Symptom reduction from baseline: > 70%, no longer calling in to work with migraines with Botox. Follow up in 12 weeks for repeat injections Cosigned by Genaro Eduardo MD at 04/29/2023 6:32 AM FUNDER ER ER documented in this encounter Procedure Notes * Ernestina Lawson - 2023 3:00 PM CSTAssociated Order(s): Botox Injection Pre-Procedure Diagnose(s): Intractable chronic migraine without aura and without status migrainosus Post-Procedure Diagnose(s): Intractable chronic migraine without aura and without status migrainosus Botox Injection Performed by: Mindy Dewey NP Authorized by: Mindy Dewey NP Husser Protocol: Consent Given by: Patient Timeout: prior to procedure the correct patient, procedure, and site was verified Procedure Details - Botox Injection: Procedure Details: See Botox flow sheet for details on injection sites and amounts. ER documented in this encounter Plan of Treatment Not on file documented as of this encounter Procedures Procedure Name Priority Date/Time Associated Diagnosis Comments BOTOX INJECTION Routine 2023 3:00 PM FUNDER Intractable chronic migraine without aura and without status migrainosus documented in this encounter Results * Botox Injection (2023 3:00 PM FUNDER) Narrative Devi Lawsonberly - 2023 3:00 PM FUNDER Ernestina Lawson ? 04/28/2023 ??4:15 PM Botox Injection Performed by: Mindy Dewey NP Authorized by: Mindy Dewey NP ?? Husser Protocol: Consent Given by: ??Patient Timeout: prior to procedure the correct patient, procedure, and site was verified ?? Procedure Details - Botox Injection: ??Procedure Details: See Botox flow sheet for details on injection sites and amounts. Procedure Note Ernestina Lawson - 2023 3:00 PM CST Botox Injection Performed by: Mindy Dewey NP Authorized by: Mindy Dewey NP Husser Protocol: Consent Given by: Patient Timeout: prior to procedure the correct patient, procedure, and site wasverified Procedure Details - Botox Injection: Procedure Details: See Botox flow sheet for details on injection sitesand amounts. Mindy Dewey NP IN CLINIC/BEDSIDE ORDERABLES Final Result documented in this encounter Visit Diagnoses Diagnosis Intractable chronic migraine without aura and without status migrainosus documented in this encounter Administered Medications Inactive Administered Medications - up to 3 most recent administrations Medication Order MAR Action Action Date Dose Rate Site onabotulinumtoxin A (BOTOX) 200 unit injection 200 Units 200 Units, other, Once, On Thu04/21/23 at 0915, For 1 doseIndications:Intractable chronic migraine without aura and without status migrainosus Given 04/21/2023 8:46 AM FUNDER 200 Units documented in this encounter Care Teams Sales Department Manager Relationship Specialty Start Date End Date Vladimir Napoles DO PCP - General Internal Medicine 09/27/20 documented as of this encounter
--- OUTSIDE RECORDS SUMMARY | 2024-03-04 08:26 | XMS_ITS | Encounter Summary ---
Author Organization [facility] Healthcare Address [address] [place] [address] Care Team Providers Care Rn Community Health Name Role Phone MarisolhiginioVladimir peterson DO Primary Care Provider +1- [phone] Reason for Visit * Reason Onset Date Comments Prior Auth 09/11/2023 NURTEC 75MG Encounter Details Date Type Department Care Team (Late st Contact Info) Description 09/11/2023 Telephone [facility] Neurology [address] [address] Mindy Dewey NP [address] [address] Prior Auth (NURTEC 75MG) Social History Tobacco Use Types Packs/Day Years [...] on file documented as of this encounter Miscellaneous Notes * Telephone Encounter - Roselyn Sanchez MA - 09/11/2023 2:33 PM CDT PA approved for Nurtec 75mg and faxed to [id number] - [place], [place] - [address] [place] [facility] [address], [place] [address] * Telephone Encounter - Roselyn Sanchez MA - 09/11/2023 8:16 AM CDT PA submitted for NURTEC 75MG through cover my meds. Waiting on determination documented in this encounter Plan of Treatment Not on file documented as of this encounter Visit Diagnoses Not on filedocumented in this encounter Care Teams Rn Community Health Relationship Specialty Start Date End Date Vladimir Napoles DO PCP - General Internal Medicine 09/27/20 documented as of this encounter
--- OUTSIDE RECORDS SUMMARY | 2024-03-04 08:26 | XMS_ITS | Encounter Summary ---
Author Organization [facility] Healthcare Address [address] [place] [address] Care Team Providers Care Pilot Name Role Phone Vladimir Napoles DO Primary Care Provider +1- [phone] Reason for Referral * Procedure (Routine) - Closed Specialty Diagnoses / Procedures Referred By Christophe kirkland Referred To Contact Diagnoses Intractable chronic migraine without aura and without status migrainosus Procedures Botox Injection Mindy Dewey NP [address] [address] Phone: tel: fax: [facility] Medical [facility] Referral ID Status Reason Start Date Expiration Date Visits Re quested Visits Authorized [id number] Closed 08/06/2023 12/09/2023 1 1 Reason for Visit * Reason Comments Botulinum Toxin Injection * Procedure (Routine) - Canceled Specialty Diagnoses / Procedures Referred By Christophe kirkland Referred To Contact Neurology Diagnoses Intractable chronic migraine without aura and without status migrainosus Procedures BOTOX MIGRAINE INJECTION Mindy Dewey NP [facility] [address] Phone: tel: fax: [facility] Neurology [facility] [address] [address] Phone: tel: fax: Referral ID Status Reason Start Date Expiration Date V isits Requested Visits Authorized [id number] Canceled 2023 05/19/2024 6 4 Encounter Details Date Type Department Care Team (Late st Contact Info) Description 07/15/2023 10:00 AM CDT Procedure visit [facility] Neurology 47[address] [facility] [address] [place] [address] Mindy Dewey NP 4700 [facility] [address] [place] [address] Intractable chronic migraine without aura and without [...] - - Weight 56.7 kg (125 lb) 07/15/2023 9:59 AM CDT Height 170.2 cm (5' 7 ) 07/15/2023 9:59 AM CDT Body Mass Index 19.58 07/15/2023 9:59 AM CDT documented in this encounter Progress Notes * Mindy Dewey NP - 07/15/2023 10:00 AM CDT Botox Template Migraine without Aura Treatment #9 Chronic Migraine without Aura was diagnosed with: [...] since Feb 2023 Headache days/month - Current: 2-4 days per month Baseline: 30 days per month Headache hr/day: - Current: less 1-3 days per occurrence Baseline: 24 hours per occurrence Symptom reduction from baseline: >70%. Improved quality of life, not missing or canceling plans/work Follow up in 12 weeks for repeat injections Cosigned by Genaro Eduardo MD at 08/07/2023 8:00 AM CDT documented in this encounter Procedure Notes * Ernestina Lawson - 07/15/2023 10:00 AM CDTAssociated Order(s): Botox Injection Post-Procedure Diagnose(s): Intractable chronic migraine without aura and without status migrainosus Botox Injection Performed by: Mindy Dewey NP Authorized by: Mindy Dewey NP [place] Protocol: Consent Given by: Patient Timeout: prior to procedure the correct patient, procedure, and site was verified Procedure Details - Botox Injection: Procedure Details: See Botox flow sheet for details on injection sites and amounts. This can be found in Media and labeled BLVLE [email or web address].BOTOX.PROCEDURE NOTES. documented in this encounter Plan of Treatment Not on file documented as of this encounter Procedures Procedure Name Priority Date/Time Associated Diagnosis Comments BOTOX INJECTION Routine 07/15/2023 10:00 AM CDT Intractable chronic migraine without aura and without status migrainosus documented in this encounter Results * Botox Injection (07/15/2023 10:00 AM CDT) Narrative Ernestina Lawson - 07/15/2023 10:00 AM CDT Ernestina Lawson ? 08/06/2023 ??3:24 PM Botox Injection Performed by: Mindy Dewey NP Authorized by: Mindy Dewey NP ?? [place] Protocol: Consent Given by: ??Patient Timeout: prior [...] Date Dose Rate Site onabotulinumtoxin A (BOTOX) injection 100 Units 100 Units, other, Once, On Thu07/15/23 at 1045, For 1 dose, RefrigerateIndications:Intra ctable chronic migraine without aura and without status migrainosus Given 07/15/2023 10:15 AM CDT 100 Units onabotulinumtoxin A (BOTOX) injection 100 Units 100 Units, other, Once, On Thu07/15/23 at 1045, For 1 dose, RefrigerateIndications:Intra ctable chronic migraine without aura and without status migrainosus Given 07/15/2023 10:15 AM CDT 100 Units documented in this encounter Historical Medications * This list may reflect changes made after this encounter. albuterol HFA (PROVENTIL HFA,VENTOLIN HFA,PROAIR HFA) 90 mcg/actuation inhaler INHALE 2 PUFFS BY MOUTH FOUR TIMES DAILY NEEDED FOR SHORTNESS OF BREATH OR WHEEZING 07/10/2023 methylPREDNISolo ne (MEDROL DOSEPACK) 4 mg Dosepack FOLLOW PACKAGE DIRECTIONS 07/10/2023 amoxicillin-clav ulanate (AUGMENTIN) 875-125 mg per tablet Take 1 tablet by mouth every 12 (twelve) hours for 7 days 07/10/2023 added in this encounter Orders Medications Ordered That Ron ht Not Have Been Administered Count Last Ordered Date First Ordered Date onabotulinumtoxin A (BOTOX) 200 unit injection 200 Units 1 07/15/2023 Procedures Count Last Ordered Date First Orde red Date PAIN BOTOX MIGRAINE INJECTION 1 07/15/2023 documented in this encounter Care Teams Pilot Relationship Specialty Start Date End Date Vladimir Napoles DO PCP - General Internal Medicine 09/27/20 documented as of this encounter
--- OUTSIDE RECORDS SUMMARY | 2024-03-04 08:26 | XMS_ITS | Encounter Summary ---
Author Organization [facility] Healthcare Address [address] [place] [address] Care Team Providers Care Layout Former Name Role Phone Vladimir Napoles DO Primary Care Provider [phone]- [phone] Reason for Referral * Procedure (Routine) - Pending Review Specialty Diagnoses / Procedures Referred By Contac t Referred To Contact Diagnoses Intractable chronic migraine without aura and without status migrainosus Procedures Botox Injection Mindy Lundy NP [address] [address] Phone: tel: fax: [facility] Medical [facility] Referral ID Status Reason Start Date Expiration Date V isits Requested Visits Authorized [id number] Pending Review 01/13/2024 02/11/2025 1 1 Reason for Visit * Reason Comments Botulinum Toxin Injection * Procedure (Routine) - Authorized Specialty Diagnoses / Procedures Referred By Contac t Referred To Contact Neurology Diagnoses Intractable chronic migraine without aura and without status migrainosus Procedures BOTOX MIGRAINE INJECTION Mindy Lundy NP [facility] [address] [address] Phone: tel: fax: [facility] Medical [facility] Neurology [facility] [address] [address] Phone: tel: fax: Referral ID Status Reason Start Date Expiration Date V isits Requested Visits Authorized [id number] Authorized 12/09/2023 07/13/2024 6 4 Encounter Details Date Type Department Care Team (Late st Contact Info) Description 01/04/2024 10:00 AM CDT Procedure visit [facility] Neurology 4700 [facility] [address] [place] [address] Mindy Lundy NP 47[address] [facility] [address] [place] [address] Intractable chronic migraine without aura and without [...] - Inhaled Oxygen Concentration - - Weight 61.7 kg (136 lb) 01/04/2024 10:16 AM CDT Height 170.2 cm (5' 7 ) 01/04/2024 10:16 AM CDT Body Mass Index 21.3 01/04/2024 10:16 AM CDT documented in this encounter Ordered Prescriptions Prescription Sig Dispense Quantity Refills Last Filled Start Date End Date rimegepant (Nurtec ODT) tablet,disintegrati ng Take 1 tablet (75 mg total) by mouth every other day 4 tablet 01/14/2024 documented in this encounter Progress Notes * Mindy Lundy NP - 01/04/2024 10:00 AM CDT Botox Template Migraine without Aura Treatment #11 Chronic Migraine without Aura was diagnosed with: [...] possibly hypotension Sumatriptan and Zomig stopped working Podiotemarshallindex every other day Headache days/month - Current: 5-7 days per month Baseline: 30 days per month Headache hr/day: - Current: 1-3 days per occurrence Baseline: 24 hours per occurrence Symptom reduction from baseline: Much improved quality of life, not missing or canceling plans/work. Has not yet started Nurtec every other day, had a lapse with her insurance coverage. Follow up in 12 weeks for repeat injections Cosigned by Genaro Eduardo MD at 02/22/2024 6:52 AM HANDKERCHIEF CUTTER KERCHIEF CUTTER documented in this encounter Procedure Notes * Ernestina Lawson - 01/04/2024 10:00 AM CDTAssociated Order(s): Botox Injection Post-Procedure Diagnose(s): Intractable chronic migraine without aura and without status migrainosus Botox Injection Performed by: Mindy Lundy NP Authorized by: Mindy Lundy NP [place] Protocol: Consent Given by: Patient Procedure Details - Botox Injection: Procedure Details: See Botox flow sheet for details on injection sites and amounts. This can be found in Media and labeled BLVLE [email or web address].BOTOX.PROCEDURE NOTES. documented in this encounter Miscellaneous Notes * Addendum Note - Sharlene Tyson CMA - 01/04/2024 10:00 AM CDTAddended by: SHARLENE TYSON on: 01/14/2024 08:49 AM Modules accepted: Orders * Addendum Note - Mindy Lundy NP - 01/04/2024 10:00 AM CDTAddended by: MINDY LUNDY on: 01/14/2024 08:56 AM Modules accepted: Orders documented in this encounter Plan of Treatment Not on file documented as of this encounter Procedures Procedure Name Priority Date/Time Associated Diagnosis Comments BOTOX INJECTION Routine 01/04/2024 10:00 AM CDT Intractable chronic migraine without aura and without status migrainosus documented in this encounter Results * Botox Injection (01/04/2024 10:00 AM CDT) Narrative Ernestina Lawson - 01/04/2024 10:00 AM CDT Ernestina Lawson ? 01/13/2024 ??2:10 PM Botox Injection Performed by: Mindy Lundy NP Authorized by: Mindy Lundy NP ?? [place] Protocol: Consent Given by: ??Patient Procedure Details - Botox Injection: ??Procedure Details: See Botox flow sheet for details on injection sites and amounts. This can be found in Media and labeled BLVLE NEURO.BOTOX.PROCEDURE NOTES. Mindy Lundy NP IN CLINIC/BEDSIDE ORDERABLES Final Result documented in this encounter Visit Diagnoses Diagnosis Intractable chronic migraine without aura and without status migrainosus documented in this encounter Administered Medications Inactive Administered Medications - up to 3 most recent administrations Medication Order MAR Action Action Date Dose Rate Site onabotulinumtoxin A (BOTOX) 200 unit injection 200 Units 200 Units, other, Once, On 01/04/24 at 1100, For 1 doseIndications:Intractable chronic migraine without aura and without status migrainosus Given 01/04/2024 10:17 AM CDT 200 Units documented in this encounter Historical Medications * This list may reflect changes made after this encounter. omeprazole (PriLOSEC) 40 mg capsule Take by mouth daily 12/08/2023 cephalexin (KEFLEX) 500 mg capsule TAKE 1 CAPSULE BY MOUTH EVERY 12 HOURS FOR 7 DAYS 10/31/2023 azithromycin (ZITHROMAX) 500 mg tablet TAKE 2 TABLETS BY MOUTH EVERY DAY FOR 1 DAY 12/10/2023 added in this encounter Orders Procedures Count Last Ordered Date First Orde red Date PAIN BOTOX MIGRAINE INJECTION 1 01/04/2024 documented in this encounter Care Teams Layout Former Relationship Specialty Start Date End Date Vladimir Napoles DO PCP - General Internal Medicine 09/27/20 documented as of this encounter
--- OUTSIDE RECORDS SUMMARY | 2024-03-04 08:26 | XMS_ITS | CONTINUITY OF CARE DOCUMENT ---
Author Name merline, merline Address Unknown Organization [facility] [place] [facility] Address [address] [place] [address] [place] [address] Phone [phone] Care Team Providers Care Fruit Or Nut Crops Farm Manager Name Role Phone Blaine WHITE, Hipoilto Unavailable [phone] NATHALIA MA MD Unavailable [phone] NATHALIA MA MD Unavailable [phone] PROBLEMS Condition Status Date Provider Notes Chest pain active Sarah Samaniego Anxiety active Sarah Samaniego Tobacco abuse active Hipolito Valladares MD Asthma active Sarah Samaniego Family History of Sudden Cardiac : active ? Sarah Samaniego Family History of Hypertension: active ? Anshu Samaniego Family History of CVA or Stroke: active ? Marin Samaniego ENCOUNTERS Date Type Provider Location Encounter Diag nosis - In-person encounter Office Visit Hipolito Valladares MD [facility] Tobacco abuse - In-person encounter Office Visit Hipolito Valladares MD [facility] Chest painFamily History of CVA or Stroke:Family History of Hypertension:Family History of Sudden Cardiac :AnxietyAsthma VITAL SIGNS Date Observation Value Provider Body Mass Index (Ratio) 29.44 kg/m2 Mel Valladares MD blood pressure, cuff size regular Ke rri Kemal blood pressure, diastolic 80 mm[Hg] Ke rri Kemal blood pressure, systolic 132 mm[Hg] Ker ri Willnenfsloan oxygen saturation, oximetry 99 % Yolanda Engeljuliannileshsloan respiratory rate E&M 18 /min Yolanda Machado elver pulse rate 97 /min Yolanda Bustillos lder weight E&M 188 [lb_av] Yolanda Bustillos lder height E&M 67 [in_i] Yolanda Bustillso er Body Mass Index (Ratio) 29.13 kg/m2 Anshu almaguer Samaniego blood pressure, diastolic 64 mm[Hg] Be tsy Gallego blood pressure, systolic 126 mm[Hg] Bet sy Gallego blood pressure, cuff size regular Ke chemo Engeljuliannileshsloan blood pressure, diastolic 92 mm[Hg] Ke rrtejinder Engeljuliannileshsloan blood pressure, systolic 140 mm[Hg] Deion Maddoxsloan oxygen saturation, oximetry 98 % Yolanda Engelbarronadeolasloan respiratory rate E&M 16 /min Yolanda Machado elver pulse rate 64 /min Yolanda Engeljulianroselyn er weight E&M 186 [lb_av] Yolanda Engelbalajiisabel er height E&M 67 [in_i] Yolanda Tressa baker ALLERGIES Allergy Name Onset Date Reaction Criticality Status TYLENOL Low Criticality active HISTORY OF MEDICATION USE Medication Status Instructions Dates Provider Indications Com ments SEROQUEL TABLET active take one pill in the pm 4 Yolanda Sommer ADVIL MIGRAINE CAPSULE active as needed 4 Yolanda Sommer PROZAC CAPSULE active take one pill in the am 4 Yolanda Sommer SOCIAL HISTORY Date Observation Value Provider social history reviewed E&M revi ewed - no changes required Hipolito Valladares MD alcohol use no Yolanda caoer number of years as a smoker 20 a Yolanda Sommer smoking history, tot al pack/day 1/2 ppd Yolanda Sommer cigarette use yes Yolanda lisa smoking status Current every day smoker K kelvin Sommer social history reviewed E&M i ewed - no changes required Sarah Samaniego smoking status Current every day smoker B anshulamos Julián number of grandchildren Hipolito Valladares MD alcohol use no Hipolito Valladares MD number of years as a smoker 20 a Yolanda Sommer smoking history, tot al pack/day 1/2 ppd Yolanda Sommer cigarette use yes Yolanda lisa smoking status Current every day smoker K kelvin Sommer FUNCTIONAL STATUS Date Observation Value Provider periodic limb movement index absent (0) Annabel Lopesnard FAMILY HISTORY Family Member Condition Maternal Grandmother Family History of C oronary Artery Disease: Mother Negative FH of Coron dario Artery Disease Father Family History of Chen dden Cardiac : Father Family History of Hy pertension: Father Family History of CV A or Stroke: INSURANCE PROVIDERS Payer name Policy type / Coverage type [facility] alliance party ID [place] MEDICAID (2) Medicaid [id number] ADVANCE DIRECTIVES Name Date DISCUSSED - NO DECISION MADE TREATMENT PLAN Date Name Performer Cardiology Follow up :Advised to quit smoking. Hipolito Valladares MD Cardiology Follow up :Now on Pro liborio and Seroquel. Hipolito Valladares MD Cardiology Follow up :Atypical chest pain. Likely stress related. Exercise stress test normal. No wall motion abnormality on echo. Patient reassured. If symptoms persist, will discuss catheterization. Hipolito Valladares MD Cardiology New Patient :Recently started on citalopram. Hipolito Valladares MD Cardiology New Patie nt :Does not interfere with the patient's daily activities. Hipolito Valladares MD Cardiology New Patie nt :New onset of chest pressure with associated shortness of breath that coincides with increased life stressors. The patient has no risk factors; however, with the new onset of pain, it is reasonable to perform a routine stress test. Will also arrange for echocardiogram. Hipolito Valladares MD Date Name STR - Routine Complete Echo HISTORY OF PROCEDURES Procedure Date Procedure Name Provider Procedure Notes S tatus EKG Hipolito Valladares MD complet ed SNOMED-CT: 819690234 [id number] Current Medications Documented Hipolito Valladares MD completed Stress EKG Mendez Grigsby MD complete d EKG Hipolito Valladares MD complet ed SNOMED-CT: [id number] [id number] Current Medications Documented Hipolito Valladares MD completed
--- OUTSIDE RECORDS SUMMARY | 2024-03-04 08:26 | XMS_ITS | Encounter Summary ---
Author Organization [facility] Healthcare Address [address] [place] [address] Care Team Providers Care Geodesist Name Role Phone Vladimir Napoles DO Primary Care Provider [phone]- [phone] Reason for Visit * Reason Comments Botulinum Toxin Injection * Procedure (Routine) - Canceled Specialty Diagnoses / Procedures Referred By Christophe t Referred To Contact Neurology Diagnoses Intractable chronic migraine without aura and without status migrainosus Procedures BOTOX MIGRAINE INJECTION Mindy Dewey NP [address] [facility] [address] [address] [place] [address] Phone: tel: fax: [facility] Neurology [facility]0 [facility] [address] [place] [address] Phone: tel: fax: Referral ID Status Reason Start Date Expiration Date V isits Requested Visits Authorized [id number] Canceled 2023 05/19/2024 6 4 Encounter Details Date Type Department Care Team (Late st Contact Info) Description 10/12/2023 10:00 AM CDT Procedure visit [facility] Neurology [facility]0 [facility] [address] [place] [address] Mindy Dewey NP [facility]0 [facility] [address] [place] [address] Intractable chronic migraine without aura and [...] - - Weight 56.7 kg (125 lb) 10/12/2023 10:04 AM CDT Height 170.2 cm (5' 7 ) 10/12/2023 10:04 AM CDT Body Mass Index 19.58 10/12/2023 10:04 AM CDT documented in this encounter Progress Notes * Mindy Dewey NP - 10/12/2023 10:00 AM CDT Botox Template Migraine without Aura Treatment #10 Chronic Migraine without Aura was diagnosed with: [...] possibly hypotension Sumatriptan and Zomig stopped working [place] every other day Headache days/month - Current: 4-5 days per month Baseline: 30 days per month Headache hr/day: - Current: less 1+ days per occurrence Baseline: 24 hours per occurrence Symptom reduction from baseline: Much improved quality of life, not missing or canceling plans/work. Full 200 units given today for her musculoskeletal trigger complaints in her occipital/neck area. She is starting the [email or web address].comtec ODT every other day today, just picked up her script. Follow up in 12 weeks for repeat injections Cosigned by Genaro Eduardo MD at 10/19/2023 5:59 AM CDT documented in this encounter Procedure Notes * Ernestina Lawson - 10/12/2023 10:00 AM CDTAssociated Order(s): BOTOX MIGRAINE INJECTION Pre-Procedure Diagnose(s): Intractable chronic migraine without aura and without status migrainosus Post-Procedure Diagnose(s): Intractable chronic migraine without aura and without status migrainosus BOTOX MIGRAINE INJECTION Date/Time: 10/12/2023 10:00 AM Performed by: Mindy Dewey NP Authorized by: Mindy Dewey NP Local anesthesia used: no Anesthesia: Local anesthesia used: no Sedation: Patient sedated: no Patient tolerance: patient tolerated the procedure well with no immediate complications Comments: See Botox flow sheet for details on injection sites and amounts. This can be found in Media and labeled BLVLE NEURO.BOTOX.PROCEDURE NOTES. documented in this encounter Plan of Treatment Not on file documented as of this encounter Procedures Procedure Name Priority Date/Time Associated Diagnosis Comments PAIN BOTOX MIGRAINE INJECTION Routine 10/12/2023 10:00 AM CDT Intractable chronic migraine without aura and without status migrainosus documented in this encounter Results * PAIN BOTOX MIGRAINE INJECTION (10/12/2023 10:00 AM CDT) Narrative Ernestina Lawson - 10/12/2023 10:00 AM CDT Ernestina Lawson ? 10/14/2023 12:15 PM BOTOX MIGRAINE INJECTION Date/Time: 10/12/2023 10:00 AM Performed by: Mindy Dewey NP Authorized by: Mindy Dewey NP ??Local anesthesia used: no Anesthesia: Local anesthesia used: no Sedation: Patient sedated: no Patient tolerance: patient tolerated the procedure well with no immediate complications Comments: See Botox flow sheet for details on injection sites and amounts. This can be found in Media and labeled BLVLE NEURO.BOTOX.PROCEDURE NOTES. Procedure Note Ernestina Lawson - 10/12/2023 10:00 AM CDT BOTOX MIGRAINE INJECTION Date/Time: 10/12/2023 10:00 AM Performed by: Mindy Dewey NP Authorized by: Mindy Dewey NP Local anesthesia used: no Anesthesia: Local anesthesia used: no Sedation: Patient sedated: no Patient tolerance: patient tolerated the procedure well with no immediatecomplications Comments: See Botox flow sheet for details on injection sites and amounts.This can be found in Media and labeled BLVLE NEURO.BOTOX.PROCEDURENOTES. Mindy Dewey NP IN CLINIC/PAIN MGMT ORDERABL ES Final Result documented in this encounter Visit Diagnoses Diagnosis Intractable chronic migraine without aura and without status migrainosus documented in this encounter Administered Medications Inactive Administered Medications - up to 3 most recent administrations Medication Order MAR Action Action Date Dose Rate Site onabotulinumtoxin A (BOTOX) 200 unit injection 200 Units 200 Units, other, Once, On Thu10/13/23 at 0845, For 1 doseIndications:Intractable chronic migraine without aura and without status migrainosus Given 10/13/2023 8:05 AM CDT 200 Units documented in this encounter Historical Medications * This list may reflect changes made after this encounter. drospirenone, contraceptive, (Slynd) tablet tablet Take 1 tablet every day by oral route for 90 days. 01/29/2023 added in this encounter Care Teams Geodesist Relationship Specialty Start Date End Date Vladimir Napoles DO PCP - General Internal Medicine 09/27/20 documented as of this encounter
--- OUTSIDE RECORDS SUMMARY | 2024-03-04 08:26 | XMS_ITS | Encounter Summary ---
Author Organization [facility] Healthcare Address [address] [place] [address] Care Team Providers Care Software Installer Name Role Phone Suzanneroosevelt Vladimir Lyndsay CHAND Primary Care Provider +1- [phone] Encounter Details Date Type Department Care Team (Late st Contact Info) Description 09/09/2023 Telephone [facility] Medical Group Neurology [address] [address] Mindy Dewey NP [address] [address] Social History Tobacco Use Types Packs/Day Years [...] Telephone Encounter - Roselyn Sanchez MA - 09/10/2023 3:00 PM CDT I will begin working on this. * Telephone Encounter - Mindy Dewey NP - 09/09/2023 8:46 AM CDT [employer] needs to be approved for every other day use, #16 tabs a month. The PA that is scanned into media that the pharmacy has is for #8 tabs per 30 days. She has been instructed to take every other day now, not as needed. Please look into a new PA. documented in this encounter Plan of Treatment Not on file documented as of this encounter Visit Diagnoses Not on filedocumented in this encounter Care Teams Software Installer Relationship Specialty Start Date End Date Vladimir Napoles DO PCP - General Internal Medicine 09/27/20 documented as of this encounter
--- OUTSIDE RECORDS SUMMARY | 2024-03-04 08:26 | XMS_ITS | Referral Summary ---
Author Organization [facility] Address [address] [place] [address] Care Team Providers Care Pipeline Executive Name Role Phone Vladimir Napoles DO Primary Care Provider +1- [phone] Encounters Date Type Department Care Team Description 01/04/2024 10:00 AM CDT Procedure visit [facility] Medical Group Neurology [address] [place] [address] [address] [place] [address] Minyd Dewey NP Intractable chronic migraine without aura and without status migrainosus from Last 3 Months Allergies Active Allergy Reactions Criticality Noted Date [...] DAY NEEDED FOR PAIN 08/29/19 21 Active [facility] albuterol HFA () [...] Overview (10/12/2023): Acute vulvovaginitis;Recorded Elsewhere: No Location: [facility] Source: EHR Chronic: N Practice ID: [id number] Billable Time: 08:45:00 AM Acute gastritis 05/28/2015 Acute sinusitis 07/27/2014 Headache 11/09/2013 Low back pain 11/09/2013 Skin sensation disturbance 11/09/2013 Social History Tobacco Use Types Packs/Day Years [...] AM CDT Pulse 81 03/03/2023 11:11 AM 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 Temperature 37.5 ??C (99.5 ??F) 08/27/2022 11:21 AM C DT Respiratory Rate 20 08/27/2022 11:21 AM CDT Oxygen Saturation 96% 03/03/2023 11:11 AM 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 Inhaled Oxygen Concentration - - Weight 61.7 kg (136 lb) 01/04/2024 10:16 AM CDT Height 170.2 cm (5' 7 ) 01/04/2024 10:16 AM CDT Body Mass Index 21.3 01/04/2024 10:16 AM CDT Plan of Treatment Not on file Procedures Procedure Name Priority Date/Time Associated Diagnosis Comments BOTOX INJECTION Routine 01/04/2024 10:00 AM CDT Intractable chronic migraine without aura and without status migrainosus from Last 3 Months Results * Botox Injection (01/04/2024 10:00 AM CDT) Narrative Ernestina Lawson - 01/04/2024 10:00 AM CDT Ernestina Lawson ? 01/13/2024 ??2:10 PM Botox Injection Performed by: Mindy Dewey NP Authorized by: Mindy Dewey NP ?? [place] Protocol: Consent Given by: ??Patient Procedure Details - Botox Injection: ??Procedure Details: See Botox flow sheet for details on injection sites and amounts. This can be found in Media and labeled [email or web address].PROCEDURE NOTES. Mindy Dewey COMPUTER TAPE LIBRARIAN IN CLINIC/BEDSIDE ORDERABLES Final Result from Last 3 Months Insurance [id number] Care Teams Pipeline Executive Relationship Specialty Start Date End Date Vladimir Napoles DO PCP - General Internal Medicine 09/27/20
--- OUTSIDE RECORDS SUMMARY | 2024-03-04 08:27 | XMS_ITS | Encounter Summary ---
Author Organization [facility] Medical [facility] Address [address] [address] Care Team Providers Care Change Director Name Role Phone Vladimir Napoles DO Primary Care Provider +1- [phone] Reason for Referral * Procedure (Routine) - Closed Specialty Diagnoses / Procedures Referred By Christophe kirkland Referred To Contact Diagnoses Intractable chronic migraine without aura and without status migrainosus Procedures Botox Injection Mindy Lundy NP Phone: tel: fax: [facility] Referral ID Status Reason Start Date Expiration Date Visits Re quested Visits Authorized [id number] Closed 04/12/2021 09/22/2021 1 1 Reason for Visit * Procedure (Routine) - Closed Specialty Diagnoses / Procedures Referred By Christophe kirkland Referred To Contact Diagnoses Intractable chronic migraine without aura and without status migrainosus Procedures Botox Injection Mindy Lundy NP Phone: tel: fax: [facility] Medical Group Referral ID Status Reason Start Date Expiration Date Visits Re quested Visits Authorized [id number] Closed 04/12/2021 09/22/2021 1 1 Encounter Details Date Type Department Care Team (Late st Contact Info) Description 08/21/2021 3:30 PM CDT Procedure visit [facility] Medical [facility] Neurology [address] [facility] [address] [place] [id number] Mindy Lundy NP [address] [facility] [address] [place] [address] Intractable chronic migraine without aura and without status migrainosus (Primary Dx) Social History Tobacco Use Types Packs/Day Years Used Date Smoking Tobacco: Every Day Smokeless Tobacco: Never Comments Unknown Sex and Gender Information Value Date Recorded Sex Assigned at Not on file Legal Sex Female 1:20 PM CDT Gender Identity Not on file Sexual Orientation Not on file documented as of this encounter Ordered Prescriptions Prescription Sig Dispense Quantity Refills Last Filled Start Date End Date rimegepant (NURTEC ODT) tablet,disintegrat ingIndications:Int ractable chronic migraine without aura and without status migrainosus Take 1 tablet (75 mg total) by mouth as needed (TAKE AT ONSET OF MEJIA) 12 tablet 08/26/2021 08/27/2022 documented in this encounter Progress Notes * Mindy Lundy NP - 08/21/2021 3:30 PM CDT Botox Template Migraine without Aura Treatment #2 Chronic Migraine without Aura was diagnosed with: ? 5 or more attacks that last 36 hours per occurrence ? Headaches at least 30 days per month for the past 24-36 months ? 8 days of month have features of migraine ? with the following characteristics throbbing, sensitivity to light, sensitivity to noise, nausea with vomiting, moderate to severe pain, hard to concentrate, irritable ? Patient has experienced the following significant limitations calls in sick to work about 4-5 times a month due to migraines Clinical rational for Botox: Fernanda Duron experienced chronic migraines with 30 headache days and 8 migraine days per month and has failed Topamax- no change Lexapro-no change Amitriptyline- no change Flexeril-no change Tramadol- no change Propanolol- caused side effects, possible exacerbation of asthma as she had complained of shortnessof breath and possibly hypotension Headache days/month - Current: 10-15 days per month Baseline: 30days per month Headache hr/day: - Current: 24 hours per occurrence Baseline: 24 hours per occurrence Symptom reduction from baseline: about 30% decrease in frequency, less severe headaches and migraines, migraines respond better to medications Follow up in 13 weeks for repeat injections Cosigned by Genaro Eduardo MD at 09/09/2021 10:33 AM CDT documented in this encounter Procedure Notes * Afia Lawson - 08/21/2021 3:30 PM CDTAssociated Order(s): Botox Injection Pre-Procedure Diagnose(s): Intractable chronic migraine without aura and without status migrainosus Post-Procedure Diagnose(s): Intractable chronic migraine without aura and without status migrainosus Botox Injection Date/Time: 08/21/2021 3:50 PM Performed by: Mindy Lundy NP Authorized by: Mindy Lundy NP Procedure Details - Botox Injection: Cosmetic: no Injection area: head Comments: See Botox flow sheet for details on injection sites and amounts. Lot [id number] Exp 04 15 2024 documented in this encounter Miscellaneous Notes * Addendum Note - Afia Lawson - 08/21/2021 3:30 PM CDTAddended by: AFIA LAWSON on: 08/23/2021 12:48 PM Modules accepted: Orders * Addendum Note - Mindy Lundy NP - 08/21/2021 3:30 PM CDTAddended by: MINDY LUNDY on: 08/26/2021 10:35 AM Modules accepted: Orders documented in this encounter Plan of Treatment Not on file documented as of this encounter Procedures Procedure Name Priority Date/Time Associated Diagnosis Comments BOTOX INJECTION Routine 08/21/2021 3:50 PM CDT Intractable chronic migraine without aura and without status migrainosus documented in this encounter Results * Botox Injection (08/21/2021 3:50 PM CDT) Narrative Afia Lawson - 08/21/2021 3:50 PM CDT Afia Lawson ? 08/21/2021 ??3:51 PM Botox Injection Date/Time: 08/21/2021 3:50 PM Performed by: Mindy Lundy NP Authorized by: Mindy Lundy NP Procedure Details - Botox Injection: ??Cosmetic: no ?Injection area: head Comments: ?? See Botox flow sheet for details on injection sites and amounts. ?? Lot [id number] ??Exp 04 15 2024 Mindy Lundy NP IN CLINIC/BEDSIDE ORDERABLES Final Result documented in this encounter Visit Diagnoses Diagnosis Intractable chronic migraine without aura and without status migrainosus- Primary documented in this encounter Administered Medications Inactive Administered Medications - up to 3 most recent administrations Medication Order MAR Action Action Date Dose Rate Site onabotulinumtoxin A (BOTOX) 200 unit injection 155 Units 155 Units, other, Once, On Thu08/21/21 at 1630, For 1 dose, Indications: Migraine PreventionIndications:Migraine Prevention Given 08/21/2021 3:47 PM CDT 155 Units documented in this encounter Historical Medications * This list may reflect changes made after this encounter. Mucinex DM 60-1,200 mg tablet extended release 12 hr Take 1 tablet by mouth every 12 (twelve) hours 07/01/2021 [facility] D 120 mg 12 hr tablet TAKE 1 TABLET BY MOUTH EVERY 12 HOURS NEEDED FOR NASAL CONGESTION 07/01/2021 lamoTRIgine (LaMICtal) 25 mg tablet Take 4 tablets (100 mg total) by mouth daily 06/26/2021 added in this encounter Care Teams Change Director Relationship Specialty Start Date End Date Vladimir Napoles DO PCP - General Internal Medicine 09/27/20 documented as of this encounter
--- OUTSIDE RECORDS SUMMARY | 2024-03-04 08:27 | XMS_ITS | Encounter Summary ---
Author Organization [facility] Medical [facility] Address [address] [address] Care Team Providers Care Motorboat Mechanic Inboard Name Role Phone Vladimir Napoles DO Primary Care Provider +1- [phone] Reason for Visit * Reason Comments New Patient Migraine * Consultation (Routine) - Closed Specialty Diagnoses / Procedures Referred By Christophe kirkland Referred To Contact Neurology Diagnoses Migraine without status migrainosus, not intractable, unspecified migraine type Vladimir Napoles DO Phone: tel: fax: [facility] Neurology [address] [place] [phone] Phone: tel: fax: Referral ID Status Reason Start Date Expiration Date V isits Requested Visits Authorized [id number] Closed Specialty Services Required 09/27/2020 10/27/2021 1 1 Encounter Details Date Type Department Care Team (Late st Contact Info) Description 09/28/2020 11:00 AM CDT Office Visit [facility] Neurology [address] [place] [phone] Otf Krishnan MD [address] [place] [phone] Migraine without aura and without status migrainosus, not intractable (Primary Dx) Social History Tobacco Use Types [...] Sign Reading Time Taken Comments Blood Pressure 110/72 09/28/2020 11:22 AM CDT Pulse 92 09/28/2020 11:22 AM CDT Temperature 37.5 ??C (99.5 ??F) 09/28/2020 11:22 AM C DT Respiratory Rate - - Oxygen Saturation - - Inhaled Oxygen Concentration - - Weight 64.1 kg (141 lb 6.4 oz) 09/28/2020 11:22 AM CDT Height 167.6 cm (5' 6 ) 09/28/2020 11:22 AM CDT Body Mass Index 22.82 09/28/2020 11:22 AM CDT documented in this encounter Ordered Prescriptions Prescription Sig Dispense Quantity Refills Last Filled Start Date End Date ZOLMitriptan (ZOMIG) 5 mg tabletIndications: Migraine Take 1 tablet (5 mg total) by mouth 2 (two) times a day as needed for migraine May repeat in 2 hours if unresolved. Do not exceed 10 mg in 24 hours. 6 tablet 5 09/28/2020 1 propranoloL (INDERAL) 20 mg tabletIndications: Migraine without aura and without status migrainosus, not intractable Take 1 tablet (20 mg total) by mouth 2 (two) times a day 60 tablet 5 09/28/2020 2 documented in this encounter Progress Notes * Otf Krishnan MD - 09/28/2020 11:00 AM CDT Images from the original note were not included. 09/28/2020 Patient ID: Fernanda Duron is a 40 y.o. female. Chief Complaint New Patient and Migraine HPI: 40-year-old woman presents for evaluation of headache. She reports having episodic headaches since age 12. Her current headache frequency is 2-3 times perweek. She describes the headache is a bifrontal bitemporal throbbing headache with light noise sensitivity nausea and occasional vomiting. She has previously been tried on amitriptyline and topiramate for headache prophylaxis without improvement. She is currently using initially tramadol and then if it does not help in 2-3 hours she will try zolmitriptan without consistent relief. She reports having had CT scans of the brain performed at [facility] which she is told were normal. They are unavailable for review but broke records will be requested. The duration of the headache can last up to 36 hours before spontaneously improving. They can be exacerbated by barometric pressure changesstress or changes in sleep patterns. Past Medical History: Diagnosis Date ??? Anxiety ??? Migraine Allergies Allergen Reactions ??? Acetaminophen Rash ??? Ibuprofen Other (See comments) ulcers Current Outpatient Medications Medication Sig Dispense Refill ??? clonazePAM (KlonoPIN) 0.5 mg tablet TAKE 1/2 TABLET BY MOUTH EVERY DAY NEEDED FOR ANXIETY ??? cyclobenzaprine (FLEXERIL) 10 mg tablet Take 10 mg by mouth every 8 (eight) hours ??? dicyclomine (BENTYL) 10 mg capsule ??? [facility] albuterol HFA () 90 mcg/actuation inhaler Inhale 2 puffs once ??? pantoprazole DR (PROTONIX) 40 mg EC tablet Take 40 mg by mouth daily ??? promethazine (PHENERGAN) 25 mg tablet ??? traMADoL (ULTRAM) 50 mg tablet TAKE 1 TABLET BY MOUTH EVERY DAY NEEDED FOR PAIN ??? ZOLMitriptan (ZOMIG) 5 mg tablet Take 1 tablet (5 mg total) by mouth 2 (two) times a day as needed for migraine May repeat in 2 hours if unresolved. Do not exceed 10 mg in 24 hours. 6 tablet 5 ??? propranoloL (INDERAL) 20 mg tablet Take 1 tablet (20 mg total) by mouth 2 (two) times a day 60 tablet 5 No current facility-administered medications for this visit. Family History Problem Relation Age of Onset ??? Diabetes Mother ??? Hypertension Mother ??? Cancer Father ??? Kidney failure Father ??? Diabetes Father ??? Cancer Sister ??? Cancer Sister ??? Endometriosis Sister ??? Endometriosis Sister Review of Systems Constitutional: Negative for activity change, chills, fever and unexpected weight change. HENT: Negative for hearing loss, sore throat and tinnitus. Denies Tinnitus Eyes: Positive for visual disturbance. Negative for pain. Respiratory: Negative for cough, shortness of breath and wheezing. Cardiovascular: Negative for chest pain, palpitations and leg swelling. Denies Poor Circulation Gastrointestinal: Positive for nausea and vomiting. Negative for abdominal pain, constipation and diarrhea. Endocrine: Negative for cold intolerance, heat intolerance and polyuria. Genitourinary: Negative for difficulty urinating, dysuria, frequency and urgency. Denies Incontinence Musculoskeletal: Negative for arthralgias, back pain, myalgias, neck pain and neck stiffness. Skin: Negative for color change and rash. Denies Birthmarks Deniees Tattoos Allergic/Immunologic: Negative for environmental allergies and food allergies. Neurological: Positive for headaches. Negative for dizziness, tremors, seizures, syncope, facial asymmetry, speech difficulty, weakness, light-headedness and numbness. Hematological: Does not bruise/bleed easily. Psychiatric/Behavioral: Denies Visual Hallucinations Denies Auditory Hallucinations Denies Motor Tics General Examination: Patient appears of stated age in no apparent distress Cardiac Examination: Regular rate and rhythm without murmur Neck Examination: No audible carotid bruits; Full ROM, nontender Lumbar Examination: Full ROM, nontender Extremity Examination: Posterior Tibial and Dorsalis Pedis pulses 2+, symmetric BP 110/72 (BP Location: Left arm, Patient Position: Sitting) Pulse 92 Temp 37.5 ??C (99.5 ??F) Ht 167.6 cm (5' 6 ) Wt 64.1 kg (141 lb 6.4 oz) BMI 22.82 kg/m?? Neurologic Exam Mental Status Oriented to person. Oriented to place. Oriented to time. Oriented to year, month, date and day. Attention: normal. Concentration: normal. Speech: speech is normal Level of consciousness: alert Knowledge: consistent with education. Able to perform simple calculations. Able to read. Able to repeat. Able to write. Normal comprehension. Cranial Nerves CN II Visual davis full to confrontation. Visual acuity: normal Right visual field deficit: none Left visual field deficit: none CN III, IV, Pupils are equal, round, and reactive to light. Extraocular motions are normal. Right pupil: Shape: regular. Reactivity: brisk. Consensual response: intact. Left pupil: Shape: regular. Reactivity: brisk. Consensual response: intact. CN V Facial sensation intact. CN VII Facial expression full, symmetric. CN VIII CN VIII normal. CN IX, X CN IX normal. CN X normal. CN XI CN XI normal. CN XII CN XII normal. Funduscopic Examination Normal Bilaterally Motor Exam Muscle bulk: normal Overall muscle tone: normal Right arm tone: normal Left arm tone: normal Right leg tone: normal Left leg tone: normal Strength Strength 5/5 except as noted. Right neck flexion: 5/5 Left neck flexion: 5/5 Right neck extension: 5/5 Left neck extension: 5/5 Right deltoid: 5/5 Left deltoid: 5/5 Right biceps: 5/5 Left biceps: 5/5 Right triceps: 5/5 Left triceps: 5/5 Right wrist flexion: 5/5 Left wrist flexion: 5/5 Right wrist extension: 5/5 Left wrist extension: 5/5 Right interossei: 5/5 Left interossei: 5/5 Right iliopsoas: 5/5 Left iliopsoas: 5/5 Right quadriceps: 5/5 Left quadriceps: 5/5 Right hamstrin/5 Left hamstrin/5 Right glutei: 5/5 Left glutei: 5/5 Right anterior tibial: 5/5 Left anterior tibial: 5/5 Right posterior tibial: 5/5 Left posterior tibial: 5/5 Right peroneal: 5/5 Left peroneal: 5/5 Right gastroc: 5/5 Left gastroc: 5/5 Sensory Exam Light touch normal. Vibration normal. Proprioception normal. Pinprick normal. Gait, Coordination, and Reflexes Gait Gait: normal Coordination Romberg: negative Finger to nose coordination: normal Heel to levy coordination: normal Tandem walking coordination: normal Tremor Resting tremor: absent Intention tremor: absent Action tremor: absent Reflexes Reflexes 2+ except as noted. Right brachioradialis: 2+ Left brachioradialis: 2+ Right biceps: 2+ Left biceps: 2+ Right triceps: 2+ Left triceps: 2+ Right patellar: 2+ Left patellar: 2+ Right achilles: 2+ Left achilles: 2+ Right plantar: normal Left plantar: normal Assessment/Plan Diagnoses and all orders for this visit: Migraine without aura and without status migrainosus, not intractable (Primary) Assessment & Plan: Patient has longstanding history of episodic headaches [...] than the tramadol could be used as re scue. She will return to Neurology Clinic in 6 months time for reassessment. Orders: - Ambulatory referral to Neurology - propranoloL (INDERAL) 20 mg tablet; Take 1 tablet (20 mg total) by mouth 2 (two) times a day - ZOLMitriptan (ZOMIG) 5 mg tablet; Take 1 tablet (5 mg total) by mouth 2 (two) times a day as needed for migraine May repeat in 2 hours if unresolved. Do not exceed 10 mg in 24 hours. Otf Krishnan MD documented in this encounter Miscellaneous Notes * Assessment & Plan Note - Otf Krishnan MD - 09/28/2020 12:02 PM CDT Associated Problem(s): Migraine without aura and without status migrainosus, not intractable Patient has longstanding history of episodic headaches [...] than the tramadol could be used as re scue. She will return to Neurology Clinic in 6 months time for reassessment. documented in this encounter Plan of Treatment Not on file documented as of this encounter Visit Diagnoses Diagnosis Migraine without aura and without status migrainosus, not intractable- Primary documented in this encounter Discontinued Medications Medication Sig Discontinue Reason Start Date End Da te hydrOXYzine (ATARAX) 25 mg tablet Discontinued by another clinician 09/27/2020 09/28/2020 ZOLMitriptan (ZOMIG) 5 mg tabletIndications:Ron nini Take 5 mg by mouth once as needed for migraine May repeat in 2 hours if unresolved. Do not exceed 10 mg in 24 hours. Reorder 09/28/2020 documented as of this encounter Historical Medications * This list may reflect changes made after this encounter. pantoprazole DR (PROTONIX) 40 mg EC tablet Take 1 tablet (40 mg total) by mouth daily [facility] albuterol HFA () 90 mcg/actuation inhaler Inhale 2 puffs once traMADoL (ULTRAM) 50 mg tablet TAKE 1 TABLET BY MOUTH EVERY DAY NEEDED FOR PAIN 08/28/2020 promethazine (PHENERGAN) 25 mg tablet 08/22/2020 dicyclomine (BENTYL) 10 mg capsule 08/22/2020 cyclobenzaprine (FLEXERIL) 10 mg tablet Take 1 tablet (10 mg total) by mouth every 8 (eight) hours 12/07/2018 clonazePAM (KlonoPIN) 0.5 mg tablet TAKE 1/2 TABLET BY MOUTH EVERY DAY NEEDED FOR ANXIETY 08/22/2020 ZOLMitriptan (ZOMIG) 5 mg tabletIndication s:Migraine Take 5 mg by mouth once as needed for migraine May repeat in 2 hours if unresolved. Do not exceed 10 mg in 24 hours. 09/28/2020 hydrOXYzine (ATARAX) 25 mg tablet 09/27/2020 09/28/2020 added in this encounter Orders Outpatient Referral Count Last Ordered Date Fir st Ordered Date AMB REFERRAL TO NEUROLOGY 1 09/28/2020 documented in this encounter Care Teams Motorboat Mechanic Inboard Relationship Specialty Start Date End Date Vladimir Napoles DO PCP - General Internal Medicine 09/27/20 documented as of this encounter
--- OUTSIDE RECORDS SUMMARY | 2024-03-04 08:27 | XMS_ITS | Encounter Summary ---
Author Organization [facility] Address [address] [facility] [address] [place] [address] Care Team Providers Care Small Animal Veterinarian Name Role Phone Vladimir NapolesRamin CHAND Primary Care Provider +1- [phone] Reason for Visit * Reason Onset Date Comments Headache 01/01/2021 Encounter Details Date Type Department Care Team (Late st Contact Info) Description 01/01/2021 Telephone [facility] Neurology [address] [place] [phone] Otf Krishnan MD [address] [place] [id number] Headache Social History Tobacco Use Types Packs/Day Years [...] Refills Last Filled Start Date End Date SUMAtriptan (IMITREX) 100 mg tabletIndications: Migraine Take 1 tablet (100 mg total) by mouth once as needed for migraine (headache) for up to 90 doses May repeat one time after 2 hours if needed. 9 tablet 3 01/02/2021 2 documented in this encounter Miscellaneous Notes * Telephone Encounter - Otf Krishnan MD - 01/02/2021 12:32 PM CDT Thank you * Telephone Encounter - Betty Tanner MA - 01/02/2021 8:48 AM CDT Prescription was transmitted per Dr. Krishnan instructions below. Patient given instructions and verified that prescription was received by [facility] pharmacy. * Telephone Encounter - Betty Tanner MA - 01/01/2021 4:37 PM CDT Patient notified of medication instructions and verbally understood. Order pended for approval. * Telephone Encounter - Otf Krishnan MD - 01/01/2021 4:10 PM CDT Sumatriptan 100 mg b.i.d. p.r.n. would be fine * Telephone Encounter - Betty Tanner MA - 01/01/2021 3:59 PM CDT Contacted patient and patient was originally prescribed Zomig 5mg tablets and insurance company denied coverage for medication. Patient has upcoming appointment for for Botox consultation on 03/18/2021. Patient was previously prescribed Imitrex 50mg for rescue relief, which was not helpful. Patient would like to try an increased dose of Imitrex as patient needs medication to help with headaches until consultation. Please advise. * Telephone Encounter - Ernestina Lawson - 01/01/2021 3:09 PM CDT Please review chart and follow up with patient. * Telephone Encounter - Sarita Vasquez - 01/01/2021 10:22 AM CDT [facility] Patient called. She is still having migraine headaches and has no medication. She is scheduled withM in Mar for Botox consideration. She needs something in the mean time. She called in Oct and requested a PA for Zomig. She never heard back about an approval or denial. documented in this encounter Plan of Treatment Not on file documented as of this encounter Visit Diagnoses Not on filedocumented in this encounter Care Teams Small Animal Veterinarian Relationship Specialty Start Date End Date Vladimir Napoles DO PCP - General Internal Medicine 09/27/20 documented as of this encounter
--- OUTSIDE RECORDS SUMMARY | 2024-03-04 08:27 | XMS_ITS | Encounter Summary ---
Author Organization [facility] Address [address] [facility] [address] [place] [address] Care Team Providers Care Senior Marketing Data Analyst Name Role Phone Vladimir Napoles DO Primary Care Provider +1- [phone] Reason for Visit * Reason Onset Date Comments Prior Auth 09/01/2022 Nurtec 75mg Encounter Details Date Type Department Care Team (Late st Contact Info) Description 09/01/2022 Telephone [facility] Neurology [address] [facility] [address] [place] [address] Roselyn Sanchez MA Prior Auth (Nurtec 75mg) Social History Tobacco Use Types Packs/Day Years Used Date Smoking Tobacco: Every Day Smokeless Tobacco: Never Comments Unknown Sex and Gender Information Value Date Recorded Sex Assigned at Not on file Legal Sex Female 1:20 PM CDT Gender Identity Not on file Sexual Orientation Not on file documented as of this encounter Miscellaneous Notes * Telephone Encounter - Roselyn Sanchez MA - 09/08/2022 9:52 AM CDT PA approved for Nurtec 75 MG from 09/01/2022-09/12/2022 please see note the patient starts new insurance on 09/13/2022. A New PA will need to be completed. [id number] - [place] - [address] [place] [facility] [address], [place] [address] * Telephone Encounter - Roselyn Sanchez MA - 09/01/2022 3:21 PM CDT PA submitted through Cover my meds waiting on determination documented in this encounter Plan of Treatment Not on file documented as of this encounter Visit Diagnoses Not on filedocumented in this encounter Care Teams Senior Marketing Data Analyst Relationship Specialty Start Date End Date Vladimir Napoles DO PCP - General Internal Medicine 09/27/20 documented as of this encounter
--- OUTSIDE RECORDS SUMMARY | 2024-03-04 08:27 | XMS_ITS | Encounter Summary ---
Author Organization [facility] Address [address] [facility] [address] [place] [address] Care Team Providers Care Outside Sales Consultant Name Role Phone Vladimir Napoles DO Primary Care Provider +1- [phone] Encounter Details Date Type Department Care Team (Late st Contact Info) Description 05/20/2022 Telephone [facility] Neurology [address] [facility] [address] [place] [address] Mindy Dewey NP [address] [facility] [address] [place] [address] Social History Tobacco Use Types Packs/Day Years Used Date Smoking Tobacco: Every Day Smokeless Tobacco: Never Comments Unknown Sex and Gender Information Value Date Recorded Sex Assigned at Not on file Legal Sex Female 1:20 PM CDT Gender Identity Not on file Sexual Orientation Not on file documented as of this encounter Miscellaneous Notes * Telephone Encounter - Roselyn Sanchez MA - 05/30/2022 2:14 PM CDT Attempted tod reach patient to see if she had any FMLA paper work tp be filled out , no answer lefta detailed voicemail to let her if she she does to either call us back or drop it off by the office. * Telephone Encounter - Mindy Dewey NP - 05/27/2022 5:54 PM CDT Please see if she has any FMLA papers from her employer that need to be filled out. * Telephone Encounter - Mindy Dewey NP - 05/27/2022 5:11 PM CDT Please see if she has any FMLA papers from her employer that need to be filled out. * Telephone Encounter - Mindy Dewey NP - 05/26/2022 1:18 PM CDT Please see if she has any FMLA papers from her employer that need to be filled out. * Telephone Encounter - Otilia Donato - 05/20/2022 11:09 AM CST MJD Patient called to see if there is a note that she can take to her job for her call offs due to her headaches. Patient stated that a conversation was had before between her and the If she needs something for her job. Please give patient a call if a letter can be type up for her. COURT JUSTICE documented in this encounter Plan of Treatment Not on file documented as of this encounter Visit Diagnoses Not on filedocumented in this encounter Care Teams Outside Sales Consultant Relationship Specialty Start Date End Date Vladimir Napoles DO PCP - General Internal Medicine 09/27/20 documented as of this encounter
--- OUTSIDE RECORDS SUMMARY | 2024-03-04 08:27 | XMS_ITS | Encounter Summary ---
Author Organization [facility] Address [address] [facility] [address] [place] [address] Care Team Providers Care Freight Receiver Name Role Phone Vladimir Napoles DO Primary Care Provider +1- [phone] Reason for Visit * Reason Comments Migraine Follow up Encounter Details Date Type Department Care Team (Late st Contact Info) Description 08/27/2022 11:00 AM CDT Office Visit [facility] Neurology [address] [facility] [address] [place] [address] Mindy Dewey, IMELDA [address] [address] Intractable chronic migraine without aura and without status migrainosus (Primary Dx) Social History Tobacco Use Types Packs/Day Years Used Date Smoking Tobacco: Every Day Smokeless Tobacco: Never Tobacco Cessation:Ready to Q uit: Not Asked; Counseling Given: Not Answered Comments Unknown Sex and Gender Information Value Date Recorded Sex Assigned at Not on file Legal Sex Female 1:20 PM CDT Gender Identity Not on file Sexual Orientation Not on file documented as of this encounter Last Filed Vital Signs Vital Sign Reading Time Taken Comments Blood Pressure 106/62 08/27/2022 11:21 AM CDT Pulse 83 08/27/2022 11:21 AM CDT Temperature 37.5 ??C (99.5 ??F) 08/27/2022 11:21 AM C DT Respiratory Rate 20 08/27/2022 11:21 AM CDT Oxygen Saturation 97% 08/27/2022 11:21 AM CDT Inhaled Oxygen Concentration - - Weight 66.5 kg (146 lb 9.6 oz) 08/27/2022 11:21 AM CDT Height 170.2 cm (5' 7 ) 08/27/2022 11:21 AM CDT Body Mass Index 22.96 08/27/2022 11:21 AM CDT documented in this encounter Ordered Prescriptions Prescription Sig Dispense Quantity Refills Last Filled Start Date End Date rimegepant (Nurtec ODT) tablet,disintegrat ing Take 1 tablet (75 mg total) by mouth daily as needed (Migraine) 8 tablet 5 08/27/2022 01/20/2023 documented in this encounter Progress Notes * Mindy Dewey NP - 08/27/2022 11:00 AM CDT Images from the original note were not included. Patient ID: Fernanda Duron is a 42 y.o. female Fernanda Duron is being seen for follow up for migraines Assessments and Plan 1. Migraines without aura, intractable Fernanda returns for follow up for her previously intractable migraines. She has shown a favorable response to Botox injection improving her quality of life. Plan: -continue Botox injections -would recommend to continue with Nurtec, discussed with pt to track her cycle and if she can, to start taking Nurtec prior to her cycle and every other day during her cycle. -consider repeat neuro imaging -follow up as planned for injections My total encounter time on 08/27/2022 was 15 minutes which was spent in [...] follow up for her migraine headaches. She was started on Botox injections for migraine prevention. She has had 5 treatments so far. Prior to Botox, she was having a dull headache every day and at least 1 migraine per week lasting up to 2 days. Since Botox, she reports that approximately 20+ days per month, she is pain-free. She does have a few mild headaches that she does not treat. She does experience a few migraines per month that are much less severe than her previous migraines. Since using Botox, she has not been to the emergency room for relief of her migraines. She has not missed work or family functions. She does find that Nurtec typically works well for her migraines. She has not been getting the same relief from Sumatriptan, even with 2 doses. Her menstrual migraines are not completely relieved with Nurtec, but are lessened. Past Medical History: Diagnosis Date Anxiety Migraine [...] throat, trouble swallowing and voice change. Sinus problems Eyes: Negative for photophobia, pain, discharge, itching and visual disturbance. Wears contacts Respiratory: Positive for wheezing. Negative for apnea, cough, choking and shortness of breath. Asthma Cardiovascular: Positive for chest pain. Negative for palpitations and leg swelling. Gastrointestinal: Positive for abdominal pain, constipation, diarrhea, nausea and vomiting. Change in bowel movements Endocrine: Positive for cold intolerance and heat intolerance. Negative for polydipsia, polyphagia and polyuria. Genitourinary: Negative for difficulty urinating, dysuria, enuresis, hematuria and urgency. Musculoskeletal: Positive for back pain and myalgias. Negative for arthralgias, gait problem, jointswelling, neck pain and neck stiffness. Skin: Negative for color change, pallor, rash and wound. Allergic/Immunologic: Negative for environmental allergies, food allergies and immunocompromised state. Neurological: Positive for tremors and headaches. Negative for dizziness, seizures, syncope, facialasymmetry, speech difficulty, weakness, light- headedness and numbness. Memory loss Hematological: Bruises/bleeds easily. Psychiatric/Behavioral: Positive for sleep disturbance. Negative for agitation, behavioral problems, confusion, decreased concentration, dysphoric mood, hallucinations, self-injury and suicidal ideas. The patient is nervous/anxious. The patient is not hyperactive. Depression Current Outpatient Medications Medication Sig Dispense Refill cyclobenzaprine (FLEXERIL) 10 mg tablet Take 1 tablet (10 mg total) by mouth every 8 (eight) hours dicyclomine (BENTYL) 10 mg capsule hydrOXYzine (ATARAX) 25 mg tablet Take 1 tablet (25 mg total) by mouth 2 (two) times a day as needed [facility] albuterol HFA () 90 mcg/actuation inhaler Inhale 2 puffs once lamoTRIgine (LaMICtal) 25 mg tablet Take 4 tablets (100 mg total) by mouth daily Mucinex DM 60-1,200 mg tablet extended release 12 hr Take 1 tablet by mouth every 12 (twelve) hours pantoprazole DR (PROTONIX) 40 mg EC tablet Take 1 tablet (40 mg total) by mouth daily promethazine (PHENERGAN) 25 mg tablet SUMAtriptan (IMITREX) 100 mg tablet TAKE 1 TABLET(100 MG) BY MOUTH 1 TIME NEEDED FOR MIGRAINE HEADACHE. MAY REPEAT 1 TIME AFTER 2 HOURS NEEDED 9 tablet 3 traMADoL (ULTRAM) 50 mg tablet TAKE 1 TABLET BY MOUTH EVERY DAY NEEDED FOR PAIN [facility] D 120 mg 12 hr tablet TAKE 1 TABLET BY MOUTH EVERY 12 HOURS NEEDED FOR NASAL CONGESTION clonazePAM (KlonoPIN) 0.5 mg tablet TAKE 1/2 TABLET BY MOUTH EVERY DAY NEEDED FOR ANXIETY (Patient not taking: No sig reported) oxyCODONE (ROXICODONE) 5 mg immediate release tablet Take 5 mg by mouth every 6 (six) hours as needed (Patient not taking: Reported on 08/21/2021) rimegepant (Nurtec ODT) tablet,disintegrating Take 1 tablet (75 mg total) by mouth daily as needed (Migraine) 8 tablet 5 triamcinolone (KENALOG) 0.1 % cream Apply topically 2 (two) times a day (Patient not taking: Reported on 03/18/2021) venlafaxine XR (EFFEXOR-XR) 37.5 mg 24 hr capsule Take 1 capsule by mouth daily (Patient not taking: Reported on 03/18/2021) No current facility-administered medications for this visit. [...] lower extremities Extremities: No noted edema BP 106/62 (BP Location: Left arm, Patient Position: Sitting) Pulse 83 Temp 37.5 ??C (99.5 ??F) (Temporal) Resp 20 Ht 170.2 cm (5' 7 ) Wt 66.5 kg (146 lb 9.6 oz) SpO2 97% BMI 22.96 kg/m?? Body mass index is 22.96 kg/m??. Mindy Dewey NP This note was dictated using voice recognition software, M*Modal. Arbor Press Operator variances may occur. documented in this encounter Miscellaneous Notes * Addendum Note - Opal Hahn - 08/27/2022 11:00 AM CDTAddended by: OPAL HAHN on: 09/04/2022 01:32 PM Modules accepted: Orders * Addendum Note - Opal Hahn - 08/27/2022 11:00 AM CDTAddended by: OPAL HAHN on: 10/10/2022 08:08 AM Modules accepted: Orders * Addendum Note - Opal Hahn - 08/27/2022 11:00 AM CDTAddended by: OPAL HAHN on: 01/19/2023 10:46 AM Modules accepted: Orders ORATE TREASURY ANALYST documented in this encounter Plan of Treatment Not on file documented as of this encounter Visit Diagnoses Diagnosis Intractable chronic migraine without aura and without status migrainosus- Primary documented in this encounter Discontinued Medications Medication Sig Discontinue Reason Start Date End Da te rimegepant (NURTEC ODT) tablet,disintegratingIndi cations:Intractable chronic migraine without aura and without status migrainosus Take 1 tablet (75 mg total) by mouth as needed (TAKE AT ONSET OF MEJIA) Duplicate order 08/26/2021 08/27/2022 rimegepant (Nurtec ODT) tablet,disintegrating Take 1 tablet (75 mg total) by mouth daily as needed (Migraine) for up to 5 doses Duplicate order 05/24/2021 08/27/2022 documented as of this encounter Care Teams Freight Receiver Relationship Specialty Start Date End Date Vladimir Napoles DO PCP - General Internal Medicine 09/27/20 documented as of this encounter
--- OUTSIDE RECORDS SUMMARY | 2024-03-04 08:27 | XMS_ITS | Encounter Summary ---
Author Organization [facility] Address [address] [facility] [address] [place] [address] Care Team Providers Care Manager Engagement Name Role Phone Vladimir Napoles DO Primary Care Provider +1- [phone] Reason for Visit * Reason Comments Botulinum Toxin Injection * Procedure (Routine) - Closed Specialty Diagnoses / Procedures Referred By Christophe kirkland Referred To Contact Diagnoses Intractable chronic migraine without aura and without status migrainosus Procedures Botox Injection Mindy Dewey NP Phone: tel: fax: [facility] Referral ID Status Reason Start Date Expiration Date Visits Re quested Visits Authorized [id number] Closed 11/07/2021 05/13/2022 2 2 Encounter Details Date Type Department Care Team (Late st Contact Info) Description 11/20/2021 2:30 PM CDT Procedure visit [facility] Neurology [address] [facility] [address] [place] [phone] Mindy Dewey NP [address] [address] Intractable chronic migraine without aura and without [...] Pressure - - Pulse - - Temperature 37.6 ??C (99.6 ??F) 11/20/2021 3:38 PM CD T Respiratory Rate - - Oxygen Saturation - - Inhaled Oxygen Concentration - - Weight 66.2 kg (146 lb) 11/20/2021 3:38 PM CDT Height 170.2 cm (5' 7 ) 11/20/2021 3:38 PM CDT Body Mass Index 22.87 11/20/2021 3:38 PM CDT documented in this encounter Progress Notes * Mindy Dewey NP - 11/20/2021 2:30 PM CDT Botox Template Migraine without Aura Treatment #3 Chronic Migraine without Aura was diagnosed with: [...] and possibly hypotension Headache days/month - Current: 4-6 days per month Baseline: 30days per month Headache hr/day: - Current: 24 hours per occurrence Baseline: 24 hours per occurrence Symptom reduction from baseline: significant decrease in frequency, less severe headaches and migraines, migraines respond better to medications Follow up in 13 weeks for repeat injections documented in this encounter Procedure Notes * Ernestina Lawson - 11/20/2021 2:30 PM CDTAssociated Order(s): Botox Injection Pre-Procedure Diagnose(s): Intractable chronic migraine without aura and without status migrainosus Post-Procedure Diagnose(s): Intractable chronic migraine without aura and without status migrainosus See Botox flow sheet for details on injection sites and amounts. Botox Injection Date/Time: 11/20/2021 11:30 AM Performed by: Mindy Dewey NP Authorized by: Mindy Dewey NP Procedure Details - Botox Injection: Cosmetic: no Injection area: head Comments: See Botox flow sheet for details on injection sites and amounts. documented in this encounter Plan of Treatment Not on file documented as of this encounter Procedures Procedure Name Priority Date/Time Associated Diagnosis Comments BOTOX INJECTION Routine 11/20/2021 11:30 AM CDT Intractable chronic migraine without aura and without status migrainosus documented in this encounter Results * Botox Injection (11/20/2021 11:30 AM CDT) Narrative Ernestina Lawson - 11/20/2021 11:30 AM CDT Ernestina Lawson ? 12/13/2021 ??2:58 PM Botox Injection Date/Time: 11/20/2021 11:30 AM Performed by: Mindy Dewey NP Authorized by: Mindy Dewey NP Procedure Details - Botox Injection: ??Cosmetic: no ?Injection area: head Comments: ?? See Botox flow sheet for details on injection sites and amounts. Mindy Dewey NP IN CLINIC/BEDSIDE ORDERABLES Final Result documented in this encounter Visit Diagnoses Diagnosis Intractable chronic migraine without aura and without status migrainosus documented in this encounter Care Teams Manager Engagement Relationship Specialty Start Date End Date Vladimir Napoles DO PCP - General Internal Medicine 09/27/20 documented as of this encounter
--- OUTSIDE RECORDS SUMMARY | 2024-03-04 08:27 | XMS_ITS | Encounter Summary ---
Author Organization [facility] Address [address] [facility] [address] [place] [address] Care Team Providers Care Trap Operator Name Role Phone Vladimir Napoles DO Primary Care Provider +1- [phone] Encounter Details Date Type Department Care Team (Late st Contact Info) Description 03/19/[address] [facility] Neurology [address] [facility] [address] [place] [address] Mindy Dewey NP [address] [facility] [address] [place] [address] Social History Tobacco Use Types Packs/Day Years Used Date Smoking Tobacco: Every Day Smokeless Tobacco: Never Comments Unknown Sex and Gender Information Value Date Recorded Sex Assigned at Not on file Legal Sex Female 1:20 PM CDT Gender Identity Not on file Sexual Orientation Not on file documented as of this encounter Miscellaneous Notes * Telephone Encounter - Mindy Dewey NP - 03/19/2021 3:52 PM CST Left message to speak with patient. Since she has only taken 1 dose of Nurtec, I would like her to continue to take it for the next 1-2 migraines to see if she gets the same results and side effects.Explained that typically dizziness and weakness are not side effects commonly occurring however arepossible. Advised her to call back after she takes a few more times with update. If she gets the same relief of migraine with the same side effects, will have her try samples of Ubrelvy. Advised her to call back if needed. SE MAKER * Telephone Encounter - Ernestina Lawson - 03/19/2021 12:59 PM CST . SE MAKER * Telephone Encounter - Sarita Ca - 03/19/2021 11:43 AM CST Pt called in after taking a nurtec. It got rid of her migraine, but said it made her feel weird . She feels idalmis dizzy and body weakness. Please advise. SE MAKER documented in this encounter Plan of Treatment Not on file documented as of this encounter Visit Diagnoses Not on filedocumented in this encounter Care Teams Trap Operator Relationship Specialty Start Date End Date Vladimir Napoles DO PCP - General Internal Medicine 09/27/20 documented as of this encounter
--- OUTSIDE RECORDS SUMMARY | 2024-03-04 08:27 | XMS_ITS | Encounter Summary ---
Author Organization [facility] Address [address] [facility] [address] [place] [address] Care Team Providers Care Pets Salesperson Name Role Phone MarisolkyVladimir DO Primary Care Provider +1- [phone] Reason for Visit * Reason Onset Date Comments medicaiton management 11/01/2020 Encounter Details Date Type Department Care Team (Late st Contact Info) Description 11/01/2020 Telephone [facility] Neurology [address] [place] [address] [address] [place] [address] Otf Krishnan MD [address] [place] [address] [address] [place] [address] medicaiton management Social History Tobacco Use Types Packs/Day Years Used Date Smoking Tobacco: Every Day Smokeless Tobacco: Never Comments Unknown Sex and Gender Information Value Date Recorded Sex Assigned at Not on file Legal Sex Female 1:20 PM CDT Gender Identity Not on file Sexual Orientation Not on file documented as of this encounter Miscellaneous Notes * Telephone Encounter - Karolina Marinelli MA - 11/12/2020 11:02 AM CDT Called Fernanda, vm was full and I was unable to leave a message. * Telephone Encounter - Karolina Marinelli MA - 11/08/2020 7:52 AM CDT Called pt to get her scheduled with Mindy for consideration for Botox. LM for patient to call back and schedule that appt with the office. * Telephone Encounter - Karolina Marinelli MA - 11/06/2020 8:52 AM CDT Called patient and lm to call in and get an appt with Mindy for Botox * Telephone Encounter - Otf Krishnan MD - 11/01/2020 4:43 PM CDT As patient has had issues now with 3 prophylactic drugs including amitriptyline topiramate and beta-blockers, she would be an appropriate candidate for referral to [facility] for consideration of botulism toxin. * Telephone Encounter - Karolina Marinelli MA - 11/01/2020 2:01 PM CDT Patient called regarding the propranolol 20 mg bid, patient only took it two days and both times before bed only. Patient experienced excessive sweating, spotty vision/blurry, chest tightness, & pale. Patient d/c use of the propranolol 10/29/20. Patient is asking how to proceed and if there is anything she can do or take in its place. documented in this encounter Plan of Treatment Not on file documented as of this encounter Visit Diagnoses Not on filedocumented in this encounter Care Teams Pets Salesperson Relationship Specialty Start Date End Date Vladimir Napoles DO PCP - General Internal Medicine 09/27/20 documented as of this encounter
--- OUTSIDE RECORDS SUMMARY | 2024-03-04 08:27 | XMS_ITS | Encounter Summary ---
Author Organization [facility] Address [address] [facility] [address] [place] [address] Care Team Providers Care Production Team Manager Name Role Phone Vladimir Napoles DO Primary Care Provider +1- [phone] Reason for Visit * Reason Onset Date Comments Prior Auth 04/19/2021 Botox Approval Encounter Details Date Type Department Care Team (Late st Contact Info) Description 04/19/2021 Telephone [facility] Neurology [address] [facility] 250 [place] [address] [place] [address] [place] [address] 250 [place] [address] Prior Auth (Botox Approval) Social History Tobacco Use Types Packs/Day Years Used Date Smoking Tobacco: Every Day Smokeless Tobacco: Never Comments Unknown Sex and Gender Information Value Date Recorded Sex Assigned at Not on file Legal Sex Female 1:20 PM CDT Gender Identity Not on file Sexual Orientation Not on file documented as of this encounter Miscellaneous Notes * Telephone Encounter - Betty Tanner MA - 04/22/2021 4:23 PM CST Patient scheduled appointment for 05/14/2021. TY ASSESSOR * Telephone Encounter - Betty Tanner MA - 04/19/2021 10:37 AM CST Left message for patient to call back to schedule appointment for first Botox treatment. Approval scanned to this phone encounter. TY ASSESSOR documented in this encounter Plan of Treatment Not on file documented as of this encounter Visit Diagnoses Not on filedocumented in this encounter Care Teams Production Team Manager Relationship Specialty Start Date End Date Vladimir Napoles DO PCP - General Internal Medicine 09/27/20 documented as of this encounter
--- OUTSIDE RECORDS SUMMARY | 2024-03-04 08:27 | XMS_ITS | Encounter Summary ---
Author Organization [facility] Medical [facility] Address [address] [facility] [address] [place] [address] Care Team Providers Care Supervisor Lead Refinery Name Role Phone Vladimir Napoles DO Primary Care Provider +1- [phone] Reason for Referral * Procedure (Routine) - Canceled Specialty Diagnoses / Procedures Referred By Christophe kirkland Referred To Contact Diagnoses Intractable chronic migraine without aura and without status migrainosus Procedures Botox Injection Mindy Dewey NP [address] [address] Phone: tel: fax: [facility] Referral ID Status Reason Start Date Expiration Date V isits Requested Visits Authorized [id number] Canceled 09/04/2022 09/05/2022 1 1 Reason for Visit * Reason Comments Botulinum Toxin Injection * Procedure (Routine) - Closed Specialty Diagnoses / Procedures Referred By Christophe kirkland Referred To Contact Neurology Diagnoses Intractable chronic migraine without aura and without status migrainosus Procedures Botox Injection Mindy Dewey NP [facility] [address] Phone: tel: fax: [facility] Neurology [address] [place] [address] Phone: tel: fax: Referral ID Status Reason Start Date Expiration Date Visits Re quested Visits Authorized [id number] Closed 07/16/2022 07/17/2023 2 1 Encounter Details Date Type Department Care Team (Late st Contact Info) Description 08/28/2022 9:00 AM CDT Procedure visit [facility] Neurology [address] [facility] [address] [place] [phone] Mindy Dewey NP [address] [place] [address] [place] [address] Intractable chronic migraine without aura and without [...] - - Weight 66.2 kg (146 lb) 08/28/2022 10:05 AM CDT Height 170.2 cm (5' 7 ) 08/28/2022 10:05 AM CDT Body Mass Index 22.87 08/28/2022 10:05 AM CDT documented in this encounter Progress Notes * Mindy Dewey NP - 08/28/2022 9:00 AM CDT Botox Template Migraine without Aura Treatment #6 Chronic Migraine without Aura was diagnosed with: [...] possibly hypotension Sumatriptan and Zomig stopped working Headache days/month - Current: 5-6 days per month Baseline: 30 days per month Headache hr/day: - Current: less 1-3 days per occurrence Baseline: 24 hours per occurrence Symptom reduction from baseline: Fernanda continues to have benefit since starting Botox injections for migraines. She is no longer calling in sick to work and the overall severity of her migraine attacks are less severe. Her quality of life has improved. Follow up in 12 weeks for repeat injections documented in this encounter Procedure Notes * Ernestina Lawson - 08/28/2022 9:00 AM CDTAssociated Order(s): Botox Injection Post-Procedure Diagnose(s): Intractable chronic migraine without aura and without status migrainosus Botox Injection Date/Time: 08/28/2022 9:50 AM Performed by: Mindy Dewey NP Authorized by: Mindy Dewey NP Procedure Details - Botox Injection: Cosmetic: no Injection area: head Comments: See Botox flow sheet for details on injection sites and amounts. Lot [id number] Exp 05/13/25 documented in this encounter Plan of Treatment Not on file documented as of this encounter Procedures Procedure Name Priority Date/Time Associated Diagnosis Comments BOTOX INJECTION Routine 08/28/2022 9:50 AM CDT Intractable chronic migraine without aura and without status migrainosus documented in this encounter Results * Botox Injection (08/28/2022 9:50 AM CDT) Narrative Ernestina Lawson - 08/28/2022 9:50 AM CDT Ernestina Lawson ? 09/04/2022 ??9:52 AM Botox Injection Date/Time: 08/28/2022 9:50 AM Performed by: Mindy Dewey NP Authorized by: Mindy Dewey NP ?? Procedure Details - Botox Injection: ??Cosmetic: no ?Injection area: head Comments: ?? See Botox flow sheet for details on injection sites and amounts. ??Lot [id number] ??Exp 05/13/25 Procedure Note Ernestina Lawson - 08/28/2022 9:00 AM CDT Botox Injection Date/Time: 08/28/2022 9:50 AM Performed by: Mindy Dewey NP Authorized by: Mindy Dewey NP Procedure Details - Botox Injection: Cosmetic: no Injection area: head Comments: See Botox flow sheet for details on injection sites and amounts. [id number] Exp 05/13/25 Mindy Dewey NP IN CLINIC/BEDSIDE ORDERABLES Final Result documented in this encounter Visit Diagnoses Diagnosis Intractable chronic migraine without aura and without status migrainosus- Primary documented in this encounter Administered Medications Inactive Administered Medications - up to 3 most recent administrations Medication Order MAR Action Action Date Dose Rate Site onabotulinumtoxin A (BOTOX) 200 unit injection 200 Units 200 Units, other, Once, On Meenakshi 08/28/22 at 1045, For 1 doseIndications:Intractable chronic migraine without aura and without status migrainosus Given 08/28/2022 9:00 AM CDT 200 Units documented in this encounter Care Teams Supervisor Lead Refinery Relationship Specialty Start Date End Date Vladimir Napoles DO PCP - General Internal Medicine 09/27/20 documented as of this encounter
--- OUTSIDE RECORDS SUMMARY | 2024-03-04 08:27 | XMS_ITS | Encounter Summary ---
Author Organization [facility] Medical [facility] Address [address] [address] Care Team Providers Care Aircraft Quality Control Inspector Name Role Phone Vladimir Napoles DO Primary Care Provider +1- [phone] Reason for Referral * Procedure (Routine) - Closed Specialty Diagnoses / Procedures Referred By Christophe kirkland Referred To Contact Neurology Diagnoses Intractable chronic migraine without aura and without status migrainosus Procedures Botox Injection Mindy Dewey NP [address] [place] [address] Phone: tel: fax: [facility] Neurology [address] [place] [phone] Phone: tel: fax: Referral ID Status Reason Start Date Expiration Date Visits Re quested Visits Authorized [id number] Closed 07/16/2022 07/17/2023 2 1 Reason for Visit * Reason Comments Injections * Procedure (Routine) - Closed Specialty Diagnoses / Procedures Referred By Contjered t Referred To Contact Diagnoses Intractable chronic migraine without aura and without status migrainosus Procedures Botox Injection Mindy Dewey NP Phone: tel: fax: [facility] Medical [facility] Referral ID Status Reason Start Date Expiration Date Visits Re quested Visits Authorized [id number] Closed 11/07/2021 05/13/2022 2 2 Encounter Details Date Type Department Care Team (Late st Contact Info) Description 05/13/2022 2:30 PM SENIOR REGULATORY AFFAIRS SPECIALIST Procedure visit [facility] Neurology [address] [place] [address] [place] [phone] Mindy Dewey NP [address] [facility] 250 [place] [address] Intractable chronic migraine without aura and without [...] - Inhaled Oxygen Concentration - - Weight 69.3 kg (152 lb 12.8 oz) 05/13/2022 2:46 PM SENIOR REGULATORY AFFAIRS SPECIALIST Height 170.2 cm (5' 7 ) 05/13/2022 2:46 PM SENIOR REGULATORY AFFAIRS SPECIALIST Body Mass Index 23.93 05/13/2022 2:46 PM SENIOR REGULATORY AFFAIRS SPECIALIST documented in this encounter Progress Notes * Mindy Dewey, IMELDA - 05/13/2022 2:30 PM CST Botox Template Migraine without Aura Treatment #5 Chronic Migraine without Aura was diagnosed with: [...] Zomig stopped working Headache days/month - Current: 1-2 days per month Baseline: 30 days per month Headache hr/day: - Current: less 1-2 days per occurrence Baseline: 24 hours per occurrence Symptom reduction from baseline: She continues to have significant improvement with quality of lifewith Botox injections. She does not call into work due to migraines. She hs had some increase over the past couple weeks, possibly stress, hormone, and weather related. InitMe works well, but took all her samples. Samples given to pt., she does not have insurance coverage at this time, but is looking into this. Follow up in 13 weeks for repeat injections Cosigned by Genaro Eduardo MD at 08/07/2022 4:28 PM CDT documented in this encounter Procedure Notes * Ernestina Lawson - 05/13/2022 2:30 PM CSTAssociated Order(s): Botox Injection Post-Procedure Diagnose(s): Intractable chronic migraine without aura and without status migrainosus Botox Injection Date/Time: 05/13/2022 2:30 PM Performed by: Mindy Dewey NP Authorized by: Mindy Dewey NP Procedure Details - Botox Injection: Cosmetic: no Injection area: head Comments: See Botox flow sheet for details on injection sites and amounts. Sample medication was used. documented in this encounter Plan of Treatment Not on file documented as of this encounter Procedures Procedure Name Priority Date/Time Associated Diagnosis Comments BOTOX INJECTION Routine 05/13/2022 2:30 PM SENIOR REGULATORY AFFAIRS SPECIALIST Intractable chronic migraine without aura and without status migrainosus documented in this encounter Results * Botox Injection (05/13/2022 2:30 PM SENIOR REGULATORY AFFAIRS SPECIALIST) Narrative Ernestina Lawson - 05/13/2022 2:30 PM SENIOR REGULATORY AFFAIRS SPECIALIST Ernestina Lawson ? 06/13/2022 11:08 AM Botox Injection Date/Time: 05/13/2022 2:30 PM Performed by: Mindy Dewey NP Authorized by: Mindy Dewey NP Procedure Details - Botox Injection: ??Cosmetic: no ?Injection area: head Comments: ?? See Botox flow sheet for details on injection sites and amounts. ?? Sample medication was used. ?? Procedure Note Ernestina Lawson - 05/13/2022 2:30 PM CST Botox Injection Date/Time: 05/13/2022 2:30 PM Performed by: Mindy Dewey NP Authorized by: Mindy Dewey NP Procedure Details - Botox Injection: Cosmetic: no Injection area: head Comments: See Botox flow sheet for details on injection sites and amounts.Sample medication was used. Mindy Dewey NP IN CLINIC/BEDSIDE ORDERABLES Final Result documented in this encounter Visit Diagnoses Diagnosis Intractable chronic migraine without aura and without status migrainosus- Primary documented in this encounter Administered Medications Inactive Administered Medications - up to 3 most recent administrations Medication Order MAR Action Action Date Dose Rate Site onabotulinumtoxin A (BOTOX) 200 unit injection 200 Units 200 Units, other, Once, On Thu05/13/22 at 1530, For 1 doseIndications:Intractable chronic migraine without aura and without status migrainosus Given 05/13/2022 2:49 PM SENIOR REGULATORY AFFAIRS SPECIALIST 200 Units documented in this encounter Care Teams Aircraft Quality Control Inspector Relationship Specialty Start Date End Date Vladimir Napoles DO PCP - General Internal Medicine 09/27/20 documented as of this encounter
--- OUTSIDE RECORDS SUMMARY | 2024-03-04 08:27 | XMS_ITS | Encounter Summary ---
Author Organization [facility] Address [address] [place] [address] Care Team Providers Care Manager Of Broadcast Content Name Role Phone SuzanneVladimir albert Lyndsay CHAND Primary Care Provider +1- [phone] Reason for Visit * Reason Onset Date Comments Prior Auth 02/19/2023 Nurtec 75mg Encounter Details Date Type Department Care Team (Late st Contact Info) Description 02/19/2023 Telephone [facility] Neurology [address] [address] Mindy Dewey, IMELDA [address] [address] Prior Auth (Nurtec 75mg) Social History Tobacco [...] encounter Miscellaneous Notes * Telephone Encounter - Tg Pickens MA - 02/20/2023 9:50 AM DERRICK BOAT LEVERMAN PA approved for Nurtec 75 MG OR TBDP. From 02/19/2023-02/20/2024. [id number] - [place], [place] - [address] [place] [address] , [facility] [phone] . ICK BOAT LEVERMAN * Telephone Encounter - Roselyn Sanchez MA - 02/19/2023 12:53 PM CST PA submitted for Nurtec 75mg through cover my meds. Waiting on dertermiantion ICK BOAT LEVERMAN documented in this encounter Plan of Treatment Not on file documented as of this encounter Visit Diagnoses Not on filedocumented in this encounter Care Teams Manager Of Broadcast Content Relationship Specialty Start Date End Date Vladimir Napoles DO PCP - General Internal Medicine 09/27/20 documented as of this encounter
--- OUTSIDE RECORDS SUMMARY | 2024-03-04 08:27 | XMS_ITS | Encounter Summary ---
Author Organization [facility] Address [address] [facility] [address] [place] [address] Care Team Providers Care Advanced Analytics Associate Name Role Phone Vladimir Napoles DO Primary Care Provider +1- [phone] Reason for Visit * Reason Onset Date Comments Prior Auth 04/12/2021 Botox Encounter Details Date Type Department Care Team (Late st Contact Info) Description 04/12/2021 Telephone [facility] Neurology [address] [facility] [address] [place] [phone] [place] [address] [place] [address] 250 [place] [address] Prior Auth (Botox) Social History Tobacco Use Types Packs/Day Years Used Date Smoking Tobacco: Every Day Smokeless Tobacco: Never Comments Unknown Sex and Gender Information Value Date Recorded Sex Assigned at Not on file Legal Sex Female 1:20 PM CDT Gender Identity Not on file Sexual Orientation Not on file documented as of this encounter Miscellaneous Notes * Telephone Encounter - Betty Tanner MA - 04/12/2021 10:53 AM CST Submitted clinical information for prior authorization for Botox to [facility]. Clinical information scanned to this phone encounter. K ORDER LISTER documented in this encounter Plan of Treatment Not on file documented as of this encounter Visit Diagnoses Not on filedocumented in this encounter Care Teams Advanced Analytics Associate Relationship Specialty Start Date End Date Vladimir Napoles DO PCP - General Internal Medicine 09/27/20 documented as of this encounter
--- OUTSIDE RECORDS SUMMARY | 2024-03-04 08:27 | XMS_ITS | Encounter Summary ---
Author Organization [facility] Address [address] [facility] [address] [place] [address] Care Team Providers Care Ceo And Founder Name Role Phone Vladimir Napoles DO Primary Care Provider +1- [phone] Reason for Referral * Procedure (Routine) - Canceled Specialty Diagnoses / Procedures Referred By Christophe kirkland Referred To Contact Diagnoses Intractable chronic migraine without aura and without status migrainosus Procedures Botox Injection Mindy Dewey NP Phone: tel: fax: [facility] Referral ID Status Reason Start Date Expiration Date V isits Requested Visits Authorized [id number] Canceled 03/11/2022 07/15/2022 2 2 ER DEADENER Reason for Visit * Reason Comments Botulinum Toxin Injection * Procedure (Routine) - Closed Specialty Diagnoses / Procedures Referred By Christophe kirkland Referred To Contact Diagnoses Intractable chronic migraine without aura and without status migrainosus Procedures Botox Injection Mindy Dewey NP Phone: tel: fax: [facility] Referral ID Status Reason Start Date Expiration Date Visits Re quested Visits Authorized [id number] Closed 11/07/2021 05/13/2022 2 2 Encounter Details Date Type Department Care Team (Late st Contact Info) Description 02/13/2022 1:00 PM TIMBER DEADENER Procedure visit [facility] Medical [facility] Neurology [address] [facility] [address] [place] [phone] Mindy Dewey NP [address] [facility] 250 [place] [address] Intractable chronic migraine without aura and without [...] - Inhaled Oxygen Concentration - - Weight 66 kg (145 lb 9.6 oz) 02/13/2022 1:15 PM TIMBER DEADENER Height 170.2 cm (5' 7 ) 02/13/2022 1:15 PM TIMBER DEADENER Body Mass Index 22.8 02/13/2022 1:15 PM TIMBER DEADENER documented in this encounter Progress Notes * Mindy Dewey NP - 02/13/2022 1:00 PM CST Botox Template Migraine without Aura Treatment #4 Chronic Migraine without Aura was diagnosed with: [...] and possibly hypotension Headache days/month - Current: 1-2 days per month Baseline: 30 days per month Headache hr/day: - Current: less than 4 hours per occurrence Baseline: 24 hours per occurrence Symptom reduction from baseline: Since her 3rd treatment, she reports having even further improvement with migraine frequency and severity. She is found that her menstrual cycle typically triggers a couple migraines that she experiences per month. She takes Nurtec at the onset of her symptoms and typically gets relief within 30 minutes. Since she has been receiving Botox, she is not called in sick to work, she is had increase family socialization and events and overall has had improved quality of life. Follow up in 13 weeks for repeat injections Cosigned by Genaro Eduardo MD at 03/12/2022 8:33 PM TIMBER DEADENER ER DEADENER ER DEADENER documented in this encounter Procedure Notes * Ernestina Lawson - 02/13/2022 1:00 PM CSTAssociated Order(s): Botox Injection Post-Procedure Diagnose(s): Intractable chronic migraine without aura and without status migrainosus Botox Injection Date/Time: 02/13/2022 1:30 PM Performed by: Mindy Dewey NP Authorized by: Mindy Dewey NP Procedure Details - Botox Injection: Cosmetic: no Injection area: head Comments: See Botox flow sheet for details on injection sites and amounts. ER DEADENER documented in this encounter Plan of Treatment Not on file documented as of this encounter Procedures Procedure Name Priority Date/Time Associated Diagnosis Comments BOTOX INJECTION Routine 02/13/2022 1:30 PM TIMBER DEADENER Intractable chronic migraine without aura and without status migrainosus documented in this encounter Results * Botox Injection (02/13/2022 1:30 PM TIMBER DEADENER) Narrative Ernestina Lawson - 02/13/2022 1:30 PM TIMBER DEADENER Ernestina Lawson ? 03/11/2022 ??1:04 PM Botox Injection Date/Time: 02/13/2022 1:30 PM Performed by: Mindy Dewey NP Authorized by: Mindy Dewey NP Procedure Details - Botox Injection: ??Cosmetic: no ?Injection area: head Comments: ?? See Botox flow sheet for details on injection sites and amounts. us Mindy Dewey INSTRUCTIONAL MANAGER IN CLINIC/BEDSIDE ORDERABLES Final Result documented in this encounter Visit Diagnoses Diagnosis Intractable chronic migraine without aura and without status migrainosus- Primary documented in this encounter Administered Medications Inactive Administered Medications - up to 3 most recent administrations Medication Order MAR Action Action Date Dose Rate Site onabotulinumtoxin A (BOTOX) 200 unit injection 155 Units 155 Units, other, Once, On Meenakshi 02/13/22 at 1345, For 1 dose, Indications: Migraine PreventionIndications:Migraine Prevention Given 02/13/2022 1:13 PM TIMBER DEADENER 155 Units Head documented in this encounter Care Teams Ceo And Founder Relationship Specialty Start Date End Date Vladimir Napoles DO PCP - General Internal Medicine 09/27/20 documented as of this encounter
--- OUTSIDE RECORDS SUMMARY | 2024-03-04 08:27 | XMS_ITS | Encounter Summary ---
Author Organization [facility] Address [address] [place] [address] Care Team Providers Care Protective Signal Operations Supervisor Name Role Phone Vladimir Napoles DO Primary Care Provider [phone]- [phone] Reason for Referral * Procedure (Routine) - Closed Specialty Diagnoses / Procedures Referred By Christophe kirkland Referred To Contact Diagnoses Intractable chronic migraine without aura and without status migrainosus Procedures Botox Injection Mindy Dewey NP Phone: tel: fax: [facility] Referral ID Status Reason Start Date Expiration Date Visits Re quested Visits Authorized [id number] Closed 11/07/2021 05/13/2022 2 2 Encounter Details Date Type Department Care Team (Late st Contact Info) Description 11/07/2021 Orders Only [facility] Neurology [address] [phone] [place] [address] [place] [id number] Intractable chronic migraine without aura and without [...] on file documented as of this encounter Results * Botox Injection (11/20/2021 [...] without aura and without status migrainosus- Primary Intractable chronic migraine without aura and without status migrainosus documented in this encounter Care Teams Protective Signal Operations Supervisor Relationship Specialty Start Date End Date Vladimir Napoles DO PCP - General Internal Medicine 09/27/20 documented as of this encounter
--- OUTSIDE RECORDS SUMMARY | 2024-03-04 08:27 | XMS_ITS | Encounter Summary ---
Author Organization [facility] Healthcare Address [address] [place] [address] Care Team Providers Care Bit Sander Name Role Phone Vladimir Napoles DO Primary Care Provider [phone]- [phone] Reason for Visit * Reason Comments Botulinum Toxin Injection * Procedure (Routine) - Canceled Specialty Diagnoses / Procedures Referred By Christophe t Referred To Contact Neurology Diagnoses Intractable chronic migraine without aura and without status migrainosus Procedures Botox Injection Botox Injection Mindy Dewey NP [address] [place] [address] Phone: tel: fax: [facility] Neurology [facility] [address] [place] [phone] Phone: tel: fax: Referral ID Status Reason Start Date Expiration Date V isits Requested Visits Authorized [id number] Canceled 11/25/2022 05/26/2023 5 2 Encounter Details Date Type Department Care Team (Late Contact Info) Description 01/20/2023 11:00 AM SUCTION DREDGE DUMPING SUPERVISOR Procedure visit [facility] Neurology [facility] [address] [place] [phone] Mindy Dewey NP [facility] [address] [address] [place] [id number] Intractable chronic migraine without aura and [...] - - Weight 56.7 kg (125 lb) 01/20/2023 11:38 AM SUCTION DREDGE DUMPING SUPERVISOR Height 170.2 cm (5' 7 ) 01/20/2023 11:38 AM SUCTION DREDGE DUMPING SUPERVISOR Body Mass Index 19.58 01/20/2023 11:38 AM SUCTION DREDGE DUMPING SUPERVISOR documented in this encounter Ordered Prescriptions Prescription Sig Dispense Quantity Refills Last Filled Start Date End Date rimegepant (Nurtec ODT) tablet,disintegrat ing Take 1 tablet (75 mg total) by mouth daily as needed (Migraine) 8 tablet 5 01/20/2023 03/03/2023 documented in this encounter Progress Notes * Mindy Dewey NP - 01/20/2023 11:00 AM CST Botox Template Migraine without Aura Treatment #7 Chronic Migraine without Aura was diagnosed with: [...] Zomig stopped working Headache days/month - Current: 2-3 days per month Baseline: 30 days per month Headache hr/day: - Current: less 1-2 days per occurrence Baseline: 24 hours per occurrence Symptom reduction from baseline: Fernanda experiences 20+ days of pain free days with Botox treatments. Her quality of life is much improved. She no longer calls in sick to work and the overall severity of her migraine attacks are less severe. Follow up in 12 weeks for repeat injections Cosigned by Genaro Eduardo MD at 02/02/2023 7:22 AM SUCTION DREDGE DUMPING SUPERVISOR ION DREDGE DUMPING SUPERVISOR ION DREDGE DUMPING SUPERVISOR documented in this encounter Procedure Notes * Renny Ernestina - 01/20/2023 11:00 AM CSTAssociated Order(s): Botox Injection Pre-Procedure Diagnose(s): Intractable chronic migraine without aura and without status migrainosus Post-Procedure Diagnose(s): Intractable chronic migraine without aura and without status migrainosus Botox Injection Performed by: Mindy Dewey NP Authorized by: Mindy Dewey NP [place] Protocol: Consent Given by: Patient Procedure Details - Botox Injection: Procedure Details: See Botox flow sheet for details on injection sites and amounts. ION DREDGE DUMPING SUPERVISOR documented in this encounter Plan of Treatment Not on file documented as of this encounter Procedures Procedure Name Priority Date/Time Associated Diagnosis Comments BOTOX INJECTION Routine 01/20/2023 11:00 AM SUCTION DREDGE DUMPING SUPERVISOR Intractable chronic migraine without aura and without status migrainosus documented in this encounter Results * Botox Injection (01/20/2023 11:00 AM SUCTION DREDGE DUMPING SUPERVISOR) Narrative Ernestina Lawson - 01/20/2023 11:00 AM SUCTION DREDGE DUMPING SUPERVISOR Ernestina Lawson ? 01/29/2023 ??4:09 PM Botox Injection Performed by: Mindy Dewey NP Authorized by: Mindy Dewey NP ?? [place] Protocol: Consent Given by: ??Patient Procedure Details - Botox Injection: ??Procedure Details: See Botox flow sheet for details on injection sites and amounts. Procedure Note Ernestina Lawson - 01/20/2023 11:00 AM CST Botox Injection Performed by: Mindy Dewey NP Authorized by: Mindy Dewey NP [place] Protocol: Consent Given by: Patient Procedure Details [...] 200 Units 200 Units, other, Once, On Thu01/20/23 at 1215, For 1 doseIndications:Intractable chronic migraine without aura and without status migrainosus Given 01/20/2023 11:42 AM SUCTION DREDGE DUMPING SUPERVISOR 200 Units documented in this encounter Discontinued Medications Medication Sig Discontinue Reason Start Date End Da te rimegepant (Nurtec ODT) tablet,disintegrating Take 1 tablet (75 mg total) by mouth daily as needed (Migraine) Reorder 08/27/2022 01/20/2023 SUMAtriptan (IMITREX) 100 mg tablet TAKE 1 TABLET(100 MG) BY MOUTH 1 TIME NEEDED FOR MIGRAINE HEADACHE. MAY REPEAT 1 TIME AFTER 2 HOURS NEEDED Therapy completed 12/10/2021 01/20/2023 documented as of this encounter Historical Medications * This list may reflect changes made after this encounter. ondansetron ODT (ZOFRAN-ODT) 4 mg disintegrating tablet DISSOLVE 1 TABLET ON THE TONGUE EVERY 8 HOURS 3 metroNIDAZOLE (METROGEL) 0.75 % (37.5mg/5 gram) vaginal gel INSERT 1 APPLICATORFUL VAGINALLY EVERY DAY AT BEDTIME FOR 5 DAYS 3 metoclopramide (REGLAN) 10 mg tablet TAKE 1 TABLET BY MOUTH EVERY 6 HOURS NEEDED FOR NAUSEA OR VOMITING 3 added in this encounter Care Teams Bit Sander Relationship Specialty Start Date End Date Vladimir Napoles DO PCP - General Internal Medicine 09/27/20 documented as of this encounter
--- OUTSIDE RECORDS SUMMARY | 2024-03-04 08:27 | XMS_ITS | Encounter Summary ---
Author Organization [facility] Address [address] [place] [address] Care Team Providers Care Port Engineer Name Role Phone Vladimir Napoles DO Primary Care Provider [phone]- [phone] Reason for Referral * Procedure (Routine) - Closed Specialty Diagnoses / Procedures Referred By Contac t Referred To Contact Diagnoses Intractable chronic migraine without aura and without status migrainosus Procedures Botox Injection Genaro Eduardo MD [address] [facility] [address] [place] [address] Phone: tel: fax: [facility] Referral ID Status Reason Start Date Expiration Date Visits Re quested Visits Authorized [id number] Closed 05/14/2021 06/13/2022 1 1 ISION FARMING COORDINATOR Encounter Details Date Type Department Care Team (Late st Contact Info) Description 05/14/2021 2:30 PM PRECISION FARMING COORDINATOR Procedure visit [facility] Neurology [address] [facility] [address] [place] [phone] Mindy Lundy, IMELDA [address] [facility] [address] [place] [address] Intractable chronic migraine without aura and without [...] Sign Reading Time Taken Comments Blood Pressure 90/58 05/14/2021 2:34 PM PRECISION FARMING COORDINATOR Pulse 66 05/14/2021 2:34 PM PRECISION FARMING COORDINATOR Temperature - - Respiratory Rate - - Oxygen Saturation - - Inhaled Oxygen Concentration - - Weight 66.7 kg (147 lb) 05/14/2021 2:34 PM PRECISION FARMING COORDINATOR Height 170.2 cm (5' 7 ) 05/14/2021 2:34 PM PRECISION FARMING COORDINATOR Body Mass Index 23.02 05/14/2021 2:34 PM PRECISION FARMING COORDINATOR documented in this encounter Ordered Prescriptions Prescription Sig Dispense Quantity Refills Last Filled Start Date End Date rimegepant (Nurtec ODT) tablet,disintegrat ing Take 1 tablet (75 mg total) by mouth daily as needed (Migraine) for up to 5 doses 5 tablet 05/24/2021 08/27/2022 documented in this encounter Progress Notes * Mindy Lundy NP - 05/14/2021 2:30 PM CST Botox Template Migraine without Aura First treatment Chronic Migraine without Aura was diagnosed with: [...] and possibly hypotension Headache days/month - Current: 30 days per month Baseline: 30days per month Headache hr/day: - Current: 24 hours per occurrence Baseline: 24 hours per occurrence Symptom reduction from baseline: 1st treatment Follow up in 13 weeks for repeat injections Cosigned by Genaro Eduardo MD at 06/07/2021 10:11 AM CDT ISION FARMING COORDINATOR documented in this encounter Procedure Notes * Ernestina Lawson - 05/14/2021 2:30 PM CSTAssociated Order(s): Botox Injection Post-Procedure Diagnose(s): Intractable chronic migraine without aura and without status migrainosus Botox Injection Date/Time: 05/14/2021 2:34 PM Performed by: Mindy Lundy NP Authorized by: Genaro Eduardo MD Procedure Details - Botox Injection: Cosmetic: no Injection area: head Comments: See Botox flow sheet for details on injection sites and amounts. ISION FARMING COORDINATOR documented in this encounter Miscellaneous Notes * Addendum Note - Betty Berger MA - 05/14/2021 2:30 PM CSTAddended by: BETTY BERGER on: 05/14/2021 04:24 PM Modules accepted: Orders ISION FARMING COORDINATOR * Addendum Note - Mindy Lundy NP - 05/14/2021 2:30 PM CSTAddended by: MINDY LUNDY on: 05/24/2021 09:33 AM Modules accepted: Orders ISION FARMING COORDINATOR documented in this encounter Plan of Treatment Not on file documented as of this encounter Procedures Procedure Name Priority Date/Time Associated Diagnosis Comments BOTOX INJECTION Routine 05/14/2021 2:34 PM PRECISION FARMING COORDINATOR Intractable chronic migraine without aura and without status migrainosus documented in this encounter Results * Botox Injection (05/14/2021 2:34 PM PRECISION FARMING COORDINATOR) Narrative Ernestina Lawson - 05/14/2021 2:34 PM PRECISION FARMING COORDINATOR Ernestina Lawson ? 05/14/2021 ??4:06 PM Botox Injection Date/Time: 05/14/2021 2:34 PM Performed by: Mindy Lundy NP Authorized by: Genaro Eduardo MD Procedure Details - Botox Injection: ??Cosmetic: no ?Injection area: head Comments: ?? See Botox flow sheet for details on injection sites and amounts. us Genaro Eduardo MD IN CLINIC/BEDSIDE ORDERABLES Final Result documented in this encounter Visit Diagnoses Diagnosis Intractable chronic migraine without aura and without status migrainosus- Primary documented in this encounter Care Teams Port Engineer Relationship Specialty Start Date End Date Vladimir Napoles DO PCP - General Internal Medicine 09/27/20 documented as of this encounter
--- OUTSIDE RECORDS SUMMARY | 2024-03-04 08:27 | XMS_ITS | Encounter Summary ---
Author Organization [facility] Address [address] [place] [address] Care Team Providers Care Chief Medical Director Name Role Phone MarisolkyVladimir DO Primary Care Provider +1- [phone] Reason for Visit * Reason Comments Establish Care Encounter Details Date Type Department Care Team (Late st Contact Info) Description 03/18/2021 11:30 AM PUBLIC RELATIONS REPRESENTATIVE Office Visit [facility] Neurology [address] [facility] [address] [place] [address] Mindy Dewey NP [address] [place] [id number] Intractable migraine without aura and without status migrainosus (Primary Dx); Intractable chronic migraine without aura and without [...] Sign Reading Time Taken Comments Blood Pressure 98/60 03/18/2021 12:07 PM PUBLIC RELATIONS REPRESENTATIVE Pulse 66 03/18/2021 12:07 PM PUBLIC RELATIONS REPRESENTATIVE Temperature 37.2 ??C (99 ??F) 03/18/2021 12:07 PM PUBLIC RELATIONS REPRESENTATIVE Respiratory Rate - - Oxygen Saturation - - Inhaled Oxygen Concentration - - Weight 64 kg (141 lb 3.2 oz) 03/18/2021 12:07 PM PUBLIC RELATIONS REPRESENTATIVE Height 170.2 cm (5' 7 ) 03/18/2021 12:07 PM PUBLIC RELATIONS REPRESENTATIVE Body Mass Index 22.12 03/18/2021 12:07 PM PUBLIC RELATIONS REPRESENTATIVE documented in this encounter Progress Notes * Mindy Dewey NP - 03/18/2021 11:30 AM CST Images from the original note were not included. Patient ID: Fernanda Duron is a 40 y.o. female Fernanda Duron is being seen for follow up for migraines Assessments and Plan 1. Migraines without aura, intractable Fernanda presents with worsening migraine headaches, intractable to medications as below. Plan: -we will seek approval for Botox therapy. Discussed with patient potential benefits as well as potential side effects of Botox. She would like to pursue with the approval process. -continue current medications at this point [facility]. Discussed with her potential benefits and use of medication. Advised her to call should this give her relief. -consider repeat neuro imaging -follow-up patient after the above -Case was discussed with Dr. Genaro Eduardo who agrees with the above assessment and plan of care. -face to face time spent with patient was approximately 25 minutes History of Present Illness: Onset: Age 12 Frequency: 1-2 per week Duration of each episode: Up to 2 days each Localization: bitemporal, occipital, top of head Description: throbbing, pressure Associated symptoms: Sensitivity to light and noise, nausea with occasional vomiting Triggers: Changes in sleep patterns, very metric pressure changes, menstrual cycle, stress Abortive medication: Sumatriptan 100 mg Prophylactic Medication: None currently Previous Medications Tried: Topamax- no change Lexapro-no change Amitriptyline- no change Flexeril-no change Tramadol- no change Propanolol- caused side effects, possible exacerbation of asthma as she had complained of shortnessof breath and possibly hypotension Narrative: Fernanda is a 40-year-old female who comes in for evaluation of her migraine headaches. She reports suffering from a dull headache every day. She reports this is an ache and her average pain is 1-2/10. She reports having at least 1 migraine per week lasting up to 2 days. With migraines, she suffers from a more severe pain and pressure including throbbing and a pain rated 10/10. She experiences sensitivity with light and noise with nausea and vomiting. In the past, she was using Zomig however insurance has not covered this. Most recently, she was given Imitrex. She reports after 2 doses, she does not get relief of her migraine. When she has a migraine with vomiting, she will present to the [facility] room for relief. Currently, she does have tramadol, reports 30 tablets last her a few months. She is unable to take ibuprofen with her history of gastric ulcers and has an allergy to Tylenol. She reports having a normal MRI imaging done at [facility] in recent years. Past Medical History: Diagnosis Date ??? Anxiety ??? Migraine Family History Problem Relation Age of Onset ??? Diabetes Mother ??? Hypertension Mother ??? Cancer Father ??? Kidney failure Father ??? Diabetes Father ??? Cancer Sister ??? Cancer Sister ??? Endometriosis Sister ??? Endometriosis Sister Social History Socioeconomic History ??? Marital status: Not on file Spouse name: Not on file ??? Number of children: Not on file ??? Years of education: Not on file ??? Highest education level: Not on file Occupational History ??? Not on file Tobacco Use ??? Smoking status: Current Every Day Smoker ??? Smokeless tobacco: Never Used Vaping Use ??? Vaping Use: Never used Substance and Sexual Activity ??? Alcohol use: Not on file ??? Drug use: Yes Types: Marijuana ??? Sexual activity: Not on file Other Topics Concern ??? Not on file Social History Narrative ??? Not on file Social Determinants of Health Financial Resource Strain: Not on file Food Insecurity: Not on file Transportation Needs: Not on file Physical Activity: Not on file Stress: Not on file Social Connections: Not on file Intimate Partner Violence: Not on file Housing Stability: Not on file Review of Systems Review of Systems Constitutional: Positive for appetite change, fatigue and unexpected weight change. Negative for fever. HENT: Positive for ear discharge, ear pain and tinnitus. Negative for drooling, facial swelling, hearing loss, mouth sores, nosebleeds, sinus pain, sore throat, trouble swallowing and voice change. Swollen glands in neck, sinus problems Eyes: Negative for photophobia, pain, discharge, itching and visual disturbance. Wears contacts Respiratory: Positive for wheezing. Negative for apnea, cough, choking and shortness of breath. Asthma Cardiovascular: Positive for chest pain. Negative for palpitations and leg swelling. Gastrointestinal: Positive for abdominal pain, diarrhea, nausea and vomiting. Negative for constipation. Loss of appetite, change in bowel movements Endocrine: Negative for cold intolerance, heat intolerance, polydipsia, polyphagia and polyuria. Heat or cold intolerance Genitourinary: Positive for frequency. Negative for difficulty urinating, dysuria, enuresis, hematuria and urgency. Sexual dysfunction Musculoskeletal: Positive for back pain and myalgias. Negative for arthralgias, gait problem, jointswelling, neck pain and neck stiffness. Skin: Negative for color change, pallor, rash and wound. Dry skin Allergic/Immunologic: Negative for environmental allergies, food allergies and immunocompromised state. Neurological: Positive for headaches. Negative for dizziness, tremors, seizures, syncope, facial asymmetry, speech difficulty, weakness, light-headedness and numbness. Hematological: Bruises/bleeds easily. Psychiatric/Behavioral: Positive for sleep disturbance. Negative for agitation, behavioral problems, confusion, decreased concentration, dysphoric mood, hallucinations, self-injury and suicidal ideas. The patient is nervous/anxious. The patient is not hyperactive. Depression Current Outpatient Medications Medication Sig Dispense Refill ??? dicyclomine (BENTYL) 10 mg capsule ??? hydrOXYzine (ATARAX) 25 mg tablet Take 25 mg by mouth 2 (two) times a day as needed ??? [facility] albuterol HFA () 90 mcg/actuation inhaler Inhale 2 puffs once ??? pantoprazole DR (PROTONIX) 40 mg EC tablet Take 40 mg by mouth daily ??? SUMAtriptan (IMITREX) 100 mg tablet Take 1 tablet (100 mg total) by mouth once as needed for migraine (headache) for up to 90 doses May repeat one time after 2 hours if needed. 9 tablet 3 ??? traMADoL (ULTRAM) 50 mg tablet TAKE 1 TABLET BY MOUTH EVERY DAY NEEDED FOR PAIN ??? clonazePAM (KlonoPIN) 0.5 mg tablet TAKE 1/2 TABLET BY MOUTH EVERY DAY NEEDED FOR ANXIETY (Patient not taking: Reported on 03/18/2021) ??? cyclobenzaprine (FLEXERIL) 10 mg tablet Take 10 mg by mouth every 8 (eight) hours (Patient not taking: Reported on 03/18/2021) ??? oxyCODONE (ROXICODONE) 5 mg immediate release tablet Take 5 mg by mouth every 6 (six) hours as needed (Patient not taking: Reported on 03/18/2021) ??? promethazine (PHENERGAN) 25 mg tablet (Patient not taking: Reported on 03/18/2021) ??? triamcinolone (KENALOG) 0.1 % cream Apply topically 2 (two) times a day (Patient not taking: Reported on 03/18/2021) ??? venlafaxine XR (Effexor XR) 37.5 mg 24 hr capsule Take 1 capsule by mouth daily (Patient not taking: Reported on 03/18/2021) ??? ZOLMitriptan (ZOMIG) 5 mg tablet TAKE 1 TABLET BY MOUTH 1 TIME NEEDED FOR MIGRAINE . MAY REPEAT 1 TIME AT LEAST 2 HOURS LATER. DO NOT EXCEED 2 DOSES IN 24 HOURS (Patient not taking: Reported on 03/18/2021) No [...] lower extremities Extremities: No noted edema BP 98/60 Pulse 66 Temp 37.2 ??C (99 ??F) Ht 170.2 cm (5' 7 ) Wt 64 kg (141 lb 3.2 oz) BMI22.12 kg/m?? Body mass index is 22.12 kg/m??. Mindy Dewey NP This note was dictated using voice recognition software, M*Modal. Public Information Relations Manager variances may occur. Cosigned by Genaro Eduardo MD at 04/11/2021 8:27 AM PUBLIC RELATIONS REPRESENTATIVE IC RELATIONS REPRESENTATIVE IC RELATIONS REPRESENTATIVE documented in this encounter Plan of Treatment Not on file documented as of this encounter Visit Diagnoses Diagnosis Intractable migraine without aura and without status migrainosus- Primary Intractable chronic migraine without aura and without status migrainosus documented in this encounter Discontinued Medications Medication Sig Discontinue Reason Start Date End Da te propranoloL (INDERAL) 20 mg tabletIndications:Migrain e without aura and without status migrainosus, not intractable Take 1 tablet (20 mg total) by mouth 2 (two) times a day Therapy completed 09/28/2020 03/18/2021 documented as of this encounter Historical Medications * This list may reflect changes made after this encounter. venlafaxine XR (EFFEXOR-XR) 37.5 mg 24 hr capsule Take 1 capsule by mouth daily 11/02/2019 triamcinolone (KENALOG) 0.1 % cream Apply topically 2 (two) times a day 12/12/2020 oxyCODONE (ROXICODONE) 5 mg immediate release tablet Take 5 mg by mouth every 6 (six) hours as needed 02/01/2021 hydrOXYzine (ATARAX) 25 mg tablet Take 1 tablet (25 mg total) by mouth 2 (two) times a day as needed 09/27/2020 ZOLMitriptan (ZOMIG) 5 mg tablet TAKE 1 TABLET BY MOUTH 1 TIME NEEDED FOR MIGRAINE . MAY REPEAT 1 TIME AT LEAST 2 HOURS LATER. DO NOT EXCEED 2 DOSES IN 24 HOURS 03/19/2020 2 added in this encounter Care Teams Chief Medical Director Relationship Specialty Start Date End Date Vladimir Napoles DO PCP - General Internal Medicine 09/27/20 documented as of this encounter
--- OUTSIDE RECORDS SUMMARY | 2024-03-04 08:30 | XMS_ITS | Continuity of Care Document ---
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 headache, Pt has not had any headache lately with topamax pt had normal brain MRi GI1 Pt c/o persisten t nausea without vomiting and watery diarrhea for 2 weeks. Pt has watery diarrhea around 10-15 times per day. Pt has mild abdominal cramp. Pt denies any blood in stool. Pt denies any recent travel. Pt denies any sick contact gastric ulcer Pt takes omepraz ole. Pt denies any abd pain Pt is noncompliant with EGD anxiety1 Pt has chronic a nxiety and depression. her is sick a lot and basically is not helping her with work and home chores. Pt has been having recurrent panic attacks. Pt went to ER recently for chest pain and she was hyperventilating and she had benign EKG and lab work and she was diagnosed with severe panic attacks Pt is extremely stressed and she can not stop crying and she feels extremely stressed Pt can not stop crying at work. and she is afraid that she is going to be fired. Pt denies any suicidal or homicidal thought pt has to lock herself in the bathroom and cry at work. Pt was given klonopin from ER which helps her anxiety and panic attacks headache1 Pt has not had a ny headache since she started to take topamax BID. anxiety1 Pt has chronic a nxiety and depression Pt states that lexapro made her feeling worse. pt denies any suicidal or homicidal thought. Pt denies any crying spells back pain1 Pt has chronic i ntermittent low back pain pt has mild right sciatica. Pt denies any numbness. Pt does lift heavy object at work Pt denies any loss of bladder control headache1 Pt has intermitt ent migraine headache Pt has photophobia. Pt has nausea with headache Pt only takes topamax once per day. pt states that imitrex does not help with headache. Pt denies any acute headache, Pt denies any head injury or waking up at night with headache. GERD1 Pt has intermitt ent GERd pt has history of gastric ulcer. Pt is noncompliant with GI referral PHysical Pt needs annual physical. Pt c/o productive coughing with yellow phlegm, sob for one week. Pt denies any ear pain, sore throat or sinus symptoms Pt feels burning sensation around chest area with coughing. Pt denies any calf pain pt denies any fever, chill Pt has anxiety and depression Pt states that zoloft causes more headache. Pt denies any suicidal or homicidal thought Pt denies any crying spells. pt has chronic migraine headache. Pt takes topamax 100 mg BID but she notices more headache since taking zoloft. Pt denies any acute headache Pt denies any recent travel or bedrest . physical Pt needs annual physical. Pt has gastric ulcer Pt takes OTC omeprazole daily but she is noncompliant with GI. Pt still has not set up for repeat EGD yet. Pt has migraine headache about 4-5 times per month. Pt takes topamax daily and imitrex PRn. Pt told me imitrex helps. Pt has throbbing headache with nausea and photophobia usually exacerbates by stress. Pt has anxiety and depression Pt takes prozac. Pt is off seroquel. Pt denies any insomnia Pt has been having more depression symptoms with crying spells lately. Pt denies any suicidal or homicidal thought. Gastric ulcer1 Pt had history o f gastric ulcer pt is taking omeprazole otc daily if she remember. Pt otherwise has midepigastric pain. Pt denie any nausea, vomiting, bloody in stool anxiety1 Pt has chronic a nxiety and depression. Pt states that prozac working well. Pt denies any crying spells. Pt states that her mood is better. Pt denies any suicidal or homicidal thought headache1 Pt states that t opamax is helping Pt has not had any ehadache for 3 months. Pt has not needed to use imitrex. back pain1 Pt has chronic l ow back pain. Pt deneis any worsening pain ,Pt denies any loss of bladder control Pt wnts refill of flexeril. headache1 Pt has chronic m igraine headache. Pt take topamax which helps but she still has frequent breakthrough headache Pt states that imitrex does relieve her headache Pt denies any acute headache anxiety1 Pt has chornic a nxiety and depression and insomnia. Pt takes prozac and seroquel and doing ok. Pt denies any suicidal or homcidial thought. Pt states that seroquel really helps. gastric ulcer1 Pt has gastric u lcer. Pt is taking OTC omeprazole now. Pt still has not seen GI yet for EGD. back pain1 Pt has chronic i ntermittent low back pain. Pt denies any loss of bladder control. Pt denies any worsening pain. Pt has intermittent low back pain. Pt failed NSAID anxiety1 Pt has chronic a nxiety and depression. Pt takes prozac and she feels slighlty better in her mood. Pt denies any suicidal or homicidal thought. Pt denies any crying spells. insomnia1 Pt has insomnia. Pt takes seroquel which is helping.Pt states that 50 mg seroquel makes her tired in AM but 25 mg does not work. Pt denies any snoring headache1 Pt has been havi ng recurrent migraine headache for the past several weeks. pt has migraine headache 1-2 per month but recenlty has been occruing daily. Pt has nausea and photophobia with headache. Pt had normal MRI of bran 2013. Pt denies any head injury Pt denies waking up at night with headache. Pt has throbbing headache behind her eyes. Pt sometiems has tension headache also. Pt denies any neck pain GERD1 Pt has been taki ng omeprzole and she denies any GERD symptoms or abdominal pain. Pt has gastric ulcer. Pt has not made appointment [facility] yet gastric ulcer1 Pt was diagnosed with gastric ulcer last year. Her biospy was ok Pt is on zantac now. Pt denies any GERD or abd pain. Pt did not follow up with GI per instruction. chest pain1 Pt has atypical chest pain. Pt went to see cardiology and she had negative echo and stress test per pt. Pt denies any exertional chest pain. Pt states that chest pain is worse with stress anxiety1 Pt has chronic a nxiety and depression. Pt takes celexa but not helping. Pt still has crying spells. Her huband is very ill now and she has a lot of stress. Pt has insomnia also. Pt denies any suicidal or homicidal thought. Pt feels depressed and stressed out. PHysical Pt needs annual physical. pt states that she has depression and anxiety with crying spells. Pt her is very sick and she feels overwhelmed with taking care of her , kids and work. Pt states that she has no motivation. Pt states that she has frequent crying spells. Pt denies any suicidal or homicdial thought. Pt also has history of GERD. Pt takes zanatc OTC only and doing ok Pt was told by GI to go back but she does not want to drive to [facility] Pt denie any nauea, vomiting Pt also has stress induced chest pain, nonexetional and she feels sob when she has chset pain Pt usually has chest pain when she has severe aniety attacks. Pt denies any leg pain or any recent travel or bedrest Pt denies any other complaints abd pain1 Pt has been havi ng abdominal pain, around midepigastric area. Pt had EGD done which showed ulcer per patient. Pt is on omeprazle and also carafate. Pt had normal ultrasound. Pt stats that abdominal pain is better now. Pt denies any nauea, vomiting or diarrhea headache1 Pt has chronic h eadache. Pt takes amitriptyline qhs. 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 Pt denies any sciatica or any loss of bowel or bladder control. Pt denies any worsening pain. Pt has pain daily PHysical Pt needs annual physical Pt c/o midepigastric pain for 3 days. Pt takes zantac daily for GERD symptoms. Pt used to takes NSAID but has not taken any NSAID for several weeks. Pt denies any nasuea, vomiting, diarrhea Pt c/o pain worsening with food. Pt went to ER and was given sucralfate in addition to zantac BID Pt denies any improvement with above meds. Pt also has headache and chronic LBP Pt has not had any headache since taking amitriptyline Pt also has chronic LBP with right sciatica. Pt denies any worsening back pain. PT denies any other complaints Instructions Date Instruction Additional Infor gregor Quit smoking. Related to Encnt r for general adult medical exam w/o abnormal findings Avoid provocative fo ods: citrus, alcohol, coffee, chocolate, mints. Related to GERD w/o esophagitis Eat smaller meals, n o eating three hours prior to bedtime. Related to GERD w/o esophagitis Elevate head of bed prior to sle ep. Related to GERD w/o esophagitis Special diet education Related t o Body mass index (BMI) 31.0-31.9, adult Special diet education Related t o Body mass index (BMI) 33.0-33.9, adult Quit smoking Related to Tensi on headache Weight management Related to Ten neela headache Weight management Related to Ron nini Special diet education Related t o Body mass index (BMI) 33.0-33.9, adult Special diet education Related t o Body mass index (BMI) 33.0-33.9, adult Stop smoking Related to Cervi calgia Special diet education Related t o Body mass index (BMI) 33.0-33.9, adult Increase physical activity Relat ed to Generalized Anxiety Disorder Weight management Related to Gen eralized Anxiety Disorder Special diet education Related t o Body mass index (BMI) 32.0-32.9, adult Avoid provocative fo ods: citrus, alcohol, coffee, chocolate, mints. Related to Acute gastric ulcer without bleeding Eat smaller meals, n o eating three hours prior to bedtime. Related to Acute gastric ulcer without bleeding Elevate head of bed prior to sle ep. Related to Acute gastric ulcer without bleeding Increase physical activity Relat ed to Migraine Quit smoking Related to Migra ine Weight management Related to Ron nini Special diet education Related t o Body mass index (BMI) 32.0-32.9, adult Special diet education Related t o Body mass index (BMI) 33.0-33.9, adult Increase physical activity Relat ed to Migraine Quit smoking Related to Migra ine Weight management Related to Ron nini Special diet education Related t o Body mass index (BMI) 31.0-31.9, adult Quit smoking. Related to Encnt r for general adult medical exam w/o abnormal findings Increase activity. Related to En cntr for general adult medical exam w/o abnormal findings Special diet education Related t o Body mass index (BMI) 30.0-30.9, adult Weight management Related to Ron nini Prescribed Diet Educ ation/Lifestyle Education Regarding Diet Related to Dietary Surveillance and Counseling Increase physical activity Relat ed to Migraine Quit smoking Related to Migra ine Prescribed Activity and Exercise Education Related to Dietary Surveillance and Counseling Weight management Related to Hea dache Quit smoking Related to Heada bradley Increase physical activity Relat ed to Headache Prescribed Diet Educ ation/Lifestyle Education Regarding Diet Related to Dietary Surveillance and Counseling Prescribed Activity and Exercise Education Related to Dietary Surveillance and Counseling Prescribed Activity and Exercise Education Related to Dietary Surveillance and Counseling Weight management Related to Gen eralized Anxiety Disorder Increase physical activity Relat ed to Generalized Anxiety Disorder Prescribed Diet Educ ation/Lifestyle Education Regarding Diet Related to Dietary Surveillance and Counseling Prescribed Activity and Exercise Education Related to Dietary Surveillance and Counseling Prescribed Diet Educ ation/Lifestyle Education Regarding Diet Related to Dietary Surveillance and Counseling Quit smoking Related to Insom derek Prescribed Diet Educ ation/Lifestyle Education Regarding Diet Related to Dietary Surveillance and Counseling Prescribed Activity and Exercise Education Related to Dietary Surveillance and Counseling Perform monthly self breast examinations. Related to Encntr for general adult medical exam w/o abnormal findings Quit smoking. Related to Encnt r for general adult medical exam w/o abnormal findings Increase activity. Related to En cntr for general adult medical exam w/o abnormal findings Prescribed Activity and Exercise Education Related to Dietary Surveillance and Counseling Prescribed Diet Educ ation/Lifestyle Education Regarding Diet Related to Dietary Surveillance and Counseling Prescribed Activity and Exercise Education Related to Dietary Surveillance and Counseling Prescribed Diet Educ ation/Lifestyle Education Regarding Diet Related to Dietary Surveillance and Counseling Physical activity counseling Rel ated to Dietary surveillance counseling Decrease caloric intake Related to Dietary surveillance counseling Dietary counseling Related to Di etary surveillance counseling Decrease caloric intake Related to Dietary surveillance counseling Dietary counseling Related to Di etary surveillance counseling Decrease caloric intake Related to Dietary surveillance counseling Dietary counseling Related to Di etary surveillance counseling Decrease caloric intake Related to Dietary surveillance counseling Assessments Type Assessment Date assessment Atypical facial pain assessment Generalized Anxiety Disorder Dec assessment Hepatomegaly assessment Abnormal weight loss Mental Status Date Cognitive Assessment Orientation - [place] ed to time, place, person, situation.
--- OUTSIDE RECORDS SUMMARY | 2024-03-04 08:34 | XMS_ITS | Data Portability ---
Author Organization [facility] Address [address] [place] [address] [place] [address] Care Team Providers Care Restorative Care Technician Name Role Phone GAYLE NARANJO Primary Care Provider Assessment No assessment recorded. Plan of Treatment Reminders Order Date Submit Date Provider Last Modified By Organization Details Last Modified Time Details Appointments None recorded. Lab test, urine 2023 024 [email or web address] [facility], [address], [place], [address], 4 15:01:12 test, urine 2023 024 [email or web address] [facility], [address], [place], [address], 4 11:40:34 CT + NG + TV, RNA, unspecified specimen 2023 024 [facility] (Lab), [address], [place], [address], 4 16:38:17 Referral None recorded. Procedures None recorded. Surgeries dilation & curettage (SURG) 2023 024 [email or web address] Jasso Surgery [facility], [address], [place], [address], 4 14:29:04 Imaging US, obstetric, transvagina l 2023 024 [email or web address] [address], [address], [place], [address], 12:49:13 US, obstetric, transvagina l 2023 024 [email or web address] [address], [address], [place], [address], 17:36:59 Medication Orders None recorded. Patient TargetsNo targets recorded. Patient InstructionsNo instructions recorded. Reason for Referral None Reported. Results Created Date Observation Date Name Description Value Unit Range Abnormal Flag Note LastModifiedBy Organization Detail LastModifiedTime 12/08/1912/08/2023 CT/GC AND TRICH OMONA S VAGIN DESEAN (RRNA ), URINE chlamydia trachomatis, PCR Positi ve negati ve abnormal Posit gladys: Prese nce of C. trach omati s (by YANY) Chlam ydia trach omati s RNA detec mahamed by PCR. Not Available [facility] (Lab) [address], [place], [address], 12/09/2023 14:56:40 12/08/19 24 12/08/2023 CT/GC AND TRICH OMONA S VAGIN DESEAN (RRNA ), URINE neisseria gonorrhoeae, PCR Negati ve negati ve Not Available [facility] (Lab) [address], [place], [address], 12/09/2023 14:56:40 12/08/19 24 12/08/2023 CT/GC AND TRICH OMONA S VAGIN DESEAN (RRNA ), URINE trichomonas vaginalis ribosomal RNA (rrna) Negati ve negati ve Not Available [facility] (Lab) [address], [place], [address], 12/09/2023 14:56:40 12/30/19 24 12/30/2023 pregn gaby test, urine HCG positi ve Not Available [address], [place], [address], 12/30/2023 14:54:20 01/12/20 24 01/12/2024 CT/GC AND TRICH OMONA S VAGIN DESEAN (RRNA ), URINE chlamydia trachomatis, PCR Negati ve negati ve Not Available [facility] (Lab) [address], [place], [address], 01/13/2024 16:38:17 01/12/2001/12/2024 CT/GC AND TRICH OMONA S VAGIN DESEAN (RRNA ), URINE neisseria gonorrhoeae, PCR Negati ve negati ve Not Available [facility] (Lab) [address], [place], [address], 01/13/2024 16:38:17 01/12/20 24 01/12/2024 CT/GC AND TRICH OMONA S VAGIN DESEAN (RRNA ), URINE trichomonas vaginalis ribosomal RNA (rrna) Negati ve negati ve Not Available [facility] (Lab) [address], [place], [address], 01/13/2024 16:38:17 12/08/19 24 12/08/2023 US, obste tric, trans vagin al No observ ation record ed. [email or web address] [facility] [address], [place], [address], 12/08/2023 13:05:16 12/08/19 24 12/08/2023 US, obste tric, follo w-up No observ ation record ed. [email or web address] [address] [address], [place], [address], 12/08/2023 22:45:02 12/17/1912/17/2023 US, obste tric, trans vagin al No observ ation record ed. [email or web address] [facility] [address], [place], [address], 12/17/2023 12:55:54 12/17/1912/17/2023 US, obste tric, follo w-up No observ ation record ed. [email or web address] [address] [address], [place], [address], 12/17/2023 21:35:16 Result Notes None recorded. Problems Name Problem SNOMED Code Status Onset Date Resolution Date Notes Provider Name and Address Organization Details Recorded Time Acute vaginitis 05951241 Completed 201607/24/2020 Acute vulvovagi nitis;Rec orded Elsewhere : No Locati on: [facility] So urce: EHR Chron ic: N Practic e ID: [id number] Bill able Time: 08:45:00 AM Deya [facility] 16:38:19 Removal of intrauter ine device Completed 201407/24/2020 REMOVAL OF IUD;Recor ded Elsewhere : No Locati on: [facility] So urce: EHR Chron ic: N Practic e ID: [id number] Bill able Time: 10:45:00 AM Deya [facility] 16:38:23 Disorder of perineum Completed 201607/24/2020 Condyloma acuminatu m;Recorde d Elsewhere : No Locati on: [facility] So urce: EHR Chron ic: N Practic e ID: [id number] Bill able Time: 09:45:00 AM Deya [facility] 16:38:26 Specializ ed medical examinati on Completed 201407/24/2020 Gynecolog ical Examinati on;Record ed Elsewhere : No Locati on: [facility] So urce: EHR Chron ic: N Practic e ID: [id number] Bill able Time: 01:00:00 PM Deya [facility] 16:38:25 Adult health examinati on Completed 201407/24/2020 ROUTINE MEDICAL EXAM;Kenny rded Elsewhere : No Locati on: [facility] So urce: EHR Chron ic: N Practic e ID: [id number] Bill able Time: 01:00:00 PM Deya Spaulding [facility], [facility] 16:38:21 Problem Notes None recorded. Procedures Surgical History Date Name Laterality Status Provider Name and Address Organization Details Recorded Time 02/19/20 23 Colposcopy completed Leti Hart [facility] [address], [place], [address], [facility] 02/18/2023 13:38:01 02/19/20 23 Colposcopy completed Vidya Garcias [facility] 12/08/2023 12:55:04 01/30/20 23 Date of Last Pap Smear completed Vidya Garcias [facility] 02/18/2023 09:53:50 01/10/20 22 IUD Insertion completed Agnieszka Vivas [facility] 01/09/2022 17:33:29 09/14/19 20 completed Renetta Prieto [facility] 01/08/2022 10:56:48 09/14/19 20 Colonoscopy completed Kathy Chatman [facility] 08/25/2020 12:37:44 03/16/19 02 Appendectomy completed Deya Spaulding [facility] 07/25/2020 15:13:17 Imaging Results Imaging Date Name Status LastModified by Organization Details LastModified Time 12/08/2023 US, obstetric, transvaginal completed [email or web address] [facility] [address], [place], [address], 12/08/2023 13:05:16 12/08/2023 US, obstetric, follow-up completed [email or web address] [facility] [address], [place], [address], 12/08/2023 22:45:02 12/17/2023 US, obstetric, transvaginal completed [email or web address] [facility] [address], [place], [address], 12/17/2023 12:55:54 12/17/2023 US, obstetric, follow-up completed [email or web address] [address], [place], [address], 12/17/2023 21:35:16 Procedure Notes None recorded. Medical Equipment None Reported. Allergies Allergen ID Allergen Name Allergen Category Reaction Reaction Severity Criticality Documentation Date Start Date Code Code System Note Provider Name and Address Organization Details Recorded Time 43919 acetamino phen medicatio n hives severe Not available 03/02/2020 161 RxNorm Agnieszka [facility] 3 14:24:29 86720 trazodone medicatio n dizziness severe Not available 11/24/2022 33303 RxNorm Agnieszka [facility] 3 14:24:29 31233 ibuprofen medicatio n Not available Not available Not available 11/24/2022 5640 RxNorm PT. HAS ULCER S, CANNO T TAKE Agnieszka [facility] 3 14:25:40 Medications Name Sig Start [...] Elsewher e: Yes Loca tion: [facility] M odify By: sonya tillman DateTime : [...] by Oral route 07/25 completed Prescrib ed Loisher e: No Locat ion: [facility] odify By: [email or web address] tz Encou nter DateTime : 05/05/19 15 [...] completed Not Available Not Available Not Available [facility] ODT 75 mg disintegr ating tablet TAKE 1 TABLET BY MOUTH DAILY NEEDED FOR MIGRAINE active Not Available Not Available No t Available Vitals Date Recorded Body height Body mass index (BMI) Body weight Systolic blood pressure Diastolic blood pressure Provider Name and Address Organization Details Last Updated DateTime 12/08/2023 167.64 cm 21.6 kg/m2 53757.38 g 123 mm[Hg] 80 mm[Hg] [facility] 12:53:14 Date Recorded Body height Body mass index (BMI) Body weight Systolic blood pressure Diastolic blood pressure Provider Name and Address Organization Details Last Updated DateTime 12/30/2023 167.64 cm 22.6 kg/m2 82876.93 g 111 mm[Hg] 73 mm[Hg] [facility] 14:29:07 Date Recorded Body height Body mass index (BMI) Body weight Systolic blood pressure Diastolic blood pressure Provider Name and Address Organization Details Last Updated DateTime 01/12/2024 167.64 cm 21.8 kg/m2 92660.97 g 111 mm[Hg] 70 mm[Hg] [facility] 11:39:06 Social History Question Answer Notes LastModified by Organizat ion Details LastModified Time Tobacco Smoking Status Current Every Day Sm[facility] 11/24/2022 14:24:43 Do You Have An [...] COVID-19 While That Case Was Ill? No [email or web address] Information not available 08/25/2020 In The 14 Days Before Symptom Onset, Have You Had Close Contact With A Person Who Is Under Investigation For COVID-19 While That Person Was Ill? No [email or web address] Information not available 08/25/2020 Have You Been To An Area Known To Be High Risk For COVID-19? No [email or web address] Information not available 08/25/2020 Are You Deaf Or Do You Have Serious Difficulty Hearing? No Information not available 07/24/2020 What Type Of Diet Are You Following? REGULAR Information not available 11/24/2022 What Is The Highest Grade Or Level Of School You Have Completed Or The Highest Degree You Have Received? 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 Yes Information not available 11/24/2022 Have You Ever Been Counseled For Unhealthy Alcohol Use? No Information not available 11/24/2022 Do You Use Protection During Sex? No [email or web address] Information not available 11/19/2022 Do You Use [...] Anxious, Or Unable To Sleep At Night)? [id number] Information not available 11/24/2022 Do You Use Any Illicit Or Recreational Drugs? No Information not available 07/24/2020 Do You Use Sunscreen Routinely? Yes Information not available 07/24/2020 Have You Used IV Drugs? No [email or web address] Information not available 11/19/2022 Sex: Unknown Functional [...] 2023 11:32:18 Father Malignant tumor of colon Not available 07/26 12:39:09 Father Malignant tumor of stomach [email or web address] Not available 2023 11:32:18 Father Malignant tumor of prostate [email or web address] Not available 2023 11:32:18 Sister Disorder of thyroid gland Not available 2020 16:40:54 Sister Malignant neoplasm of uterus [email or web address] Not available 07/26 12:40:23 Sister Endometrial carcinoma [email or web address] Not available 11/19 11:38:33 Maternal Aunt Disorder of thyroid gland Not available 2020 16:40:54 Maternal Aunt Polyp of colon Not available 2023 11:32:18 Maternal Grandfather Malignant tumor of kidney [email or web address] Not available 2023 11:32:18 Paternal Grandfather Malignant tumor of colon [email or web address] Not available 07/26 12:39:09 Medical History Condition [...] Diagnosis/Indication Diagnosis SNOMED-CT Code Diagnosis ICD10 Code 69375 [facility] [address] [address] 07/25/2020 14:33:52 07/25/2020 16:01:42 Gynecologic examination 88865085 Z01.419 Irregular periods 513484 07 N92.6 50000 [facility] [address],[place] [address] 08/02/2020 14:50:31 08/02/2020 15:10:27 Abnormal uterine bleeding 3799506312 9100 N93.9 [id number] Leti Hart , [facility] [address],[place] [address] 08/25/2020 12:25:44 08/25/2020 17:11:53 Chronic pelvic pain of female 090963416 R10.2 N94.12 [id number] Oriana Contreras [facility] [address],[place] [address] 01/08/2022 10:46:02 01/08/2022 12:32:37 Contraception care management 351758554 Z30.9 [id number] Rufino Mooney MD [facility] [address],[place] [address] 01/09/2022 17:16:11 01/13/2022 22:57:58 Screening procedure 86098143 Z13.9 Stenosis of cervix 46057 006 N88.2 Contracept ion care management 657605432 Z30.9 [id number] [facility] [address],[place] [address] 11/07/2022 10:01:58 11/07/2022 11:31:42 Threatened miscarriage 89560613 O20.0 Z3A.01 [id number] Phoebe Bell [facility] [address],[place] [address] 11/19/2022 10:56:44 11/19/2022 13:54:56 Threatened miscarriage 07084050 O20.0 Z3A.01 [id number] Jie Wolff CNM [facility] [address],[place] [address] 11/19/2022 10:57:11 11/19/2022 12:13:32 Threatened miscarriage 02387463 O20.0 [id number] Ernestina Spaulding [facility] [address],[place] [address] 11/24/2022 13:53:30 11/24/2022 14:43:49 Missed miscarriage 17986274 O02.1 Z3A.01 [id number] Rufino Mooney MD [facility] [address],[place] [address] 11/24/2022 13:54:01 11/24/2022 15:24:29 Missed miscarriage 27212665 O02.1 Z3A.01 [id number] [facility] [address],[place] [address] 12/16/2022 10:29:51 12/16/2022 11:15:36 Missed miscarriage 11402946 O02.1 Z3A.01 [id number] Rufino Mooney MD [facility] [address],[place] [address] 12/16/2022 10:30:03 12/16/2022 11:43:37 Bacterial vaginosis 250743707 N76.0 Complete miscarriage 156 871148 O03.9 [id number] Leti Hart [facility] [address],[place] [address] 01/29/2023 12:41:24 01/29/2023 16:05:07 Gynecologic examination 13310750 Z11.51 Z11.8 Z11.3 Screening mammography 24 920697 Z12.31 Vaginitis 22415346 N76.0 Contracept ion care management 271604491 Z30.9 [id number] Leti Hart [facility] [address],[place] [address] 02/18/2023 10:05:35 02/18/2023 13:51:50 Screening procedure 83379081 Z13.9 Low grade squamous intraepithelial lesion on cervical Papanicolaou smear 6298199348 9105 R87.612 [id number] [facility] [address],[place] [address] 12/08/2023 11:32:00 12/08/2023 12:39:07 Uterine size for dates discrepancy 609296950 O26.841 Z3A.01 [id number] Rufino Mooney MD [facility] [address],[place] [address] 12/08/2023 11:32:43 12/09/2023 09:37:48 Peptic ulcer 37656842 K27.9 Amenorrhea 20565198 N91. 2 [id number] Ernestina Spaulding [facility] [address],[place] [address] 12/17/2023 10:30:04 12/17/2023 10:59:23 Missed miscarriage 65229287 O02.1 Z3A.01 [id number] [facility] [address],[place] [address] 12/17/2023 10:47:04 12/17/2023 11:42:21 Missed miscarriage 42044895 O02.1 Z3A.01 [id number] Rufino Mooney MD [facility] [address],[place] [address] 12/30/2023 14:14:00 12/30/2023 15:06:13 Missed miscarriage 24483995 O02.1 Z3A.01 [id number] Vidya Garcias [facility] [address],[place] [address] 01/12/2024 11:24:24 01/12/2024 11:41:09 Missed miscarriage 84582497 O02.1 Venereal d isease screening 058820932 Z11.3 Health Concerns Section Related Observation LastModified by Organization Detai ls LastModified Time None Recorded Concern Status LastModified by Organization Details LastModified Time None Recorded Advance Directives Directive N: Payers Encounter Date Sequence Insurance Name Policy Number Policy Handley Covered Member ID Handley Member ID Guarantor Name 12/08/2023 1 [place] [employer] Crystal Buskirk [id number] Crystal Buskirk 12/17/2023 1 [facility] (MEDICAID HMO) [id number] Crystal Buskirk [id number] Crystal Buskirk 12/17/2023 1 [facility] (MEDICAID HMO) [id number] Crystal Buskirk [id number] Crystal Buskirk 12/30/2023 1 [facility] (MEDICAID HMO) [id number] Fernanda Duron [id number] Fernanda Duron 01/12/2024 1 [facility] (MEDICAID HMO) [id number] Fernanda Duron [id number] Fernanda Duron Notes Date Note Type Note [...] She was given recommendations on exercise, diet, [id number] medications. We reviewed her obstetric history. We reviewed her medical history. We reviewed her social history. She will begin routine care at her next visit. Rufino Mooney MD [address], [place], [address], [facility] 12/08/2023 21:54:26 12/17/2023 text/html This patient is a 43 [...] infection. Rufino Mooney MD [address], [place], [address], [facility] 12/17/2023 11:31:14 12/30/2023 text/html this patient presents for follow-up on missed miscarriage. She is 1 week from a suction D&C. She is recovering normally. Her bleeding is minimal. She has no foul-smelling vaginal discharge. She denies any nausea, vomiting, fever, chills. We discussed contraception. We discussed future . She will follow up for a repeat test. Rufino Mooney MD [address], [place], [address], [place] [facility] 12/30/2023 15:02:35 OBGyn Episode Ob Episode Information Episode Created Date Number of Fetuses Patient Bloodtype Patient rh Status Prepregnancy Weight lbs Domestic Partner Domestic Partner Phone Father Name Prep Cook Status 07/25/19 21 1 CLOSED Fetus Data First Name Last Name Admitted to NICU Weight (g) Sex Living Outcome Pediatric Complications Fetus ID Race Codes Race Delivery Type 3316.66 4704 M Full Term 9786 Vaginal Delivery Tang Calculation TANG Calculation Method Initial Tang Date Initial Exam Date Initial Exam Provider Initial Ultrasound Date Last Menstrual Period Date Ultra Sound Weeks Gestation Conception by IVF Embryo Age at Transfer Date of Transfer 0 Eighteen To Twenty Week Tang Update Ultra Sound Date Fundal Height At Umbil Quickening Date Ultra Sound Latest Weeks Gestation Final Tang Confirmed By Final Tang Confirmed Date Final Tang Date Ultra Sound Latest Days Gestation 0 0 Menstrual History Last Menstrual Date Menses Monthly On Bcp Conception Prior Menses Frequency Hcg Plus Date Menarche Onset Age Delivery Information Delivery Date Delivery Type Labor Anesthesia Weeks Gestation Incision Type Labor Labor Length Hrs Delivered By Post Complications Tubal Sterilization Discharge Date Comments 9 40 Discharge Information Feeding Method Contraceptive Method Maternal HG B and HCT Levels Ob Episode Information Episode Created Date Number of Fetuses Patient Bloodtype Patient rh Status Prepregnancy Weight lbs Domestic Partner Domestic Partner Phone Father Name Prep Cook Status 11/20/19 23 1 CLOSED Fetus Data First Name Last Name Admitted to NICU Weight (g) Sex Living Outcome Pediatric Complications Fetus ID Race Codes Race Delivery Type , Spontane ous [id number] Tang Calculation TANG Calculation Method Initial Tang Date Initial Exam Date Initial Exam Provider Initial Ultrasound Date Last Menstrual Period Date Ultra Sound Weeks Gestation Conception by IVF Embryo Age at Transfer Date of Transfer 0 Eighteen To Twenty Week Tang Update Ultra Sound Date Fundal Height At Umbil Quickening Date Ultra Sound Latest Weeks Gestation Final Tang Confirmed By Final Tang Confirmed Date Final Tang Date Ultra Sound Latest Days Gestation 0 0 Menstrual History Last Menstrual Date Menses Monthly On Bcp Conception Prior Menses Frequency Hcg Plus Date Menarche Onset Age Delivery Information Delivery Date Delivery Type Labor Anesthesia Weeks Gestation Incision Type Labor Labor Length Hrs Delivered By Post Complications Tubal Sterilization Discharge Date Comments 3 Discharge Information Feeding Method Contraceptive Method Maternal HG B and HCT Levels Ob Episode Information Episode Created Date Number of Fetuses Patient Bloodtype Patient rh Status Prepregnancy Weight lbs Domestic Partner Domestic Partner Phone Father Name Prep Cook Status 12/30/19 24 1 CLOSED Fetus Data First Name Last Name Admitted to NICU Weight (g) Sex Living Outcome Pediatric Complications Fetus ID Race Codes Race Delivery Type , Spontane ous [id number] Tang Calculation TANG Calculation Method Initial Tang Date Initial Exam Date Initial Exam Provider Initial Ultrasound Date Last Menstrual Period Date Ultra Sound Weeks Gestation Conception by IVF Embryo Age at Transfer Date of Transfer 0 Eighteen To Twenty Week Tang Update Ultra Sound Date Fundal Height At Umbil Quickening Date Ultra Sound Latest Weeks Gestation Final Tang Confirmed By Final Tang Confirmed Date Final Tang Date Ultra Sound Latest Days Gestation 0 0 Menstrual History Last Menstrual Date Menses Monthly On Bcp Conception Prior Menses Frequency Hcg Plus Date Menarche Onset Age Delivery Information Delivery Date Delivery Type Labor Anesthesia Weeks Gestation Incision Type Labor Labor Length Hrs Delivered By Post Complications Tubal Sterilization Discharge Date Comments 4 Discharge Information Feeding Method Contraceptive Method Maternal HG B and HCT Levels
--- OUTSIDE RECORDS SUMMARY | 2024-03-04 08:35 | XMS_ITS | CONTINUITY OF CARE DOCUMENT ---
Author Name merline, merline Address Unknown Organization [facility] Address [address] [place] [address] [address] [place] [address] Phone [phone] Care Team Providers Care Demolition Expert Name Role Phone Blaine WHITE, Hipolito Unavailable ANIL WHITE, NATHALIA Unavailable [phone] NATHALIA MA MD Unavailable [phone] PROBLEMS Condition Status Date Provider Notes Tobacco abuse active Hipolito Valladares MD Asthma active Sarah Samaniego Anxiety active Sarah Samaniego Family History of Sudden Cardiac : active ? Sarah Samaniego Family History of Hypertension: active ? Anshu Samaniego Family History of CVA or Stroke: active ? Marin Samaniego Chest pain active Sarah Samaniego ENCOUNTERS Date Type Provider Location Encounter Diag nosis - In-person encounter Office Visit Hipolito Valladares MD [facility] Tobacco abuse - In-person encounter Office Visit Hipolito Valladares MD [facility] Chest painFamily History of CVA or Stroke:Family History of Hypertension:Family History of Sudden Cardiac :AnxietyAsthma VITAL SIGNS Date Observation Value Provider Body Mass Index (Ratio) 29.44 kg/m2 Mel Valladares MD blood pressure, cuff size regular Ke rri Kemal blood pressure, diastolic 80 mm[Hg] Ke rri Kemal blood pressure, systolic 132 mm[Hg] Ker ri Willnenfsloan oxygen saturation, oximetry 99 % Yolanda Engeljulianinleshsloan respiratory rate E&M 18 /min Yolanda Machado elver pulse rate 97 /min Yolanda Bustillos lder weight E&M 188 [lb_av] Yolanda Bustillos lder height E&M 67 [in_i] Yolanda Bustillos er Body Mass Index (Ratio) 29.13 kg/m2 [...] status Current every day smoker K kelvin Somemr social history reviewed E&M i ewed - [...] Policy type / Coverage type [facility] green party ID [place] MEDICAID (2) Medicaid [id number] ADVANCE DIRECTIVES Name Date DISCUSSED - NO [...] EKG Hipolito Valladares MD complet ed SNOMED-CT: 119223163 [id number] Current Medications Documented Hipolito Valladares MD completed Stress EKG Mendez Grigsby MD complete d EKG Hipolito Valladares MD complet ed SNOMED-CT: 465147496 339711 Current Medications Documented Hipolito Valladares MD completed
--- OUTSIDE RECORDS SUMMARY | 2024-03-04 08:38 | XMS_ITS | Continuity of Care Document ---
Author Organization 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 Plan of Treatment Reminders Order Date Submit Date Provider Last Modified By Organization Details Last Modified Time Details Appointments None recorded. Lab None recorded. Referral None recorded. Procedures None recorded. Surgeries None recorded. Imaging None recorded. Medication Orders omeprazole 40 mg capsule,del ayed release 2023 024 [id number], [address], [place], [place], [id number], 13:20:11 Patient TargetsNo targets recorded. Patient InstructionsNo instructions recorded. Reason for Referral None Reported. Results Created Date Observation Date Name Description Value Unit Range Abnormal Flag Note LastModifiedBy Organization Detail LastModifiedTime 12/08/1912/08/2023 US, obste tric, trans vagin al No observ ation record ed. [email or web address] [facility] [address], [place], [address], 12/08/2023 13:05:16 12/08/19 24 12/08/2023 US, obste tric, follo w-up No observ ation record ed. [email or web address] [address], [place], [address], 12/08/2023 22:45:02 12/17/19 24 12/17/2023 US, obste tric, trans vagin al No observ ation record ed. [email or web address] [facility] [address], [place], [address], 12/17/2023 12:55:54 12/17/1912/17/2023 US, obste tric, follo w-up No observ ation record ed. [email or web address] [address], [place], [address], 12/17/2023 21:35:16 Result Notes None recorded. Problems Name Problem SNOMED Code Status Onset Date Resolution Date Notes Provider Name and Address Organization Details Recorded Time Acute vaginitis 18359984 Completed 201607/24/2020 Acute vulvovagi nitis;Rec orded Elsewhere : No Locati on: [facility] So urce: EHR Chron ic: N Practic e ID: [id number] Bill able Time: 08:45:00 AM Deya [facility] 16:38:19 Removal of intrauter ine device Completed 201407/24/2020 REMOVAL OF IUD;Recor ded Elsewhere : No Locati on: [facility] So urce: EHR Chron ic: N Practic e ID: [id number] Bill able Time: 10:45:00 AM Deya [facility] 16:38:23 Disorder of perineum Completed 201607/24/2020 Condyloma acuminatu m;Recorde d Elsewhere : No Locati on: [facility] So urce: EHR Chron ic: N Practic e ID: [id number] Bill able Time: 09:45:00 AM Deya [facility] 16:38:26 Specializ ed medical examinati on Completed 201407/24/2020 Gynecolog ical Examinati on;Record ed Elsewhere : No Locati on: [facility] So urce: EHR Chron ic: N Practic e ID: [id number] Bill able Time: 01:00:00 PM Deya Spaulding [facility] 16:38:25 Adult health examinati on Completed 201407/24/2020 ROUTINE MEDICAL EXAM;Kenny rded Elsewhere : No Locati on: [facility] So urce: EHR Chron ic: N Practic e ID: [id number] Bill able Time: 01:00:00 PM Deya Spaulding [facility] 16:38:21 Problem Notes None recorded. Procedures Surgical History Date Name Laterality Status Provider Name and Address Organization Details Recorded Time 02/19/20 23 Colposcopy completed Leti Hart [facility]- [address], [place], [address], [facility] 02/18/2023 13:38:01 02/19/20 23 Colposcopy completed Vidya Anne [facility] 12/08/2023 12:55:04 01/30/20 23 Date of Last Pap Smear completed Vidya Garcias [facility] 02/18/2023 09:53:50 01/10/20 22 IUD Insertion completed Agnieszka Vivas [facility] 01/09/2022 17:33:29 09/14/19 20 completed Renetta Prieto [facility] 01/08/2022 10:56:48 09/14/19 20 Colonoscopy completed Kathy Chatman [facility] 08/25/2020 12:37:44 03/16/19 02 Appendectomy completed Deya Spaulding [facility] 07/25/2020 15:13:17 Imaging Results None recorded. Procedure Notes None recorded. Medical Equipment None Reported. Allergies Allergen ID Allergen Name Allergen Category Reaction Reaction Severity Criticality Documentation Date Start Date Code Code System Note Provider Name and Address Organization Details Recorded Time 34239 acetamino phen medicatio n hives severe Not available 03/02/2020 161 RxNorm Agnieszka staples, [facility] 3 14:24:29 24110 trazodone medicatio n dizziness severe Not available 11/24/2022 18947 RxNorm Agnieszka staples, [facility] 3 14:24:29 66981 ibuprofen medicatio n Not available Not available Not available 11/24/2022 5640 RxNorm PT. HAS ULCER S, CANNO T TAKE [facility] 14:25:40 Medications Name Sig [...] Prescrib ed Srinath e: Yes Loca tion: [facility] M odify By: sonya tillman DateTime [...] completed Not Available Not Available Not Available Nia-D uo DHA 29 mg-1 mg-400 mg oral pack take 1 by Oral route 07/25 completed Prescrib ed [facility] e: No Locat ion: [facility] odify By: braeden tz Calli ruizer DateTime : 05/05/19 15 01:00:00 PM Not [...] Updated DateTime 12/08/2023 167.64 cm 21.6 kg/m2 60815.38 g 123 mm[Hg] 80 mm[Hg] Vidya Garcias [facility] 12:53:14 Social History Question Answer Notes LastModified by Organizat ion Details LastModified Time Tobacco Smoking Status Current Every Day Smoker Agnieszka Sangeetha staples, [facility] 11/24/2022 14:24:43 Do You Have [...] COVID-19 While That Case Was Ill? No [email or web address] Information not available 08/25/2020 In The 14 Days Before Symptom Onset, Have You Had Close Contact With A Person Who Is Under Investigation For COVID-19 While That Person Was Ill? No [email or web address] Information not available 08/25/2020 Have You Been [...] Or The Highest Degree You Have Received? 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 Yes Information not available 11/24/2022 Have You Ever Been Counseled For Unhealthy Alcohol Use? No Information not available 11/24/2022 Do You Use Protection During Sex? No [email or web address] Information not available 11/19/2022 Do You Use [...] Anxious, Or Unable To Sleep At Night)? [id number] Information not available 11/24/2022 Do You Use Any Illicit Or Recreational Drugs? No Information not available 07/24/2020 Do You Use Sunscreen Routinely? Yes Information not available 07/24/2020 Have You Used IV Drugs? No [email or web address] Information not available 11/19/2022 Sex: Unknown Functional [...] 07/26 12:39:09 Father Malignant tumor of stomach [email or web address] Not available 2023 11:32:18 Father Malignant tumor of prostate [email or web address] Not available 2023 11:32:18 Sister Disorder of thyroid gland Not available 2020 16:40:54 Sister Malignant neoplasm of uterus [email or web address] Not available 07/26 12:40:23 Sister Endometrial carcinoma [email or web address] Not available 11/19 11:38:33 Maternal Aunt Disorder of thyroid gland Not available 2020 16:40:54 Maternal Aunt Polyp of colon [email or web address] Not available 2023 11:32:18 Maternal Grandfather Malignant tumor of kidney [email or web address] Not available 2023 11:32:18 Paternal Grandfather Malignant tumor of colon [email or web address] Not available 07/26 12:39:09 Medical History Condition [...] Diagnosis/Indication Diagnosis SNOMED-CT Code Diagnosis ICD10 Code 606162 Ernestina Spaulding [facility] [address] [address] 12/08/2023 11:32:00 12/08/2023 12:39:07 Uterine size for dates discrepancy 264044254 O26.841 Z3A.01 [id number] Rufino Mooney MD [facility] [address] [address] 12/08/2023 11:32:43 12/09/2023 09:37:48 Peptic ulcer 93954525 K27.9 Amenorrhea 89626171 N91. 2 Health Concerns Section Related Observation LastModified by Organization Detai ls LastModified Time None Recorded Concern Status LastModified by Organization Details LastModified Time None Recorded Payers Encounter Date Sequence Insurance Name Policy Number Policy Handley Covered Member ID Handley Member ID Guarantor Name 12/08/2023 1 [place] [facility] Fernanda Duron [id number] Fernanda Rogerslayneavril Notes Date Note Type Note Provider Name [...] She was given recommendations on exercise, diet, vkce-ojw-eaameyi medications. We reviewed her obstetric history. We reviewed her medical history. We reviewed her social history. She will begin routine care at her next visit. Rufino Mooney MD [address], [place], [address], [facility] 12/08/2023 21:54:26 OBGyn Episode No OBEpisode recorded.
--- OUTSIDE RECORDS SUMMARY | 2024-03-04 08:44 | XMS_ITS | Continuity of Care Document ---
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 Phone Napoleon Grimaldo MD Unavailable Unavailable Allergies, Adverse Reactions, Alerts Substance Reaction Status Criticality acetaminophen Active No Information Medications Medication Instructions Dosage Effective Dates (start - stop) Status Comments Klonopin 0.5 mg tablet take 1 tablet by oral route every 4 - 6 hours as needed 0.5 MG - Active PRN for anxiety, avoid driving or operate machines amoxicillin 875 mg tablet take 1 tablet by oral route every 12 hours 875 MG - Active Effexor XR 37.5 mg capsule,extended release take 1 capsule by oral route every day with food 37.5 MG - Active Protonix 20 mg tablet,delayed release take 1 Tablet by oral route every day 20 MG - Active Topamax 100 mg tablet take 1 Tablet by oral route 2 times every day 100 MG - Active Zomig 2.5 mg tablet [...] Providers Copied on Encounter OFFICE/OUTPA TIENT VISIT, [facility], [address] [place], [address], tel:[phone] [facility] toothache1 (chief complaint) anxiety1 (chief complaint) weight loss1 (chief complaint) Atypical facial painGeneralized Anxiety DisorderHepatomegal yAbnormal weight loss 0 Dillan Bender. [address] [place], [address]. tel:[phone] Referring Provider: Napoleon Grimaldo [address] [place], [address]. tel:[phone] OFFICE/OUTPA TIENT VISIT, [facility], [address] [place], [address], tel:[phone] [facility] headache1 (chief complaint) GERD1 (chief complaint) anxiety1 (chief complaint) weight loss1 (chief complaint) Generalized Anxiety DisorderMigraineAbn ormal weight lossGERD w/o esophagitis 0 Dillan Bender. [address], [place], [address]. tel:[phone] Referring Provider: [address], [place], [address]. tel:[phone] OFFICE/OUTPA TIENT VISIT, [facility], [address], [place], [address], tel:[phone] [facility] gastric ulcer1 (chief complaint) anxiety1 (chief complaint) headache1 (chief complaint) MigraineGeneralized Anxiety DisorderGERD w/o esophagitisHemorrho id 0 Dillan Bender. [address], [place], [address]. tel:[phone] Referring Provider: [address], [place], [address]. tel:[phone] OFFICE/OUTPA TIENT VISIT, [facility], [address], [place], [address], [place] tel:[phone] [facility] sick (chief complaint) anxiety1 (chief complaint) gastric ulcer1 (chief complaint) headache1 (chief complaint) Viral infectionDepression Chronic gastric ulcer w/o perforationMigraine 3 0 Dillan Bender. [address], [place], [address]. tel:[phone] Referring Provider: [address], [place], [address]. tel:[phone] OFFICE/OUTPA TIENT VISIT, [facility], [address], [place], [address], [place] tel:[phone] [facility] sick (chief complaint) anxiety1 (chief complaint) pain1 (chief complaint) Acute bronchitisGeneraliz ed Anxiety DisorderChronic pain syndrome 0 Dillan Bender. [address], [place], [address]. tel:[phone] Referring Provider: [address], [place], [address]. tel:[phone] PREV VISIT, EST, AGE 18-39 [facility], [address], [place], [address], tel:[phone] [facility] Medicine physical1 (chief complaint) Encntr for general adult medical exam w/o abnormal findings 1- 0 Dillan Bender. [address], [place], [facility]. tel:[phone] Referring Provider: [address], [place], [address]. tel:[phone] OFFICE/OUTPA TIENT VISIT, [facility], [address], [place], [address], tel:[phone] [facility] headache1 (chief complaint) anxity1 (chief complaint) GERD1 (chief complaint) GERD w/o esophagitisGenerali zed Anxiety DisorderMigraine 3-201 9 Dillan Bender. [address], [place], [address]. tel:[phone] Referring Provider: [address], [place], [facility]. tel:[phone] OFFICE/OUTPA TIENT VISIT, EST [facility], [address], [place], [address], [place] tel:[phone] [facility] Medicine headache1 (chief complaint) Tension headache 0-201 9 Dillan Bender. [address], [place], [address]. tel:[phone] Referring Provider: [address], [place], [address]. tel:[phone] OFFICE/OUTPA TIENT VISIT, EST [facility], [address], [place], [address], tel:[phone] [facility] headache1 (chief complaint) MigraineTension headacheMuscle weakness 5-201 9 Dillan Bender. [address], [place], [address]. tel:[phone] Referring Provider: Napoleon Grimaldo, [address], [place], [address]. tel:[phone] OFFICE/OUTPA TIENT VISIT, [facility], [address], [place], [address], tel:[phone] [facility] HTN (chief complaint) neck pain1 (chief complaint) headache1 (chief complaint) anxiety1 (chief complaint) Generalized Anxiety DisorderMigraineEss ential (primary) hypertensionMuscle weakness 9 Dillan Bender. [address], [place], [address]. tel:[phone] Referring Provider: Napoleon Grimaldo, [address], [place], [address]. tel:[phone] OFFICE/OUTPA TIENT VISIT, [facility], [address], [place], [address], [place] tel:[phone] [facility] anxiety1 (chief complaint) headache1 (chief complaint) Generalized Anxiety DisorderMigraine 9 Dillan Bender. [address], [place], [address]. tel:[phone] Referring Provider: Napoleon Grimaldo, [address], [place], [address]. tel:[phone] OFFICE/OUTPA TIENT VISIT, [facility], [address], [place], [address], [place] tel:[phone] [facility] GI1 (chief complaint) gastric ulcer (chief complaint) Acute gastric ulcer without bleedingGastroenter itis 9 Dillan Bender. [address], [place], [address]. tel:[phone] OFFICE/OUTPA TIENT VISIT, [facility], [address], [place], [address], [place] tel:[phone] [facility] anxiety1 (chief complaint) headache1 (chief complaint) MigraineGeneralized Anxiety Disorder 9 Dillan Bender. [address], [place], [address]. tel:[phone] OFFICE/OUTPA TIENT VISIT, EST [facility], [address], [place], [address], tel:[phone] [facility] anxiety1 (chief complaint) back pain1 (chief complaint) headache1 (chief complaint) GERD1 (chief complaint) MigraineAcute gastric ulcer without bleedingGeneralized Anxiety DisorderChronic pain syndromeAbnormal weight gain 9 Dillan Bender. [address], [place], [address]. tel:[phone] Referring Provider: [address], [place], [facility]. tel:[phone] PREV VISIT, EST, AGE 18-39 [facility], [address], [place], [address], [place] tel:[phone] [facility] PHysical (chief complaint) Encntr for general adult medical exam w/o abnormal findings 9 Dillan Bender. [address], [place], [address]. tel:[phone] Referring Provider: [address], [place], [facility]. tel:[phone] PREV VISIT, EST, AGE 18-39 [facility], [address], [place], [address], [place] tel:[phone] [facility] physical (chief complaint) Encounter for general adult medical exam w abnormal findingsMigraineGen eralized Anxiety DisorderAcute gastric ulcer without bleeding 8 Dillan Bender. [address], [place], [address]. tel:[phone] OFFICE/OUTPA TIENT VISIT, EST [facility], [address], [place], [address], [place] tel:[phone] [facility] Gastric ulcer1 (chief complaint) anxiety1 (chief complaint) headache1 (chief complaint) back pain1 (chief complaint) MigraineAcute gastric ulcer without bleedingChronic pain syndromeInsomnia Mar- 8 Dillan Bender. [address], [place], [address]. tel:[phone] Referring Provider: [address], [place], [address]. tel:[phone] OFFICE/OUTPA TIENT VISIT, [facility], [address], [place], [address], tel:[phone] [facility] headache1 (chief complaint) anxiety1 (chief complaint) gastric ulcer1 (chief complaint) back pain1 (chief complaint) HeadacheGeneralized Anxiety DisorderAcute gastric ulcer without bleedingChronic pain syndrome 7 Dillan Bender. [address], [place], [facility]. [phone] Referring Provider: Carlos Castro [facility] [place], [facility]. tel:[phone] OFFICE/OUTPA TIENT VISIT, [facility], [address], [place], [address], [place] tel:[phone] [facility] anxiety1 (chief complaint) insomnia1 (chief complaint) headache1 (chief complaint) GERD1 (chief complaint) Generalized Anxiety DisorderHeadacheAcu te gastric ulcer without bleedingInsomnia Sep-1 7 Dillan Bender. [address], [place], [address]. [phone] Referring Provider: [address], [place], [address]. tel:[phone] OFFICE/OUTPA TIENT VISIT, [facility], [address] [place], [address], [place] tel:[phone] [facility] gastric ulcer1 (chief complaint) chest pain1 (chief complaint) anxiety1 (chief complaint) InsomniaAcute gastric ulcer without bleedingGeneralized Anxiety DisorderChest pain Sep-0 201 7 Dillan Bender. [address], [place], [address]. [phone] Referring Provider: Napoleon Grimaldo, [address], [place], [address]. tel:[phone] PREV VISIT, EST, AGE 18-39 [facility], [address], [place], [address], [place] [phone] [facility] Medicine PHysical (chief complaint) Encntr for general adult medical exam w/o abnormal findings 7 Dillan Bender. [address], [place], [address]. [phone] Referring Provider: Napoleon Grimaldo, [address], [place], [address]. tel:[phone] OFFICE/OUTPA TIENT VISIT, EST [facility], [address], [place], [address], [place] [phone] [facility] Medicine abd pain1 (chief complaint) headache1 (chief complaint) LBP (chief complaint) Acute gastritis without bleedingLow back painHeadache 6 Dillan Bender. [address], [place], [address]. [phone] Referring Provider: Napoleon Grimaldo [address], [place], [address]. tel:[phone] PREV VISIT, EST, AGE 18-39 [facility], [address], [place], [address], [place] tel:[phone] [facility] Medicine PHysical (chief complaint) Encntr for general adult medical exam w/o abnormal findings 6 Dillan Bender. [address], [place], [address]. [phone] Referring Provider: Napoleon Grimaldo [address], [place], [address]. tel:[phone] OFFICE/OUTPA TIENT VISIT, EST [facility], [address], [place], [address], [place] tel:[phone] [facility] Medicine sick (chief complaint) headache (chief complaint) back pain (chief complaint) Other acute sinusitisDietary surveillance and counselingHeadacheL umbago 5 Dillan Bender. [address], [place], [address]. tel:[phone] Referring Provider: [address], [place], [address]. tel:[phone] OFFICE/OUTPA TIENT VISIT, [facility], [address], [place], [address], tel:[phone] [facility] back pain (chief complaint) headache (chief complaint) Dietary surveillance and counselingLumbagoHe adacheDisturbance of skin sensation 4 Dillan Bender. [address], [place], [address]. tel:[phone] Referring Provider: [address], [place], [facility]. tel:[phone] OFFICE/OUTPA TIENT VISIT, [facility], [address], [place], [address], [place] tel:[phone] [facility] headache (chief complaint) back pain (chief complaint) Dietary surveillance and counselingHeadacheL umbagoDisturbance of skin sensation 4 Dillan Bender. [address], [place], [address]. [phone] Referring Provider: [address], [place], [address]. tel:[phone] PREV VISIT, NEW, AGE 18-39 [facility], [address], [place], [address], [place] tel:[phone] [facility] Medicine Physical (chief complaint) Dietary surveillance and counselingRoutine Medical ExamRoutine Medical Exam 4 Dillan Bender. [address], [place], [address]. tel:[phone] Family History Family Member Type Diagnosis Age At Onset Father Problem (finding) Cancer, bladder Mother Problem (finding) Diabetes mellitus Brother Problem (finding) Alive and well Father Problem (finding) Diabetes mellitus Payers Payer name Insurance type Covered alliance party ID Authoriza tion(s) No Information Social [...] Status Goal Tobacco cessation counseling completed Goal Tobacco [...] findings) ordered Referral Referred To: RO BETTENCOURT [id number] [facility]
[address], [phone] Ordered: Referrals: RO BETTENCOURT. Evaluate and treat [...] gastric ulcer. Pt has not [facility] appointment [facility] GI yet gastric ulcer1 Pt was diagnosed [...] she does not want to drive to [facility] Pt denie any nauea, vomiting Pt also [...] has headache 1-2 per week but much director of adult epilepsy and stress related per patient LBP Pt [...] o Body mass index (BMI) 31.0-31.9, adult Avoid provocative fo ods: citrus, alcohol, [...] Weight management Related to [place] headache Special diet education Related t o Body mass index (BMI) 33.0-33.9, adult Weight management Related to Ron nini Special [...] o Body mass index (BMI) 30.0-30.9, adult Prescribed Activity and Exercise Education Related to Dietary Surveillance and Counseling Prescribed Diet Educ ation/Lifestyle Education Regarding Diet Related to Dietary Surveillance and Counseling Increase physical activity Relat ed to Migraine Quit smoking Related to Migra ine Weight management Related to Ron nini Prescribed Activity and Exercise Education Related to Dietary Surveillance and Counseling Prescribed Diet Educ ation/Lifestyle Education Regarding Diet Related to Dietary Surveillance and Counseling Increase physical activity Relat ed to Headache Quit smoking Related to Heada bradley Weight management Related to Hea dache Prescribed Activity and Exercise Education Related to Dietary Surveillance and Counseling Prescribed Diet Educ ation/Lifestyle Education Regarding Diet Related to Dietary Surveillance and Counseling Increase physical activity Relat ed to Generalized Anxiety Disorder Weight management Related to Gen eralized Anxiety Disorder Prescribed Activity and Exercise Education Related to Dietary Surveillance and Counseling Prescribed Diet Educ ation/Lifestyle Education Regarding Diet Related to Dietary Surveillance and Counseling Quit smoking Related to Insom derek Prescribed Activity and Exercise Education Related to Dietary Surveillance and Counseling Prescribed Diet Educ ation/Lifestyle Education Regarding Diet Related to Dietary Surveillance and Counseling Perform [...] Mental Status Date Cognitive Assessment Orientation - [place] ed to time, place, person, situation.
== END 2024-02-28 15:07 | disposition home or self-care (01) ==
PROVIDERS: Emergency Provider Nurse Practitioner; PCP Internal Medicine
DX: U07.1 COVID-19 (principal); F17.210 Nicotine dependence, cigarettes, uncomplicated; F12.90 Cannabis use, unspecified, uncomplicated; K90.0 Celiac disease; J45.909 Unspecified asthma, uncomplicated; K21.9 Gastro-esophageal reflux disease without esophagitis
CPT/HCPCS: 87426; 87804; 99213; G0463

== ENCOUNTER 2024-04-27 00:04 | Day surgery (SDC) | payer OTHER, SELFPAY ==
[2024-04-14 12:13] VITALS: BMI 21.4
--- NOTE | 2024-04-14 12:24 | PC.NURSE ---
Report to the Outpatient Waiting Room, entrance under the green pavilion located off [facility], at time _0600__ on date _04/27/24_. Planned Procedure Time: _0730__.? Time changes happen often and if your time is changed the preop area will call you the afternoon before. - You and your visitor will be asked to self-screen and do not enter if you have any COVID symptoms. Please call surgeon if you need to reschedule. - A mask is optional within the hospital at this time. Patients may have clear liquids (water, carbonated beverages, clear teas, apple juice) until 3 hours prior to surgery with a maximum of 20 ounces. - No food from midnight until time of surgery and no smoking. This includes no chewing gum, candy or mints. - Infants may have breast milk until 4 hours before surgery, formula 6 hours prior to surgery. - Children will be allowed to drink immediately following surgery.? If applicable, please bring a bottle or sippy cup to assist with drinking. Juice, water, soda, and popsicles are readily available.? For infants on formula, please bring formula the day of surgery.? Pacifiers are allowed. Take only the following medications with a SIP of water on the morning of surgery: ____NONE DO NOT STOP ANY OF YOUR OTHER PRESCRIPTION MEDICATIONS PRIOR TO SURGERY EXCEPT THE FOLLOWING Medications to discontinue per physician ____VITAMINS 04/23/24. ASK DR SALGADO ABOUT STOPPING ASPIRIN Date to take last dose Please no make-up, nail vietnamese, hairspray, perfume, deodorant, or body powder the day of surgery.? No jewelry (including any body piercings) or valuables the day of surgery, leave them at home.? Please take a shower or bath the night before, or the morning of, surgery with an antibacterial soap.? Wear comfortable, loose fitting clothing.? Children are encouraged to wear pajamas. - Jewelry must be removed prior to entering the operating room.? Rings and piercings that are not removed may be cut off. - The hospital will not accept responsibility for valuables.? - Please leave all valuables, including medications, at home the day of surgery. If you are going home after surgery, a licensed hazardous materials tanker driver must drive you home.? - NO public transportation without another adult if you receive anesthesia. - We recommend that an adult stay with you for 24 hours following discharge. - We also recommend that you do not drive, make important decision, drink alcoholic beverages, or take any drugs that were not prescribed by your health care provider for at least 24 hours after your discharge time. For Pediatric surgeries, we recommend two adults accompany the child home. Hold all vitamins and supplements for 3 days per anesthesiologist. Follow any additional instructions given to you from your surgeon. Telephone instructions given to _PATIENT_and asked if any additional questions and then verbalized understanding. Patient advised to call surgeon office or pre surgery nurse liaison [phone] if any additional questions.
[2024-04-27] VITALS (11 sets, daily range): BP systolic 103–145; BP diastolic 68–84; PULSE 65–103; RESP 16–20; TEMP 36.6–36.8; O2SAT 95–100
--- OUTSIDE RECORDS SUMMARY | 2024-04-27 00:09 | XMS_ITS | Clinical Summary ---
Author Organization [facility] [employer] Address [address] [place] [address] Care Team Providers Care Weaver Wire Loom Name Role Phone Graciela Rosenbaum MD Primary Care Provider [phone] Source Comments [facility],non-owned Affiliates and Associated Physician Practices is amultiple site organization consisting of ambulatory clinics and hospital sitesin [place], [place], [place] and [place]. This disclosure is being madepursuant to the Care Everywhere program and may not contain all information available regarding this patient. Last updated 17.[facility] [employer] Social History Tobacco Use Types Packs/Day Years [...] of 3 - 19+ 3-dose series) 2001 COVID-19 VACCINE ( - 2023-2 5 season) 2023 INFLUENZA VACCINE (#1) 2023 DEPRESSION SCREENING 03/16/2024 ZOSTER VACCINE (1 of 2) 2032 HIB VACCINE Aged Out No longer eligi ble based on patient's age to complete this topic HPV VACCINE Aged Out No longer eligi ble based on patient's age to complete this topic MENINGOCOCCAL (Group B) VACCINE Aged Out No longer eligible based on patient's age to complete this topic MENINGOCOCCAL VACCINE Aged Out No tio heather eligible based on patient's age to complete this topic PNEUMOCOCCAL VACCINE Aged Out No long er eligible based on patient's age to complete this topic Care Teams Weaver Wire Loom Relationship Specialty Start Date End Date Graciela Rosenbaum MD [address] [place] [phone] PCP - General 10/10/08
--- OUTSIDE RECORDS SUMMARY | 2024-04-27 00:09 | XMS_ITS | Referral Summary ---
Author Organization [facility] Address [address] [place] [phone] Care Team Providers Care Automotive Glazier Name Role Phone Vladimir Napoles DO Primary Care Provider [phone] Encounters Date Type Department Care Team Description 03/28/2024 9:00 AM [facility] Procedure visit [facility] Neurology [address] [place] [phone] Mindy Dewey NP Intractable chronic migraine without aura and without status migrainosus 03/14/2024 11:30 AM [facility] Office Visit [facility] Neurology [address] [place] [phone] Mindy Dewey NP Intractable chronic migraine without aura and without status migrainosus (Primary Dx) from Last 3 Months Allergies Active Allergy [...] DAY NEEDED FOR PAIN 08/29/19 21 Active [facility] albuterol HFA () 90 mcg/actuation inhaler Inhale [...] OF BREATH OR WHEEZING 07/10/19 24 Active drospirenone, contraceptive, (Slynd) tablet tablet Take 1 [...] mouth every other day 16 tablet 5 03/15/20 24 Active Hospital, Clinic, or Other Facility Administered Medication Ordered Dose Route Frequency Start Date End Date Status onabotulinumtoxin A (BOTOX) 200 unit injection 200 UnitsIndications:Intractabl e chronic migraine without aura and without status migrainosus 200 Units OTHER Once 03/28/2024 03/28/2024 Ended Active Problems Problem Noted Date Diagnosed Date [...] Overview (10/12/2023): Acute vulvovaginitis;Recorded Elsewhere: No Location: [facility] Source: EHR Chronic: N Practice ID: [id number] [...] Sign Reading Time Taken Comments Blood Pressure 112/66 03/14/2024 11:39 AM [facility] Pulse 68 03/14/2024 11:39 AM [facility] Temperature 37.5 C (99.5 F) 08/27/2022 11:21 AM CDT Respiratory Rate 20 08/27/2022 11:21 AM CDT Oxygen Saturation 96% 03/03/2023 11:11 AM [facility] Inhaled Oxygen Concentration - - Weight 61.7 kg (136 lb) 03/28/2024 9:38 AM [facility] Height 170.2 cm (5' 7 ) 03/28/2024 9:38 AM [facility] Body Mass Index 21.3 03/28/2024 9:38 AM [facility] Plan of Treatment Not on file Procedures Procedure Name Priority Date/Time Associated Diagnosis Comments BOTOX INJECTION Routine 03/28/2024 9:00 AM [facility] Intractable chronic migraine without aura and without status migrainosus from Last 3 Months Results * Botox Injection (03/28/2024 9:00 AM [facility]) Narrative Ernestina Lawson - 03/28/2024 9:00 AM [facility] Ernestina Lawson 03/30/2024 1:17 PM Botox Injection Performed by: Mindy Dewey NP Authorized by: Mindy Dewey NP [facility] Protocol: Consent Given by: Patient Timeout: prior to procedure the correct patient, procedure, and site was verified Procedure Details - Botox Injection: Procedure Details: See Botox flow sheet for details on injection sites and amounts. This can be found in Media and labeled [facility] NEURO.BOTOX.PROCEDURE NOTES. Mindy Dewey TELETYPESETTER MONITOR IN CLINIC/BEDSIDE ORDERABLES Final Result from Last 3 Months Insurance [id number] [id number] [facility] Care Teams Automotive Glazier Relationship Specialty Start Date End Date Vladimir Napoles DO PCP - General Internal Medicine 09/27/20
--- OUTSIDE RECORDS SUMMARY | 2024-04-27 00:09 | XMS_ITS | Clinical Summary ---
Author Organization [facility] [place] Address [facility] [place] [address] Care Team Providers Care Senior Windows Administrator Name Role Phone Vladimir Napoles DO Primary Care Provider [phone] Allergies Active Allergy Reactions Criticality Noted Date [...] DAY NEEDED FOR PAIN 08/29/19 21 Active [facility] albuterol HFA () 90 mcg/actuation inhaler [...] Overview (10/12/2023): Acute vulvovaginitis;Recorded Elsewhere: No Location: [facility] Source: EHR Chronic: N Practice ID: [id number] Billable Time: 08:45:00 AM Acute gastritis 05/28/2015 Acute sinusitis 07/27/2014 Headache 11/09/2013 Low back pain 11/09/2013 Skin sensation disturbance 11/09/2013 Encounters Date Type Department Care Team Description 03/28/2024 9:00 AM LABOR SPECIALIST Procedure visit [facility] Neurology [address] [place] [address] [address] [place] [address] Mindy Dewey NP Intractable chronic migraine without aura and without status migrainosus 03/14/2024 11:30 AM LABOR SPECIALIST Office Visit [facility] Neurology [address] [place] [address] [address] [place] [address] Mindy Dewey NP Intractable chronic migraine without aura and without status migrainosus (Primary Dx) from Last 3 Months Surgical History Surgery [...] Comments Blood Pressure 112/66 03/14/2024 11:39 AM LABOR SPECIALIST Pulse 68 03/14/2024 11:39 AM LABOR SPECIALIST Temperature 37.5 C (99.5 F) 08/27/2022 11:21 AM CDT Respiratory Rate 20 08/27/2022 11:21 AM CDT Oxygen Saturation 96% 03/03/2023 11:11 AM LABOR SPECIALIST Inhaled Oxygen Concentration - - Weight 61.7 kg (136 lb) 03/28/2024 9:38 AM LABOR SPECIALIST Height 170.2 cm (5' 7 ) 03/28/2024 9:38 AM LABOR SPECIALIST Body Mass Index 21.3 03/28/2024 9:38 AM LABOR SPECIALIST Plan of Treatment Health Maintenance Due Date [...] Comments BOTOX INJECTION Routine 03/28/2024 9:00 AM LABOR SPECIALIST Intractable chronic migraine without aura and without status migrainosus from Last 3 Months Results * Botox Injection (03/28/2024 9:00 AM LABOR SPECIALIST) Narrative Niki Lawsonly - 03/28/2024 9:00 AM LABOR SPECIALIST Renny Ernestina 03/30/2024 1:17 PM Botox Injection Performed by: Mindy Dewey NP Authorized by: Mindy Dewey NP [place] Protocol: Consent Given by: Patient Timeout: prior to procedure the correct patient, procedure, and site was verified Procedure Details - Botox Injection: Procedure Details: See Botox flow sheet for details on injection sites and amounts. This can be found in Media and labeled [facility].BOTOX.PROCEDURE NOTES. Mindy Dewey REPAIR TECHNICIAN IN CLINIC/BEDSIDE ORDERABLES Final Result from Last 3 Months Insurance [facility] Care Teams Senior Windows Administrator Relationship Specialty Start Date End Date Vladimir Napoles DO PCP - General Internal Medicine 09/27/20
--- OUTSIDE RECORDS SUMMARY | 2024-04-27 00:09 | XMS_ITS | Referral Summary ---
Author Organization [facility] Address [address] [place] [address] Care Team Providers Care Spinneret Person Name Role Phone Graciela Rosenbaum MD Primary Care Provider [phone] Source Comments [facility],non-owned Affiliates and Associated Physician Practices is amultiple site organization consisting of ambulatory clinics and hospital sitesin [place], [place], [place] and [place]. This disclosure is being madepursuant to the Care Everywhere program and may not contain all information available regarding this patient. Last updated 17.[facility] Social History Tobacco Use Types Packs/Day Years Used Date Smoking Tobacco: Never Assessed Sex and Gender Information Value Date Recorded Sex Assigned at Not on file Gender Identity Not on file Sexual Orientation Not on file Plan of Treatment Not on file Care Teams Spinneret Person Relationship Specialty Start Date End Date Graciela Rosenbaum MD [address] [place] [id number] PCP - General 10/10/08
--- OUTSIDE RECORDS SUMMARY | 2024-04-27 00:09 | XMS_ITS | Data Portability ---
Author Organization [facility] Address [address] [address] Care Team Providers Care Corporate Librarian Name Role Phone GAYLE NARANJO Primary Care Provider [phone] Assessment No assessment recorded. Plan of Treatment Reminders Order Date Submit Date Provider Last Modified By Organization Details Last Modified Time Details Appointments SURG Lap Ovarian Cystectom y 2024 10:30A Koby RODRIGUEZ MD Not available Not available Not available Lab test, urine 2023 024 [email or web address] [place], [address], [place], [address], 12/30/2023 15:01:12 test, urine 2023 024 [email or web address] [place], [address], [place], [address], 01/12/2024 11:40:34 CT + NG + TV, RNA, unspecifi ed specimen 2023 024 [facility] (Lab), [address], [place], [address], 01/13/2024 16:38:17 urinalysi s, dipstick 2024 025 [facility], [address], [place], [address], 03/22/2024 13:12:11 test, urine 2024 025 diego [place], [address], [address], [place], [address], 03/22/2024 13:08:43 Referral None recorded. Procedures None recorded. Surgeries laparosco pic ovarian cystectom y (SURG) [address] [facility], [address], [place], [address], 04/12/2024 10:19:58 Imaging US, pelvis, complete [facility]24 [facility] [address], [address], [place], [address], 04/01/2024 04:07:23 US, transvagi nal 2024 025 [email or web address] [place], [facility][note 2] [address], [place], [address], 03/23/2024 21:45:30 Medication Orders metronida zole 0.75 % (37.5 mg/5 gram) vaginal gel 2024 025 [id number], [address], [place], [place], [id number], 04/08/2024 10:21:54 Patient TargetsNo targets recorded. Patient InstructionsNo instructions recorded. Reason for Referral None Reported. Results Created Date Observation Date Name Description Value Unit Range Abnormal Flag Note LastModifiedBy Organization Detail LastModifiedTime 12/08/19 24 12/08/2023 CT/GC AND TRICH OMONA S VAGIN CLAUDINE (RRNA ), URINE chlamydia trachomatis, PCR Positi ve negati ve abnormal Posit gladys: Prese nce of C. trach omati s (by YANY) Chlam ydia trach omati s RNA detec mahamed by PCR. Not Available [facility] (Lab) [address], [place], [address], 12/09/2023 14:56:40 12/08/19 24 12/08/2023 CT/GC AND TRICH OMONA S VAGIN CLAUDINE (RRNA ), URINE neisseria gonorrhoeae, PCR Negati ve negati ve Not Available [facility] (Lab) [address] [address] [facility], [place], [address], 12/09/2023 14:56:40 12/08/19 24 12/08/2023 CT/GC AND TRICH OMONA S VAGIN CLAUDINE (RRNA ), URINE trichomonas vaginalis ribosomal RNA (rrna) Negati ve negati ve Not Available [facility] (Lab) [address] [facility], [place], [address], 12/09/2023 14:56:40 12/30/1912/30/2023 pregn gaby test, urine HCG positi ve Not Available [place] [address], [place], [address], 12/30/2023 14:54:20 01/12/2001/12/2024 CT/GC AND TRICH OMONA S VAGIN CLAUDINE (RRNA ), URINE chlamydia trachomatis, PCR Negati ve negati ve Not Available [facility] (Lab) [address], [place], [address], 01/13/2024 16:38:17 01/12/2001/12/2024 CT/GC AND TRICH OMONA S VAGIN CLAUDINE (RRNA ), URINE neisseria gonorrhoeae, PCR Negati ve negati ve Not Available [facility] (Lab) [address], [place], [address], 01/13/2024 16:38:17 01/12/2001/12/2024 CT/GC AND TRICH OMONA S VAGIN CLAUDINE (RRNA ), URINE trichomonas vaginalis ribosomal RNA (rrna) Negati ve negati ve Not Available [facility] (Lab) [address], [place], [address], 01/13/2024 16:38:17 03/22/19 25 03/22/2024 WOMEN 'S HEALT H SWAB PLUS, CHELLY bacterial vaginosis (bv), tma Positi ve negati ve abnormal Not Available [facility] (Lab) [address] [place], [address], 03/24/2024 08:20:49 03/22/19 25 03/22/2024 WOMEN 'S HEALT H SWAB PLUS, CHELLY compa species, tma Negati ve negati ve Not Available [facility] (Lab) [address] [facility], [place], [address], 03/24/2024 08:20:49 03/22/19 25 03/22/2024 WOMEN 'S HEALT H SWAB PLUS, CHELLY compa glabrata, tma Negati ve negati ve Not Available [facility] (Lab) [address] [place], [address], 03/24/2024 08:20:49 03/22/19 25 03/22/2024 [facility] CHELLY trichomonas vaginalis, tma Negati ve negati ve Not Available [facility] (Lab) [address] [place], [address], 03/24/2024 08:20:49 03/22/19 25 03/22/2024 [facility] CHELLY chlamydia trachomatis, PCR Negati ve negati ve Not Available [facility] (Lab) [address] [place], [address], 03/24/2024 08:20:49 03/22/19 25 03/22/2024 WOMEN 'S HEALT H SWAB PLUS, CHELLY neisseria gonorrhoeae, PCR Negati ve negati ve Bacte rial vagin osis detec ts the follo wing bacte haris assoc iated with bacte rial vagin osis (BV): Lacto bacil chelsie (L. gasse ri, L. crisp atus and L. jense nate), Gardn erell a vagin claudine, and Atopo bium vagin ae. A singl e quali tativ e resul t is repor mahamed base on instr ument softw are to deter mine BV posit gladys or negat gladys statu s. The Izabel da speci es group tests for C. albic ans, C. tropi calis , C. parap taya is, C. dubli niens is. Testi ng is perfo rmed using the Trans cript ion Media mahamed Ampli ficat ion metho d. Tests for Izabel da glabr chiki, Trich omona s vagin claudine, Chlam ydia trach omati s, and Neiss eria gonor rhoea e are also inclu ded in this panel . Not Available [facility] (Lab) [address], [place], [address], 03/24/2024 08:20:49 03/22/1903/22/2024 CULTU RE: URINE result report SEE RESULT S BELOW Test: Cultu re: Urine Speci men Sourc e: Urine - Clean Catch Speci men Type: Urine Speci men Date: 1215 Resul t Date: 0716 Resul t Statu s: Final resul t Abnor mal: No Resul ting Lab: [facility] [address] [facility] [address] Tel: CULTU RE ----- ----- ----- --- No growt h in 1 day (dete ction level of 10,00 0 colon ies / ml.) Not Available [facility] (Lab) [address], [place], [address], 03/24/2024 08:20:50 03/22/19 25 03/22/2024 urina lysis , dipst ick Leukocytes + Not Available [address], [place], [address], 03/22/2024 13:06:08 03/22/19 25 03/22/2024 urina lysis , dipst ick Nitrite - Not Available [address], [place], [address], 03/22/2024 13:06:08 03/22/19 25 03/22/2024 urina lysis , dipst ick Urobilinogen - Not Available [facility] [address], [place], [address], 03/22/2024 13:06:08 03/22/19 25 03/22/2024 urina lysis , dipst ick Protein trace Not Available [place] [address], [place], [address], 03/22/2024 13:06:08 03/22/19 25 03/22/2024 urina lysis , dipst ick pH 7.5 Not Available [place] [address], [place], [address], 03/22/2024 13:06:08 03/22/19 25 03/22/2024 urina lysis , dipst ick Specific Laurel 1.015 Not Available [facility] kena [address], [place], [address], 03/22/2024 13:06:08 03/22/19 25 03/22/2024 urina lysis , dipst ick Ketone - Not Available [place] [address], [place], [address], 03/22/2024 13:06:08 03/22/19 25 03/22/2024 urina lysis , dipst ick Bilirubin - Not Available [facility] [address], [place], [address], 03/22/2024 13:06:08 03/22/19 25 03/22/2024 urina lysis , dipst ick Glucose - Not Available [place] [address], [place], [address], 03/22/2024 13:06:08 03/22/19 25 03/22/2024 urina lysis , dipst ick Appearance Clear Not Available [facility] ol[address], [place], [address], 03/22/2024 13:06:08 03/22/19 25 03/22/2024 urina lysis , dipst ick Color Clear Not Available [place] [address], [place], [address], 03/22/2024 13:06:08 03/22/19 25 03/22/2024 pregn gaby test, urine HCG negati ve Not Available [place] [address], [place], [address], 03/22/2024 13:08:37 12/08/19 24 12/08/2023 US, obste tric, trans vagin al No observ ation record ed. [email or web address] [place] [address], [place], [address], 12/08/2023 13:05:16 12/08/19 24 12/08/2023 US, obste tric, follo w-up No observ ation record ed. [email or web address] [address] [address], [place], [address], 12/08/2023 22:45:02 12/17/19 24 12/17/2023 US, obste tric, trans vagin al No observ ation record ed. [email or web address] [place] [address], [place], [address], 12/17/2023 12:55:54 12/17/1912/17/2023 US, obste tric, follo w-up No observ ation record ed. [email or web address] [address], [place], [address], 12/17/2023 21:35:16 03/23/19 25 03/23/2024 US, trans vagin al No observ ation record ed. [email or web address] [place] [address], [place], [address], 03/23/2024 18:08:59 03/23/19 25 03/23/2024 US, trans vagin al No observ ation record ed. [email or web address] [address], [place], [address], 03/29/2024 17:57:52 Result Notes None recorded. Problems Name Problem SNOMED Code Status Onset Date Resolution Date Notes Provider Name and Address Organization Details Recorded Time Acute vaginitis Completed 201607/24/2020 Acute vulvovagi nitis;Rec orded Elsewhere : No Locati on: [facility] So urce: EHR Chron ic: N Practic e ID: [id number] Bill able Time: 08:45:[address] [facility] 16:38:19 Removal of intrauter ine device Completed 201407/24/2020 REMOVAL OF IUD;Recor ded Elsewhere : No Locati on: [facility] So urce: EHR Chron ic: N Practic e ID: [id number] Bill able Time: 10:45:[address] [facility] 16:38:23 Disorder of perineum Completed 201607/24/2020 Condyloma acuminatu m;Recorde d Elsewhere : No Locati on: [facility] So urce: EHR Chron ic: N Practic e ID: [id number] Bill able Time: 09:45:[address] [facility] 16:38:26 Specializ ed medical examinati on Completed 201407/24/2020 Gynecolog ical Examinati on;Record ed Elsewhere : No Locati on: [facility] So urce: EHR Chron ic: N Practic e ID: [id number] Bill able Time: 01:00:00 PM Deya staples [facility] 16:38:25 Adult health examinati on Completed 201407/24/2020 ROUTINE MEDICAL EXAM;Kenny rded Elsewhere : No Locati on: [facility] So urce: EHR Chron ic: N Practic e ID: [id number] Bill able Time: 01:00:00 PM Deya staples [facility] 16:38:21 Problem Notes None recorded. Procedures Surgical History Date Name Laterality Status Provider Name and Address Organization Details Recorded Time 12/17/19 24 Dilation and Curettage completed Kelli Gates [facility] 03/22/2024 12:06:19 02/19/20 23 Colposcopy completed Leti Hart [facility]- [address], [place], [address], [facility] 02/18/2023 13:38:01 02/19/20 23 Colposcopy completed Vidya [facility] 12/08/2023 12:55:04 01/30/20 23 Date of Last Pap Smear completed Vidya Garcias [facility] 02/18/2023 09:53:50 01/10/20 22 IUD Insertion completed Agnieszka Vivas [facility] 01/09/2022 17:33:29 09/14/19 20 completed Renetta Prieto [facility] 01/08/2022 10:56:48 09/14/19 20 Colonoscopy completed Kathy Chatman [facility] 08/25/2020 12:37:44 03/16/19 02 Appendectomy completed Deya Spaulding [facility] 07/25/2020 15:13:17 Imaging Results Imaging Date Name Status LastModified by Organization Details LastModified Time 12/08/2023 US, obstetric, transvaginal completed [email or web address] [place] [address], [place], [address], 12/08/2023 13:05:16 12/08/2023 US, obstetric, follow-up completed [address], [place], [address], 12/08/2023 22:45:02 12/17/2023 US, obstetric, transvaginal completed [email or web address] [place] [address], [place], [address], 12/17/2023 12:55:54 12/17/2023 US, obstetric, follow-up completed [email or web address] [address], [place], [address], 12/17/2023 21:35:16 03/23/2024 US, transvaginal completed [email or web address] [place] [address], [place], [address], 03/23/2024 18:08:59 03/23/2024 US, transvaginal completed [email or web address] [address], [place], [address], 03/29/2024 17:57:52 Procedure Notes None recorded. Medical Equipment None Reported. Allergies Allergen ID Allergen Name Allergen Category Reaction Reaction Severity Criticality Documentation Date Start Date Code Code System Note Provider Name and Address Organization Details Recorded Time 96861 acetamino phen medicatio n hives severe Not available 03/02/2020 161 RxNorm Agnieszka Sangeetha [facility] 3 14:24:29 53556 trazodone medicatio n dizziness severe Not available 11/24/2022 13775 RxNorm Agnieszka Sangeetha [facility] 3 14:24:29 88286 ibuprofen medicatio n Not available Not available Not available 11/24/2022 5640 RxNorm PT. HAS ULCER S, CANNO T TAKE Agnieszka Vivas [facility] [place] - [facility] 3 14:25:40 Medications Name Sig Start [...] 0.75 % (37.5 mg/5 gram) vaginal gel Insert 1 applicat orful every day by vaginal route at bedtime for 5 days. 04/08 completed Not Available Not Available Not Available [...] BY MOUTH TWICE DAILY WITH MEALS FOR 5 DAYS active Not Available Not Available No t Available sulfameth oxazole 800 mg-trimet hoprim 160 [...] Prescrib ed Elsewher e: Yes Loca tion: [facility] M odify By: sonya tillman DateTime : [...] completed Not Available Not Available Not Available 04/08 completed Not Available Not Available Not Available [...] 1 by Oral route 07/25 completed Prescrib gerhard Yo e: No Locat ion: [facility] M odify By: braeden tz Calli nter DateTime : 05/05/19 01:00:00 PM Not [...] completed Not Available Not Available Not Available [facility] ODT 75 mg disintegr ating tablet TAKE 1 TABLET BY MOUTH DAILY NEEDED FOR MIGRAINE active Not Available Not Available No t Available Vitals Date Recorded Body height Body mass index (BMI) Body weight Systolic blood pressure Diastolic blood pressure Provider Name and Address Organization Details Last Updated DateTime 12/30/2023 167.64 cm 22.6 kg/m2 65428.93 g 111 mm[Hg] 73 mm[Hg] Vidya Garcias [facility] 14:29:07 Date Recorded Body height Body mass index (BMI) Body weight Systolic blood pressure Diastolic blood pressure Provider Name and Address Organization Details Last Updated DateTime 01/12/2024 167.64 cm 21.8 kg/m2 91907.97 g 111 mm[Hg] 70 mm[Hg] Vidya [facility] 4 11:39:06 Date Recorded Body height Body mass index (BMI) Body weight Systolic blood pressure Diastolic blood pressure Provider Name and Address Organization Details Last Updated DateTime 03/22/2024 167.64 cm 22.4 kg/m2 68228.9 g 105 mm[Hg] 71 mm[Hg] Kelli Gates [facility] 5 11:57:35 Date Recorded Body height Body mass index (BMI) Body weight Systolic blood pressure Diastolic blood pressure Provider Name and Address Organization Details Last Updated DateTime 04/08/2024 167.64 cm 22 kg/m2 81938.56 g 117 mm[Hg] 79 mm[Hg] Vidya [facility] 5 10:21:33 Social History Question Answer Notes LastModified by Organizat ion Details LastModified Time Tobacco Smoking Status Current Every Day Smoker [facility] 11/24/2022 14:24:43 Do You Have An [...] COVID-19 While That Case Was Ill? No [email or web address] Information not available 08/25/2020 In The 14 Days Before Symptom Onset, Have You Had Close Contact With A Person Who Is Under Investigation For COVID-19 While That Person Was Ill? No [email or web address] Information not available 08/25/2020 Have You Been To An Area Known To Be High Risk For COVID-19? No [email or web address] Information not available 08/25/2020 Are You Deaf Or Do You Have Serious Difficulty Hearing? No Information not available 07/24/2020 What Type Of Diet Are You Following? REGULAR Information not available 11/24/2022 What Is The Highest Grade Or Level Of School You Have Completed Or The Highest Degree You Have Received? 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 Yes Information not available 11/24/2022 Have You Ever Been Counseled For Unhealthy Alcohol Use? No Information not available 11/24/2022 Do You Use Protection During Sex? No [email or web address] Information not available 11/19/2022 Do You Use [...] Anxious, Or Unable To Sleep At Night)? [id number] Information not available 11/24/2022 Do You Use [...] 16:40:07 Father Malignant neoplasm of urinary bladder [email or web address] Not available 2023 11:32:18 Father Malignant tumor of colon [email or web address] Not available 07/26 12:39:09 Father Malignant tumor of stomach [email or web address] Not available 2023 11:32:18 Father Malignant tumor of prostate [email or web address] Not available 2023 11:32:18 Sister Disorder of thyroid gland Not available 2020 16:40:54 Sister Malignant neoplasm of uterus [email or web address] Not available 07/26 12:40:23 Sister Endometrial carcinoma [email or web address] Not available 11/19 11:38:33 Maternal Aunt Disorder of thyroid gland Not available 2020 16:40:54 Maternal Aunt Polyp of colon [email or web address] Not available 2023 11:32:18 Maternal Aunt Amyotrophic lateral sclerosis [email or web address] Not available 2024 12:05:10 Maternal Grandfather Malignant tumor of kidney [email or web address] Not available 2023 11:32:18 Paternal Grandfather Malignant tumor of colon [email or web address] Not available 07/26 12:39:09 Medical History Condition [...] N Thrombophilias N Gynecological History Statement/Question Response Flow Heavy Date of LMP 03/31/2024 N Was last menstrual period normal Y STIs/STDs Y Date of Last Colonoscopy Desired Control Method Seeking Pre gnancy Abnormal Pap Y On BCP's at Conception? N HPV Vaccine N Colposcopy 02/18/2023 Duration of Flow (days) 6 Current Control Method None 15 Age at First Child 29 Are cycles usually normal Y Frequency of Cycle (Q days) 30 Sexually Active? Y Menses Monthly Y Age of first menstrual cycle 17 Date of Last Pap Smear 01/29/2023 Sexual Problems? N LMP Definite 09/14/2019 N Obstetrics History GPAL:G 3 P 1 0 2 1 Type Value Full Term 1 Spontaneous 2 Living 1 Total 3 Past Encounters Encounter ID Performer Location Encounter Start Date Encounter Closed Date Diagnosis/Indication Diagnosis SNOMED-CT Code Diagnosis ICD10 Code Diagnosis Note [id number] Leti Hart [facility] [address],[facility] [place] [address] 07/25/2020 14:33:52 07/25/2020 16:01:42 Gynecologic examination [id number] Z01.419 Take Calcium with Vitamin D 1200mg daily if not receiving in daily diet. It is strongly advised to have an annual flu shot and up can obtain at most pharmacies . If you have not had a TDap shot in the last 10 years you should obtain one as well. Discussed with patient & provided with informatio n regarding Gardisil vaccine to prevent the 4 strains for HPV that cause cervical cancer if under age 26. Encourage safe sexual practices, to use condoms and limit partners if not already in a monogamous relationsh ip. Do monthly self breast exams. Have mammogram yearly or every other year depending on family history. BRCA testing is now available for patients with strong genetic history of female cancer. If interested contact the office. Engage in daily exercise of low impact aerobic exercise 45-60 minutes 4-5 times weekly. Avoid tobacco and illicit drugs as well as using moderation with alcohol intake less than 1-2 8 oz beverages daily. This lifestyle behavior pattern will lead to less health conditions and longer life span. If BMI greater than 25 weight watchers or dietary consult advised. Patient received above instructio ns, and questions have been answered. If you have any questions please call or respond to this email. Patient was made aware of the patient portal and may obtain a paper copy of today's plan if desired. Pap/hpv/st d updated Irregular periods [id number] N92.6 TVUS to be updated Has a lot of other health issues & doesn't want to miss anything. [id number] [facility] [address] [address] 08/02/2020 14:50:31 08/02/2020 15:10:27 Abnormal uterine bleeding [id number] 9100 N93.9 [id number] Leti Hart [facility] [address] [address] 08/25/2020 12:25:44 08/25/2020 17:11:53 Chronic pelvic pain of female [id number] R10.2 N94.12 TVUS reviewed & WNL Hx of Chronic pelvic pain that includes Family Hx of endometrio sis/Dyspar eunia/some times irregular cycles (spotting random); painful periods. She has other health problems including GI that prohibit her from use of systemic hormones which limits our choices of therapy to help periods; She has had IUD in the past but does not want another one b/c it caused a lot of cramping for her and her partner during sex. We previously found pelvic floor dysfunctio n on exam. I have recommende d Women's health PT --RADHA kim [place] shanice. Order & informatio n given. SHe is to return after 2mos of PT. We will then decide if she would like to pursue MD consult for possible explorator y lap for endometrio sis/tubal ligation with ablation. Would also like updates on GI issues after seeing her GI doctor (elevated liver enzymes etc). We discussed how all these issues likely effect each other & that working on managing them all will produce a better outcome. H/O given from pelvic pain society for home review. Will have recent labs from PCP office sent over. Time spent in visit is a total of 32 mins with at least 50% of visit consisting of counseling and review of plan of care. Additional precaution dario measures were taken to minimize potential exposure to the Covid-19 virus during this patient s visit, including available hand welder helper upon arrive, temperatur e check and being asked a series of screening questions. All staff wore face coverings during this encounter, as well as provided additional cleaning and sanitizing of all surfaces, including countertop s, pens, chairs, door handles, light switches, etc, prior to and following the patient s visit. [id number] MAUREEN Bailey [place] [address] [address] 01/08/2022 10:46:02 01/08/2022 12:32:37 Contraception care management [id number] Z30.9 We discussed all BC options in-depthDi scussed R/B of all BC optionsShe desires Mirena IUD She has been counseled on all of the r/b/a of placement of an intrauteri ne device that include but are not limited to uterine perforatio n, injury to cervix, vagina, bladder, and bowel.Risk s of bleeding due to injury or increased irregular bleeding due to progestin effect of the device. Risks of infection would be increased within the first 21 days of placement with concommita nt cervicitis . She understand s that the device will need to be removed in this instance due to increased risk of Pelvic inflammato ry disease. Patient is aware she is at higher risk for STD and if contracted she could lose her fertility. Pt is aware that if occurs that she should contact office immediatel y to rule out ectopic which could be life threatenin g. IUD will also need to be removed and this could cause miscarriag e. Patient also informed that in the event her strings are absent or embedded at the time of removal she may need to have the IUD surgically removed. She declines STI testing prior to IUD insertionS he is currently on her period - will schedule to RTC tomorrow for IUD insertion Time spent in visit is a total of 15 mins with at least 50% of visit consisting of counseling and review of plan of care. [id number] Rufino Rodriguez MD [facility] [address],[place] [address] 01/09/2022 17:16:11 01/13/2022 22:57:58 Screening procedure [id number] Z13.9 Stenosis of cervix 99466 006 N88.2 Patient presents for IUD insertion. IUD could not be inserted. Endocervix could not be passed. Multiple attempts were made with the os finder and a dilator. We discussed treatment options. We agreed to hysterosco pic assisted insertion. Diagnostic hysterosco py and IUD insertion will be performed. Diagnosis of the endocervix for cervical stenosis will be performed. [facility] management [id number] Z30.9 [id number] Phoebe Bell [facility] [address],[place] [address] 11/07/2022 10:01:58 11/07/2022 11:31:42 Threatened miscarriage [id number] O20.0 Z3A.01 [id number] Phoebe Bell [facility] [address],[place] [address] 11/19/2022 10:56:44 11/19/2022 13:54:56 Threatened miscarriage [id number] O20.0 Z3A.01 [id number] Jie Wolff CNM [facility] [address],[place] [address] 11/19/2022 10:57:11 11/19/2022 12:13:32 Threatened miscarriage [id number] O20.0 check labs, precaution s wants another confirmati on plan us thursday with dr. rodriguez [id number] Ernestina Spaulding [facility] [address],[place] [address] 11/24/2022 13:53:30 11/24/2022 14:43:49 Missed miscarriage [id number] O02.1 Z3A.01 [id number] Rufino Rodriguez MD [facility] [address],[place] [address] 11/24/2022 13:54:01 11/24/2022 15:24:29 Missed miscarriage [id number] O02.1 Z3A.01 this patient is a 42 year old female with a missed . We discussed the findings. They are conclusive . We discussed the frequency of miscarriag e. We discussed the etiology in and natural history miscarriag e. talked about her future fertility and pregnancie s. We discussed treatment options. she understand s her treatment options. She understand s there are medical and surgical treatment options. She understand s that observatio n for spontaneou s miscarriag es reasonable as well. We talked about the risk and benefits of each option. Talked about these in detail. We spent 25 minutes face-to-fa ce. Patient is considerin g treatment options. [id number] Ernestina Spaulding [facility] [address],[place] [address] 12/16/2022 10:29:51 12/16/2022 11:15:36 Missed miscarriage [id number] O02.1 Z3A.01 this patient is a 42 year old female with a missed . We discussed the findings. They are conclusive . We discussed the frequency of miscarriag e. We discussed the etiology in and natural history miscarriag e. talked about her future fertility and pregnancie s. We discussed treatment options. she understand s her treatment options. She understand s there are medical and surgical treatment options. She understand s that observatio n for spontaneou s miscarriag es reasonable as well. We talked about the risk and benefits of each option. Talked about these in detail. We spent 25 minutes face-to-fa ce. Patient is considerin g treatment options. [id number] Rufino Rodriguez MD [facility] [address] [address] 12/16/2022 10:30:03 12/16/2022 11:43:37 Bacterial vaginosis [id number] N76.0 Complete miscarriage [id number] O03.9 patient is a 42-year-ol d female presesnts for follow-up on miscarriag e. She appears to have completely pased the products conception . Ultrasound appears normal. She has diminished and very light bleeding. She had an episode of intense cramping and passing large clots. We talked about her symptoms, we talked about recurrent miscarriag e. We talked about future . She is going to try to get again soon. We talked about contracept ion some to. We spent over 20 minutes face-to-fa ce. More than 50% was counseling [id number] Leti Hart , [facility] [address] [address] 01/29/2023 12:41:24 01/29/2023 16:05:07 Gynecologic examination [id number] Z11.51 Z11.8 Z11.3 Take Calcium with Vitamin D 1200mg daily if not receiving in daily diet. It is strongly advised to have an annual flu shot and up can obtain at most pharmacies . If you have not had a TDap shot in the last 10 years you should obtain one as well. Discussed with patient & provided with informatio n regarding Gardisil vaccine to prevent the 4 strains for HPV that cause cervical cancer if under age 26. Encourage safe sexual practices, to use condoms and limit partners if not already in a monogamous relationsh ip. Do monthly self breast exams. Have mammogram yearly or every other year depending on family history. BRCA testing is now available for patients with strong genetic history of female cancer. If interested contact the office. Engage in daily exercise of low impact aerobic exercise 45-60 minutes 4-5 times weekly. Avoid tobacco and illicit drugs as well as using moderation with alcohol intake less than 1-2 8 oz beverages daily. This lifestyle behavior pattern will lead to less health conditions and longer life span. If BMI greater than 25 weight watchers or dietary consult advised. Patient received above instructio ns, and questions have been answered. If you have any questions please call or respond to this email. Patient was made aware of the patient portal and may obtain a paper copy of today's plan if desired. Pap/hpv sentSTD Screen sentGeneti c Screen discussedC olon Screen naDexa Screen naRoutine Labs PCP Screening mammography 24 [id number] Z12.31 Faxed Vaginitis [id number] N76.0 Suspect BVRx sent Counseled on medication R/B's, Most common side effects, & use. All questions were answered to patient satisfacti on. Contracept ion care management [id number] Z30.9 Discussed all control options in great detail. Pt would like to start POP. She is aware of the risks and benefits. She has contraindi cations to use of OCP or other estrogen containing hormonal therapy. Pt will start her pills on the first thursday following the start of her period. She is aware it is not effective for control the first month. She is also aware of the importance of taking at the same time every day. Encouraged use of condoms as the pill does not protect against STD's. Will return in 3 months for med check. Consent was read and signed. Pt verbalized understand ing. Slynd samples givenRTO x 3mos med check [id number] [facility] [address],[place] [address] 02/18/2023 10:05:35 02/18/2023 13:51:50 Screening procedure [id number] Z13.9 Low grade squamous intraepithelial lesion on cervical Papanicolaou smear [id number] 9105 R87.612 See procedure notes.Post -procedure instructio ns reviewed with understand ing verbalized .Will contact with results & next steps in plan of care. Counseled on Pap/HPV guidelines /Testing/R esults with understand ing verbalized .All questions answered to patient satisfacti on. Booklet & additional resources regarding pap smear/HPV/ Pap results given. [email or web address].cancer.g ov/types/c ervical/un derstandin g-abnormal -hpv-and-p ap-test-re sults/unde rstanding- cervical-c hanges.pdf [id number] Ernestina Spaulding [facility] [address],[place] [address] 12/08/2023 11:32:00 12/08/2023 12:39:07 Uterine size for dates discrepancy [id number] O26.841 Z3A.01 [id number] Rufino Rodriguez MD [facility] [address],[place] [address] 12/08/2023 11:32:43 12/09/2023 09:37:48 Peptic ulcer 92779135 K27.9 Amenorrhea 30081110 N91. 2 this patient is a 43-year-ol d female who presents for amenorrhea . She is a positive test. Ultrasound revealed a 1st trimester gestation. Patient has no complaints . We talked about early care. Talked about genetic screening. We talked about her ultrasound results. We talked about the 12 week ultrasound that has genetic screening components . She was given recommenda tions on exercise, diet, over-the-c ounter medication s. We reviewed her obstetric history. We reviewed her medical history. We reviewed her social history. She will begin routine care at her next visit. [id number] [facility] [address] [address] 12/17/2023 10:30:04 12/17/2023 10:59:23 Missed miscarriage [id number] O02.1 Z3A.01 this patient is a 42 year old female with a missed . We discussed the findings. They are conclusive . We discussed the frequency of miscarriag e. We discussed the etiology in and natural history miscarriag e. talked about her future fertility and pregnancie s. We discussed treatment options. she understand s her treatment options. She understand s there are medical and surgical treatment options. She understand s that observatio n for spontaneou s miscarriag es reasonable as well. We talked about the risk and benefits of each option. Talked about these in detail. We spent 25 minutes face-to-fa ce. Patient is considerin g treatment options. [id number] [facility] [address],[place] [address] 12/17/2023 10:47:04 12/17/2023 11:42:21 Missed miscarriage [id number] O02.1 Z3A.01 This patient is a 43 female who presents for [missed discussed the etiology, frequency, natural history, and treatment of this condition. Spent more than 35 minutes talking about the above, as well as, her history, the particular findings of her case, and detail of her the treatment options. We discussed the risk benefits of each option. She understand s the risk include infection and hemorrhage . She understand s a D&C also holds the risk of injury. She understand s that waiting can result in a septic that is even more difficult to treat. We talked about signs and symptoms of infection. SPent more than 30 minutes in total on her care [id number] Rufino Rodriguez MD [facility] [address],[place] [address] 12/30/2023 14:14:00 12/30/2023 15:06:13 Missed miscarriage 51144404 O02.1 Z3A.01 this patient presents for follow-up on missed miscarriag e. She is 1 week from a suction D&C. She is recovering normally. Her bleeding is minimal. She has no foul-smell ing vaginal discharge. She denies any nausea, vomiting, fever, chills. We discussed contracept ion. We discussed future . She will follow up for a repeat test. [id number] Vidya Garcias [facility] [address],[place] [address] 01/12/2024 11:24:24 01/12/2024 11:41:09 Missed miscarriage [id number] O02.1 Venereal d isease screening 969470201 Z11.3 [id number] MAUREEN Bailey [facility] [address],[place] [address] 03/22/2024 11:46:38 03/22/2024 13:35:27 Vaginal discharge 766051997 N89.8 vaginitis/ STI panel sent todayurine cx sentrx sent for BV, r/b/a reviewedpe lvic u/s orderedpre cautions discussed/ questions answered Patient is to contact office or go to nearest ED/Urgent care if fever >/= 100.1, pain, excessive bleeding, unusual drainage or swelling in area of concern; or experienci ng worsening sx's or new onset of concerning sx's. Understand ing verbalized . All questions answered to patient satisfacti on. Pain in pelvis 50510875 R10.2 Venereal d isease screening 719739752 Z11.3 Vaginal odor 093147715 N 89.8 Urinary symptoms 7793408 08 R39.9 [id number] Ofe Jensen [facility] [address],[place] [address] 03/23/2024 15:00:08 03/23/2024 15:53:01 Pain in pelvis 48976994 R10.2 [id number] Rufino Rodriguez MD [facility] [address] [address] 04/08/2024 10:03:38 04/08/2024 11:19:51 Pain in pelvis 42564694 R10.2 Cyst of right ovary 1223 048405 0621219 N83.201 this patient is a 43-year-ol d female with 1 month of pelvic pain and hemorrhagi c, blood-fill ed, right ovarian cyst was observed on ultrasound . We reviewed ultrasound images today. I described the images to her. Showed them to her. We reviewed the etiology, natural history, treatment of ovarian cyst. Talked about the difference s between hemorrhagi c and simple cyst. We talked about a treatment plan. Talked about observatio n. We talked about surgical remediatio n. We agreed to proceed with laparoscop ic ovarian cystectomy . Her pain is significan t and it has been present for over a month. I spent over 30 minutes on her care in total. The patient understand s the procedure. The procedure was described to the patient in great detail. the patient also understand s the risks. The risks were also explained in detail. She understand s that injuries May occur during surgery. She understand s these injuries can result in hospitaliz ation, more surgery, and severe illness. She understand s there is risk of hemorrhage and infection. Health Concerns Section Related Observation LastModified by Organization Detai ls LastModified Time None Recorded Concern Status LastModified by Organization Details LastModified Time None Recorded Advance Directives Directive N: Payers Encounter Date Sequence Insurance Name Policy Number Policy Handley Covered Member ID Handley Member ID Guarantor Name 12/30/2023 1 [facility] (MEDICAID HMO) [id number] Crystal Buskirk [id number] Crystal Buskirk 01/12/2024 1 [facility] (MEDICAID HMO) [id number] Crystal Buskirk [id number] Crystal Buskirk 03/22/2024 1 [facility] (MEDICAID HMO) [id number] Crystal Buskirk [id number] Crystal Buskirk 03/23/2024 1 [facility] (MEDICAID HMO) [id number] Crystal Buskirk [id number] Crystal Buskirk 04/08/2024 1 [facility] (MEDICAID HMO) [id number] Fernanda Duron [id number] Fernanda Duron Notes Date Note Type Note [...] follow up for a repeat test. Rufino Rodriguez MD [address], [place], [address], [facility] 12/30/2023 15:02:35 03/22/2024 text/html 43yopresents for vaginal d/c, odor, pelvic painwhite/clear vaginal discharge, odor comes and goesbilateral pelvic cramping, feels randomly throughout the week. Worse on her periodrecently SA with new partner LMP 12/1h/o d&C for MAB 12/2023h/o +chlamydia 11/2023, repeat testing negative 12/2023 neg n/v/fneg flu-like symptomsneg urinary symptoms MAUREEN Bailey [address], [place], [address], [facility] 03/22/2024 13:10:03 04/08/2024 text/html this patient is a 43-year-old female with 1 month of pelvic pain and hemorrhagic, blood-filled, right ovarian cyst was observed on ultrasound. We reviewed ultrasound images today. I described the images to her. Showed them to her. We reviewed the etiology, natural history, treatment of ovarian cyst. Talked about the differences between hemorrhagic and simple cyst. We talked about a treatment plan. Talked about observation. We talked about surgical remediation. We agreed to proceed with laparoscopic ovarian cystectomy. Her pain is significant and it has been present for over a month. I spent over 30 minutes on her care in total. The patient understands the procedure. The procedure was described to the patient in great detail. the patient also understands the risks. The risks were also explained in detail. She understands that injuries May occur during surgery. She understands these injuries can result in hospitalization, more surgery, and severe illness. She understands there is risk of hemorrhage and infection. Rufino Rodriguez MD [address], [place], [address], [place] [facility] 04/08/2024 11:05:31 OBGyn Episode Ob Episode Information Episode Created Date Number of Fetuses Patient Bloodtype Patient rh Status Prepregnancy Weight lbs Domestic Partner Domestic Partner Phone Father Name Orchard Manager Status 07/25/19 21 1 CLOSED Fetus Data First Name Last Name Admitted to NICU Weight (g) Sex Living Outcome Pediatric Complications Fetus ID Race Codes Race Delivery Type 3316.66 [id number] M Full Term [id number] Vaginal Delivery Сергей Calculation Initial Сергей Date Initial Exam Date Initial Exam Provider Initial Ultrasound Date Last Menstrual Period Date Ultra Sound Weeks Gestation 0 Eighteen To Twenty Week Сергей Update Ultra Sound Date Fundal Height At Umbil Quickening Date Ultra Sound Latest Weeks Gestation Final Сергей Confirmed By Final Сергей Confirmed Date Final Сергей Date Ultra Sound Latest Days Gestation 0 [...] Domestic Partner Domestic Partner Phone Father Name Orchard Manager Status 11/20/19 23 1 CLOSED Fetus Data First Name Last Name Admitted to NICU Weight (g) Sex Living Outcome Pediatric Complications Fetus ID Race Codes Race Delivery Type , Spontane ous [id number] Сергей Calculation Initial Сергей Date Initial Exam Date Initial Exam Provider Initial Ultrasound Date Last Menstrual Period Date Ultra Sound Weeks Gestation 0 Eighteen To Twenty Week Сергей Update Ultra Sound Date Fundal Height At Umbil Quickening Date Ultra Sound Latest Weeks Gestation Final Сергей Confirmed By Final Сергей Confirmed Date Final Сергей Date Ultra Sound Latest Days Gestation 0 [...] Domestic Partner Domestic Partner Phone Father Name Orchard Manager Status 12/30/19 24 1 CLOSED Fetus Data First Name Last Name Admitted to NICU Weight (g) Sex Living Outcome Pediatric Complications Fetus ID Race Codes Race Delivery Type , Spontane ous [id number] Сергей Calculation Initial Сергей Date Initial Exam Date Initial Exam Provider Initial Ultrasound Date Last Menstrual Period Date Ultra Sound Weeks Gestation 0 Eighteen To Twenty Week Сергей Update Ultra Sound Date Fundal Height At Umbil Quickening Date Ultra Sound Latest Weeks Gestation Final Сергей Confirmed By Final Сергей Confirmed Date Final Сергей Date Ultra Sound Latest Days Gestation 0 [...]
--- OUTSIDE RECORDS SUMMARY | 2024-04-27 00:09 | XMS_ITS | Continuity of Care Document ---
Author Organization [facility] Address [address] [place] [address] [place] [address] Phone Care Team Providers Care Autism Specialist Name Role Phone Napoleon Grimaldo MD Unavailable [...] Providers Copied on Encounter OFFICE/OUTPA TIENT VISIT, [facility], [address] [facility] [place], [place], [address], tel:[phone] [facility], [place], [facility] toothache1 (chief complaint) anxiety1 (chief complaint) weight loss1 (chief complaint) Atypical facial painGeneralized Anxiety DisorderHepatomegal yAbnormal weight loss 0 Dillan Bender. [address], [address] [place], [address] , [place]. tel:[phone] Referring Provider: Napoleon Grimaldo, [address], [address]. tel:[phone] OFFICE/OUTPA TIENT VISIT, [facility], [address], [place], [address], tel:[phone] [facility] Medicine headache1 (chief complaint) GERD1 (chief complaint) anxiety1 (chief complaint) weight loss1 (chief complaint) Generalized Anxiety DisorderMigraineAbn ormal weight lossGERD w/o esophagitis Oct- 0 Dillan Dawkins [address], [address], [place], [place], [address] , [place]. tel:[phone] Referring Provider: Carlos [address], [place], [place], [address]. tel:[phone] OFFICE/OUTPA TIENT VISIT, [facility], [address], [place], [place], [address], [place] tel:[phone] [facility], [place], [facility] gastric ulcer1 (chief complaint) anxiety1 (chief complaint) headache1 (chief complaint) MigraineGeneralized Anxiety DisorderGERD w/o esophagitisHemorrho id 0 Dillan [address], [place], [place], [address] , [place]. tel:[phone] Referring Provider: Carlos [address], [place], [place], [address]. tel:[phone] OFFICE/OUTPA TIENT VISIT, [facility], [address], [place], [place], [address], [place] tel:[phone] [facility] [place], [facility] sick (chief complaint) anxiety1 (chief complaint) gastric ulcer1 (chief complaint) headache1 (chief complaint) Viral infectionDepression Chronic gastric ulcer w/o perforationMigraine Jun-3 0 Dillan [address], [place], [place], [address] , [place]. tel:[phone] Referring Provider: Carlos [address], [place], [place], [address]. tel:[phone] OFFICE/OUTPA TIENT VISIT, [facility], [address], [place], [place], [address], [place] tel:[phone] [facility] [place], [facility] sick (chief complaint) anxiety1 (chief complaint) pain1 (chief complaint) Acute bronchitisGeneraliz ed Anxiety DisorderChronic pain syndrome May- 0 Grimaldo Napoleon. [address], [place], [place], [address] , [place]. tel:[phone] Referring Provider: Carlos [address], [place], [place], [address]. tel:[phone] PREV VISIT, EST, AGE 18-39 [facility], [place], [facility], [address], [place], [place], [address], [place] tel:[phone] [facility] [place], [facility] physical1 (chief complaint) Encntr for general adult medical exam w/o abnormal findings 0 Dillan Bender. [address], [address], [place], [place], [address] , [place]. tel:[phone] Referring Provider: Carlos Castro [address], [place], [place], [address]. tel:[phone] OFFICE/OUTPA TIENT VISIT, [facility], [address], [place], [place], [address], [place] tel:[phone] [facility] [place] headache1 (chief complaint) anxity1 (chief complaint) GERD1 (chief complaint) GERD w/o esophagitisGenerali zed Anxiety DisorderMigraine 3-201 9 Dillan Bender. [address], [address], [place], [place], [address] , [place]. tel:[phone] Referring Provider: Carlos Castro [address], [place], [place], [address]. tel:[phone] OFFICE/OUTPA TIENT VISIT, [facility], [address], [place], [place], [address], [place] tel:[phone] [facility] [place], [facility] headache1 (chief complaint) Tension headache 0-201 9 Dillan Bender. [address], [address], [place], [place], [address] , [place]. tel:[phone] Referring Provider: Carlos Castro [address], [place], [place], [address]. tel:[phone] OFFICE/OUTPA TIENT VISIT, [facility], [address], [place], [place], [address], [place] tel:[phone] [facility] Medicine headache1 (chief complaint) MigraineTension headacheMuscle weakness 9 Dillan Bender. [address], [place], [place], [address] , [place]. tel:[phone] Referring Provider: Napoleon Grimaldo, [address], [place], [place], [address]. tel:[phone] OFFICE/OUTPA TIENT VISIT, [facility], [address], [place], [place], [address], [place] tel:[phone] [facility] HTN (chief complaint) neck pain1 (chief complaint) headache1 (chief complaint) anxiety1 (chief complaint) Generalized Anxiety DisorderMigraineEss ential (primary) hypertensionMuscle weakness 9 Dillan Bender. [address], [place], [place], [address] , [place]. tel:[phone] Referring Provider: Carlos [address], [place], [place], [address]. tel:[phone] OFFICE/OUTPA TIENT VISIT, [facility], [address], [place], [place], [address], [place] tel:[phone] [facility] [place] anxiety1 (chief complaint) headache1 (chief complaint) Generalized Anxiety DisorderMigraine 9 Dillan Bender. [address], [place], [place], [address] , [place]. tel:[phone] Referring Provider: Napoleon Grimaldo [address], [place], [place], [address]. tel:[phone] OFFICE/OUTPA TIENT VISIT, [facility], [address], [place], [place], [address], [place] tel:[phone] [facility] Medicine GI1 (chief complaint) gastric ulcer (chief complaint) Acute gastric ulcer without bleedingGastroenter itis 9 Dillan Bender. [address], [address], [place], [place], [address] , [place]. tel:[phone] OFFICE/OUTPA TIENT VISIT, EST [facility] [place], [facility], [address], [place], [place], [address], [place] tel:[phone] [facility] Medicine anxiety1 (chief complaint) headache1 (chief complaint) MigraineGeneralized Anxiety Disorder 9 Dillan Bender. [address], [address], [place], [place], [address] , [place]. tel:[phone] OFFICE/OUTPA TIENT VISIT, EST [facility] [place], [facility], [address], [place], [place], [address], [place] tel:[phone] [facility] [place] anxiety1 (chief complaint) back pain1 (chief complaint) headache1 (chief complaint) GERD1 (chief complaint) MigraineAcute gastric ulcer without bleedingGeneralized Anxiety DisorderChronic pain syndromeAbnormal weight gain 9 Dillan Bender. [address], [address], [place], [place], [address] , [place]. tel:[phone] Referring Provider: Carlos [address], [place], [place], [address]. tel:[phone] PREV VISIT, EST, AGE 18-39 [facility], [place], [facility], [address], [place], [place], [address], [place] tel:[phone] [facility] Medicine PHysical (chief complaint) Encntr for general adult medical exam w/o abnormal findings 9 Dillan Bender. [address], [address], [place], [place], [address] , [place]. tel:[phone] Referring Provider: Carlos [address], [place], [place], [address]. tel:[phone] PREV VISIT, EST, AGE 18-39 [facility] [place], [facility], [address], [place], [place], [address], [place] tel:[phone] [facility] Medicine physical (chief complaint) Encounter for general adult medical exam w abnormal findingsMigraineGen eralized Anxiety DisorderAcute gastric ulcer without bleeding 8 Dillan Bender. [address], [place], [place], [address] , [place]. tel:[phone] OFFICE/OUTPA TIENT VISIT, [facility], [address], [place], [place], [address], [place] tel:[phone] [facility] [place] Gastric ulcer1 (chief complaint) anxiety1 (chief complaint) headache1 (chief complaint) back pain1 (chief complaint) MigraineAcute gastric ulcer without bleedingChronic pain syndromeInsomnia 8 Dillan Bender. [address], [place], [place], [address] , [place]. tel:[phone] Referring Provider: Carlos [address], [place], [place], [address]. tel:[phone] OFFICE/OUTPA TIENT VISIT, [facility], [address], [place], [place], [address], [place] tel:[phone] [facility] [place] headache1 (chief complaint) anxiety1 (chief complaint) gastric ulcer1 (chief complaint) back pain1 (chief complaint) HeadacheGeneralized Anxiety DisorderAcute gastric ulcer without bleedingChronic pain syndrome 7 Dillan Dawkins [address], [address], [place], [place], [address] , [place]. tel:[phone] Referring Provider: Carlos [address], [place], [place], [address]. tel:[phone] OFFICE/OUTPA TIENT VISIT, [facility], [address], [place], [address], [place] tel:[phone] [facility] [place] anxiety1 (chief complaint) insomnia1 (chief complaint) headache1 (chief complaint) GERD1 (chief complaint) Generalized Anxiety DisorderHeadacheAcu te gastric ulcer without bleedingInsomnia 7 Dillan Bender. [address], [place], [place], [address] , [place]. tel:[phone] Referring Provider: Carlos [address], [place], [place], [address]. tel:[phone] OFFICE/OUTPA TIENT VISIT, EST [facility] [place], [facility], [address], [place], [place], [address], [place] [phone] [facility] [place] gastric ulcer1 (chief complaint) chest pain1 (chief complaint) anxiety1 (chief complaint) InsomniaAcute gastric ulcer without bleedingGeneralized Anxiety DisorderChest pain Sep-0 7 Dillan Bender. [address], [address], [place], [place], [address] , [place]. [phone] Referring Provider: Carlos [address], [place], [place], [address]. tel:[phone] PREV VISIT, EST, AGE 18-39 [facility] [place], [facility], [address], [place], [address], [place] tel:[phone] [facility] [place] PHysical (chief complaint) Encntr for general adult medical exam w/o abnormal findings Oct- 7 Dillan Bender. [address], [address], [place], [place], [address] , [place]. [phone] Referring Provider: Carlos [address], [place], [place], [address]. tel:[phone] OFFICE/OUTPA TIENT VISIT, EST [facility] [place], [address], [place], [place], [address], [place] tel:[phone] [facility] [place] abd pain1 (chief complaint) headache1 (chief complaint) LBP (chief complaint) Acute gastritis without bleedingLow back painHeadache May- 6 Dillan Bender. [address], [place], [place], [address] , [place]. [phone] Referring Provider: Carlos [address], [place], [place], [address]. tel:[phone] PREV VISIT, EST, AGE 18-39 [facility] [place], [facility], [address], [place], [place], [address], [place] tel:[phone] [facility] [place] PHysical (chief complaint) Encntr for general adult medical exam w/o abnormal findings 6 Dillan Dawkins [address], [place], [place], [address] , [place]. tel:[phone] Referring Provider: Carlos [address], [place], [place], [address]. tel:[phone] OFFICE/OUTPA TIENT VISIT, [facility], [address], [place], [address], [place] tel:[phone] [facility] [place] sick (chief complaint) headache (chief complaint) back pain (chief complaint) Other acute sinusitisDietary surveillance and counselingHeadacheL umbago 5 Dillan Dawkins [address], [address], [place], [place], [address] , [place]. tel:[phone] Referring Provider: Carlos [address], [place], [place], [address]. tel:[phone] OFFICE/OUTPA TIENT VISIT, [facility], [address], [place], [address], [place] tel:[phone] [facility] [place] back pain (chief complaint) headache (chief complaint) Dietary surveillance and counselingLumbagoHe adacheDisturbance of skin sensation 0 4 Dillan Dawkins [address], [place], [place], [address] , [place]. tel:[phone] Referring Provider: Carlos [address], [place], [place], [address]. tel:[phone] OFFICE/OUTPA TIENT VISIT, [facility], [address], [place], [place], [address], [place] tel:[phone] [facility] [place] headache (chief complaint) back pain (chief complaint) Dietary surveillance and counselingHeadacheL umbagoDisturbance of skin sensation 4 Dillan [address], [place], [place], [address] , [place]. tel:[phone] Referring Provider: Napoleon Grimaldo, [address], [place], [place], [address]. tel:[phone] PREV VISIT, NEW, AGE 18-39 [facility], [address], [place], [place], [address], [place] tel:[phone] [facility] Medicine Physical (chief complaint) Dietary surveillance and counselingRoutine Medical ExamRoutine Medical Exam 4 Dillan Bender. [address], [place], [place], [address] , [place]. tel:[phone] Family History Family Member Type Diagnosis Age At Onset Father Problem (finding) Cancer, bladder Mother Problem (finding) Diabetes mellitus Brother Problem (finding) Alive and well Father Problem (finding) Diabetes mellitus Payers Payer name Insurance type Covered green party ID Authoriza tion(s) No Information Social [...] findings) ordered Referral Referred To: RO [facility] [id number] [facility]
[address], [id number] Ordered: Referrals: RO BETTENCOURT. Evaluate and treat ordered Referral Ordered: US EXAM, ABDOM, COMPLETE ordered Referral Ordered: OPERATIVE UPPER GI ENDOSCOPY ordered Referral Referred To: Physical Therapy Ordered: Referral: Physical Therapy. ordered Referral Ordered: MRI LUMBAR SPINE W/O DYE ordered Referral Ordered: MRI BRAIN W/O & W/DYE ordered History Of Present Illness Encounter Date Complaint History Of Prese nt Illness anxiety1 Pt has chronic a nxiety and [...] Pt had benign EGD and colonoscopy also. toothache1 Pt c/o right upp er molar [...] days. Pt notices mild swelling right cheek GERD1 Pt has GERD Pt h ad [...] homicidal thought ,Pt denies any crying spells headache1 Pt has migraine headache Pt has headache 1-2 per month Pt had normal MRI of brain Pt takes ultram PRN when zomig does not help Pt takes topamax daily Pt denies any acute headache weight loss1 Pt has been losi ng weight pt denies any appetite loss, nausea, vomiting, diarrhea, blood in stool. Pt does have chronic abd pain. Pt had negative EGD and colonoscopy per pt gastric ulcer1 Pt finally saw G i and she is on protonix 20 mg daily. Pt had colonoscopy which was ok but she has hemorrhoid. pt will have EGD tomorrow. Pt has internal hemorrhoid and she has some bright red blood when she wipes. Pt will have hemorrhoid surgery by GI soon headache1 Pt has migraine headache. Pt had normal MRI of brain .Pt denies any headache while on topamax. Pt rarely uses zomig. Pt has 1-2 headache per month anxiety1 Pt has chronic a nxiety and depression Pt takes effexor and klonopin PRn and she is doing better Pt needs refill. Pt denies any suicidal or homicidal thought headache1 Pt has chronic m igraine and stress headache Pt takes topamax pt states that zomig does help Pt has headache 1-2 per week .Pt denies any acute headache gastric ulcer1 Pt has history o f gastric ulcer pt takes omeprazole only PRn Pt has frequent GERD. Pt is noncompliant with EGD. Pt takes omeprazole on and off Pt denies any acute abdominal pain anxiety1 Pt feels severel y anxious and depressed Pt has poor appetite Pt is noncompliant with SSRis. Pt denies any suicidal or homicidal thought. Pt has crying spells. Pt has been having nightmares .Pt has poor sleep sick Pt states that s he just [...] pain anxiety1 Pt has chronic a nxiety Pt denies any depression or any suicidal thought, Pt denies any crying spells. Pt takes klonopin PRN. Pt needs refill sick Pt c/o fever on and off [...] inhaler but not helping for her sob pain1 Pt has intermitt ent back and neck pain Pt denies any sciatica or any loss of bladder control. Pt takes flexeril PRN and doing ok physical1 Pt needs annual physical. pt has [...] klonopin PRN. Pt denies any other complaints GERD1 Pt has gastric u lcer Pt has chronic GERD Pt takes OTC omeprazole daily Pt failed zantac and pepcid Pt has gERD without omeprazole anxity1 Pt has chronic a nxiety and mild depression, Pt failed cymbalta, effexor, zoloft, prozac and paxil, Pt takes klonopin PRN and doing ok pt denies any suicidal or homicidal thought. Pt denies any crying spells headache1 Pt has chronic m igraine and tension headache. Pt denies any worsening headache Pt has headache 1-2 per week despite taking topamax Pt failed imitrex, amitriptyline and also propranolol. Pt is on topamax currently pt thinks it is due to tension pain. Pt states that neck pain and arm symptoms resolved with PT headache1 Pt has tension h eadache and [...] abd pain Pt is noncompliant with EGD headache1 Pt has not had a ny [...] which helps her anxiety and panic attacks GERD1 Pt has intermitt ent GERd pt has history of gastric ulcer. Pt is noncompliant with GI referral anxiety1 Pt has chronic a nxiety and [...] or waking up at night with headache. PHysical Pt needs annual physical. Pt c/o [...] Pt denies any suicidal or homicidal thought. back pain1 Pt has chronic l ow back pain. Pt deneis any worsening pain ,Pt denies any loss of bladder control Pt wnts refill of flexeril. headache1 Pt states that t opamax is helping Pt has not had any ehadache for 3 months. Pt has not needed to use imitrex. anxiety1 Pt has chronic a nxiety and depression. Pt states that prozac working well. Pt denies any crying spells. Pt states that her mood is better. Pt denies any suicidal or homicidal thought Gastric ulcer1 Pt had history o f gastric ulcer pt is taking omeprazole otc daily if she remember. Pt otherwise has midepigastric pain. Pt denie any nausea, vomiting, bloody in stool gastric ulcer1 Pt has gastric u lcer. Pt is taking OTC omeprazole now. Pt still has not seen GI yet for EGD. anxiety1 Pt has chornic a nxiety and depression and insomnia. Pt takes prozac and seroquel and doing ok. Pt denies any suicidal or homcidial thought. Pt states that seroquel really helps. headache1 Pt has chronic m igraine headache. Pt take topamax which helps but she still has frequent breakthrough headache Pt states that imitrex does relieve her headache Pt denies any acute headache back pain1 Pt has chronic i ntermittent [...] gastric ulcer. Pt has not made appointment [facility] yet anxiety1 Pt has chronic a nxiety and depression. Pt takes celexa but not helping. Pt still has crying spells. Her huband is very ill now and she has a lot of stress. Pt has insomnia also. Pt denies any suicidal or homicidal thought. Pt feels depressed and stressed out. chest pain1 Pt has atypical chest pain. Pt went to see cardiology and she had negative echo and stress test per pt. Pt denies any exertional chest pain. Pt states that chest pain is worse with stress gastric ulcer1 Pt was diagnosed with gastric ulcer last year. Her biospy was ok Pt is on zantac now. Pt denies any GERD or abd pain. Pt did not follow up with GI per instruction. PHysical Pt needs annual physical. 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 Related to Acute gastric ulcer without bleeding Eat smaller meals, n o eating three hours prior to bedtime. Related to Acute gastric ulcer without bleeding Elevate head of bed prior to sle ep. Related to Acute gastric ulcer without bleeding Weight management Related to Ron nini Quit smoking Related to Migra ine Increase physical activity Relat ed to Migraine Special diet education Related t o Body [...] bradley Weight management Related to Hea dache Increase physical activity Relat ed to Generalized Anxiety Disorder Weight management Related to Gen eralized Anxiety Disorder Prescribed Diet Educ ation/Lifestyle Education Regarding Diet Related to Dietary Surveillance and Counseling Prescribed Activity and Exercise Education Related to Dietary Surveillance and Counseling Quit [...] caloric intake Related to Dietary surveillance counseling Decrease caloric intake Related to Dietary surveillance counseling Dietary counseling Related to Di etary surveillance counseling Assessments Type Assessment Date assessment Atypical facial pain assessment Generalized Anxiety Disorder Dec assessment Hepatomegaly assessment Abnormal weight loss Mental Status Date Cognitive Assessment Orientation - [place] ed to time, place, person, situation.
--- OUTSIDE RECORDS SUMMARY | 2024-04-27 00:09 | XMS_ITS | Clinical Summary ---
Author Organization [facility] Address [address] [place] [address] Care Team Providers Care Photoengraving Proofer Name Role Phone Vladimir Napoles DO Primary Care Provider [phone] Allergies Active Allergy Reactions Criticality Noted Date [...] Comments Blood Pressure 126/63 04/14/2023 4:50 PM MALT LOADER Pulse 78 04/14/2023 4:50 PM MALT LOADER Temperature 36.3 C (97.4 F) 04/14/2023 4:50 PM MALT LOADER Respiratory Rate 18 04/14/2023 4:50 PM MALT LOADER Oxygen Saturation 99% 04/14/2023 4:50 PM MALT LOADER Inhaled Oxygen Concentration - - Weight 61.2 kg (135 lb) 04/14/2023 4:50 PM MALT LOADER Height 170.2 cm (5' 7 ) 04/14/2023 4:50 PM MALT LOADER Body Mass Index 21.14 04/14/2023 4:50 PM MALT LOADER Plan of Treatment Health Maintenance Due Date Last Done Comments Annual Physical 1985 Pneumococcal Vaccine: Pediatrics (0 to 5 Years) and At-Risk Patients (6 to 64 Years) (1 of 2 - PCV) 1988 Hepatitis C 2000 Hepatitis B Vaccines (1 of 3 - 19+ 3-dose series) 2001 Mammogram Screening 2022 COVID-19 Vaccine ( - season) 2023 Influenza Adult (#1) 2023 Cervical Cancer Screening Pap Smear (Age 30 to 64) Every 3 Years 01/29/2026 01/29/2023, 01/29/2023, 01/29/2023, Additional history exists Cervical Cancer Screening Pap with HPV Testing (Age 30 to 64) Every 5 Years 01/30/2028 01/29/2023, 01/29/2023, 07/25/2020 Cervical Cancer Screening with HPV 01/30/2028 DTaP, Tdap and Td Vaccines (2 - Td or Tdap) 01/29/2031 01/29/2021 HPV Vaccines Aged Out No longer eligi ble based on patient's age to complete this topic Meningococcal B Vaccine Aged Out No l onger eligible based on patient's age to complete this topic Meningococcal Vaccine Aged Out No tio heather eligible based on patient's age to complete this topic RSV Immunizations Under 20 Months Aged Out No longer eligible based on patient's age to complete this topic Insurance [employer] Advance Directives Documents on File Type Date Recorded Patient Dining Car Hop Expl anation Legal Documents 07/25/2020 10:42 AM RECVD & CMPLTD ATTY REQ. FOR BILLS FOR [facility] FOR [employer] LAW Care Teams Photoengraving Proofer Relationship Specialty Start Date End Date Vladimir Napoles DO [address] [place] [address] PCP - General INTERNAL MEDICINE 12/12/20
--- OUTSIDE RECORDS SUMMARY | 2024-04-27 00:09 | XMS_ITS | CONTINUITY OF CARE DOCUMENT ---
Author Name merline, merline Address Unknown Organization [facility] Address [address] [place] [address] [address] [place] [address] Phone [phone] Care Team Providers Care Movie Extra Name Role Phone Blaine WHITE, Hipolito Unavailable [phone] NATHALIA MA MD Unavailable [phone] NATHALIA MA MD Unavailable [phone] PROBLEMS Condition Status Date Provider Notes Chest pain active Sarah Samaniego Family History of CVA or Stroke: active ? Marin Samaniego Family History of Hypertension: active ? Anshu Samaniego Family History of Sudden Cardiac : active ? Sarah Samaniego Anxiety active Sarah Samaniego Asthma active Sarah Samaniego Tobacco abuse active Hipolito Valladares MD ENCOUNTERS Date Type Provider Location Encounter Diag nosis - In-person encounter Office Visit Hipolito Valladares MD [facility] Tobacco abuse - In-person encounter Office Visit Hipolito Valladares MD [facility] Chest painFamily History of CVA or [...] Payer name Policy type / Coverage type [facility] libertarian ID [employer] MEDICAID (2) Medicaid [id number] ADVANCE DIRECTIVES Name Date DISCUSSED - NO [...] EKG Hipolito Valladares MD complet ed SNOMED-CT: [id number] Current Medications Documented Hipolito Valladares MD completed Stress EKG Mendez Grigsby MD complete d EKG Hipolito Valladares MD complet ed SNOMED-CT: [id number] Current Medications Documented Hipolito Valladares MD completed
--- OUTSIDE RECORDS SUMMARY | 2024-04-27 00:10 | XMS_ITS | Patient Health Summary ---
Author Organization [facility] Address [address] [place] [address] Care Team Providers Care Multi Slide Machine Tender Name Role Phone Graciela Rosenbaum MD Primary Care Provider [phone] Note from [facility],non-owned Affiliates and Associated Physician Practices is amultiple site organization consisting of ambulatory clinics and hospital sitesin [place], [place], [place] and [place]. This disclosure is being madepursuant to the Care Everywhere program and may not contain all information available regarding this patient. Last updated 17.[facility] Social History Tobacco Use Types Packs/Day Years Used Date Smoking Tobacco: Never Assessed Sex and Gender Information Value Date Recorded Sex Assigned at Not on file Gender Identity Not on file Sexual Orientation Not on file Care Teams Multi Slide Machine Tender Relationship Specialty Start Date End Date Graciela Rosenbaum MD [address] [place] [address] PCP - General 10/10/08
[2024-04-27] MEDS: KETOROLAC 15 MG/ML VIAL (*BKC) IV PUSH (09:00)
[2024-04-27] MEDS: LACTATED RINGERS 1,000 ML 30 ML IV CONT ×3 (09:10→13:19)
--- NOTE | 2024-04-27 10:58 | WPDANESEPPF ---
Anes - Initial Pre Proc Eval Procedure: Operation Date: 04/27/24 10:30 Proposed Procedures p Laparoscopic Right Ovarian Cystectomy - Rufino Mooney MD Date/Time: 04/27/24 10:58 Surgeon: Rufino Mooney MD Pre Op Diagnosis: right ovary cyst Patient Data Age: 44 Gender: F Height: 1.7 m Weight: 63.3 kg Last Vital Signs Temp 98.3 F 04/27/24 09:31 Pulse 81 04/27/24 09:31 Resp 18 04/27/24 09:31 BP 111/71 04/27/24 09:31 Pulse Ox 100 04/27/24 09:31 O2 Del Method Room Air 04/27/24 09:31 Allergies Allergy/AdvReac Type Severity Reaction Status Date / Time acetaminophen Allergy Mild RASH Verified 04/14/24 12:09 ibuprofen AdvReac Intermediate Ulcers Verified 04/14/24 12:09 gluten AdvReac Gastrointestinal Verified 04/14/24 12:09 Upset Milk Containing Products AdvReac Difficulty Verified 04/14/24 12:09 (Dairy) Breathing trazodone AdvReac Other Verified 04/14/24 12:09 Home Medications ?Medication ?Instructions ?Recorded ?Confirmed ?Type ondansetron 4 mg disintegrating 4 mg PO Q8H PRN nausea and 02/28/24 04/14/24 Rx tablet vomiting #15 tabs aspirin 81 mg tablet,delayed 81 mg PO DAILY 04/14/24 04/14/24 History release (Adult Low Dose Aspirin) omeprazole 40 mg capsule,delayed 40 mg PO DAILY 04/14/24 04/14/24 History release vit no.95-ferrous 1 tablet PO DAILY 04/14/24 04/14/24 History fumarate 28 mg-folic acid 800 mcg tablet () rimegepant 75 mg disintegrating 75 mg PO ONCE PRN migraine headache 04/14/24 04/14/24 History tablet (Nurtec ODT) Patient hx anesthesia problems: none Family hx anesthesia problems: none Results Review: All pre-operative results and documents have been reviewed as part of the pre-operative evaluation. [facility] Past Medical History Medical History GERD (gastroesophageal reflux disease) Chronic pelvic pain syndrome in female Celiac disease Ulcer Irritable bowel syndrome Migraine Anxiety Allergies Asthma on prn albuterol MDI Viral exanthem Surgical History Surgical History Status post appendectomy History of esophageal surgery H/O colonoscopy Family History Family History Father , From prostate cancer, stomach cancer, bladder cancer, renal cancer Diabetes mellitus Mother Diabetes mellitus Asthma Hypertension Depression Anxiety Heart disease Sibling Asthma Hypertension Anxiety Depression Heart disease Thyroid disorder Grandparent Cancer Diabetes mellitus Heart disease Social History Social History Smoking packs per day: 0.25 Smoking cigarettes per day: 5.0 Years smoked: 27 Smoking pack-years: 6.75 Smoking status: Current every day smoker Tobacco type: cigarettes Second hand tobacco smoke exposure: Yes Alcohol intake: current Alcohol use details: 4 /YR Substance use: current Substance use type: marijuana Other substance usage details: Daily Lack of Transportation: No Lack of Food: Sometimes True Current Housing: I Have Housing Concerned About Future Housing: No Difficulty Paying Gas/Electric Bills: No Difficulty Paying for Meds: No Currently Unemployed: No Education: High School Diploma/GED Difficulty w/ Childcare or Family Care: No Living arrangements: with family Occupation/Education: occupation 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 Gender identity (if verbalized by the patient): Female Sexual Orientation (if Verbalized by the Patient): Straight or Heterosexual Spiritual care concerns: No Anes - Eval Final PreProcedure Day of Procedure 04/27/24 10:58 Patient weight: normal Lungs: normal air movement Airway: Mallampati scale class II Neurological: alert and oriented Last oral intake: >/= 8 hours ASA classification: II Emergent: no Anesthetic plan: proceed Anesthesia type and monitoring: general ETT and standard monitoring Results Review: All pre-operative results and documents have been reviewed as part of the pre-operative evaluation. Anxiety, asthma, daily marijuana use. Informed Consent: The patient's anesthetic plan and its attendant risks and benefits were discussed with the patient/family/POA. Questions were solicited and answers provided to the satisfaction of the patient/family/POA.
--- NOTE | 2024-04-27 11:15 | WPDHPUPDATE1 ---
History and Physical Update Update Date/Time: 04/27/24 11:15 History and Physical has been reviewed, including an updated exam of the patient. There are NO changes in the patient's condition. Risks, benefits, and alternatives have been discussed and questions answered. Patient agrees to proceed with procedure.
--- NOTE | 2024-04-27 12:19 | W.PM.PROC2 ---
Procedure Note - Detailed Date of Procedure 04/27/24 Pre-op Diagnosis right ovary cyst Post-op Diagnosis Other (Bilateral ovarian cystectomy) Procedure Performed Laparoscopic Bilateral ovarian cystectomy Surgeon Rufino Mooney MD Anesthesia General Indications Pelvic pain Findings Bilateral ovarian hemorrhagic cyst. Normal-appearing uterus and tubes. Description of Procedure The patient was taken to the operating room. She was prepped and draped in the dorsal lithotomy position after induction general anesthesia. A 5 mm incision was made with a scalpel on the abdominal skin in the left upper quadrant of the abdomen. A 5 mm trocar was inserted into the intra-abdominal cavity under direct visualization the scope. In the same fashion a 5 mm left lower quadrant trocar was inserted and a 5 mm infraumbilical trocar was inserted. Ovarian cystectomies were performed bilaterally. On the right and the left. Cautery was used to make a hemostatic. They were excised and then cauterized. This was done using sharp sharp and blunt dissection along with scissors. Cautery. The pelvis was irrigated. The pneumoperitoneum was reduced. The trocars were removed. Skin was closed with subcuticular 4 micro. The patient's incisions were covered with Dermabond. She was taken recovery room in stable condition. Sponge lap and needle counts were correct x2. Estimated Blood Loss 75 Complications No immediate complications Condition Stable Disposition Same day
[2024-04-27] MEDS: fentaNYL CITRATE INJ (*CRX) 100 MCG/2 ML VIAL 25 MCG IV PUSH ×8 (13:07→13:28)
[2024-04-27] MEDS: traMADol HCL (*CRX) 50 MG TABLET PO (13:56)
[2024-04-27] MEDS: oxyCODONE HCL (*CRX) 5 MG TAB IR PO (15:02)
== END 2024-04-27 15:30 | disposition home or self-care (01) ==
PROVIDERS: PCP Internal Medicine; Visit Provider Obstetrics & Gynecology
PROC: (CPT 49320; principal; 2024-04-27 10:30)
DX: N83.201 Unspecified ovarian cyst, right side (principal); N83.202 Unspecified ovarian cyst, left side; F17.210 Nicotine dependence, cigarettes, uncomplicated; F12.90 Cannabis use, unspecified, uncomplicated
CPT/HCPCS: 58662; 88305; A9270; J1100; J1885; J2003; J2250; J2405; J2704; J3010; J7030; J7120

== ENCOUNTER 2024-05-17 09:15 | Outpatient (CLI) | payer OTHER, SELFPAY ==
[2024-05-17 09:36] LABS: Basophils Absolute Auto 0.1 K/mm3 (0.0-0.1); Eosinophils Absolute Auto 0.2 K/mm3 (0-0.3); Eosinophils Percent Auto 2.7 % (0-4.4); Hematocrit 42.7 % (37.0-47.0); Hemoglobin 13.9 g/dL (12.0-15.0); Immature Granulocyte Absolute 0.03 K/mm3 (0.00-0.031); Immature Granulocyte Percent A 0.4 % (0-0.5); Lymphocytes Absolute Auto 1.79 K/mm3 (0.9-3.2); Lymphocytes Percent Auto 25.2 % (18.3-44.2); Mean Corpuscular HGB Conc 32.6 g/dl (32-36); Mean Corpuscular Hemoglobin 31.3 pg (26-34); Mean Corpuscular Volume 96.2 fl (80-100); Mean Platelet Volume 11.2 fl (7.4-10.4); Monocytes Absolute Auto 0.6 K/mm3 (0.1-0.6); Neutrophils Absolute Auto 4.5 K/mm3 (1.3-6.7); Neutrophils Percent Auto 62.7 % (45.5-73.1); Platelet Count Result 202 k/mm3 (150-375); Red Blood Count 4.44 M/mm3 (4.2-5.4); Red Cell Distribution Width 13.2 % (11.5-14.5); White Blood Count 7.1 K/mm3 (4.5-10.0)
[2024-05-17 09:52] LABS: Alanine Aminotransferase 26 U/L (6-35); Albumin Level 4.1 g/dL (3.5-5.1); Alkaline Phosphatase 68 U/L (38-126); Anion Gap 9 mmol/L (4-12); Aspartate Amino Transferase 21 U/L (14-36); Bilirubin,Total 0.5 mg/dL (0.2-1.3); Blood Urea Nitrogen 14 mg/dL (7-17); Carbon Dioxide 26 mmol/L (22-30); Chloride 104 mmol/L (98-107); Cholesterol 130 mg/dL (0-200); Estimated Glomerular Filt Rate > 60; Glucose 98 mg/dL (65-110); HDL Direct 51 mg/dL; Potassium 4.2 mmol/L (3.4-5.0); Sodium 139 mmol/L (137-145); Triglycerides 61 mg/dL (<150)
[2024-05-17 10:04] LABS: LDL Cholesterol Direct 55 mg/dL
[2024-05-17 15:13] LABS: Vitamin D 25 Hydroxy 30.5 ng/mL
[2024-05-17 18:47] LABS: Iron 86 ug/dL (37-170); Percent Iron Saturation 27 % (20-50)
== END 2024-05-17 09:16 | disposition home or self-care (01) ==
LOC: ANHLAB 09:17
PROVIDERS: PCP Internal Medicine; Visit Provider Nurse Practitioner
DX: Z13.220 Encounter for screening for lipoid disorders (principal); Z13.29 Encounter for screening for other suspected endocrine disorder; E55.9 Vitamin D deficiency, unspecified; D64.9 Anemia, unspecified
CPT/HCPCS: 36415; 80053; 80061; 82306; 82728; 83540; 83550; 85025

== ENCOUNTER 2024-07-28 00:09 | Day surgery (SDC) | payer OTHER, SELFPAY ==
[2024-07-19 14:24] VITALS: BMI 21.2
--- OUTSIDE RECORDS SUMMARY | 2024-07-28 00:11 | XMS_ITS | Continuity of Care Document ---
Author Organization [facility] Address [address] [place] [address] [place] [address] Phone Care Team Providers Care Biometric Screener Name Role Phone Napoleon Grimaldo MD Unavailable [...] Providers Copied on Encounter OFFICE/OUTPA TIENT VISIT, [facility], [address] [employer] [place], [place], [address], tel:[phone] [facility] toothache1 (chief complaint) anxiety1 (chief complaint) weight loss1 (chief complaint) Atypical facial painGeneralized Anxiety DisorderHepatomegal yAbnormal weight loss 0 Dillan Bender. [address], [address] [place], [address] , [place]. tel:[phone] Referring Provider: Napoleon Grimaldo, [address], [address]. tel:[phone] OFFICE/OUTPA TIENT VISIT, [facility], [address], [address], tel:[phone] [facility] Medicine headache1 (chief complaint) GERD1 (chief complaint) anxiety1 (chief complaint) weight loss1 (chief complaint) Generalized Anxiety DisorderMigraineAbn ormal weight lossGERD w/o esophagitis 0 Dillan [address], [place], [place], [address] , [place]. tel:[phone] Referring Provider: Carlos [address], [place], [place], [address]. tel:[phone] OFFICE/OUTPA TIENT VISIT, [facility], [address], [place], [place], [address], [place] tel:[phone] [facility] gastric ulcer1 (chief complaint) anxiety1 (chief complaint) headache1 (chief complaint) MigraineGeneralized Anxiety DisorderGERD w/o esophagitisHemorrho id 0 Dillan [address], [place], [place], [address] , [place]. tel:[phone] Referring Provider: Carlos Castro [address], [place], [place], [address]. tel:[phone] OFFICE/OUTPA TIENT VISIT, [facility], [address], [place], [place], [address], [place] tel:[phone] [facility] sick (chief complaint) anxiety1 (chief complaint) gastric ulcer1 (chief complaint) headache1 (chief complaint) Viral infectionDepression Chronic gastric ulcer w/o perforationMigraine Jun-3 0 Dill[address], [place], [place], [address] , [place]. tel:[phone] Referring Provider: Carlos [address], [place], [place], [address]. tel:[phone] OFFICE/OUTPA TIENT VISIT, [facility], [address], [place], [place], [address], [place] tel:[phone] [facility] sick (chief complaint) anxiety1 (chief complaint) pain1 (chief complaint) Acute bronchitisGeneraliz ed Anxiety DisorderChronic pain syndrome 0 Grimaldo Napoleon. [address], [address], [place], [place], [address] , [place]. tel:[phone] Referring Provider: Carlos [address], [place], [place], [address]. tel:[phone] PREV VISIT, EST, AGE 18-39 [facility], [address], [place], [place], [address], [place] tel:[phone] [facility] Medicine physical1 (chief complaint) Encntr for general adult medical exam w/o abnormal findings 0 Dillan Bender. [address], [address], [place], [place], [address] , [place]. [phone] Referring Provider: Carlos [address], [place], [place], [address]. tel:[phone] OFFICE/OUTPA TIENT VISIT, [facility], [address], [place], [place], [address], [place] tel:[phone] [facility] headache1 (chief complaint) anxity1 (chief complaint) GERD1 (chief complaint) GERD w/o esophagitisGenerali zed Anxiety DisorderMigraine 3-201 9 Dillan Bender. [address], [address], [place], [place], [address] , [place]. [phone] Referring Provider: Carlos Castro [address], [place], [place], [address]. tel:[phone] OFFICE/OUTPA TIENT VISIT, [facility], [address], [place], [place], [address], [place] tel:[phone] [facility] headache1 (chief complaint) Tension headache 0-201 9 Dillan Bender. [address], [address], [place], [place], [address] , [place]. [phone] Referring Provider: Carlos Castro [address], [place], [place], [address]. tel:[phone] OFFICE/OUTPA TIENT VISIT, [facility], [address], [place], [place], [address], [place] tel:[phone] [facility] headache1 (chief complaint) MigraineTension headacheMuscle weakness 9 Dillan Bender. [address], [address], [place], [place], [address] , [place]. tel:[phone] Referring Provider: Carlos [address], [place], [place], [address]. tel:[phone] OFFICE/OUTPA TIENT VISIT, [facility], [address], [place], [place], [address], [place] tel:[phone] [facility] HTN (chief complaint) neck pain1 (chief complaint) headache1 (chief complaint) anxiety1 (chief complaint) Generalized Anxiety DisorderMigraineEss ential (primary) hypertensionMuscle weakness 9 Dillan Bender. [address], [address], [place], [place], [address] , [place]. tel:[phone] Referring Provider: Carlos [address], [place], [place], [address]. tel:[phone] OFFICE/OUTPA TIENT VISIT, [facility], [address], [place], [place], [address], [place] tel:[phone] [facility] anxiety1 (chief complaint) headache1 (chief complaint) Generalized Anxiety DisorderMigraine 9 Dillan Bender. [address], [address], [place], [address] , [place]. tel:[phone] Referring Provider: Carlos [address], [place], [place], [address]. tel:[phone] OFFICE/OUTPA TIENT VISIT, [facility], [address], [place], [place], [address], [place] tel:[phone] [facility] GI1 (chief complaint) gastric ulcer (chief complaint) Acute gastric ulcer without bleedingGastroenter itis 9 Dillan Bender. [address], [address], [place], [place], [address] , [place]. tel:[phone] OFFICE/OUTPA TIENT VISIT, EST [facility], [address], [place], [place], [address], [place] tel:[phone] [facility] Medicine anxiety1 (chief complaint) headache1 (chief complaint) MigraineGeneralized Anxiety Disorder Dillan Bender. [address], [address], [place], [place], [address] , [place]. [phone] OFFICE/OUTPA TIENT VISIT, EST [facility], [address], [place], [place], [address], [place] tel:[phone] [facility] anxiety1 (chief complaint) back pain1 (chief complaint) headache1 (chief complaint) GERD1 (chief complaint) MigraineAcute gastric ulcer without bleedingGeneralized Anxiety DisorderChronic pain syndromeAbnormal weight gain 9 Dillan Bender. [address], [address], [place], [place], [address] , [place]. tel:[phone] Referring Provider: Carlos [address], [place], [place], [address]. tel:[phone] PREV VISIT, EST, AGE 18-39 [facility], [address], [place], [place], [address], [place] tel:[phone] [facility] Medicine PHysical (chief complaint) Encntr for general adult medical exam w/o abnormal findings 9 Dillan Bender. [address], [address], [place], [place], [address] , [place]. tel:[phone] Referring Provider: Carlos [address], [place], [place], [address]. tel:[phone] PREV VISIT, EST, AGE 18-39 [facility], [address], [place], [place], [address], [place] tel:[phone] [facility] Medicine physical (chief complaint) Encounter for general adult medical exam w abnormal findingsMigraineGen eralized Anxiety DisorderAcute gastric ulcer without bleeding 8 Dillan Bender. [address], [address], [place], [place], [address] , [place]. [phone] OFFICE/OUTPA TIENT VISIT, [facility], [address], [place], [place], [address], [place] tel:[phone] [facility] Gastric ulcer1 (chief complaint) anxiety1 (chief complaint) headache1 (chief complaint) back pain1 (chief complaint) MigraineAcute gastric ulcer without bleedingChronic pain syndromeInsomnia 8 Dillan Bender. [address], [address], [place], [place], [address] , [place]. [phone] Referring Provider: [address], [place], [place], [address]. tel:[phone] OFFICE/OUTPA TIENT VISIT, [facility], [address], [place], [place], [address], [place] tel:[phone] [facility] headache1 (chief complaint) anxiety1 (chief complaint) gastric ulcer1 (chief complaint) back pain1 (chief complaint) HeadacheGeneralized Anxiety DisorderAcute gastric ulcer without bleedingChronic pain syndrome 7 Dillan Dawkins [address], [address], [place], [place], [address] , [place]. [phone] Referring Provider: [address], [place], [place], [address]. tel:[phone] OFFICE/OUTPA TIENT VISIT, [facility], [address], [place], [place], [address], [place] tel:[phone] [facility] anxiety1 (chief complaint) insomnia1 (chief complaint) headache1 (chief complaint) GERD1 (chief complaint) Generalized Anxiety DisorderHeadacheAcu te gastric ulcer without bleedingInsomnia 7 Dillan Dawkins [address], [address], [place], [place], [address] , [place]. [phone] Referring Provider: Carlos [address], [place], [place], [address]. tel:[phone] OFFICE/OUTPA TIENT VISIT, EST [facility], [address], [place], [place], [address], [place] [phone] [facility] gastric ulcer1 (chief complaint) chest pain1 (chief complaint) anxiety1 (chief complaint) InsomniaAcute gastric ulcer without bleedingGeneralized Anxiety DisorderChest pain Sep-0 7 Dillan Bender. [address], [address], [place], [place], [address] , [place]. [phone] Referring Provider: Carlos Castro [address], [place], [place], [address]. tel:[phone] PREV VISIT, EST, AGE 18-39 [facility], [address], [place], [place], [address], [place] tel:[phone] [facility] PHysical (chief complaint) Encntr for general adult medical exam w/o abnormal findings Oct-0 7 Dillan Bender. [address], [address], [place], [place], [address] , [place]. [phone] Referring Provider: Carlos Castro [address], [place], [place], [address]. tel:[phone] OFFICE/OUTPA TIENT VISIT, EST [facility], [address], [place], [place], [address], [place] [phone] [facility] abd pain1 (chief complaint) headache1 (chief complaint) LBP (chief complaint) Acute gastritis without bleedingLow back painHeadache 6 Dilaln Bender. [address], [address], [place], [place], [address] , [place]. [phone] Referring Provider: Carlos Castro [address], [place], [place], [address]. tel:[phone] PREV VISIT, EST, AGE 18-39 [facility], [address], [place], [place], [address], [place] tel:[phone] [facility] PHysical (chief complaint) Encntr for general adult medical exam w/o abnormal findings 6 Dillan Bender. [address], [address], [place], [place], [address] , [place]. tel:[phone] Referring Provider: Carlos Castro [address], [place], [place], [address]. tel:[phone] OFFICE/OUTPA TIENT VISIT, [facility], [address], [place], [place], [address], [place] tel:[phone] [facility] sick (chief complaint) headache (chief complaint) back pain (chief complaint) Other acute sinusitisDietary surveillance and counselingHeadacheL umbago 5 Dillan Dawkins [address], [address], [place], [place], [address] , [place]. tel:[phone] Referring Provider: Carlos Castro [address], [place], [place], [address]. tel:[phone] OFFICE/OUTPA TIENT VISIT, [facility], [address], [place], [place], [address], [place] tel:[phone] [facility] back pain (chief complaint) headache (chief complaint) Dietary surveillance and counselingLumbagoHe adacheDisturbance of skin sensation 4 Dillan Dawkins [address], [address], [place], [place], [address] , [place]. tel:[phone] Referring Provider: Carlos Castro [address], [place], [place], [address]. tel:[phone] OFFICE/OUTPA TIENT VISIT, [facility], [address], [place], [place], [address], [place] tel:[phone] [facility] headache (chief complaint) back pain (chief complaint) Dietary surveillance and counselingHeadacheL umbagoDisturbance of skin sensation 4 Dillan Dawkins [address], [address], [place], [place], [address] , [place]. tel:[phone] Referring Provider: Napoleon Grimaldo, [address], [place], [place], [address]. tel:[phone] PREV VISIT, NEW, AGE 18-39 [facility], [address], [place], [place], [address], [place] tel:[phone] [facility] Medicine Physical (chief complaint) Dietary surveillance and counselingRoutine Medical ExamRoutine Medical Exam 4 Dillan Bender. [address], [address], [place], [place], [address] , [place]. tel:[phone] Family History Family Member Type Diagnosis Age At Onset Father Problem (finding) Cancer, bladder Mother Problem (finding) Diabetes mellitus Brother Problem (finding) Alive and well Father Problem (finding) Diabetes mellitus Payers Payer name Insurance type Covered democrat ID Authoriza tion(s) No Information Social History [...] findings) ordered Referral Referred To: RO BETTENCOURT [id number] [facility]
[address], [phone] Ordered: Referrals: RO BETTENCOURT. Evaluate and treat [...] per month gastric ulcer1 Pt finally saw Jeannette marr and she is on protonix 20 mg [...] gastric ulcer. 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 Related to GERD w/o esophagitis Elevate head of bed prior to sle ep. Related to GERD w/o esophagitis Special diet education Related t o Body mass index (BMI) 31.0-31.9, adult Avoid provocative fo ods: citrus, alcohol, coffee, chocolate, mints. Related to GERD w/o esophagitis Special diet education Related t o Body mass index (BMI) 33.0-33.9, adult Quit smoking Related to Tensi on headache Weight management Related to Ten neela headache Special diet education Related t o Body mass index (BMI) 33.0-33.9, adult Weight management Related to Ron nini Stop smoking Related to Cervi calgia Special diet education Related t o Body mass index (BMI) 33.0-33.9, adult Special diet education Related t o Body mass index (BMI) 33.0-33.9, adult Increase physical activity Relat ed to Generalized Anxiety Disorder Weight management Related to Gen eralized Anxiety Disorder Avoid provocative fo ods: citrus, alcohol, coffee, chocolate, mints. Related to Acute gastric ulcer without bleeding Eat smaller meals, n o eating three hours prior to bedtime. Related to Acute gastric ulcer without bleeding Elevate head of bed prior to sle ep. Related to Acute gastric ulcer without bleeding Special diet education Related t o Body mass index (BMI) 32.0-32.9, adult Weight management Related to Ron nini Quit smoking Related to Migra ine Increase physical activity Relat ed to Migraine Special diet education Related t o Body mass index (BMI) 32.0-32.9, adult Quit smoking Related to Migra ine Weight management Related to Ron nini Special diet education Related t o Body mass index (BMI) 33.0-33.9, adult Increase physical activity Relat ed to Migraine Increase activity. Related to En cntr for general adult medical exam w/o abnormal findings Special diet education Related t o Body mass index (BMI) 31.0-31.9, adult Quit smoking. Related to Encnt r for general adult medical exam w/o abnormal findings Special diet education Related t o Body mass index (BMI) 30.0-30.9, adult [id number]|2024-07-28 10:58:45|2024-07-28 10:58:45|PM.GS||||"History of Present Illness History of Present Illness Consent: Risks, benefits, and alternatives have been discussed and questions answered. Patient agrees to proceed with procedure. Chief complaint: Celiac disease, Epigastric pain Narrative: Fernanda Duron is a 44 year old female here for egd, she has known celiac on gluten free diet, also intermittent epigastric pain on omeprazole, last EGD can not rule out Coles's Review of Systems Review of Systems: All systems reviewed & are unremarkable except as noted in HPI and below PMFSH Past Medical History Medical History Encounter for screening colonoscopy Epigastric pain GERD (gastroesophageal reflux disease) Chronic pelvic pain syndrome in female Celiac disease Ulcer Irritable bowel syndrome Migraine Anxiety Allergies Asthma on prn albuterol LIDA Viral exanthem Surgical History Surgical History Status post appendectomy History of esophageal surgery H/O colonoscopy Family History Family History Father , From prostate cancer, stomach cancer, bladder cancer, renal cancer Diabetes mellitus Mother Diabetes mellitus Asthma Hypertension Depression Anxiety Heart disease Sibling Asthma Hypertension Anxiety Depression Heart disease Thyroid disorder Grandparent Cancer Diabetes mellitus Heart disease Social History Social History Smoking packs per day: 0.25 Smoking cigarettes per day: 5.0 Years smoked: 27 Smoking pack-years: 6.75 Smoking status: Former smoker Tobacco type: cigarettes Second hand tobacco smoke exposure: Yes Alcohol intake: current Alcohol use details: 4 /YR Substance use: current Substance use type: marijuana Other substance usage details: Daily Last use: daily Lack of Transportation: No Lack of Food: Sometimes True Current Housing: I Have Housing Concerned About Future Housing: No Difficulty Paying Gas/Electric Bills: No Difficulty Paying for Meds: No Currently Unemployed: No Education: High School Diploma/GED Difficulty w/ Childcare or Family Care: No Living arrangements: with family Occupation/Education: occupation 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 Gender identity (if verbalized by the patient): Female Sexual Orientation (if Verbalized by the Patient): Straight or Heterosexual Spiritual care concerns: No Meds Home Medications and Allergies Home Medications Medication Instructions Recorded Confirmed Type aspirin 81 mg tablet,delayed 81 mg PO DAILY 04/14/24 07/28/24 History release (Adult Low Dose Aspirin) vit no.95-ferrous 1 tablet PO DAILY 04/14/24 07/28/24 History fumarate 28 mg-folic acid 800 mcg tablet () rimegepant 75 mg disintegrating 75 mg PO ONCE PRN migraine headache 04/14/24 07/28/24 History tablet (Nurtec ODT) tramadol 50 mg tablet 50 mg PO Q6H PRN pain #20 tabs 04/27/24 07/19/24 Rx omeprazole 40 mg capsule,delayed 40 mg PO DAILY 3 months #90 caps 06/03/24 07/28/24 Rx release Allergies Allergy/AdvReac Type Severity Reaction Status Date / Time acetaminophen Allergy Mild RASH Verified 07/28/24 10:40 ibuprofen AdvReac Intermediate Ulcers Verified 07/28/24 10:40 gluten AdvReac Gastrointestinal Verified 07/28/24 10:40 Upset Milk Containing Products AdvReac Difficulty Verified 07/28/24 10:40 (Dairy) Breathing trazodone AdvReac Other Verified 07/28/24 10:40 Vital Signs Vital Signs - 24 hr 07/28/24 10:41 Temperature 97.1 F L Pulse Rate 61 Respiratory Rate 19 Blood Pressure 107/68 Pulse Oximetry 100 Oxygen Delivery Room Air Exam Const: General: comfortable and no acute distress HENMT: Face/Nose/Sinus: Normal nares present Eyes: General: appearance normal, both eyes and all related structures Neck: Neck: no JVD Resp: Auscultation: clear to auscultation bilaterally Cardio: Rate: regular rate Rhythm: regular rhythm GI: Inspection: non-distended GI Palp: Yes Soft to palpation Skin: General skin exam: normal color Neuro: General: gait normal Speech: normal speech Extrem: General: normal to inspection Psych: Mental Status: mental status grossly normal Assessment and Plan Assessment and plan (1) Celiac disease: Code(s): K90.0 - Celiac disease Status: Acute Assessment and Plan: egd with bx (2) GERD (gastroesophageal reflux disease): Code(s): K21.9 - Gastro-esophageal reflux disease without esophagitis Status: Acute (3) Epigastric pain: Code(s): R10.13 - Epigastric pain Status: Acute"
--- OUTSIDE RECORDS SUMMARY | 2024-07-28 00:12 | XMS_ITS | Referral Summary ---
Author Organization [facility] Address [address] [place] [id number] Care Team Providers Care Clinical Science Liaison Name Role Phone Vladimir Napoles DO Primary Care Provider [phone] Encounters Date Type Department Care Team Description 06/23/2024 3:30 PM CDT Procedure visit [facility] Neurology [address] [place] [address] [address] [place] [address] Mindy Dewey NP Intractable chronic migraine [...] DAY NEEDED FOR PAIN 08/29/19 21 Active [facility] albuterol HFA () 90 mcg/actuation inhaler [...] day 16 tablet 5 03/15/20 24 Active Active Problems Problem Noted Date [...] Overview (10/12/2023): Acute vulvovaginitis;Recorded Elsewhere: No Location: [facility] Source: EHR Chronic: N Practice ID: [id number] [...] Comments Blood Pressure 112/66 03/14/2024 11:39 AM [facility] Pulse 68 03/14/2024 11:39 AM [facility] Temperature 37.5 C (99.5 F) 08/27/2022 11:21 AM CDT Respiratory Rate 20 08/27/2022 11:21 AM CDT Oxygen Saturation 96% 03/03/2023 11:11 AM [facility] Inhaled Oxygen Concentration - - Weight 61.7 kg (136 lb) 06/23/2024 3:43 PM CDT Height 170 cm (5' 6.93 ) 06/23/2024 3:43 PM CDT Body Mass Index 21.35 06/23/2024 3:43 PM CDT Plan of Treatment Not on file Procedures Procedure Name Priority Date/Time Associated Diagnosis Comments BOTOX INJECTION Routine 06/23/2024 3:30 PM CDT Intractable chronic migraine without aura and without status migrainosus from Last 3 Months Results * Botox Injection (06/23/2024 3:30 PM CDT) Narrative Ernestina Lawson - 06/23/2024 3:30 PM CDT Ernestina Lawson 06/29/2024 2:17 PM Botox Injection Performed by: Mindy Dewey NP Authorized by: Mindy Dewey NP [place] Protocol: Consent Given by: Patient Timeout: prior to procedure the correct patient, procedure, and site was verified Procedure Details - Botox Injection: Procedure Details: See Botox flow sheet for details on injection sites and amounts. This can be found in Media and labeled [facility].BOTOX.PROCEDURE NOTES. Mindy Dewey NP IN CLINIC/BEDSIDE ORDERABLES Final Result from Last 3 Months Insurance [facility] Care Teams Clinical Science Liaison Relationship Specialty Start Date End Date Vladimir Napoles DO PCP - General Internal Medicine 09/27/20
--- OUTSIDE RECORDS SUMMARY | 2024-07-28 00:12 | XMS_ITS | Clinical Summary ---
Author Organization [facility] Address [address] [place] [address] Care Team Providers Care Exhibit Specialist Name Role Phone Vladimir Napoles DO Primary Care Provider [phone] Allergies Active Allergy Reactions Criticality Noted Date [...] Active Problems No known active problems Immunizations Immunization Administration Dates Next Due Tdap (Adacel) 01/29/2021 [...] Comments Blood Pressure 126/63 04/14/2023 4:50 PM PACKAGER AND STRAPPER Pulse 78 04/14/2023 4:50 PM PACKAGER AND STRAPPER Temperature 36.3 C (97.4 F) 04/14/2023 4:50 PM PACKAGER AND STRAPPER Respiratory Rate 18 04/14/2023 4:50 PM PACKAGER AND STRAPPER Oxygen Saturation 99% 04/14/2023 4:50 PM PACKAGER AND STRAPPER Inhaled Oxygen Concentration - - Weight 61.2 kg (135 lb) 04/14/2023 4:50 PM PACKAGER AND STRAPPER Height 170.2 cm (5' 7 ) 04/14/2023 4:50 PM PACKAGER AND STRAPPER Body Mass Index 21.14 04/14/2023 4:50 PM PACKAGER AND STRAPPER Plan of Treatment Health Maintenance Due Date Last Done Comments Annual Physical 1985 Hepatitis C 2000 Hepatitis B Vaccines (1 of 3 - 19+ 3-dose series) 2001 Pneumococcal Vaccine: Pediatrics (0 to 5 Years) and At-Risk Patients (6 to 49 Years) (1 of 2 - PCV) 2001 Mammogram Screening 2022 COVID-19 Vaccine ( - season) 2023 Cervical Cancer Screening Pap Smear (Age [...] Documents on File Type Date Recorded 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 FOR BILLS FOR [facility] FOR [employer] Care Teams Exhibit Specialist Relationship Specialty Start Date End Date Vladimir Napoles DO [address] [place] [address] PCP - General INTERNAL MEDICINE 12/12/20
--- OUTSIDE RECORDS SUMMARY | 2024-07-28 00:12 | XMS_ITS | Clinical Summary ---
Author Organization [facility] [place] Address [address] [place] [address] Care Team Providers Care Food And Beverage Controller Name Role Phone Vladimir Napoles DO Primary Care Provider [phone] Allergies Active Allergy Reactions Criticality Noted Date [...] DAY NEEDED FOR PAIN 08/29/19 21 Active [facility] albuterol HFA () 90 mcg/actuation inhaler [...] Overview (10/12/2023): Acute vulvovaginitis;Recorded Elsewhere: No Location: [facility] Source: EHR Chronic: N Practice ID: [id number] Billable Time: 08:45:00 AM Acute gastritis 05/28/2015 Acute sinusitis 07/27/2014 Headache 11/09/2013 Low back pain 11/09/2013 Skin sensation disturbance 11/09/2013 Encounters Date Type Department Care Team Description 06/23/2024 3:30 PM CDT Procedure visit [facility] Neurology [address] [place] [id number] Mindy Dewey NP Intractable chronic migraine [...] Comments Blood Pressure 112/66 03/14/2024 11:39 AM CADDY MASTER Pulse 68 03/14/2024 11:39 AM CADDY MASTER Temperature 37.5 C (99.5 F) 08/27/2022 11:21 AM CDT Respiratory Rate 20 08/27/2022 11:21 AM CDT Oxygen Saturation 96% 03/03/2023 11:11 AM CADDY MASTER Inhaled Oxygen Concentration - - Weight 61.7 kg (136 lb) 06/23/2024 3:43 PM CDT Height 170 cm (5' 6.93 ) 06/23/2024 3:43 PM CDT Body Mass Index 21.35 06/23/2024 3:43 PM CDT Plan of Treatment Health Maintenance Due Date Last Done Comments Breast Cancer Screening-Mammogram 1982 Cervical Cancer Screening 1982 Depression Screening 1982 Hepatitis C Screening 1982 Varicella Vaccines (1 of 2 - 13+ 2-dose series) 1995 Hepatitis B Screening 2000 Regular Well Visit/Exam 18-64 2000 Pneumococcal vaccine <65 (1 of 2 - PCV) 2001 Influenza Vaccine (Season Ended) 2024 DTaP/Tdap/Td Vaccine (2 - Td or Tdap) [...] Dewey NP Authorized by: Mindy Dewey NP [place] Protocol: Consent Given by: Patient Timeout: prior to procedure the correct patient, procedure, and site was verified Procedure Details - Botox Injection: Procedure Details: See Botox flow sheet for details on injection sites and amounts. This can be found in Media and labeled [email or web address].BOTOX.PROCEDURE NOTES. Mindy Dewey NP IN CLINIC/BEDSIDE ORDERABLES Final Result from Last 3 Months Insurance [id number] [id number] [facility] Care Teams Food And Beverage Controller Relationship Specialty Start Date End Date Vladimir Napoles DO PCP - General Internal Medicine 09/27/20
--- OUTSIDE RECORDS SUMMARY | 2024-07-28 00:12 | XMS_ITS | Clinical Summary ---
Author Organization [facility] Address [address] [place] [address] Care Team Providers Care Underwater Trapper Name Role Phone Graciela Rosenbaum MD Primary Care Provider [phone] Source Comments [facility],non-owned Affiliates and Associated Physician Practices is amultiple site organization consisting of ambulatory clinics and hospital sitesin [place], [place], [place] and [place]. This disclosure is being madepursuant to the Care Everywhere program and may not contain all information available regarding this patient. 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 Gender Identity Not on file Sexual Orientation Not on file Plan of Treatment Health Maintenance Due Date Last Done Comments LIPID TESTING 1982 MAMMOGRAM 1982 PAP SMEAR 1982 HIV SCREENING 1997 HEPATITIS C SCREENING 04/15/2000 DTAP/TDAP/TD VACCINES (1 - Tdap) 2001 HEPATITIS B VACCINE (1 of 3 - 19+ 3-dose series) 2001 COVID-19 VACCINE ( - 2023-2 5 season) 2023 DEPRESSION SCREENING 03/16/2024 INFLUENZA VACCINE (Season Ended) 2024 ZOSTER VACCINE (1 of 2) 2032 HIB VACCINE Aged Out No longer eligi ble based on patient's age to complete this topic HPV VACCINE Aged Out No longer eligi ble based on patient's age to complete this topic MENINGOCOCCAL (Group B) VACC INE SHARED DECISION-MAKING Aged Out No longer eligibl e based on patient's age to complete this topic MENINGOCOCCAL GROUPS A/C/Y/W VACCINE Aged Out No longer eligible b ased on patient's age to complete this topic PNEUMOCOCCAL VACCINE Aged Out No long er eligible based on patient's age to complete this topic Insurance [facility] SELF PAY NO INSURANCE Member Subscriber Plan / Payer (Ef fective for All Dates) Name:Fernanda Duron Member ID:Not on file Relation to Subscriber:Not on file Name:MIKEFERNANDA Subscriber ID:Not on file (Home) Address: [address] [place] [id number] Payer ID:Not on file Group ID:Not on file Type:Self Pay Address: [place], [place] Care Teams Underwater Trapper Relationship Specialty Start Date End Date Graciela Rosenbaum MD [address] [place] [address] PCP - General 10/10/08
--- OUTSIDE RECORDS SUMMARY | 2024-07-28 00:12 | XMS_ITS | CONTINUITY OF CARE DOCUMENT ---
Author Name merline, merline Address Unknown Organization [facility] Address [address] [place] [address] [address] [place] [address] Phone [phone] Care Team Providers Care Caster Investment Casting Name Role Phone Blaine WHITE, Hipolito Unavailable [phone] ANIL WHITE, NATHALIA Unavailable [phone] NATHALIA MA MD Unavailable [phone] PROBLEMS Condition Status Date Provider Notes Chest [...] In-person encounter Office Visit Hipolito Valladares MD [facility] Tobacco abuse - In-person encounter Office Visit Hipolito Valladares MD [facility] Chest painFamily History of CVA or [...] take one pill in the pm 4 oYlanda Sommer ADVIL MIGRAINE CAPSULE active as needed [...] Payer name Policy type / Coverage type Replaced by [facility] republican ID [place] (2) Medicaid [id number] ADVANCE DIRECTIVES Name Date DISCUSSED - NO [...] EKG Hipolito Valladares MD complet ed SNOMED-CT: [id number] Current Medications Documented Hipolito Valladares MD completed Stress EKG Mendez Grigsby MD complete d EKG Hipolito Valladares MD complet ed SNOMED-CT: [id number] Current Medications Documented Hipolito Valladares MD completed
--- OUTSIDE RECORDS SUMMARY | 2024-07-28 00:12 | XMS_ITS | Data Portability ---
Author Organization [facility] Address [address] [address] [place] [address] Care Team Providers Care Campus Administrative Assistant Name Role Phone GAYLE NARANJO Primary Care Provider Assessment No assessment recorded. Plan of Treatment Reminders Order Date Submit Date Provider Last Modified By Organization Details Last Modified Time Details Appointments None recorded. Lab urinalysis, dipstick 2024 025 [facility], [address], [place], [address], 13:12:11 test, urine 2024 025 [email or web address] [place], [address], [address], [place], [address], 13:08:43 Referral None recorded. Procedures None recorded. Surgeries laparoscopi c ovarian cystectomy (SURG) 2024 025 [facility], [address], [place], [address], 5 14:16:57 Imaging US, transvagina l 2024 025 [email or web address] [place], [address], [place], [address], 21:45:30 US, pelvis, complete 2024 025 [facility], [address], [place], [address], 04:07:23 Medication Orders metronidazo le 0.75 % (37.5 mg/5 gram) vaginal gel 2024 025 [id number], [address] [facility], [place], [place], [id number], 10:21:54 Patient TargetsNo targets recorded. Patient InstructionsNo instructions recorded. Reason for Referral None Reported. Results Created Date Observation Date Name Description Value Unit Range Abnormal Flag Note LastModifiedBy Organization Detail LastModifiedTime 03/22/1903/22/2024 WOMEN 'S HEALT H SWAB PLUS, CHELLY bacterial vaginosis (bv), tma Positi ve negati ve abnormal Not Available [facility] (Lab) [address] [place], [address], 03/24/2024 08:20:49 03/22/1903/22/2024 WOMEN 'S HEALT H SWAB PLUS, CHELLY compa species, tma Negati ve negati ve Not Available [facility] (Lab) [address] [place], [address], 03/24/2024 08:20:49 03/22/19 25 03/22/2024 WOMEN 'S HEALT H SWAB PLUS, CHELLY compa glabrata, tma Negati ve negati ve Not Available [facility] (Lab) [address] [place], [address], 03/24/2024 08:20:49 03/22/19 25 03/22/2024 [facility] trichomonas vaginalis, tma Negati ve negati ve Not Available [facility] (Lab) [address] [place], [address], 03/24/2024 08:20:49 03/22/19 25 03/22/2024 WOMEN 'S HEALT H SWAB PLUS, CHELLY chlamydia trachomatis, PCR Negati ve negati ve Not Available [facility] (Lab) [address] [facility], [place], [address], 03/24/2024 08:20:49 03/22/19 25 03/22/2024 WOMEN 'S [...] ded in this panel . Not Available [facility] (Lab) [address] [facility], [place], [address], 03/24/2024 08:20:49 03/22/19 25 03/22/2024 CULTU RE: URINE result report SEE RESULT S BELOW Test: Cultu re: Urine Speci men Sourc e: Urine - Clean Catch Speci men Type: Urine Speci men Date: 1215 Resul t Date: 16 Resul t Statu s: Final resul t Abnor mal: No Resul ting Lab: [facility] [address] [facility] [address] Tel: CULTU RE ----- ----- ----- --- No growt h in 1 day (dete ction level of 10,00 0 colon ies / ml.) Not Available [facility] (Lab) [address], [place], [address], 03/24/2024 08:20:50 03/22/19 25 03/22/2024 urina lysis , dipst ick Leukocytes + Not Available [facility] [address], [place], [address], 03/22/2024 13:06:08 03/22/19 25 03/22/2024 urina lysis , dipst ick Nitrite - Not Available [place] [address], [place], [address], 03/22/2024 13:06:08 03/22/19 25 03/22/2024 urina lysis , dipst ick Urobilinogen - Not Available [facility] [address], [place], [address], 03/22/2024 13:06:08 03/22/19 25 03/22/2024 urina lysis , dipst ick Protein trace Not Available [place] [address], [place], [address], 03/22/2024 13:06:08 03/22/19 25 03/22/2024 urina lysis , dipst ick pH 7.5 Not Available [place] [address], [place], [address], 03/22/2024 13:06:08 03/22/19 25 03/22/2024 urina lysis , dipst ick Specific [place] 1.015 Not Available [facility] kena [address], [place], [address], 03/22/2024 13:06:08 03/22/19 25 03/22/2024 urina lysis , dipst ick Ketone - Not Available [place] [address], [place], [address], 03/22/2024 13:06:08 03/22/19 25 03/22/2024 urina lysis , dipst ick Bilirubin - Not [facility] [address], [place], [address], 03/22/2024 13:06:08 03/22/19 25 03/22/2024 urina lysis , dipst ick Glucose - Not Available [place] [address], [place], [address], 03/22/2024 13:06:08 03/22/19 25 03/22/2024 urina lysis , dipst ick Appearance Clear Not Available [facility] [address], [place], [address], 03/22/2024 13:06:08 03/22/19 25 03/22/2024 urina lysis , dipst ick Color Clear Not Available [place] [address], [place], [address], 03/22/2024 13:06:08 03/22/19 25 03/22/2024 pregn gaby test, urine HCG negati ve Not Available [place] [address], [place], [address], 03/22/2024 13:08:37 03/23/19 25 03/23/2024 US, trans vagin al No observ ation record ed. [email or web address] [place] [address], [place], [address], 03/23/2024 18:08:59 03/23/19 25 03/23/2024 US, trans vagin al No observ ation record ed. [email or web address] [facility] [address], [place], [address], 03/29/2024 17:57:52 Result Notes None recorded. Problems Name Problem SNOMED Code Status Onset Date Resolution Date Notes Provider Name and Address Organization Details Recorded Time Acute vaginitis 85484468 Completed 201607/24/2020 Acute vulvovagi nitis;Rec orded Elsewhere : No Locati on: [facility] So urce: EHR Chron ic: N Practic e ID: [id number] Bill able Time: 08:45:00 AM Deya Spaulding [facility] 1 16:38:19 Removal of intrauter ine device Completed 201407/24/2020 REMOVAL OF IUD;Recor ded Elsewhere : No Locati on: [facility] So urce: EHR Chron ic: N Practic e ID: [id number] Bill able Time: 10:45:00 AM Deya Spaulding [facility] 16:38:23 Disorder of perineum Completed 201607/24/2020 Condyloma acuminatu m;Recorde d Elsewhere : No Locati on: [facility] So urce: EHR Chron ic: N Practic e ID: [id number] Bill able Time: 09:45:00 AM Deya Spaulding [facility] 1 16:38:26 Specializ ed medical examinati on Completed 201407/24/2020 Gynecolog ical Examinati on;Record ed Elsewhere : No Locati on: [facility] So urce: EHR Chron ic: N Practic e ID: [id number] Bill able Time: 01:00:00 PM Deya Spaulding [facility] 1 16:38:25 Adult health examinati on Completed 201407/24/2020 ROUTINE MEDICAL EXAM;Kenny rded Elsewhere : No Locati on: [facility] So urce: EHR Chron ic: N Practic e ID: [id number] Bill able Time: 01:00:00 PM Deya Spaulding [facility] 1 16:38:21 Problem Notes None recorded. Procedures Surgical History Date Name Laterality Status Provider Name and Address Organization Details Recorded Time 04/27/19 25 LAPAROSCOPIC OVARIAN CYSTECTOMY (SURG) completed Christie Flores [facility] 04/28/2024 09:22:12 12/17/19 24 Dilation and Curettage completed Kelli Gates [facility] 03/22/2024 12:06:19 02/19/20 23 Colposcopy completed Leti Hart [facility]- [address], [place], [address], [place] [facility] 02/18/2023 13:38:01 02/19/20 23 Colpos[address] Garcias [facility] 12/08/2023 12:55:04 01/30/20 23 Date of Last Pap Smear completed Vidya Garcias [facility] 02/18/2023 09:53:50 01/10/20 22 IUD Insertion completed Agnieszka Vivas [facility] 01/09/2022 17:33:29 09/14/[address] [facility] 01/08/2022 10:56:48 09/14/19 20 Colonoscopy [address] Chatman [facility] 08/25/2020 12:37:44 03/16/19 02 Appendectomy [address] Deya Spaulding [facility] 07/25/2020 15:13:17 Imaging Results Imaging Date Name Status LastModified by Organization Details LastModified Time 03/23/2024 US, transvaginal completed [email or web address] [address], [place], [address], 03/23/2024 18:08:59 03/23/2024 US, transvaginal completed maty [facility] [address], [place], [address], 03/29/2024 17:57:52 Procedure Notes None recorded. Medical Equipment None Reported. Allergies Allergen ID Allergen Name Allergen Category Reaction Reaction Severity Criticality Documentation Date Start Date Code Code System Note Provider Name and Address Organization Details Recorded Time 22045 acetamino phen medicatio n hives severe Not available 03/02/2020 161 RxNorm Agnieszka Sanford [facility] 3 14:24:29 92292 trazodone medicatio n dizziness severe Not available 11/24/2022 23565 RxNorm Agnieszka Sanford [facility] 3 14:24:29 16584 ibuprofen medicatio n Not available Not available Not available 11/24/2022 5640 RxNorm PT. HAS ULCER S, CANNO T TAKE [facility] 3 14:25:40 Medications Name [...] TWICE DAILY WITH MEALS FOR 5 DAYS 05/04 completed Not Available Not Available Not Available [...] MOUTH EVERY 6 HOURS NEEDED FOR PAIN active Not Available Not Available No t Available triamcino lone acetonide 0.1 % topical [...] times every day 07/25 [facility] Yes L[facility] tion: [facility] M odify By: sonya tillman DateTime [...] Prescrib ed Elsewher e: No Locat ion: [facility] M odify By: [email or web address] tz Encou nter DateTime : 05/05/19 01:00:00 PM Not Available Not Available Not Available Creon 36,000 unit-114, 000 unit-180, 000 unit capsule,d elayed release TK 2 CS PO QID WITH MEALS AND/OR SNACKS 11/24 completed Not Available Not Available Not Available [facility] 120 mg tablet,ex tended release TAKE 1 TABLET BY MOUTH EVERY 12 HOURS NEEDED FOR NASAL CONGESTI ON 09/06 /2023 completed Not Available Not Available Not Available [...] Updated DateTime 03/22/2024 167.64 cm 22.4 kg/m2 22792.9 g 105 mm[Hg] 71 mm[Hg] Kelli Gates [facility] 5 11:57:35 Date Recorded Body height Body mass index (BMI) Body weight Systolic blood pressure Diastolic blood pressure Provider Name and Address Organization Details Last Updated DateTime 04/08/2024 167.64 cm 22 kg/m2 71534.56 g 117 mm[Hg] 79 mm[Hg] [facility] 5 10:21:33 Date Recorded Body height Body mass index (BMI) Body weight Systolic blood pressure Diastolic blood pressure Provider Name and Address Organization Details Last Updated DateTime 05/04/2024 167.64 cm 22.3 kg/m2 75750.75 g 134 mm[Hg] 75 mm[Hg] [facility] 5 12:31:38 Social History Question Answer Notes LastModified by Organizat ion Details LastModified Time Tobacco Smoking Status Current Every Day Smoker [facility] 11/24/2022 14:24:43 Do You Have An Advance Directive? No Information n ot available 11/24/2022 Are You Blind Or Do You Have Difficulty Seeing? No Information n ot available 07/24/2020 What Is Your Level Of Caffeine Consumption? Moderate Information not available 07/24/2020 How Much Tobacco Do You Chew? None Information not available 11/24/2022 In The 14 Days Before Symptom Onset, Have You Had Close Contact With A Laboratory-confirm ed COVID-19 While That Case Was Ill? No [email or web address] Information n ot available 08/25/2020 In The 14 Days Before Symptom Onset, Have You Had Close Contact With A Person Who Is Under Investigation For COVID-19 While That Person Was Ill? No [email or web address] Information not available 08/25/2020 Have You Been To An Area Known To Be High Risk For COVID-19? No [email or web address] Information not available 08/25/2020 Are You Deaf Or Do You Have Serious Difficulty Hearing? No Information not available 07/24/2020 What Type Of Diet Are You Following? REGULAR Information n ot available 11/24/2022 What Is The Highest Grade Or Level Of School You Have Completed Or The Highest Degree You Have Received? [id number] Information not available 11/24/2022 Are There Any Guns Present In Your Home? Yes Information not available 11/24/2022 Have You Ever Been Counseled For Unhealthy Alcohol Use? No Information not available 11/24/2022 Do You Use Protection During Sex? No [email or web address] Information not available 11/19/2022 Do You Use Your Seat Belt Or Car Seat Routinely? Yes Information not available 07/24/2020 Do You Have Smoke And Carbon Monoxide Detectors In Your Home? Yes Information not available 07/24/2020 At What Age Did You Start Smoking Tobacco? 14 Information not available 11/24/2022 How Much Tobacco Do You Smoke? 0.25 PPD Information not available 11/24/2022 Do You Use Sunscreen Routinely? Yes Information not available 07/24/2020 Have You Used IV Drugs? No Information not available 11/19/2022 Do You Have Difficulty Walking Or Climbing Stairs? No Information not available 11/24/2022 Sex: Unknown Functional Status Question Answer Note LastModified by Organizat ion Details LastModified Time Do you use any illicit or recreational drugs? No Information not available 07/24/2020 What is your level of alcohol consumption? Occasional Information not available 07/24/2020 Are you able to walk? YESWOREST Information not available 07/24/2020 Are you able to care for yourself? 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 No Information not available 11/24/2022 What is your exercise level? Moderate Information not available 07/24/2020 Mental Status Question Answer Note LastModified by Organization D etails LastModified Time Do you feel stressed (tense, restless, nervous, or anxious, or unable to sleep at night)? [id number] Information not available 11/24/2022 Family History Relationship Description Onset Age of this Age Resolved Age Notes LastModified by Organization Details LastModified Time Mother Asthma Not available 01/2021 16:39:52 Mother Diabetes mellitus Not available 2020 16:40:07 Father Diabetes mellitus Not available 2020 16:40:07 Father Malignant neoplasm of urinary bladder [email or web address] Not available 2023 11:32:18 Father Malignant tumor of colon Not available 07/26 12:39:09 Father Malignant tumor of stomach [email or web address] Not available 2023 11:32:18 Father Malignant neoplasm of prostate [email or web address] Not available 2023 11:32:18 Sister Disorder of thyroid gland Not available 2020 16:40:54 Sister Malignant neoplasm of uterus [email or web address] Not available 07/26 12:40:23 Sister Endometrial carcinoma [email or web address] Not available 11/19 11:38:33 Maternal Aunt Disorder of thyroid gland Not available 2020 16:40:54 Maternal Aunt Polyp of colon [email or web address] Not available 2023 11:32:18 Maternal Aunt Amyotrophic lateral sclerosis [email or web address] Not available 2024 12:05:10 Maternal Grandfather Malignant tumor of kidney Not available 2023 11:32:18 Paternal Grandfather Malignant tumor of colon [email or web address] Not available 07/26 12:39:09 Medical History Condition Response Allergies (Food, seasonal, environmental ) Y Other Y Blood Transfusion N Drug/Latex Allergies/Reactions Y Breast Cancer N Dermatologic Disorders N Lung [...] Statement/Question Response Flow Heavy Date of LMP 05/01/2024 N Was last menstrual period normal Y [...] Pap Smear 01/29/2023 Sexual Problems? N LMP [id number]|2024-07-28 10:45:25|2024-07-28 10:45:25|[email or web address]||||"Anes - Initial Pre Proc Eval Procedure: Operation Date: 07/28/24 11:30 Proposed Procedures p Esophagogastroduodenoscopy EGD - Bryce Olvera MD Date/Time: 07/28/24 10:45 Surgeon: Bryce Olvera MD Pre Op Diagnosis: Celiac disease, Epigastric pain Patient Data Age: 44 Gender: F Height: 1.7 m Weight: 65.2 kg Last Vital Signs Temp 36.2 C L 07/28/24 10:41 Pulse 61 07/28/24 10:41 Resp 19 07/28/24 10:41 BP 107/68 07/28/24 10:41 Pulse Ox 100 07/28/24 10:41 O2 Del Method Room Air 07/28/24 10:41 Allergies Allergy/AdvReac Type Severity Reaction Status Date / Time acetaminophen Allergy Mild RASH Verified 07/28/24 10:40 ibuprofen AdvReac Intermediate Ulcers Verified 07/28/24 10:40 gluten AdvReac Gastrointestinal Verified 07/28/24 10:40 Upset Milk Containing Products AdvReac Difficulty Verified 07/28/24 10:40 (Dairy) Breathing trazodone AdvReac Other Verified 07/28/24 10:40 Home Medications Medication Instructions Recorded Confirmed Type [...] months #90 caps 06/03/24 07/28/24 Rx release Laboratory Tests 07/28/24 10:41 POC Urine HCG, Qual Negative (Negative) Patient hx anesthesia problems: none Family hx anesthesia problems: none Results Review: All pre-operative results and documents have been reviewed as part of the pre-operative evaluation. 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 Gender identity (if verbalized by the patient): Female Sexual Orientation (if Verbalized by the Patient): Straight or Heterosexual Spiritual care concerns: No Anes - Eval Final PreProcedure Day of Procedure 07/28/24 10:45 Patient weight: normal Heart: regular rate and rhythm Lungs: clear to auscultation Airway: Mallampati scale class II Neurological: alert and oriented Last oral intake: >/= 8 hours ASA classification: III Emergent: no Anesthetic plan: proceed Anesthesia type and monitoring: general GIVS and standard monitoring Results Review: All pre-operative results and documents have been reviewed as part of the pre-operative evaluation. Informed Consent: The patient's anesthetic plan and its attendant risks and benefits were discussed with the patient/family/POA. Questions were solicited and answers provided to the satisfaction of the patient/family/POA."
[2024-07-28 10:41] VITALS: BP 107/68; PULSE 61; RESP 19; TEMP 36.2; O2SAT 100
[2024-07-28 10:44] LABS: BEDSIDEPREGUCG Negative (Negative)
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
[2024-07-28] MEDS: LACTATED RINGERS 1,000 ML 150 ML IV CONT (10:49)
--- NOTE | 2024-07-28 10:58 | P.HP_ITS ---
History of Present Illness History of Present Illness Consent: Risks, benefits, and alternatives have been discussed and questions answered. Patient agrees to proceed with procedure. Chief complaint: Celiac disease, Epigastric pain Narrative: Fernanda Duron is a 44 year old female here for egd, she has known celiac on gluten free diet, also intermittent epigastric pain on omeprazole, last EGD can not rule out Coles's Review of Systems Review of Systems: All systems reviewed & are unremarkable except as noted in HPI and below PMFSH Past Medical History Medical History Encounter for screening colonoscopy Epigastric pain GERD (gastroesophageal reflux disease) Chronic pelvic pain syndrome in female Celiac disease Ulcer Irritable bowel syndrome Migraine Anxiety Allergies Asthma on prn albuterol I Viral exanthem Surgical History Surgical History Status post appendectomy History of esophageal surgery H/O colonoscopy Family History Family History Father , From prostate cancer, stomach cancer, bladder cancer, renal cancer Diabetes mellitus Mother Diabetes mellitus Asthma Hypertension Depression Anxiety Heart disease Sibling Asthma Hypertension Anxiety Depression Heart disease Thyroid disorder Grandparent Cancer Diabetes mellitus Heart disease Social History Social History Smoking packs per day: 0.25 Smoking cigarettes per day: 5.0 Years smoked: 27 Smoking pack-years: 6.75 Smoking status: Former smoker Tobacco type: cigarettes Second hand tobacco smoke exposure: Yes Alcohol intake: current Alcohol use details: 4 /YR Substance use: current Substance use type: marijuana Other substance usage details: Daily Last use: daily Lack of Transportation: No Lack of Food: Sometimes True Current Housing: I Have Housing Concerned About Future Housing: No Difficulty Paying Gas/Electric Bills: No Difficulty Paying for Meds: No Currently Unemployed: No Education: High School Diploma/GED Difficulty w/ Childcare or Family Care: No Living arrangements: with family Occupation/Education: occupation 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 Gender identity (if verbalized by the patient): Female Sexual Orientation (if Verbalized by the Patient): Straight or Heterosexual Spiritual care concerns: No Meds Home Medications and Allergies Home Medications Medication Instructions Recorded Confirmed Type aspirin 81 mg tablet,delayed 81 mg PO DAILY 04/14/24 07/28/24 History release (Adult Low Dose Aspirin) vit no.95-ferrous 1 tablet PO DAILY 04/14/24 07/28/24 History fumarate 28 mg-folic acid 800 mcg tablet () rimegepant 75 mg disintegrating 75 mg PO ONCE PRN migraine headache 04/14/24 07/28/24 History tablet (Nurtec ODT) tramadol 50 mg tablet 50 mg PO Q6H PRN pain #20 tabs 04/27/24 07/19/24 Rx omeprazole 40 mg capsule,delayed 40 mg PO DAILY 3 months #90 caps 06/03/24 07/28/24 Rx release Allergies Allergy/AdvReac Type Severity Reaction Status Date / Time acetaminophen Allergy Mild RASH Verified 07/28/24 10:40 ibuprofen AdvReac Intermediate Ulcers Verified 07/28/24 10:40 gluten AdvReac Gastrointestinal Verified 07/28/24 10:40 Upset Milk Containing Products AdvReac Difficulty Verified 07/28/24 10:40 (Dairy) Breathing trazodone AdvReac Other Verified 07/28/24 10:40 Vital Signs Vital Signs - 24 hr 07/28/24 10:41 Temperature 97.1 F L Pulse Rate 61 Respiratory Rate 19 Blood Pressure 107/68 Pulse Oximetry 100 Oxygen Delivery Room Air Exam Const: General: comfortable and no acute distress HENMT: Face/Nose/Sinus: Normal nares present Eyes: General: appearance normal, both eyes and all related structures Neck: Neck: no JVD Resp: Auscultation: clear to auscultation bilaterally Cardio: Rate: regular rate Rhythm: regular rhythm GI: Inspection: non-distended GI Palp: Yes Soft to palpation Skin: General skin exam: normal color Neuro: General: gait normal Speech: normal speech Extrem: General: normal to inspection Psych: Mental Status: mental status grossly normal Assessment and Plan Assessment and plan (1) Celiac disease: Code(s): K90.0 - Celiac disease Status: Acute Assessment and Plan: egd with bx (2) GERD (gastroesophageal reflux disease): Code(s): K21.9 - Gastro-esophageal reflux disease without esophagitis Status: Acute (3) Epigastric pain: Code(s): R10.13 - Epigastric pain Status: Acute
[2024-07-28 11:05] VITALS: BP 111/69; PULSE 82; RESP 22; O2SAT 99
[2024-07-28 11:14] VITALS: BP 104/62; PULSE 66; RESP 16; O2SAT 100
[2024-07-28 11:24] VITALS: BP 111/69; PULSE 82; RESP 23; O2SAT 100
== END 2024-07-28 11:36 | disposition home or self-care (01) ==
PROVIDERS: Anesthesiology; PCP Internal Medicine; Visit Provider Internal Medicine Gastroenterology
PROC: 0DJ08ZZ Inspection of Upper Intestinal Tract, Via Natural or Artificial Opening Endoscopic (ICD-10-PCS; CPT 43239; principal; 2024-07-28 11:30)
DX: K21.9 Gastro-esophageal reflux disease without esophagitis (principal); K90.0 Celiac disease; Z87.891 Personal history of nicotine dependence; F12.90 Cannabis use, unspecified, uncomplicated
CPT/HCPCS: 43239; 88305; J2704; J7120

== ENCOUNTER 2024-10-05 12:42 | Emergency (ER) | payer OTHER, SELFPAY ==
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
--- OUTSIDE RECORDS SUMMARY | 2024-10-05 12:45 | XMS_ITS | Clinical Summary ---
Author Organization [facility] [place] Address [address] [place] [address] Care Team Providers Care Rat Culturist Name Role Phone Vladimir Napoles DO Primary Care Provider [phone] Allergies Active Allergy Reactions Criticality Noted Date Comments Acetaminophen Rash,Hives High 11/09/2018 Ibuprofen Other (See comments),Unknown Low 09/28/2020 ulcers ibuprofen Trazodone Fatigue,Dizziness High 08/01/2021 Medications clonazePAM (KlonoPIN) [...] FOR PAIN 08/29/19 21 Active [facility] albuterol HFA () 90 mcg/actuation inhaler Inhale [...] mouth every other day 16 tablet 5 08/12/19 25 Active Hospital, Clinic, or Other Facility Administered Medication Ordered Dose Route Frequency Start Date End Date Status onabotulinumtoxin A (BOTOX) 200 unit injection 200 UnitsIndications:Intractabl e chronic migraine without aura and without status migrainosus 200 Units OTHER Once 09/15/2024 09/15/2024 Ended Active Problems Problem Noted Date Diagnosed [...] Overview (10/12/2023): Acute vulvovaginitis;Recorded Elsewhere: No Location: [facility] Source: EHR Chronic: N Practice ID: [id number] Billable Time: 08:45:00 AM Acute gastritis 05/28/2015 Acute sinusitis 07/27/2014 Headache 11/09/2013 Low back pain 11/09/2013 Skin sensation disturbance 11/09/2013 Encounters Date Type Department Care Team Description 09/15/2024 10:00 AM CDT Procedure visit [facility] [address] [place] [address] [place] [phone] Mindy Dewey NP Intractable chronic migraine without aura and without status migrainosus 09/12/2024 Telephone [facility] [address] [place] [address] [place] [phone] Mindy Dewey NP 08/11/2024 10:30 AM CDT Office Visit [facility] [address] [place] [address] [place] [phone] Mindy Dewey NP Intractable chronic migraine without [...] Sign Reading Time Taken Comments Blood Pressure 98/58 08/11/2024 10:38 AM CDT Pulse 68 08/11/2024 10:38 AM CDT Temperature 37.5 C (99.5 F) 08/27/2022 11:21 AM CDT Respiratory Rate 20 08/27/2022 11:21 AM CDT Oxygen Saturation 96% 03/03/2023 11:11 AM SERVICE ORDER TAKER Inhaled Oxygen Concentration - - Weight 61.7 kg (136 lb) 09/15/2024 10:43 AM CDT Height 170 cm (5' 6.93) 09/15/2024 10:43 AM CDT Body Mass Index 21.35 09/15/2024 10:43 AM CDT Plan of Treatment Health Maintenance Due Date Last Done Comments Breast Cancer Screening-Mammogram 1982 Cervical Cancer Screening 1982 Depression Screening 1982 Hepatitis C Screening 1982 Varicella Vaccines (1 of 2 - 13+ 2-dose series) 1995 Hepatitis B Screening 2000 Regular Well Visit/Exam 18-64 2000 Pneumococcal vaccine <65 (1 of 2 - PCV) 2001 Influenza Vaccine (#1) 2024 DTaP/Tdap/Td Vaccine (2 - Td or Tdap) 01/29/2031 01/29/2021 HPV Vaccines Aged Out No longer eligi ble based on patient's age to complete this topic Procedures Procedure Name Priority Date/Time Associated Diagnosis Comments BOTOX INJECTION Routine 09/15/2024 10:00 AM CDT Intractable chronic migraine without aura and without status migrainosus from Last 3 Months Results * Botox Injection (09/15/2024 10:00 AM CDT) Narrative Lawson, Ernestina - 09/15/2024 10:00 AM CDT Ernestina Lawson 09/23/2024 10:31 AM Botox Injection Performed by: Mindy Dewey NP Authorized by: Mindy Dewey NP [place] Protocol: Consent Given by: Patient Timeout: prior to procedure the correct patient, procedure, and site was verified Procedure Details - Botox Injection: Procedure Details: See Botox flow sheet for details on injection sites and amounts. This can be found in Media and labeled [email or web address].PROCEDURE NOTES. Mindy Dewey NP IN CLINIC/BEDSIDE ORDERABLES Final Result from Last 3 Months Insurance [facility] [place] [address] [place] [address] Care Teams Rat Culturist Relationship Specialty Start Date End Date Vladimir Napoles DO PCP - General Internal Medicine 09/27/20
--- OUTSIDE RECORDS SUMMARY | 2024-10-05 12:45 | XMS_ITS | Data Portability ---
Author Organization 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 Plan of Treatment Reminders Order Date Submit Date Provider Last Modified By Organization Details Last Modified Time Details Appointments None recorded. Lab urinalysis, dipstick 2024 025 [facility], [address], [place], [address], 13:12:11 test, [facility] [address], [address], [place], [address], 13:08:43 Referral None recorded. Procedures None recorded. Surgeries laparoscopi c ovarian cystectomy (SURG) 2024 025 [facility], [address], [place], [address], 14:16:57 Imaging US, transvagina l 2024 025 [email or web address] [facility], [address], [place], [address], 21:45:30 US, pelvis, complete 2024 025 [facility], [address], [place], [address], 05:01:34 Medication Orders metronidazo le 0.75 % (37.5 mg/5 gram) vaginal gel 2024 025 [id number], [address] [facility], [place], [place], [id number], 10:21:54 Patient TargetsNo targets recorded. Patient InstructionsNo instructions recorded. Reason for Referral None Reported. Results Created Date Observation Date Name Description Value Unit Range Abnormal Flag Note LastModifiedBy Organization Detail LastModifiedTime 03/22/1903/22/2024 WOMEN 'S HEALT H SWAB PLUS, CHELLY bacterial vaginosis (bv), tma Positi ve negati ve abnormal Not Available [facility] (Lab) [address] [place], [address], 03/24/2024 08:20:49 03/22/19 25 03/22/2024 WOMEN 'S HEALT H SWAB PLUS, CHELLY compa species, tma Negati ve negati ve Not Available [facility] (Lab) [address] [place], [address], 03/24/2024 08:20:49 03/22/19 25 03/22/2024 WOMEN 'S HEALT H SWAB PLUS, CHELLY compa glabrata, tma Negati ve negati ve Not Available [facility] (Lab) [address] [place], [address], 03/24/2024 08:20:49 03/22/19 25 03/22/2024 WOMEN 'S HEALT H SWAB PLUS, CHELLY trichomonas vaginalis, tma Negati ve negati ve Not Available [facility] (Lab) [address] [place], [address], 03/24/2024 08:20:49 03/22/19 25 03/22/2024 WOMEN 'S HEALT H SWAB PLUS, CHELLY chlamydia trachomatis, PCR Negati ve negati ve Not Available [facility] (Lab) [address] [facility], [place], [address], 03/24/2024 08:20:49 03/22/19 25 03/22/2024 WOMEN 'S [...] softw are to deter mine BV posit glayds or negat gladys statu s. The Izabel [...] ded in this panel . Not Available [facility] (Lab) [address] [facility], [place], [address], 03/24/2024 08:20:49 03/22/19 25 03/22/2024 CULTU RE: URINE result report SEE RESULT S BELOW Test: Cultu re: Urine Speci men Sourc e: Urine - Clean Catch Speci men Type: Urine Speci men Date: 121 Resul t Date: 16 Resul t Statu s: Final resul t Abnor mal: No Resul ting Lab: [facility] [address] [facility] [address] Tel: CULTU RE ----- ----- ----- --- No growt h in 1 day (dete ction level of 10,00 0 colon ies / ml.) Not Available [facility] (Lab) [address], [place], [address], 03/24/2024 08:20:50 03/22/19 25 03/22/2024 urina lysis , dipst ick Leukocytes + Not Available [facility] olinda [address], [place], [address], 03/22/2024 13:06:08 03/22/19 25 03/22/2024 urina lysis , dipst ick Nitrite - Not Available [facility] [address], [place], [address], 03/22/2024 13:06:08 03/22/19 25 03/22/2024 urina lysis , dipst ick Urobilinogen - Not Available [facility]ierra [address], [place], [address], 03/22/2024 13:06:08 03/22/19 25 03/22/2024 urina lysis , dipst ick Protein trace Not Available [facility] [address], [place], [address], 03/22/2024 13:06:08 03/22/19 25 03/22/2024 urina lysis , dipst ick pH 7.5 Not Available [facility] [address], [place], [address], 03/22/2024 13:06:08 03/22/19 25 03/22/2024 urina lysis , dipst ick Specific [place] 1.015 Not Available [facility] [address], [place], [address], 03/22/2024 13:06:08 03/22/19 25 03/22/2024 urina lysis , dipst ick Ketone - Not Available [facility] [address], [place], [address], 03/22/2024 13:06:08 03/22/19 25 03/22/2024 urina lysis , dipst ick Bilirubin - Not Available [facility] isabel [address], [place], [address], 03/22/2024 13:06:08 03/22/19 25 03/22/2024 urina lysis , dipst ick Glucose - Not Available [facility] [address], [place], [address], 03/22/2024 13:06:08 03/22/19 25 03/22/2024 urina lysis , dipst ick Appearance Clear Not Available [facility] olinda [address], [place], [address], 03/22/2024 13:06:08 03/22/19 25 03/22/2024 urina lysis , dipst ick Color Clear Not Available [facility] [address], [place], [address], 03/22/2024 13:06:08 03/22/19 25 03/22/2024 pregn gaby test, urine HCG negati ve Not Available [facility] [address], [place], [address], 03/22/2024 13:08:37 03/23/19 25 03/23/2024 US, trans vagin al No observ ation record ed. [email or web address] [facility] [address], [place], [address], 03/23/2024 18:08:59 03/23/19 25 03/23/2024 US, trans vagin al No observ ation record ed. [email or web address] [address], [place], [address], 03/29/2024 17:57:52 Result Notes None recorded. Problems Name Problem SNOMED Code Status Onset Date Resolution Date Notes Provider Name and Address Organization Details Recorded Time Specializ ed medical examinati on Completed 201407/24/2020 Gynecolog ical Examinati on;Record ed Elsewhere : No Locati on: [facility] So urce: EHR Chron ic: N Practic e ID: [id number] Bill able Time: 01:00:00 PM Deya Anne [facility] 16:38:25 Adult health examinati on Completed 201407/24/2020 ROUTINE MEDICAL EXAM;Kenny rded Elsewhere : No Locati on: [facility] So urce: EHR Chron ic: N Practic e ID: [id number] Bill able Time: 01:00:00 PM Deya Anne [facility] 16:38:21 Removal of intrauter ine device Completed 201407/24/2020 REMOVAL OF IUD;Recor ded Elsewhere : No Locati on: [facility] So urce: EHR Chron ic: N Practic e ID: [id number] Bill able Time: 10:45:00 AM Deya Anne [facility] 16:38:23 Acute vaginitis [id number] Completed 201607/24/2020 Acute vulvovagi nitis;Rec orded Elsewhere : No Locati on: [facility] So urce: EHR Chron ic: N Practic e ID: [id number] Bill able Time: 08:45:00 AM Deya Anne [facility] 16:38:19 Disorder of perineum Completed 201607/24/2020 Condyloma acuminatu m;Recorde d Elsewhere : No Locati on: [facility] So urce: EHR Chron ic: N Practic e ID: [id number] Bill able Time: 09:45:00 AM Deya Anne [facility] 16:38:26 Problem Notes None recorded. Procedures Surgical History Date Name Laterality Status Provider Name and Address Organization Details Recorded Time 04/27/19 25 LAPAROSCOPIC OVARIAN CYSTECTOMY (SURG) completed Christie Flores [facility] 04/28/2024 09:22:12 12/17/19 24 Dilation and Curettage completed Kelli Gates [facility] 03/22/2024 12:06:19 02/19/20 23 Colposcopy completed Leti Hart [facility]- [address], [place], [address], [facility] 02/18/2023 13:38:01 02/19/20 23 Colposcopy completed Vidya [facility] 12/08/2023 12:55:04 01/30/20 23 Date of Last Pap Smear completed Vidya Garcias [facility] 02/18/2023 09:53:50 01/10/20 22 IUD Insertion completed Agnieszka Vivas [facility] 01/09/2022 17:33:29 09/14/19 20 completed Renetta Prieto [facility] 01/08/2022 10:56:48 09/14/19 20 Colonoscopy completed Kathy Chatman [facility] 08/25/2020 12:37:44 03/16/19 02 Appendectomy completed Deya Spaulding [facility] 07/25/2020 15:13:17 Imaging Results None recorded. Procedure Notes None recorded. Medical Equipment None Reported. Allergies Allergen ID Allergen Name Allergen Category Reaction Reaction Severity Criticality Documentation Date Start Date Code Code System Note Provider Name and Address Organization Details Recorded Time 50388 acetamino phen medicatio n hives severe Not available 03/02/2020 161 RxNorm Agnieszka staples [facility] 3 14:24:29 02512 trazodone medicatio n dizziness severe Not available 11/24/2022 13400 RxNorm Agnieszka Vivas [facility] 3 14:24:29 19567 ibuprofen medicatio n Not available Not available Not available 11/24/2022 5640 RxNorm PT. HAS ULCER S, CANNO T TAKE Agnieszka Vivas [facility] 3 14:25:40 Medications Name Sig Start [...] Prescrib ed Elsewher e: Yes Loca tion: [facility] M odify By: sonya tillman DateTime [...] Prescrib ed Elsewher e: No Locat ion: [facility] M odify By: braeden tz Encou [...] Body mass index (BMI) Body weight Systolic And Diastolic Provider Name and Address Organization Details Last Updated DateTime 03/22/2024 167.64 cm 22.4 kg/m2 50399.9 g 105/71 mm[Hg] Kelli Gates [facility] 03/22/2024 11:57:35 Date Recorded Body height Body mass index (BMI) Body weight Systolic And Diastolic Provider Name and Address Organization Details Last Updated DateTime 04/08/2024 167.64 cm 22 kg/m2 61057.56 g 117/79 mm[Hg] Vidya [facility] 04/08/2024 10:21:33 Date Recorded Body height Body mass index (BMI) Body weight Systolic And Diastolic Provider Name and Address Organization Details Last Updated DateTime 05/04/2024 167.64 cm 22.3 kg/m2 88690.75 g 134/75 mm[Hg] [facility] 05/04/2024 12:31:38 Social History Question Answer Notes LastModified by Organizat ion Details LastModified Time Tobacco Smoking Status Current Every Day [facility] 11/24/2022 14:24:43 Do You Have An [...] COVID-19 While That Case Was Ill? No [email or web address] Information n ot available 08/25/2020 In The 14 Days Before Symptom Onset, Have You Had Close Contact With A Person Who Is Under Investigation For COVID-19 While That Person Was Ill? No [email or web address] Information not available 08/25/2020 Have You Been To An Area Known To Be High Risk For COVID-19? No [email or web address] Information not available 08/25/2020 Are You Deaf Or Do You Have Serious Difficulty Hearing? No Information not available 07/24/2020 What Type Of Diet Are You Following? REGULAR Information n ot available 11/24/2022 What Is The Highest Grade Or Level Of School You Have Completed Or The Highest Degree You Have Received? [id number] Information not available 11/24/2022 Are There Any Guns Present In Your Home? Yes Information not available 11/24/2022 Have You Ever Been Counseled For Unhealthy Alcohol Use? No Information not available 11/24/2022 Do You Use Protection During Sex? No [email or web address] Information not available 11/19/2022 Do You Use [...] 07/24/2020 Have You Used IV Drugs? 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 No Information not available 11/24/2022 What is your exercise level? Moderate Information not available 07/24/2020 Mental Status Question Answer Note LastModified by Organization D etails LastModified Time Do you feel stressed (tense, restless, nervous, or anxious, or unable to sleep at night)? [id number] Information not available 11/24/2022 Family History Relationship Description Onset Age of this Age Resolved Age Notes LastModified by Organization Details LastModified Time Mother Asthma Not available 01/2021 16:39:52 Mother Diabetes mellitus Not available 2020 16:40:07 Father Diabetes mellitus Not available 2020 16:40:07 Father Malignant neoplasm of urinary bladder [email or web address] Not available 2023 11:32:18 Father Malignant tumor of colon [email or web address] Not available 07/26 12:39:09 Father Malignant tumor of stomach [email or web address] Not available 2023 11:32:18 Father Malignant neoplasm of prostate [email or web address] Not available 2023 11:32:18 Sister Disorder of thyroid gland Not available 2020 16:40:54 Sister Malignant neoplasm of uterus [email or web address] Not available 07/26 12:40:23 Sister Endometrial carcinoma [email or web address] Not available 11/19 11:38:33 Maternal Aunt Disorder of thyroid gland Not available 2020 16:40:54 Maternal Aunt Polyp of colon [email or web address] Not available 2023 11:32:18 Maternal Aunt Amyotrophic lateral sclerosis [email or web address] Not available 2024 12:05:10 Maternal Grandfather Malignant tumor of kidney [email or web address] Not available 2023 11:32:18 Paternal Grandfather Malignant tumor of colon [email or web address] Not available 07/26 12:39:09 Medical History Condition [...] SNOMED-CT Code Diagnosis ICD10 Code Diagnosis Note [id number] Leti Hart , [facility] [address] [address] 07/25/2020 14:33:52 07/25/2020 16:01:42 Gynecologic examination 24660619 Z01.419 Take Calcium with Vitamin D 1200mg [...] if desired. Pap/hpv/st d updated Irregular periods 238346 07 N92.6 TVUS to be updated Has a lot of other health issues & doesn't want to miss anything. [id number] Rufino Rodriguez MD [facility] [address] [address] 08/02/2020 14:50:31 08/02/2020 15:10:27 Abnormal uterine bleeding 7954143027 9100 N93.9 [id number] Leti Hart [facility] [address] [address] 08/25/2020 12:25:44 08/25/2020 17:11:53 Chronic pelvic pain of female 538524479 R10.2 N94.12 TVUS reviewed & WNL Hx [...] I have recommende d Women's health PT --[facility] location. Order & informatio n given. SHe is [...] this patient s visit, including available hand teacher drama upon arrive, temperatur e check and being asked a series of screening questions. All staff wore face coverings during this encounter, as well as provided additional cleaning and sanitizing of all surfaces, including countertop s, pens, chairs, door handles, light switches, etc, prior to and following the patient s visit. [id number] MAUREEN Bailey [facility] [address] [address] 01/08/2022 10:46:02 01/08/2022 12:32:37 Contraception care management 984160523 Z30.9 We discussed all BC options in-depthDi [...] counseling and review of plan of care. [id number] Rufino Rodriguez MD [facility] [address],[place] [address] 01/09/2022 17:16:11 01/13/2022 22:57:58 Screening procedure 55465501 Z13.9 Stenosis of cervix 84000 006 N88.2 Patient presents for IUD insertion. IUD could not be inserted. Endocervix could not be passed. Multiple attempts were made with the os finder and a dilator. We discussed treatment options. We agreed to hysterosco pic assisted insertion. Diagnostic hysterosco py and IUD insertion will be performed. Diagnosis of the endocervix for cervical stenosis will be performed. [facility] management 355704454 Z30.9 [id number] Rufino Rodriguez MD [facility] [address],[place] [address] 11/07/2022 10:01:58 11/07/2022 11:31:42 Threatened miscarriage 59158253 O20.0 Z3A.01 [id number] Rufino Rodriguez MD [facility] [address],[place] [address] 11/19/2022 10:56:44 11/19/2022 13:54:56 Threatened miscarriage 76849448 O20.0 Z3A.01 [id number] Jie Wolff CNM [facility] [address],[place] [address] 11/19/2022 10:57:11 11/19/2022 12:13:32 Threatened miscarriage 33642809 O20.0 check labs, precaution s wants another confirmati on plan us thursday with dr. rodriguez [id number] Rufino Rodriguez MD [facility] [address],[place] [address] 11/24/2022 13:53:30 11/24/2022 14:43:49 Missed miscarriage 79937159 O02.1 Z3A.01 [id number] Rufino Rodriguez MD [facility] [address],[place] [address] 11/24/2022 13:54:01 11/24/2022 15:24:29 Missed miscarriage 67208091 O02.1 Z3A.01 this patient is a 42 [...] ce. Patient is considerin g treatment options. [id number] Rufino Rodriguez MD [facility] [address],[place] [address] 12/16/2022 10:29:51 12/16/2022 11:15:36 Missed miscarriage 85991382 O02.1 Z3A.01 this patient is a 42 [...] ce. Patient is considerin g treatment options. [id number] Rufino Rodriguez MD [facility] [address],[facility] [place] [address] 12/16/2022 10:30:03 12/16/2022 11:43:37 Bacterial vaginosis 583900089 N76.0 Complete miscarriage 156 512462 O03.9 patient is a 42-year-ol d female [...] face-to-fa ce. More than 50% was counseling [id number] Leti Hart , [facility] [address] [address] 01/29/2023 12:41:24 01/29/2023 16:05:07 Gynecologic examination 26033884 Z11.51 Z11.8 Z11.3 Take Calcium with Vitamin [...] Screen naRoutine Labs PCP Screening mammography 24 902765 Z12.31 Faxed Vaginitis 07398279 N76.0 Suspect BVRx sent Counseled on medication R/B's, Most common side effects, & use. All questions were answered to patient satisfacti on. Contracept ion care management 399459134 Z30.9 Discussed all control options in great [...] read and signed. Pt verbalized understand ing. Slcarmined samples givenRTO x 3mos med check [id number] [facility] [address] [address] 02/18/2023 10:05:35 02/18/2023 13:51:50 Screening procedure 05011855 Z13.9 Low grade squamous intraepithelial lesion on cervical Papanicolaou smear 3535494430 9105 R87.612 See procedure notes.Post -procedure instructio ns reviewed with understand ing verbalized .Will contact with results & next steps in plan of care. Counseled on Pap/HPV guidelines /Testing/R esults with understand ing verbalized .All questions answered to patient satisfacti on. Booklet & additional resources regarding pap smear/HPV/ Pap results given. https://ww w.cancer.g ov/types/c ervical/un derstandin g-abnormal -hpv-and-p ap-test-re sults/unde rstanding- cervical-c hanges.pdf [id number] Rufino Rodriguez MD [facility] [address],[place] [address] 12/08/2023 11:32:00 12/08/2023 12:39:07 Uterine size for dates discrepancy 279189755 O26.841 Z3A.01 [id number] Rufino Rodriguez MD [facility] [address],[place] [address] 12/08/2023 11:32:43 12/09/2023 09:37:48 Peptic ulcer 65670010 K27.9 Amenorrhea 67895474 N91. 2 this patient is a 43-year-ol [...] begin routine care at her next visit. [id number] Rufino Rodriguez MD [facility] [address] [address] 12/17/2023 10:30:04 12/17/2023 10:59:23 Missed miscarriage 61855020 O02.1 Z3A.01 this patient is a 42 [...] ce. Patient is considerin g treatment options. [id number] Rufino Rodriguez MD [facility] [address],[facility] [place] [address] 12/17/2023 10:47:04 12/17/2023 11:42:21 Missed miscarriage 93862569 O02.1 Z3A.01 This patient is a 43 [...] 30 minutes in total on her care [id number] Rufino Rodriguez MD [facility] [address] [address] 12/30/2023 14:14:00 12/30/2023 15:06:13 Missed miscarriage 74636698 O02.1 Z3A.01 this patient presents for follow-up on missed miscarriag e. She is 1 week from a suction D&C. She is recovering normally. Her bleeding is minimal. She has no foul-smell ing vaginal discharge. She denies any nausea, vomiting, fever, chills. We discussed contracept ion. We discussed future . She will follow up for a repeat test. [id number] Rufino Rodriguez MD [facility] [address] [address] 01/12/2024 11:24:24 01/12/2024 11:41:09 Missed miscarriage 28566964 O02.1 Venereal d isease screening 838717741 Z11.3 [id number] MAUEREN Bailey [facility] [address] [address] 03/22/2024 11:46:38 03/22/2024 13:35:27 Vaginal discharge 692187082 N89.8 vaginitis/ STI panel sent todayurine cx [...] to patient satisfacti on. Pain in pelvis 01274922 R10.2 Venereal d isease screening 653721750 Z11.3 Vaginal odor 542197019 N 89.8 Urinary symptoms 1258026 08 R39.9 [id number] Rufino Rodriguez MD [facility] [address] [address] 03/23/2024 15:00:08 03/23/2024 15:53:01 Pain in pelvis 32286149 R10.2 [id number] Rufino Rodriguez MD [facility] [address],[facility] [address] 04/08/2024 10:03:38 04/08/2024 11:19:51 Pain in pelvis 26671422 R10.2 Cyst of right ovary 1223 603306 6085805 N83.201 this patient is a 43-year-ol d [...] there is risk of hemorrhage and infection. [id number] Rufino Rodriguez MD [facility] [address] [address] 04/27/2024 10:14:18 04/28/2024 09:39:49 [id number] Rufino Rodriguez MD [facility] [address],[facility] [place] [address] 05/04/2024 12:21:22 05/04/2024 13:14:29 Postoperative care 587953401 Z48.89 patient is a 44-year-ol d female presents for postop follow-up. She had a laparoscop ic bilateral ovarian cystectomy . She is recovering normally. Her incisions are clean dry and intact. We reviewed pathology. She denies any nausea, vomiting, fever, chills. She denies any chest pain or shortness of breath to follow-up as needed Health Concerns Section Related Observation LastModified by Organization Detai ls LastModified Time None Recorded Concern Status LastModified by Organization Details LastModified Time None Recorded Advance Directives Directive N: Payers Insurance Date Sequence Insurance Name Policy Number Policy Handley Covered Member ID Handley Member ID Guarantor Name 05/01/2024 1 [facility] (MEDICAID HMO) [id number] Crystal Buskirk [id number] Crystal Buskirk 12/04/2023 1 [place] [facility] Crystal Buskirk [id number] Crystal Buskirk 12/04/2023 1 [facility] - DOS PRIOR TO 2020 (MEDICAID REPLACEMENT - HMO) Crystal Buskirk [id number] Crystal Buskirk 12/04/2023 1 [place] [facility] [id number] Crystal Buskirk [id number] Crystal Buskirk 12/05/2023 1 [facility] (MEDICAID HMO) [id number] Crystal Buskirk [id number] Crystal Buskirk 12/04/2023 1 [facility] - DOS ON OR AFTER 20 (MEDICAID REPLACEMENT - HMO) Crystal Buskirk [id number] Crystal Buskirk 12/17/2023 1 [place] [facility] Crystal Buskirk [id number] Crystal Buskirk Notes Date Note Type Note Provider Name and Address Organization Details Recorded Time 03/22/2024 text/html 43yopresents for vaginal d/c, odor, pelvic painwhite/clear vaginal discharge, odor comes and goesbilateral pelvic cramping, feels randomly throughout the week. Worse on her periodrecently SA with new partner LMP 12/1h/o d&C for MAB 12/2023h/o +chlamydia 11/2023, repeat testing negative 12/2023 neg n/v/fneg flu-like symptomsneg urinary symptoms MAUREEN Bailey [address], [place], [address], [place] [facility] 03/22/2024 13:10:03 04/08/2024 text/html this patient [...] infection. Rufino Rodriguez MD [address], [place], [address], [facility] 04/27/2024 12:14:21 05/04/2024 text/html patient is a 44-year-old female presents for postop follow-up. She had a laparoscopic bilateral ovarian cystectomy. She is recovering normally. Her incisions are clean dry and intact. We reviewed pathology. She denies any nausea, vomiting, fever, chills. She denies any chest pain or shortness of breath to follow-up as needed Rufino Rodriguez MD [address], [place], [address], [facility] 05/04/2024 13:00:05 OBGyn Episode Ob Episode Information Episode Created Date Number of Fetuses Patient Bloodtype Patient rh Status Prepregnancy Weight lbs Domestic Partner Domestic Partner Phone Father Name Brim Molder Status 07/25/19 21 1 CLOSED Fetus Data [...] Domestic Partner Domestic Partner Phone Father Name Brim Molder Status 11/20/19 23 1 CLOSED Fetus Data First Name Last Name Admitted to NICU Weight (g) Sex Living Outcome Pediatric Complications Fetus ID Race Codes Race Delivery Type , Spontane ous [id number] Сергей Calculation Initial Сергей Date Initial Exam [...] Domestic Partner Domestic Partner Phone Father Name Brim Molder Status 12/30/19 24 1 CLOSED Fetus Data First Name Last Name Admitted to NICU Weight (g) Sex Living Outcome Pediatric Complications Fetus ID Race Codes Race Delivery Type , Spontane ous [id number] Сергей Calculation Initial Сергей Date Initial Exam [...]
--- OUTSIDE RECORDS SUMMARY | 2024-10-05 12:45 | XMS_ITS | Clinical Summary ---
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 GUNFIRE SPOTTER Inhaled Oxygen Concentration - - Weight 61.2 kg (135 lb) 04/14/2023 4:50 PM 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 SPOTTER Height 170.2 cm (5' 7) 04/14/2023 4:50 PM NAVAL G[employer] SP[employer]TER Body Mass Index 21.14 04/14/2023 4:50 PM NAVAL G[employer] SPOTTER Plan of Treatment Health Maintenance Due Date Last Done Comments Annual Physical 1985 Hepatitis C 2000 Hepatitis B Vaccines (1 of 3 - 19+ 3-dose series) 2001 Pneumococcal Vaccine: Pediatrics (0 to 5 Years) and At-Risk Patients (6 to 49 Years) (1 of 2 - PCV) 2001 HPV Vaccines (1 - 3-dose SCDM series) 2009 Mammogram Screening 2022 COVID-19 Vaccine ( season) 2023 Cervical Cancer Screening Pap Smear (Age 30 to 64) Every 3 Years 01/29/2026 01/29/2023, 01/29/2023, 01/29/2023, Additional history exists Cervical Cancer Screening Pap with HPV Testing (Age 30 to 64) Every 5 Years 01/30/2028 01/29/2023, 01/29/2023, 07/25/2020 Cervical Cancer Screening with HPV 01/30/2028 DTaP, Tdap and Td Vaccines (2 - Td or Tdap) 01/29/2031 01/29/2021 Meningococcal B Vaccine Aged Out No l onger eligible based on patient's age to complete this topic Meningococcal Vaccine Aged Out No tio heahter eligible based on patient's age to complete this topic RSV Immunizations Under 20 Months Aged Out No longer eligible based on patient's age to complete this topic Insurance [employer] Advance Directives Documents on File Type Date Recorded Patient Gunner Mate Expl anation Legal Documents 07/25/2020 10:42 AM RECVD & CMPLTD ATTY REQ. FOR BILLS FOR [facility] FOR [employer] Care Teams Rotary Drill Rig Operator Relationship Specialty Start Date End Date Vladimir Napoles DO [address] [place] [address] PCP - General INTERNAL MEDICINE 12/12/20
--- OUTSIDE RECORDS SUMMARY | 2024-10-05 12:45 | XMS_ITS | Clinical Summary ---
Author Organization [facility] Address [address] [place] [address] Care Team Providers Care Jewel Bearing Driller Name Role Phone Graciela Rosenbaum MD Primary Care Provider [phone] Source Comments [facility],non-owned Affiliates and Associated Physician Practices is amultiple site organization consisting of ambulatory clinics and hospital sitesin [place], [place], [place] and [place]. This disclosure is being madepursuant to the Care Everywhere program and may not contain all information available regarding this patient. 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 Gender Identity Not on file Sexual Orientation Not on file Plan of Treatment Health Maintenance Due Date Last Done Comments LIPID TESTING 1982 MAMMOGRAM 1982 HIV SCREENING 1997 HEPATITIS C SCREENING 04/15/2000 DTAP/TDAP/TD VACCINES (1 - Tdap) 2001 HEPATITIS B VACCINE (1 of 3 - 19+ 3-dose series) 2001 PAP SMEAR 2003 HPV VACCINE (1 - 3-dose SCDM series) 2009 COVID-19 VACCINE (2023-2 5 season) 2023 DEPRESSION SCREENING 03/16/2024 INFLUENZA VACCINE (#1) 2024 ZOSTER VACCINE (1 of 2) 2032 [...] patient's age to complete this topic Insurance [facility] SELF PAY NO INSURANCE Member Subscriber Plan / Payer (Ef fective for All Dates) Name:Fernanda Duron Member ID:Not on file Relation to Subscriber:Not on file Name:MIKEFERNANDA Subscriber ID:Not on file (Home) Address: [address] [place] [id number] Payer ID:Not on file Group ID:Not on file Type:Self Pay Address: [place], [place] Care Teams Jewel Bearing Driller Relationship Specialty Start Date End Date Graciela Rosenbaum MD [address] [place] [address] PCP - General 10/10/08
--- OUTSIDE RECORDS SUMMARY | 2024-10-05 12:45 | XMS_ITS | Referral Summary ---
Author Organization [facility] Address [address] [place] [id number] Care Team Providers Care Miniature Set Constructor Name Role Phone Vladimir Napoles DO Primary Care Provider [phone] Encounters Date Type Department Care Team Description 09/15/2024 10:00 AM CDT Procedure visit [facility] [address] [place] [phone] Mindy Dewey NP Intractable chronic migraine without aura and without status migrainosus 09/12/2024 Telephone [facility] [address] [place] [phone] Mindy Dewey NP 08/11/2024 10:30 AM CDT Office Visit [facility] [address] [place] [phone] Mindy Dewey NP Intractable chronic migraine without [...] 08/29/19 21 Active [facility] albuterol HFA () 90 mcg/actuation inhaler [...] Overview (10/12/2023): Acute vulvovaginitis;Recorded Elsewhere: No Location: [facility] Source: EHR Chronic: N Practice ID: [...] CDT Oxygen Saturation 96% 03/03/2023 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 Concentration - - Weight 61.7 kg (136 lb) 09/15/2024 10:43 AM CDT Height 170 cm (5' 6.93) 09/15/2024 10:43 AM CDT Body Mass Index 21.35 09/15/2024 10:43 AM CDT Plan of Treatment Not on file Procedures Procedure Name Priority Date/Time Associated Diagnosis Comments BOTOX INJECTION Routine 09/15/2024 10:00 AM CDT Intractable chronic migraine without aura and without status migrainosus from Last 3 Months Results * Botox Injection (09/15/2024 10:00 AM CDT) Narrative Ernestina Lawson - 09/15/2024 10:00 AM CDT Ernestina Lawson 09/23/2024 10:31 AM Botox Injection Performed by: Mindy Dewey NP Authorized by: Mindy Dewey NP Naylor Protocol: Consent Given by: Patient Timeout: prior to procedure the correct patient, procedure, and site was verified Procedure Details - Botox Injection: Procedure Details: See Botox flow sheet for details on injection sites and amounts. This can be found in Media and labeled [facility].BOTOX.PROCEDURE NOTES. Mindy Dewey NP IN CLINIC/BEDSIDE ORDERABLES Final Result from Last 3 Months Insurance [facility] Care Teams Miniature Set Constructor Relationship Specialty Start Date End Date Vladimir Napoles DO PCP - General Internal Medicine 09/27/20
[2024-10-05 12:46] VITALS: BP 109/72; PULSE 72; RESP 16; TEMP 36.7; O2SAT 100
--- OUTSIDE RECORDS SUMMARY | 2024-10-05 12:49 | XMS_ITS | Continuity of Care Document ---
Author Organization [facility] Address [address] [place] [address] [place] [address] Phone Care Team Providers Care Business Project Manager Name Role Phone Napoleon Grimaldo MD Unavailable [...] Providers Copied on Encounter OFFICE/OUTPA TIENT VISIT, [facility], [address] [facility] [place], [place], [id number], tel:[phone] [facility] [place] [facility] toothache1 (chief complaint) anxiety1 (chief complaint) weight loss1 (chief complaint) Atypical facial painGeneralized Anxiety DisorderHepatomegal yAbnormal weight loss 0 Dillan Bender. [address], [address] , [place]. tel:[phone] Referring Provider: Napoleon Grimaldo, [address], [address]. tel:[phone] OFFICE/OUTPA TIENT VISIT, [facility], [address], [address], tel:[phone] [facility] Medicine headache1 (chief complaint) GERD1 (chief complaint) anxiety1 (chief complaint) weight loss1 (chief complaint) Generalized Anxiety DisorderMigraineAbn ormal weight lossGERD w/o esophagitis Oct- 0 Dillan Dawkins [address], [place], [place], [address] , [place]. tel:[phone] Referring Provider: [address], [place], [place], [address]. tel:[phone] OFFICE/OUTPA TIENT VISIT, [facility], [address], [place], [place], [address], [place] tel:[phone] [facility] [place] [facility] gastric ulcer1 (chief complaint) anxiety1 (chief complaint) headache1 (chief complaint) MigraineGeneralized Anxiety DisorderGERD w/o esophagitisHemorrho id 0 Dillan [address], [place], [place], [address] , [place]. tel:[phone] Referring Provider: [address], [place], [place], [address]. tel:[phone] OFFICE/OUTPA TIENT VISIT, [facility], [address], [place], [place], [address], [place] tel:[phone] [facility] [place] [facility] sick (chief complaint) anxiety1 (chief complaint) gastric ulcer1 (chief complaint) headache1 (chief complaint) Viral infectionDepression Chronic gastric ulcer w/o perforationMigraine Jun-3 0 Dillan [address], [place], [place], [address] , [place]. tel:[phone] Referring Provider: [address], [place], [place], [address]. tel:[phone] OFFICE/OUTPA TIENT VISIT, [facility], [address], [place], [place], [address], [place] tel:[phone] [facility] [place] [facility] sick (chief complaint) anxiety1 (chief complaint) pain1 (chief complaint) Acute bronchitisGeneraliz ed Anxiety DisorderChronic pain syndrome May- 0 Grimaldo Napoleon. [address], [place], [place], [address] , [place]. tel:[phone] Referring Provider: [address], [place], [place], [address]. tel:[phone] PREV VISIT, EST, AGE 18-39 [facility] [place] [facility], [address], [place], [place], [address], [place] tel:[phone] [facility] [place] [facility] physical1 (chief complaint) Encntr for general adult medical exam w/o abnormal findings 0 Dillan Bender. [address], [place], [place], [address] , [place]. tel:[phone] Referring Provider: [address], [place], [place], [address]. tel:[phone] OFFICE/OUTPA TIENT VISIT, [facility], [address], [place], [place], [address], [place] tel:[phone] [facility] [place] [facility] headache1 (chief complaint) anxity1 (chief complaint) GERD1 (chief complaint) GERD w/o esophagitisGenerali zed Anxiety DisorderMigraine 3-201 9 Dillan Bender. [address], [place], [place], [address] , [place]. tel:[phone] Referring Provider: [address], [place], [place], [address]. tel:[phone] OFFICE/OUTPA TIENT VISIT, [facility], [address], [place], [place], [address], [place] tel:[phone] [facility] [place] [facility] headache1 (chief complaint) Tension headache 0-201 9 Dillan Bender. [address], [place], [place], [address] , [place]. tel:[phone] Referring Provider: [address], [place], [place], [address]. tel:[phone] OFFICE/OUTPA TIENT VISIT, [facility], [address], [place], [place], [address], [place] tel:[phone] [facility] Medicine headache1 (chief complaint) MigraineTension headacheMuscle weakness 9 Dillan Bender. [address], [place], [place], [address] , [place]. tel:[phone] Referring Provider: Napoleon Grimaldo, [address], [place], [place], [address]. tel:[phone] OFFICE/OUTPA TIENT VISIT, [facility], [address], [place], [place], [address], [place] tel:[phone] [facility] HTN (chief complaint) neck pain1 (chief complaint) headache1 (chief complaint) anxiety1 (chief complaint) Generalized Anxiety DisorderMigraineEss ential (primary) hypertensionMuscle weakness 9 Dillan Bender. [address], [place], [place], [address] , [place]. tel:[phone] Referring Provider: [address], [place], [place], [address]. tel:[phone] OFFICE/OUTPA TIENT VISIT, [facility], [address], [place], [place], [address], [place] tel:[phone] [facility] [place] [facility] anxiety1 (chief complaint) headache1 (chief complaint) Generalized Anxiety DisorderMigraine 9 Dillan Bender. [address], [place], [place], [address] , [place]. tel:[phone] Referring Provider: Napoleon Grimaldo [address], [place], [place], [address]. tel:[phone] OFFICE/OUTPA TIENT VISIT, [facility], [address], [place], [place], [address], [place] tel:[phone] [facility] Medicine GI1 (chief complaint) gastric ulcer (chief complaint) Acute gastric ulcer without bleedingGastroenter itis 9 Dillan Bender. [address], [place], [place], [address] , [place]. tel:[phone] OFFICE/OUTPA TIENT VISIT, EST [facility] [place] [facility], [address], [place], [place], [address], [place] tel:[phone] [facility] Medicine anxiety1 (chief complaint) headache1 (chief complaint) MigraineGeneralized Anxiety Disorder 9 Dillan Bender. [address], [place], [place], [address] , [place]. tel:[phone] OFFICE/OUTPA TIENT VISIT, EST [facility], [address], [place], [place], [address], [place] tel:[phone] [facility] anxiety1 (chief complaint) back pain1 (chief complaint) headache1 (chief complaint) GERD1 (chief complaint) MigraineAcute gastric ulcer without bleedingGeneralized Anxiety DisorderChronic pain syndromeAbnormal weight gain 9 Dillan Bender. [address], [place], [place], [address] , [place]. tel:[phone] Referring Provider: Carlos [address], [place], [place], [address]. tel:[phone] PREV VISIT, EST, AGE 18-39 [facility], [address], [place], [place], [address], [place] tel:[phone] [facility] Medicine PHysical (chief complaint) Encntr for general adult medical exam w/o abnormal findings 9 Dillan Bender. [address], [place], [place], [address] , [place]. tel:[phone] Referring Provider: [address], [place], [place], [address]. tel:[phone] PREV VISIT, EST, AGE 18-39 [facility], [address], [place], [place], [address], [place] tel:[phone] [facility] Medicine physical (chief complaint) Encounter for general adult medical exam w abnormal findingsMigraineGen eralized Anxiety DisorderAcute gastric ulcer without bleeding 8 Dillan Bender. [address], [place], [place], [address] , [place]. tel:[phone] OFFICE/OUTPA TIENT VISIT, [facility], [address], [place], [place], [address], [place] tel:[phone] [facility] [place] [facility] Gastric ulcer1 (chief complaint) anxiety1 (chief complaint) headache1 (chief complaint) back pain1 (chief complaint) MigraineAcute gastric ulcer without bleedingChronic pain syndromeInsomnia 8 Dillan Bender. [address], [place], [place], [address] , [place]. tel:[phone] Referring Provider: [address], [place], [place], [address]. tel:[phone] OFFICE/OUTPA TIENT VISIT, [facility], [address], [place], [place], [address], [place] tel:[phone] [facility] headache1 (chief complaint) anxiety1 (chief complaint) gastric ulcer1 (chief complaint) back pain1 (chief complaint) HeadacheGeneralized Anxiety DisorderAcute gastric ulcer without bleedingChronic pain syndrome 7 Dillan Dawkins [address], [place], [place], [address] , [place]. tel:[phone] Referring Provider: [address], [place], [place], [address]. tel:[phone] OFFICE/OUTPA TIENT VISIT, [facility], [address], [place], [place], [address], [place] tel:[phone] [facility] [place] [facility] anxiety1 (chief complaint) insomnia1 (chief complaint) headache1 (chief complaint) GERD1 (chief complaint) Generalized Anxiety DisorderHeadacheAcu te gastric ulcer without bleedingInsomnia 7 Dillan Bender. [address], [place], [place], [address] , [place]. tel:[phone] Referring Provider: Carlos [address], [place], [place], [address]. tel:[phone] OFFICE/OUTPA TIENT VISIT, EST [facility], [address], [place], [place], [address], [place] [phone] [facility] [place] [facility] gastric ulcer1 (chief complaint) chest pain1 (chief complaint) anxiety1 (chief complaint) InsomniaAcute gastric ulcer without bleedingGeneralized Anxiety DisorderChest pain Sep-0 7 Dillan Bender. [address], [place], [place], [address] , [place]. [phone] Referring Provider: Carlos [address], [place], [place], [address]. tel:[phone] PREV VISIT, EST, AGE 18-39 [facility], [address], [place], [place], [address], [place] tel:[phone] [facility] PHysical (chief complaint) Encntr for general adult medical exam w/o abnormal findings Oct- 7 Dillan Bender. [address], [place], [place], [address] , [place]. [phone] Referring Provider: Carlos [address], [place], [place], [address]. tel:[phone] OFFICE/OUTPA TIENT VISIT, EST [facility], [address], [place], [place], [address], [place] tel:[phone] [facility] [place] [facility] abd pain1 (chief complaint) headache1 (chief complaint) LBP (chief complaint) Acute gastritis without bleedingLow back painHeadache May- 6 Dillan Bender. [address], [place], [place], [address] , [place]. [phone] Referring Provider: [address], [place], [place], [address]. tel:[phone] PREV VISIT, EST, AGE 18-39 [facility], [address], [place], [place], [address], [place] tel:[phone] [facility] PHysical (chief complaint) Encntr for general adult medical exam w/o abnormal findings 6 Dillan Dawkins [address], [place], [place], [address] , [place]. tel:[phone] Referring Provider: Carlos [address], [place], [place], [address]. tel:[phone] OFFICE/OUTPA TIENT VISIT, [facility], [address], [place], [place], [address], [place] tel:[phone] [facility] sick (chief complaint) headache (chief complaint) back pain (chief complaint) Other acute sinusitisDietary surveillance and counselingHeadacheL umbago 5 Dillan Dawkins [address], [place], [place], [address] , [place]. tel:[phone] Referring Provider: Carlos [address], [place], [place], [address]. tel:[phone] OFFICE/OUTPA TIENT VISIT, [facility], [address], [place], [place], [address], [place] tel:[phone] [facility] back pain (chief complaint) headache (chief complaint) Dietary surveillance and counselingLumbagoHe adacheDisturbance of skin sensation 0 4 Dillan Dawkins [address], [place], [place], [address] , [place]. tel:[phone] Referring Provider: [address], [place], [place], [address]. tel:[phone] OFFICE/OUTPA TIENT VISIT, [facility], [address], [place], [place], [address], [place] tel:[phone] [facility] [place] [facility] headache (chief complaint) back pain (chief complaint) Dietary surveillance and counselingHeadacheL umbagoDisturbance of skin sensation 4 Dill[address], [place], [place], [address] , [place]. tel:[phone] Referring Provider: Napoleon Grimaldo, [address], [place], [place], [address]. tel:[phone] PREV VISIT, NEW, AGE 18-[address] [facility], [address], [place], [place], [address], [place] tel:[phone] [facility] Medicine Physical (chief complaint) Dietary surveillance and counselingRoutine Medical ExamRoutine Medical Exam 4 Dillan Bender. [address], [place], [place], [address] , [place]. tel:[phone] Family History Family Member Type Diagnosis Age [...] findings) ordered Referral Referred To: [facility] [id number] [facility] [place]
[address], [phone] Ordered: Referrals: RO [facility]. Evaluate and treat [...] gastric ulcer. 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
--- NOTE | 2024-10-05 12:51 | ED.SKABFB ---
HPI - Skin/Abscess/Foreign Bdy General Chief complaint: Skin/Abscess/Foreign Body Stated complaint: rash Time Seen by Provider: 10/05/24 12:55 Source: patient Mode of arrival: ambulatory Limitations: no limitations History of Present Illness HPI narrative: Fernanda is a 44-year-old female patient presenting to the clinic today with complaints a itchy red raised rash on her bilateral arms. She reports symptoms started yesterday after being had a barbecue. She has a history of celiac disease in thinks she may have ate something that caused a rash. She denies any shortness of breath, chest pain, drooling, difficulty breathing, or difficulty swallowing. States the rash started on her upper arms and is now spreading to her lower arms. Has not tried any medications to treat her symptoms. Related Data Home Medications ?Medication ?Instructions ?Recorded ?Confirmed ?Last Taken ?Type aspirin 81 mg tablet,delayed 81 mg PO DAILY 04/14/24 07/28/24 07/27/24 History release (Adult Low Dose Aspirin) vit no.95-ferrous 1 tablet PO DAILY 04/14/24 07/28/24 07/27/24 History fumarate 28 mg-folic acid 800 mcg tablet () rimegepant 75 mg disintegrating 75 mg PO ONCE PRN migraine headache 04/14/24 07/28/24 Unknown History tablet (Nurtec ODT) Allergies Allergy/AdvReac Type Severity Reaction Status Date / Time acetaminophen Allergy Mild RASH Verified 10/05/24 12:55 ibuprofen AdvReac Intermediate Ulcers Verified 10/05/24 12:55 gluten AdvReac Gastrointestinal Verified 10/05/24 12:55 Upset Milk Containing Products AdvReac Difficulty Verified 10/05/24 12:55 (Dairy) Breathing trazodone AdvReac Other Verified 10/05/24 12:55 Review of Systems Review of Systems: Pertinent positives per HPI. Patient denies any fever, chills, rash, headache, visual changes, dizziness, cough, shortness of breath, chest pain, palpitations, nausea, vomiting, diarrhea, constipation, abdominal pain, or any urinary issues. [facility] Past Medical History Medical History Encounter for screening colonoscopy Epigastric pain GERD (gastroesophageal reflux disease) Chronic pelvic pain syndrome in female Celiac disease Ulcer Irritable bowel syndrome Migraine Anxiety Allergies Asthma on prn albuterol MDI Viral exanthem Surgical History Surgical History Status post appendectomy History of esophageal surgery H/O colonoscopy Family History Family History Father , From prostate cancer, stomach cancer, bladder cancer, renal cancer Diabetes mellitus Mother Diabetes mellitus Asthma Hypertension Depression Anxiety Heart disease Sibling Asthma Hypertension Anxiety Depression Heart disease Thyroid disorder Grandparent Cancer Diabetes mellitus Heart disease Social History Social History Smoking packs per day: 0.25 Smoking cigarettes per day: 5.0 Years smoked: 27 Smoking pack-years: 6.75 Smoking status: Former smoker Tobacco type: cigarettes Second hand tobacco smoke exposure: Yes Alcohol intake: current Alcohol use details: 4 /YR Substance use: current Substance use type: marijuana Other substance usage details: Daily Last use: daily Lack of Transportation: No Lack of Food: Sometimes True Current Housing: I Have Housing Concerned About Future Housing: No Difficulty Paying Gas/Electric Bills: No Difficulty Paying for Meds: No Currently Unemployed: No Education: High School Diploma/GED Difficulty w/ Childcare or Family Care: No Living arrangements: with family Occupation/Education: occupation 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 There is no relevant family history pertinent to the patient complaint. Exam Narrative: General: Well-developed, well nourished, in no apparent distress Head: Normocephalic, atraumatic Eyes: Pupils equally round and reactive to light bilaterally, EOM intact, sclera and conjunctive clear, no discharge, lids normal Ears: TMs intact and clear, ear canals clear, no drainage, grossly hearing normal. Nose: Nares patent, no discharge, no inflammation, no sinus tenderness. Mouth: Oropharynx without lesions or masses, good dentition, MMM. Neck: Supple, trachea midline, no enlargement of anterior or posterior cervical nodes, no thyroid masses or goiter palpable. Cardio: Regular rate and rhythm, s1 and s2 normal, no murmur appreciated. Resp: Clear to auscultation bilaterally anteriorly and posteriorly, no rhonchi, rales, wheezing or rubs Integumentary: [place], warm, and dry, intact without lesion, mildly raised, red, itchy rash to the upper arms and forearms bilaterally. Course Course Emergency Course: Portions of this record may have been created with voice recognition software. Level of Care: Express Care Visit Vital Signs Vital signs: Vital Signs Temperature 36.7 C 10/05/24 12:46 Pulse Rate 72 10/05/24 12:46 Respiratory Rate 16 10/05/24 12:46 Blood Pressure 109/72 10/05/24 12:46 Pulse Oximetry 100 10/05/24 12:46 Oxygen Delivery Room Air 10/05/24 12:46 Temperature 36.7 C 10/05/24 12:46 Pulse Rate 72 10/05/24 12:46 Respiratory Rate 16 10/05/24 12:46 Blood Pressure 109/72 10/05/24 12:46 Pulse Oximetry 100 10/05/24 12:46 Oxygen Delivery Room Air 10/05/24 12:46 Vital signs reviewed MDM - Skin/Abscess/Foreign Bdy MDM Narrative Medical decision making narrative: At the time of visit patient is resting comfortably on the exam table. Patient appears to be nontoxic. Patient has history of celiac disease. Was at a barbecue in thinks she may have eaten something that she is having a reaction to. Has itchy, red, mildly raised skin on bilateral upper and lower arms. Rash seems to be spreading. Denies any shortness of breath, chest pain, difficulty swallowing, difficulty breathing, or drooling. Plan: I suspect patient has dermatitis/possible allergic response possibly due to something she has eaten. History of celiac. No hives seen. Prescription for prednisone 5 day course and triamcinolone cream was sent to the pharmacy. Supportive measures were discussed with the patient and they voiced understanding discharge instructions and agrees to treatment plan. Return precautions reviewed Differential Diagnosis Differential diagnosis: Likely abscess of skin or subcutaneous tissue, viral exanthem, dermatophytosis, urticaria, herpes zoster, allergic reaction to drug, cellulitis, eczema, insect bites, impetigo, contact dermatitis and other (Allergic reaction to food) Discharge Plan Discharge Clinical Impression: Dermatitis Patient Disposition: Home Condition: Stable Instructions: Antibiotic Form, Dermatitis (ED) Additional Instructions: Apply triamcinolone cream as directed Take prednisone as directed Avoid hot showers Moisturize your skin twice daily using Cetaphil, Lubriderm, or Aquaphor Avoid scratching as this can cause a secondary infection May take Benadryl 25-50mg every 6 hours as needed for itching. Follow up with your PCP in 3-5 days if symptoms persist or sooner if they worsen Go to the Emergency Room if symptoms worsen- fever, rash spreading with treatment, shortness of breath, tongue swelling, drooling, or chest pain Patient Language: Palauan Prescriptions: New prednisone 20 mg tablet 40 mg PO DAILY 5 Days Qty: 10 0RF triamcinolone acetonide 0.1 % cream 1 applic topical BID 7 Days Qty: 30 0RF No Action omeprazole 40 mg capsule,delayed release(DR/EC) 40 mg PO DAILY 90 Days Qty: 90 3RF Nurtec ODT 75 mg tablet,disintegrating 75 mg PO ONCE PRN (Reason: migraine headache) Rx Instructions: as a single dose PNV no.95-ferrous fumarate-FA [] 28 mg iron- 800 mcg tablet 1 tablet PO DAILY aspirin [Adult Low Dose Aspirin] 81 mg tablet,delayed release (DR/EC) 81 mg PO DAILY tramadol 50 mg tablet 50 mg PO Q6H PRN (Reason: pain) Qty: 20 0RF Follow-up/Referrals: Vladimir Napoles DO [Primary Care Provider] - Time of Disposition: 12:59 Quality NIHSS Nursing Documentation ED NIHSS nursing documentation: reviewed/agree
== END 2024-10-05 13:02 | disposition home or self-care (01) ==
PROVIDERS: Emergency Provider Nurse Practitioner Family; PCP Internal Medicine
DX: L30.9 Dermatitis, unspecified (principal); Z87.891 Personal history of nicotine dependence; F12.90 Cannabis use, unspecified, uncomplicated; K90.0 Celiac disease; K21.9 Gastro-esophageal reflux disease without esophagitis; J45.909 Unspecified asthma, uncomplicated; Z79.82 Long term (current) use of aspirin
CPT/HCPCS: 99213; G0463

== ENCOUNTER 2024-11-20 12:59 | Emergency (ER) | payer OTHER, SELFPAY ==
[2024-11-20 13:03] VITALS: BP 125/88; PULSE 88; RESP 18; TEMP 36.6; O2SAT 100
--- NOTE | 2024-11-20 14:09 | ED_ITS ---
HPI - Nausea/Vomiting/Diarrhea General Chief complaint: Nausea/Vomiting/Diarrhea Stated complaint: N/V - following alcohol, c/o sweats/chills Time Seen by Provider: 11/20/24 13:09 History of Present Illness HPI Narrative: Patient is a 44-year-old female who presents to the ER with nausea and vomiting. She reports she went out drinking last night and had a total of 4 alcoholic drinks. Patient reports she got back to her house around 3:00 a.m. last night and began vomiting at 3:30 a.m.. She denies any congestion, cough, diarrhea, or recent fevers. Patient reports she is unable to keep anything down. She denies any recent consumption of contaminated food. Patient reports she does use marijuana on a daily basis. She endorses a history of celiac disease but denies any other medical history relevant to this ER visit. Related Data Home Medications ?Medication ?Instructions ?Recorded ?Confirmed ?Last Taken ?Type aspirin 81 mg tablet,delayed 81 mg PO DAILY 04/14/24 0 07/28/24 07/27/24 History release (Adult Low Dose Aspirin) vit no.95-ferrous 1 tablet PO DAILY 04/14/24 07/28/24 07/27/24 History fumarate 28 mg-folic acid 800 mcg tablet () rimegepant 75 mg disintegrating 75 mg PO ONCE PRN migr jagdish headache 04/14/24 07/28/24 Unknown History tablet (Nurtec ODT) Allergies Allergy/AdvReac Type Severity Reaction Status Date / Time acetaminophen Allergy Mild RASH Verified 11/20/24 13:19 ibuprofen AdvReac Intermediate Ulcers Verified 11/20/24 13:19 gluten AdvReac Gastrointestinal Verified 11/20/24 13:19 Upset Milk Containing Products AdvReac Difficulty Verified 11/20/24 13:19 (Dairy) Breathing trazodone AdvReac Other Verified 11/20/24 13:19 Review of Systems 2 Review of Systems: All systems reviewed & are unremarkable except as noted in HPI and below PMFSH Past Medical History Medical History Encounter for screening colonoscopy Epigastric pain GERD (gastroesophageal reflux disease) Chronic pelvic pain syndrome in female Celiac disease Ulcer Irritable bowel syndrome Migraine Anxiety Allergies Asthma on prn albuterol MDI Viral exanthem Surgical History Surgical History Status post appendectomy History of esophageal surgery H/O colonoscopy Family History Family History Father , From prostate cancer, stomach cancer, bladder cancer, renal cancer Diabetes mellitus Mother Diabetes mellitus Asthma Hypertension Depression Anxiety Heart disease Sibling Asthma Hypertension Anxiety Depression Heart disease Thyroid disorder Grandparent Cancer Diabetes mellitus Heart disease Social History Social History Smoking packs per day: 0.25 Smoking cigarettes per day: 5.0 Years smoked: 27 Smoking pack-years: 6.75 Smoking status: Former smoker Tobacco type: cigarettes Second hand tobacco smoke exposure: Yes Alcohol intake: current Alcohol use details: 4 /YR Substance use: current Substance use type: marijuana Other substance usage details: Daily Last use: daily Lack of Transportation: No Lack of Food: Sometimes True Current Housing: I Have Housing Concerned About Future Housing: No Difficulty Paying Gas/Electric Bills: No Difficulty Paying for Meds: No Currently Unemployed: No Education: High School Diploma/GED Difficulty w/ Childcare or Family Care: No Living arrangements: with family Occupation/Education: occupation 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 HEAD: Normocephalic, atraumatic. NECK: Supple. No adenopathy, no masses. RESPIRATORY: Airway patent, respirations nonlabored. Clear to auscultation bilaterally, no rales, rhonchi, wheezing. CARDIOVASCULAR: Regular rate and rhythm without murmurs, rubs, or gallops. Peripheral pulses 2+ and equal bilaterally. ABDOMINAL: Soft, nontender, nondistended, no hepatosplenomegaly. Normoactive BS. MUSCULOSKELETAL: Moves all extremities. Strength/ROM intact without gross deformities. SKIN: Warm, dry, normal color. No rashes. NEURO: A&O X3. Speech clear. Cranial nerves II-XII intact. No ataxic movements. PSYCHIATRIC: Appropriate mood and affect. Normal interaction. Course Vital Signs Vital signs: Vital Signs Temperature 36.6 C 11/20/24 13:03 Pulse Rate 88 11/20/24 13:03 Respiratory Rate 18 11/20/24 13:03 Blood Pressure 125/88 11/20/24 13:03 Pulse Oximetry 100 11/20/24 13:03 Oxygen Delivery Room Air 11/20/24 13:03 Temperature 36.6 C 11/20/24 13:03 Pulse Rate 88 11/20/24 13:03 Respiratory Rate 18 11/20/24 13:03 Blood Pressure 125/88 11/20/24 13:03 Pulse Oximetry 100 11/20/24 13:03 Oxygen Delivery Room Air 11/20/24 13:03 MDM - Nausea/Vomiting/Diarrhea MDM Narrative Medical decision making narrative: Patient is a 44-year-old female who presents to the ER with nausea and vomiting. She reports she went out drinking last night and had a total of 4 alcoholic drinks. Patient reports she got back to her house around 3:00 a.m. last night and began vomiting at 3:30 a.m.. She denies any congestion, cough, diarrhea, or recent fevers. Patient reports she is unable to keep anything down. She denies any recent consumption of contaminated food. Patient reports she does use marijuana on a daily basis. She endorses a history of celiac disease but denies any other medical history relevant to this ER visit. Labs Ordered: CBC, CMP, UA, UDS, lipase Imaging Ordered: None necessary (patient's abdomen nontender) Medications Ordered: 1 L normal saline IV bolus, Benadryl 25 mg IV, Reglan 10 mg IV Results: Patient's CBC indicates white blood cell count of 11.8. Her CMP indicates a chloride of 108, AST of 37. Patient's lipase was within normal limits. Urinalysis indicates mild dehydration. Patient's UDS was positive for cannabinoids. Diagnosis: Gastroenteritis, mild dehydration, cannabinoid hyperemesis Differential Diagnosis Differential diagnosis: Likely food poisoning, gastroenteritis, drug-induced nausea and vomiting and dehydration Lab Data Attestation: I reviewed the patient's lab results. 11/20/24 14:21 11/20/24 14:21 Labs: Lab Results 11/20/24 11/20/24 11/20/24 Range/Units 14:21 14:49 15:30 WBC 11.8 H (4.5-10.0) K/mm3 RBC 4.72 (4.2-5.4) M/mm3 Hgb 14.6 (12.0-15.0) g/dL Hct 43.6 (37.0-47.0) % MCV 92.4 (80-100) fl MCH 30.9 (26-34) pg MCHC 33.5 (32-36) g/dl RDW 13.0 (11.5-14.5) % Plt Count 184 (150-375) k/mm3 MPV 11.4 H (7.4-10.4) fl Immature Gran % (Auto) 0.3 (0-0.5) % Neut % (Auto) 86.9 H (45.5-73.1) % Lymph % (Auto) 7.6 L (18.3-44.2) % [place] % (Auto) 4.5 (2.6-8.5) % Eos % (Auto) 0.2 (0-4.4) % Baso % (Auto) 0.5 (0.2-1.2) % Lymph # (Auto) 0.89 L (0.9-3.2) K/mm3 [place] # (Auto) 0.5 (0.1-0.6) K/mm3 Eos # (Auto) 0.0 (0-0.3) K/mm3 Baso # (Auto) 0.1 (0.0-0.1) K/mm3 Abs Immat Gran (auto) 0.04 H (0.00-0.031) K/mm3 Absolute Neuts (auto) 10.2 H (1.3-6.7) K/mm3 Absolute Nucleated RBC 0.000 (0.0-0.012) K/mm3 Nucleated RBC % 0.0 (0.0-0.2) % Sodium 139 (137-145) mmol/L Potassium 4.6 (3.4-5.0) mmol/L Chloride 108 H (98-107) mmol/L Carbon Dioxide 24 (22-30) mmol/L Anion Gap 7 (4-12) mmol/L BUN 15 (7-17) mg/dL Creatinine 0.74 (0.7-1.0) mg/dL Estim Creat Clear Calc 83 ml/min Estimated GFR > 60 (59 - ) Glucose 97 (65-110) mg/dL Calcium 9.4 (8.4-10.2) mg/dL Total Bilirubin 0.5 (0.2-1.3) mg/dL AST 37 H (14-36) U/L ALT 30 (6-35) U/L Alkaline Phosphatase 86 (38-126) U/L Total Protein 7.5 (6.3-8.2) g/dL Albumin 4.5 (3.5-5.1) g/dL Lipase 29 (23-300) U/L Urine Color Yellow (Yellow) Urine Appearance Clear (Clear) Urine pH 7.5 (5.0-9.0) Ur Specific Bowen 1.020 (1.001-1.035) Urine Protein 1+ H (Negative) mg/dL Urine Glucose (UA) Negative (Negative) mg/dL Urine Ketones 3+ H (Negative) mg/dL Ur Blood (Man) Trace-intact H (Negative) Urine Nitrate Negative (Negative) Urine Bilirubin 1+ H (Negative) Urine Urobilinogen 0.2 (<2.0) mg/dL Add Ur Microanalysis Reviewed Leukocyte Esterase Rfl Negative (Negative) SHAYY/UL Urine RBC 0-2 (0-2) /hpf Urine WBC 0-5 (0-3) /hpf Ur Squamous Epith Cells None seen (Few) /hpf Urine Bacteria None seen /hpf Urine Casts 0-2 POC Urine HCG, Qual Negative (Negative) Urine Opiates Screen Negative (Negative) Urine Methadone Screen Negative (Negative) Ur Barbiturates Screen Negative (Negative) Ur Phencyclidine Scrn Negative (Negative) Ur Amphetamine Screen Pending U Benzodiazepines Scrn Negative (Negative) Urine Cocaine Screen Negative (Negative) U Cannabinoids Screen Positive A (Negative) Discharge Plan Discharge Clinical Impression: Gastroenteritis, Drug-induced nausea and vomiting, Dehydration Patient Disposition: Home Condition: Stable Instructions: Antibiotic Form, Acute Nausea and Vomiting (ED) Additional Instructions: Please return to the ER with any worsening symptoms. Follow-up with primary care provider as soon as possible. Take all medications as prescribed, including regularly scheduled medications. If your symptoms report return, please take a hot shower and apply capsaicin lotion to your abdomen. You may take Reglan if your nausea returns. Patient Language: Comoran Prescriptions: New metoclopramide HCl [Reglan] 10 mg tablet 10 mg PO Q6H PRN (Reason: nausea and vomiting) Qty: 30 0RF capsaicin [Capsaicin HP] 0.1 % cream 1 applic topical TID Qty: 42.5 0RF Rx Instructions: do not wash area for at least 30 min after application No Action prednisone 20 mg tablet 40 mg PO DAILY 5 Days Qty: 10 0RF triamcinolone acetonide 0.1 % cream 1 applic topical BID 7 Days Qty: 30 0RF omeprazole 40 mg capsule,delayed release(DR/EC) 40 mg PO DAILY 90 Days Qty: 90 3RF Nurtec ODT 75 mg tablet,disintegrating 75 mg PO ONCE PRN (Reason: migraine headache) Rx Instructions: as a single dose PNV no.95-ferrous fumarate-FA [] 28 mg iron- 800 mcg tablet 1 tablet PO DAILY aspirin [Adult Low Dose Aspirin] 81 mg tablet,delayed release (DR/EC) 81 mg PO DAILY tramadol 50 mg tablet 50 mg PO Q6H PRN (Reason: pain) Qty: 20 0RF Follow-up/Referrals: Vladimir Napoles DO [Primary Care Provider, Internal Medicine] Time of Disposition: 16:09
[2024-11-20] MEDS: METOCLOPRAMIDE HCL INJ 10 MG/2 ML VIAL IV PUSH (14:26)
[2024-11-20] MEDS: SODIUM CHLORIDE 0.9% IV 1,000 ML 999 ML IV CONT (14:26)
[2024-11-20 14:27] LABS: Hematocrit 43.6 % (37.0-47.0); Hemoglobin 14.6 g/dL (12.0-15.0); Immature Granulocyte Percent A 0.3 % (0-0.5); Lymphocytes Absolute Auto 0.89 K/mm3 (0.9-3.2); Mean Corpuscular HGB Conc 33.5 g/dl (32-36); Mean Corpuscular Hemoglobin 30.9 pg (26-34); Mean Corpuscular Volume 92.4 fl (80-100); Nucleated Red Blood Cells Absolute Auto 0.000 K/mm3 (0.0-0.012); Nucleated Red Blood Cells Perc 0.0 % (0.0-0.2); Platelet Count Result 184 k/mm3 (150-375); Red Blood Count 4.72 M/mm3 (4.2-5.4); White Blood Count 11.8 K/mm3 (4.5-10.0)
[2024-11-20 14:38] LABS: Alanine Aminotransferase 30 U/L (6-35); Albumin Level 4.5 g/dL (3.5-5.1); Alkaline Phosphatase 86 U/L (38-126); Anion Gap 7 mmol/L (4-12); Aspartate Amino Transferase 37 U/L (14-36); Bilirubin,Total 0.5 mg/dL (0.2-1.3); Blood Urea Nitrogen 15 mg/dL (7-17); Calcium 9.4 mg/dL (8.4-10.2); Carbon Dioxide 24 mmol/L (22-30); Chloride 108 mmol/L (98-107); Estimated CRCL calculation 83 ml/min; Estimated Glomerular Filt Rate > 60; Glucose 97 mg/dL (65-110); Lipase 29 U/L (23-300); Potassium 4.6 mmol/L (3.4-5.0); Sodium 139 mmol/L (137-145); Total Protein 7.5 g/dL (6.3-8.2)
[2024-11-20 14:51] LABS: BEDSIDEPREGUCG Negative (Negative)
[2024-11-20 15:55] LABS: Appearance Urine Clear (Clear); Specific Grav Ur 1.020 (1.001-1.035)
[2024-11-20 15:56] LABS: Add Urine Microscopic? YES; Cannabinoid Screen Urine Positive (Negative); Glucose Urine UA Negative (Negative); Leukocyte Esterase Ur Negative LEU/UL (Negative); Nitrate Urine Negative (Negative)
[2024-11-20 15:59] LABS: Need Manual Microscopic Reviewed; Non Pathogenic Casts 0-2
[2024-11-20 16:24] VITALS: BP 136/86; PULSE 84; RESP 16; O2SAT 97
== END 2024-11-20 16:25 | disposition home or self-care (01) ==
PROVIDERS: Emergency Provider Registered Nurse; PCP Internal Medicine
DX: K52.9 Noninfective gastroenteritis and colitis, unspecified (principal); R11.2 Nausea with vomiting, unspecified; E86.0 Dehydration; K21.9 Gastro-esophageal reflux disease without esophagitis; F41.9 Anxiety disorder, unspecified; J45.909 Unspecified asthma, uncomplicated
CPT/HCPCS: 36415; 80053; 80307; 81001; 81025; 83690; 85025; 96361; 96374; 96375; 99284; J1200; J2765; J7030

== ENCOUNTER 2024-12-07 10:08 | Outpatient (CLI) | payer OTHER, SELFPAY ==
[2024-12-07 10:36] LABS: Hematocrit 40.8 % (37.0-47.0); Hemoglobin 13.1 g/dL (12.0-15.0); Immature Granulocyte Percent A 0.6 % (0-0.5); Lymphocytes Absolute Auto 1.12 K/mm3 (0.9-3.2); Mean Corpuscular HGB Conc 32.1 g/dl (32-36); Mean Corpuscular Hemoglobin 31.0 pg (26-34); Mean Corpuscular Volume 96.5 fl (80-100); Nucleated Red Blood Cells Absolute Auto 0.000 K/mm3 (0.0-0.012); Nucleated Red Blood Cells Perc 0.0 % (0.0-0.2); Platelet Count Result 180 k/mm3 (150-375); Red Blood Count 4.23 M/mm3 (4.2-5.4); White Blood Count 5.0 K/mm3 (4.5-10.0)
[2024-12-07 11:03] LABS: Alanine Aminotransferase 31 U/L (6-35); Albumin Level 3.8 g/dL (3.5-5.1); Alkaline Phosphatase 76 U/L (38-126); Anion Gap 3 mmol/L (4-12); Aspartate Amino Transferase 28 U/L (14-36); Bilirubin,Total 0.2 mg/dL (0.2-1.3); Blood Urea Nitrogen 17 mg/dL (7-17); Calcium 8.5 mg/dL (8.4-10.2); Carbon Dioxide 26 mmol/L (22-30); Chloride 106 mmol/L (98-107); Estimated Glomerular Filt Rate > 60; Glucose 92 mg/dL (65-110); Magnesium 2.2 mg/dL (1.6-2.3); Potassium 4.1 mmol/L (3.4-5.0); Sodium 135 mmol/L (137-145); Total Protein 6.6 g/dL (6.3-8.2)
--- OUTSIDE RECORDS SUMMARY | 2024-12-07 11:04 | XMS_ITS | Clinical Summary ---
Author Organization [email or web address] Address [address] [address] Care Team Providers Care Soloist Dancer Name Role Phone Graciela Rosenbaum MD Primary Care Provider [phone] Source Comments [facility],non-owned Affiliates and Associated Physician Practices is amultiple site organization consisting of ambulatory clinics and hospital sitesin [place], [place], [place] and [place]. This disclosure is being madepursuant to the Care Everywhere program and may not contain all information available regarding this patient. Last updated 17.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 Gender Identity Not on file Sexual Orientation Not on file Plan of Treatment Health Maintenance Due Date Last Done Comments LIPID TESTING 1982 MAMMOGRAM 1982 HIV SCREENING 1997 HEPATITIS C SCREENING 04/15/2000 DTAP/TDAP/TD VACCINES (1 - Tdap) 2001 HEPATITIS B VACCINE (1 of 3 - 19+ 3-dose series) 2001 PAP SMEAR 2003 HPV VACCINE (1 - 3-dose SCDM series) 2009 DEPRESSION SCREENING 03/16/2024 COVID-19 VACCINE ( - 2023-2 5 season) 2024 INFLUENZA VACCINE (#1) 2024 ZOSTER VACCINE (1 [...] patient's age to complete this topic Insurance [facility] SELF PAY NO INSURANCE Member Subscriber Plan / Payer (Ef fective for All Dates) Name:Fernanda Duron Member ID:Not on file Relation to Subscriber:Not on file Name:MIKEFERNANDA Subscriber ID:Not on file (Home) Address: [address] [place] [id number] Payer ID:Not on file Group ID:Not on file Type:Self Pay Address: [place], [place] Care Teams Soloist Dancer Relationship Specialty Start Date End Date Graciela Rosenbaum MD [address] [place] [address] PCP - General 10/10/08
--- OUTSIDE RECORDS SUMMARY | 2024-12-07 11:04 | XMS_ITS | Clinical Summary ---
Author Organization [facility] Address [address] [place] [address] Care Team Providers Care Supervisor Aircraft Cleaning Name Role Phone Vladimir Napoles DO Primary Care Provider [phone] Allergies Active Allergy Reactions Criticality Noted Date [...] FOR PAIN 08/29/19 21 Active [facility] albuterol HFA () 90 mcg/actuation inhaler [...] day 16 tablet 5 08/12/19 25 Active Active Problems Problem Noted Date Diagnosed [...] Elsewhere: No Location: [facility] Source: EHR Chronic: N Practice ID: [id number] Billable Time: 08:45:00 AM Acute gastritis 05/28/2015 Acute sinusitis 07/27/2014 Headache 11/09/2013 Low back pain 11/09/2013 Skin sensation disturbance 11/09/2013 Encounters Date Type Department Care Team Description 09/15/2024 10:00 AM CDT Procedure visit [facility] Neurology [address] [place] [phone] Dunajcik, Mindy, MAINTENANCE SPECIALIST Intractable chronic migraine without aura and without status migrainosus 09/12/2024 Telephone [facility] Neurology [facility] [address] [place] [phone] Mindy Dewey NP Prior Auth (Nurtec 75 MG) from Last 3 Months Surgical History Surgery [...] CDT Oxygen Saturation 96% 03/03/2023 11:11 AM DIRECT MARKETING SPECIALIST Inhaled Oxygen Concentration - - Weight [...] <65 (1 of 2 - PCV) 2001 HPV Vaccines (1 - 3-dose SCDM series) 2009 Influenza Vaccine (#1) 2024 DTaP/Tdap/Td Vaccine (2 - Td or Tdap) 01/29/2031 Procedures Procedure Name Priority Date/Time Associated Diagnosis Comments BOTOX INJECTION Routine 09/15/2024 10:00 AM CDT Intractable chronic migraine without aura and without status migrainosus from Last 3 Months Results * Botox Injection (09/15/2024 10:00 AM CDT) Narrative Ernestina Lawson - 09/15/2024 10:00 AM CDT Ernestina Lawson 09/23/2024 10:31 AM Botox Injection Performed by: Mindy Dewey NP Authorized by: Mindy Dewey NP [place] Protocol: Consent Given by: Patient Timeout: prior to procedure the correct patient, procedure, and site was verified Procedure Details - Botox Injection: Procedure Details: See Botox flow sheet for details on injection sites and amounts. This can be found in Media and labeled [facility] [email or web address].PROCEDURE NOTES. Mindy Dewey NP IN CLINIC/BEDSIDE ORDERABLES Final Result from Last 3 Months Insurance [id number] [place] [id number] [facility] Care Teams Supervisor Aircraft Cleaning Relationship Specialty Start Date End Date Vladimir Napoles DO PCP - General Internal Medicine 09/27/20
--- OUTSIDE RECORDS SUMMARY | 2024-12-07 11:04 | XMS_ITS | Clinical Summary ---
Author Organization [facility] Address [address] [place] [address] Care Team Providers Care International Banker Name Role Phone Vladimir Napoles DO Primary Care Provider [phone] Allergies Active Allergy Reactions Criticality Noted Date [...] Comments Blood Pressure 126/63 04/14/2023 4:50 PM CARBON PASTE MIXER OPERATOR Pulse 78 04/14/2023 4:50 PM CARBON PASTE MIXER OPERATOR Temperature 36.3 C (97.4 F) 04/14/2023 4:50 PM CARBON PASTE MIXER OPERATOR Respiratory Rate 18 04/14/2023 4:50 PM CARBON PASTE MIXER OPERATOR Oxygen Saturation 99% 04/14/2023 4:50 PM CARBON PASTE MIXER OPERATOR Inhaled Oxygen Concentration - - Weight 61.2 kg (135 lb) 04/14/2023 4:50 PM CARBON PASTE MIXER OPERATOR Height 170.2 cm (5' 7) 04/14/2023 4:50 PM CARBON PASTE MIXER OPERATOR Body Mass Index 21.14 04/14/2023 4:50 PM CARBON PASTE MIXER OPERATOR Plan of Treatment Health Maintenance Due Date Last Done Comments Annual Physical 1985 Hepatitis C 2000 Hepatitis B Vaccines (1 of 3 - 19+ 3-dose series) 2001 Pneumococcal Vaccine: Pediatrics (0 to 5 Years) and At-Risk Patients (6 to 49 Years) (1 of 2 - PCV) 2001 HPV Vaccines (1 - 3-dose SCDM series) 2009 Mammogram Screening 2022 COVID-19 Vaccine ( season) 2024 Cervical Cancer Screening Pap Smear (Age 30 [...] Documents on File Type Date Recorded Patient Assurance Senior Expl anation Legal Documents 07/25/2020 10:42 AM RECVD & CMPLTD ATTY REQ. FOR BILLS FOR [facility] FOR RONDA GORDILLO LAW Care Teams International Banker Relationship Specialty Start Date End Date Vladimir Napoles DO [address] [place] [address] PCP - General INTERNAL MEDICINE 12/12/20
[2024-12-07 11:18] LABS: Beta HCG Quantitative < 2.39 mIU/ML
[2024-12-07 11:19] LABS: Free T3 3.91 pg/mL (2.71-6.16); Free T4 Free Thyroxine 1.07 ng/dL (0.78-2.19)
[2024-12-07 11:32] LABS: Thyroid Stimulating Hormone 2.270 uIU/mL (0.465-4.680)
[2024-12-07 11:51] LABS: Vitamin B12 427.0 pg/mL (239-931)
== END 2024-12-07 10:09 | disposition home or self-care (01) ==
LOC: ANHLAB 10:10
PROVIDERS: PCP Internal Medicine; Visit Provider Clinical Nurse Specialist
DX: K76.0 Fatty (change of) liver, not elsewhere classified (principal); D64.9 Anemia, unspecified; G43.909 Migraine, unspecified, not intractable, without status migrainosus; K90.0 Celiac disease; K21.9 Gastro-esophageal reflux disease without esophagitis; E55.9 Vitamin D deficiency, unspecified; R53.83 Other fatigue
CPT/HCPCS: 36415; 80053; 82306; 82607; 83735; 84439; 84443; 84481; 84702; 85025

== ENCOUNTER 2025-02-06 12:30 | Emergency (ER) | payer OTHER, SELFPAY ==
[2025-02-06 12:37] VITALS: BP 117/78; PULSE 81; RESP 18; TEMP 36.7; O2SAT 99
[2025-02-06 13:59] LABS: EDSTREPNEGPOS1 Negative (Negative)
--- OUTSIDE RECORDS SUMMARY | 2025-02-06 14:17 | XMS_ITS | Clinical Summary ---
Author Organization [facility] Address [address] [place] [address] Care Team Providers Care Brush Cleaner Name Role Phone Graciela Rosenbaum MD Primary Care Provider [phone] Source Comments [facility],non-owned Affiliates and Associated Physician Practices is amultiple site organization consisting of ambulatory clinics and hospital sitesin [place], [place], [place] and [place]. This disclosure is being madepursuant to the Care Everywhere program and may not contain all information available regarding this patient. Last updated 17.[facility] Social History Tobacco Use Types Packs/Day Years Used Date Smoking Tobacco: Never Assessed Comments Unknown Sex and Gender Information Value Date Recorded Sex Assigned at Not on file Legal Sex Female 7:46 AM CASER IN Gender Identity Not on file Sexual Orientation Not on file Plan of Treatment Health Maintenance Due Date Last Done Comments LIPID TESTING 1982 MAMMOGRAM 1982 HIV SCREENING 1997 HEPATITIS C SCREENING 04/15/2000 DTAP/TDAP/TD VACCINES (1 - Tdap) 2001 HEPATITIS B VACCINE (1 of 3 - 19+ 3-dose series) 2001 Cervical Cancer Screening 2003 PAP SMEAR 2003 HPV VACCINE (1 - 3-dose SCDM series) 2009 PAP with HPV 2012 DEPRESSION SCREENING 03/16/2024 COVID-19 VACCINE ( - 2024-2 6 season) 2024 INFLUENZA VACCINE (#1) 2024 ZOSTER [...] patient's age to complete this topic Insurance [facility] SELF PAY NO INSURANCE Member Subscriber Plan / Payer (Ef fective for All Dates) Name:Fernanda Duron Member ID:Not on file Relation to Subscriber:Not on file Name:MIKEFERNANDA Subscriber ID:Not on file (Home) Address: [address] [place] [id number] Payer ID:Not on file Group ID:Not on file Type:Self Pay Address: [place], [place] Care Teams Brush Cleaner Relationship Specialty Start Date End Date Graciela Rosenbaum MD [address] [place] [address] PCP - General 10/10/08
--- OUTSIDE RECORDS SUMMARY | 2025-02-06 14:18 | XMS_ITS | Clinical Summary ---
Author Organization [facility] Address [address] [place] [address] Care Team Providers Care Automobile Rental Clerk Name Role Phone Vladimir Napoles DO Primary Care Provider [phone] Allergies Active Allergy Reactions Criticality Noted Date [...] DAY NEEDED FOR PAIN 08/29/19 21 Active [facility] albuterol HFA () 90 mcg/actuation inhaler [...] BEDTIME FOR 5 DAYS 12/17/19 23 Active metroNIDAZOLE (FLAGYL) 500 mg tablet TAKE 1 TABLET BY MOUTH TWICE DAILY WITH MEALS FOR 7 DAYS 01/30/20 23 Active erythromycin (ILOTYCIN) ophthalmic ointment 04/14/19 24 Active ofloxacin (OCUFLOX) 0.3 % ophthalmic solution 04/03/19 24 Active sulfamethoxazole- trimethoprim (BACTRIM DS) 800-160 mg per tablet Take 1 tablet by mouth 04/04/19 24 Active amoxicillin-clavu lanate (AUGMENTIN) 875-125 mg per tablet Take 1 tablet by mouth every 12 (twelve) hours for 7 days 07/10/19 24 Active methylPREDNISolon e (MEDROL DOSEPACK) 4 mg Dosepack FOLLOW PACKAGE [...] Take by mouth daily 12/08/19 24 Active ondansetron ODT (ZOFRAN-ODT) 4 mg disintegrating tablet Take 1 tablet (4 mg total) by mouth every 8 (eight) hours as needed for nausea or vomiting 20 tablet 1 01/31/20 25 Active rimegepant (Nurtec ODT) tablet,disintegra ting Take 1 tablet (75 mg total) by mouth every other day 16 tablet 11 01/31/20 25 Active ondansetron ODT (ZOFRAN-ODT) 4 mg disintegrating tablet DISSOLVE 1 TABLET ON THE TONGUE EVERY 8 HOURS 10/30/19 23 025 Discontin ued(Reord er) rimegepant (Nurtec ODT) tablet,disintegra ting Take 1 tablet (75 mg total) by mouth every other day 16 tablet 5 08/12/19 25 025 Discontin ued(Reord er) Active Problems Problem Noted Date Diagnosed Date [...] (10/12/2023): Acute vulvovaginitis;Recorded Elsewhere: No Location: [facility] Source: EHR Chronic: N Practice ID: [id number] Billable Time: 08:45:00 AM Acute gastritis 05/28/2015 Acute sinusitis 07/27/2014 Headache 11/09/2013 Low back pain 11/09/2013 Skin sensation disturbance 11/09/2013 Encounters Date Type Department Care Team Description 01/30/2025 11:00 AM BUSINESS DEVELOPMENT RECRUITER Office Visit [facility] [place] [facility] Neurology [address] [place] [address] [address] [place] [address] Mindy Dewey NP Intractable chronic migraine without aura and without status migrainosus (Primary Dx) 12/08/2024 10:00 AM CDT Procedure visit [facility] Neurology [address] [place] [address] [address] [place] [address] Mindy Dewey NP Intractable chronic migraine without [...] Sign Reading Time Taken Comments Blood Pressure 120/72 01/30/2025 11:08 AM BUSINESS DEVELOPMENT RECRUITER Pulse 68 01/30/2025 11:08 AM BUSINESS DEVELOPMENT RECRUITER Temperature 37.5 C (99.5 F) 08/27/2022 11:21 AM CDT Respiratory Rate 20 08/27/2022 11:21 AM CDT Oxygen Saturation 99% 01/30/2025 11:08 AM BUSINESS DEVELOPMENT RECRUITER Inhaled Oxygen Concentration - - Weight 61.7 kg (136 lb) 01/30/2025 11:08 AM BUSINESS DEVELOPMENT RECRUITER Height 170 cm (5' 6.93) 01/30/2025 11:08 AM BUSINESS DEVELOPMENT RECRUITER Body Mass Index 21.35 01/30/2025 11:08 AM BUSINESS DEVELOPMENT RECRUITER Plan of Treatment Health Maintenance Due Date [...] 2009 Influenza Vaccine (#1) 2024 DTaP/Tdap/Td Vaccine (3 - Td or Tdap) 01/29/2031, 03/16/2004 Procedures Procedure Name Priority Date/Time Associated Diagnosis Comments BOTOX INJECTION Routine 12/08/2024 10:00 AM CDT Intractable chronic migraine without aura and without status migrainosus from Last 3 Months Results * Botox Injection (12/08/2024 10:00 AM CDT) Narrative LawsonDevi moreiraErnestina - 12/08/2024 10:00 AM CDT Ernesitna Lawson 12/13/2024 12:04 PM Botox Injection Performed by: Mindy Dewey NP Authorized by: Mindy Dewey NP [place] Protocol: Consent Given by: Patient Timeout: prior to procedure the correct patient, procedure, and site was verified Procedure Details - Botox Injection: Procedure Details: See Botox flow sheet for details on injection sites and amounts. This can be found in Media and labeled [facility] NEURO.BOTOX.PROCEDURE NOTES. Mindy Dewey NP IN CLINIC/BEDSIDE ORDERABLES Final Result from Last 3 Months Insurance [facility] Care Teams Automobile Rental Clerk Relationship Specialty Start Date End Date Vladimir Napoles DO PCP - General Internal Medicine 09/27/20
[2025-02-06 14:22] LABS: EDUAAPPEAR Clear; EDUABILI Negative (Negative); EDUABLOOD Trace (Negative); EDUACOLOR1 Yellow; EDUAGLUCOSE Negative (Negative); EDUAKETONE Negative (Negative); EDUALEUKO Negative (Negative); EDUANITRATE Negative (Negative); EDUAPH 7.0; EDUAPROTEIN Negative (Negative); EDUASPGRAVITY 1.020; EDUAUROBILI 0.2
--- NOTE | 2025-02-06 14:25 | ED_ITS ---
HPI - URI/Sore Throat General Chief Complaint: Upper Respiratory Infection Stated Complaint: throat/ear Time Seen by Provider: 02/06/25 14:00 Source: patient and RN notes reviewed Mode of arrival: ambulatory Limitations: no limitations History of Present Illness HPI Narrative: 44-year-old female patient presents today complaining of 5 day history of sore throat and bilateral ear pain. She currently rates her pain 8/10 in the right ear and has been taking Zyrtec without much improvement. Patient is unable to take Tylenol due to allergy and cannot take NSAIDs due to history of gastric ulcers. She is also complaining of a week history of dysuria and malodorous urine. Would like to be tested for UTI. Related Data Home Medications ?Medication ?Instructions ?Recorded ?Confirmed ?Last Taken ?Type aspirin 81 mg tablet,delayed 81 mg PO DAILY 04/14/24 0 12/08/24 07/27/24 History release (Adult Low Dose Aspirin) rimegepant 75 mg disintegrating 75 mg PO ONCE PRN migr jagdish headache 04/14/24 12/08/24 Unknown History tablet (Nurtec ODT) Allergies Allergy/AdvReac Type Severity Reaction Status Date / Time acetaminophen Allergy Mild RASH Verified 12/07/24 08:52 ibuprofen AdvReac Intermediate Ulcers Verified 12/07/24 08:52 gluten AdvReac Gastrointestinal Verified 12/07/24 08:52 Upset Milk Containing Products AdvReac Difficulty Verified 12/07/24 08:52 (Dairy) Breathing trazodone AdvReac Other Verified 12/07/24 08:52 PMFSH Past Medical History Medical History Weight loss Missed COVID COVID Encounter for screening colonoscopy Epigastric pain GERD (gastroesophageal reflux disease) Chronic pelvic pain syndrome in female Celiac disease Ulcer Irritable bowel syndrome Migraine Anxiety Allergies Asthma on prn albuterol MDI Viral exanthem Surgical History Surgical History Status post appendectomy History of esophageal surgery H/O colonoscopy Family History Family History Father , From prostate cancer, stomach cancer, bladder cancer, renal cancer Diabetes mellitus Mother Diabetes mellitus Asthma Hypertension Depression Anxiety Heart disease Sibling Asthma Hypertension Anxiety Depression Heart disease Thyroid disorder Grandparent Cancer Diabetes mellitus Heart disease Social History Social History Smoking packs per day: 0.25 Smoking cigarettes per day: 5.0 Years smoked: 27 Smoking pack-years: 6.75 Smoking status: Former smoker Tobacco type: cigarettes Second hand tobacco smoke exposure: Yes Alcohol intake: current Alcohol use details: 4 /YR Substance use: current Substance use type: marijuana Other substance usage details: Daily Last use: daily Lack of Transportation: No Lack of Food: Sometimes True Current Housing: I Have Housing Concerned About Future Housing: No Difficulty Paying Gas/Electric Bills: No Difficulty Paying for Meds: No Currently Unemployed: No Education: High School Diploma/GED Difficulty w/ Childcare or Family Care: No Living arrangements: with family Occupation/Education: occupation 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 Please see nursing chart for further information. There is no relevant family history pertinent to the presenting complaint Exam Narrative: GENERAL: Well-appearing, well-nourished, and in no acute distress. HEAD: Normocephalic, atraumatic. EYES: EOMI. No redness or drainage. Conjunctivae normal. ENT: Mucous membranes pink and moist. Nares clear. No rhinorrhea. TMs normal bilaterally. Throat mildly erythematous without edema or exudate. Uvula midline. NECK: Normal AROM. Supple. No lymphadenopathy. CHEST: No respiratory distress. Clear to auscultation. HEART: Regular rate and rhythm. No murmur appreciated. ABDOMEN: Soft, nontender, nondistended, normal active bowel sounds. EXTREMITIES: Normal range of motion. No edema. SKIN: Warm, dry, no rash. Capillary refill normal. Normal skin turgor. NEURO: No focal deficits. Alert and oriented x3. Gait steady. PSYCH: Normal affect. No signs of depression or anxiety. Course Course Level of Care: Express Care Visit Vital Signs Vital signs: Vital Signs Temperature 98.0 F 02/06/25 12:37 Pulse Rate 81 02/06/25 12:37 Respiratory Rate 18 02/06/25 12:37 Blood Pressure 117/78 02/06/25 12:37 Pulse Oximetry 99 02/06/25 12:37 Oxygen Delivery Room Air 02/06/25 12:37 Temperature 98.0 F 02/06/25 12:37 Pulse Rate 81 02/06/25 12:37 Respiratory Rate 18 02/06/25 12:37 Blood Pressure 117/78 02/06/25 12:37 Pulse Oximetry 99 02/06/25 12:37 Oxygen Delivery Room Air 02/06/25 12:37 Reviewed MDM - URI/Sore Throat MDM Narrative Medical decision making narrative: 44-year-old female patient presents today complaining of 5 day history of sore throat and bilateral ear pain. She currently rates her pain 8/10 in the right ear and has been taking Zyrtec without much improvement. Patient is unable to take Tylenol due to allergy and cannot take NSAIDs due to history of gastric ulcers. She is also complaining of a week history of dysuria and malodorous urine. Would like to be tested for UTI. Upon exam, patient has mildly erythematous throat without edema or exudate. Exam is otherwise normal. Urinalysis shows trace blood but is otherwise normal. Patient's LMP was last week and her last day of her period was 2 days ago. Due to patient's symptoms of UTI will go ahead and start her on a course of Augmentin while the culture is pending. Remainder of symptoms are likely viral and should resolve on their own. Suggest Chloraseptic spray and cough drops for sore throat. Patient agrees with plan. Vital signs stable. Anticipatory guidance given. Differential Diagnosis Differential diagnosis: Likely upper respiratory infection, viral infection, pharyngitis and other (Strep throat, UTI) Lab Data Attestation: I reviewed the patient's lab results. Labs: Lab Results 02/06/25 02/06/25 Range/Units 13:57 14:19 POC Urine Color Yellow POC Urine Clarity Clear POC Urine pH 7.0 POC Ur Specif [place] 1.020 POC Urine Protein Negative (Negative) POC Ur Glucose (UA) Negative (Negative) POC Urine Ketones Negative (Negative) POC Urine Blood Trace (Negative) POC Urine Nitrite Negative (Negative) POC Urine Bilirubin Negative (Negative) POC Urine Urobilinogen 0.2 POC U Leukocyte Esteras Negative (Negative) POC Grp A Strep Screen Negative (Negative) Critical Care Time Critical Care Time Critical Care Time: No Discharge Plan Discharge Clinical Impression: Upper respiratory infection Qualifiers: URI type: unspecified URI Qualified Code(s): J06.9 - Acute upper respiratory infection, unspecified UTI (urinary tract infection) Qualifiers: Urinary tract infection type: acute cystitis Hematuria presence: with hematuria Qualified Code(s): N30.01 - Acute cystitis with hematuria Patient Disposition: Home Condition: Stable Instructions: Urinary Tract Infection in Women (DC) Additional Instructions: Your rapid strep swab was negative today at [facility]. You will be notified in a few days if the culture comes back positive for strep, and appropriate antibiotics will be called in for you at that time. Your symptoms are likely due to a viral illness, which is not treated with antibiotics. Viral symptoms can be present for up to 7-10 days. You may consider using some Chloraseptic spray or cough drops for your sore throat. Rest and stay hydrated. Follow up with your PCP in 5 days if symptoms are not improving. Go to the ER immediately if you have any difficulty breathing or swallowing. There was a bit of blood in your urine, which may signal a UTI or may be residual from your last period. Take the Augmentin as prescribed. You will be notified if your antibiotics need to be changed. Patient Language: Tristanian Prescriptions: New amoxicillin-pot clavulanate 875-125 mg tablet 1 tablet PO Q12H 5 Days Qty: 10 0RF No Action triamcinolone acetonide 0.1 % cream 1 applic topical BID 7 Days Qty: 30 0RF omeprazole 40 mg capsule,delayed release(DR/EC) 40 mg PO DAILY Qty: 90 1RF metoclopramide HCl [Reglan] 10 mg tablet 10 mg PO Q6H PRN (Reason: nausea and vomiting) Qty: 30 0RF Nurtec ODT 75 mg tablet,disintegrating 75 mg PO ONCE PRN (Reason: migraine headache) Rx Instructions: as a single dose aspirin [Adult Low Dose Aspirin] 81 mg tablet,delayed release (DR/EC) 81 mg PO DAILY Follow-up/Referrals: Vladimir Napoles DO [Primary Care Provider, Internal Medicine] Time of Disposition: 14:34
== END 2025-02-06 14:39 | disposition home or self-care (01) ==
PROVIDERS: Emergency Provider Nurse Practitioner; PCP Internal Medicine
DX: J06.9 Acute upper respiratory infection, unspecified (principal); N30.01 Acute cystitis with hematuria; F12.90 Cannabis use, unspecified, uncomplicated; K21.9 Gastro-esophageal reflux disease without esophagitis; K90.0 Celiac disease; Z86.16 Personal history of COVID-19; Z79.82 Long term (current) use of aspirin; Z87.891 Personal history of nicotine dependence
CPT/HCPCS: 81003; 87081; 87086; 87880; 99213; G0463